=== PATIENT | female | born 1950 | race Caucasian/White ===

== ENCOUNTER → 2019-03-02 | Outpatient (CLI) | payer OTHER, SELFPAY ==
[2019-02-22 15:13] VITALS: BMI 25.4
--- NOTE | 2019-03-02 12:43 | BD_ITS ---
STUDY: DUAL ENERGY X-RAY ABSORPTIOMETRY / DXA REASON FOR EXAM: Female, 68 years old. The patient is postmenopausal. Loss of height. TECHNIQUE: Bone Mineral Density (BMD) measurements of lumbar spine and right hip were obtained. Prior left hip replacement. COMPARISON: None. FINDINGS: Lumbar Spine (L1-L4): g/cm2 (0.841) / T-score (-2.8) / Z-score (-1.2) Findings are suggestive of osteoporosis with a high fracture risk. Right Femur Total: g/cm2 (0.699) / T-score (-2.4) / Z-score (-1.0) Right Femoral Neck: g/cm2 (0.656) / T-score (-2.7) / Z-score (-1.1) BD/Dexa Bone Density Study IMPRESSION: The patient is considered osteoporotic as outlined below according to World Jay Organization (WHO) criteria with a high fracture risk. Reference Information: The T-score is the number of standard deviations above or below the standard which is normal for young adults at their peak bone mineral density. The World Health Organization (WHO) interprets the T-scores as follows: Above -1 Normal bone density Between -1 and -2.5 Osteopenia Equal to / or below -2.5 Osteoporosis As a practical clinical guideline, osteopenia may be graded as follows: Mild -1 through -1.5 Moderate -1.6 through -2.0 Severe -2.1 through -2.4 The Z-score is the number of standard deviations above or below age-matched controls. A Z-score of less than -1.5 would be considered abnormal. References: 1. NIH Osteoporosis and Related Bone Diseases http://www.osteo.org 2. International Society for Clinical Densitometry http://www.iscd.org 3. National Osteoporosis Foundation http://www.nof.org Electronically Signed: Casimiro Mazariegos, at 13:08 EDT , Service support ,
--- NOTE | 2019-03-02 13:30 | RAD_ITS ---
STUDY: X-RAY CHEST REASON FOR EXAM: Female, 68 years old. Shortness of breath TECHNIQUE: Frontal and lateral views of the chest COMPARISON: None. FINDINGS: The lungs are hyperinflated, but clear. There are no pleural effusions. There is no pneumothorax. The heart is normal in size. The visualized osseous structures are within normal limits. RAD/Chest PA and Lateral IMPRESSION: No acute thoracic pathology. Electronically Signed: Alex Lockhart, at 19:15 EDT Tel , Service support ,
[2019-03-02 13:42] LABS: Cholesterol 265 mg/dL (200); High Density Lipoprotein 79 mg/dL; Triglycerides 122 mg/dL; Very Low Density Lipoprotein 24 mg/dL (5-40)
[2019-03-02 14:19] LABS: Vitamin D,25 Hydroxy 24.6 ng/mL (29.95-100.01)
== END | disposition home or self-care (01) ==
LOC: OPBD 12:36 → PAVLAB 13:07
PROVIDERS: Family Provider Family Medicine; PCP Family Medicine; Referring Provider Family Medicine; Visit Provider Family Medicine
DX: J44.9 Chronic obstructive pulmonary disease, unspecified (principal); M81.0 Age-related osteoporosis without current pathological fracture; E78.5 Hyperlipidemia, unspecified
CPT/HCPCS: 36415; 71046; 77080; 80061; 82306

== ENCOUNTER → 2019-09-13 16:24 | Outpatient (CLI) | payer OTHER, SELFPAY ==
[2019-04-05 16:04] VITALS: BMI 25.4
[2019-09-13 17:16] LABS: Vitamin D,25 Hydroxy 61.7 ng/mL (29.95-100.01)
[2019-09-13 17:22] LABS: ALB/GLOB Ratio 1.1 RATIO (0.9-2.4); AST(SGOT) 26 U/L (15-37); Alanine Aminotransfer ALT/SGPT 30 U/L (13-56); Albumin, Serum 3.9 g/dL (3.2-5.0); Alkaline Phosphatase 63 U/L (45-117); Anion Gap 9 (5-15); BUN 8 mg/dL (7-18); BUN/Creat Ratio 12.7 RATIO (10-20); Calcium,Total 9.4 mg/dL (8.5-10.1); Chloride 99 mmol/L (98-107); Cholesterol 205 mg/dL (200); Creatinine, Serum 0.63 mg/dL (0.55-1.02); EST Glomerular Filtration Rate 100 mL/min (>60); Est Glom Filt Rate - Afr Amer 121 mL/min (>60); Globulin 3.7 g/dL (2.2-4.2); Glucose 102 mg/dL (74-106); High Density Lipoprotein 103 mg/dL; Potassium 4.1 mmol/L (3.5-5.1); Protein, Total 7.6 g/dL (6.4-8.2); Sodium Level 135 mmol/L (136-145); Triglycerides 128 mg/dL; Very Low Density Lipoprotein 26 mg/dL (5-40)
== END ==
PROVIDERS: Family Provider Family Medicine; PCP Family Medicine; Referring Provider Family Medicine; Visit Provider Family Medicine
DX: E78.5 Hyperlipidemia, unspecified (principal); M81.0 Age-related osteoporosis without current pathological fracture
CPT/HCPCS: 36415; 80053; 80061; 82306

== ENCOUNTER → 2020-03-19 | Outpatient (CLI) | payer OTHER, SELFPAY ==
[2019-10-10 13:38] VITALS: BMI 25.4
[2020-03-19 18:17] LABS: Calcium,Total 9.6 mg/dL (8.5-10.1); Creatinine, Serum 0.78 mg/dL (0.55-1.02); EST Glomerular Filtration Rate 78 mL/min (>60); Est Glom Filt Rate - Afr Amer 94 mL/min (>60)
== END | disposition home or self-care (01) ==
LOC: LABSPEC 17:03
PROVIDERS: PCP Family Medicine; Referring Provider Family Medicine; Visit Provider Family Medicine
DX: M81.0 Age-related osteoporosis without current pathological fracture (principal)
CPT/HCPCS: 82310; 82565

== ENCOUNTER → 2020-10-23 14:34 | Outpatient (CLI) | payer OTHER, SELFPAY ==
[2020-04-19 13:16] VITALS: BMI 25.4
[2020-10-23 16:51] LABS: Absolute Lymphocyte Count 1.21 X10^3/uL (0.83-4.51); Absolute Neutrophil Count 4.8 X10^3/uL (2.0-7.7); Basophil# 0.07 X10^3/uL; Basophil% 1.1 % (0-1); Eosinophil# 0.07 X10^3/uL; Eosinophils% 1.1 % (0-5); Hematocrit 51.3 % (37-47); Hemoglobin 16.7 g/dL (12.0-15.0); Lymphocyte # 1.21 X10^3/ul (4.0); Lymphocyte % 18.2 % (19-41); Mean Corp Hgb Conc 32.6 g/dL (32-36); Mean Corpuscular Hgb 30.6 pg (27.0-32.0); Mean Corpuscular Volume 94.1 fL (81-99); Mean Platelet Vol. 9.6 fl (6.2-12.0); Monocyte# 0.46 X10^3/uL; Monocyte% 6.9 % (0-10); NRBC Flagged by Analyzer 0 % (0-5); Neutrophil # 4.81 X10^3/uL (2.7-7.7); Neutrophil % 72.2 % (47-70); Platelet Count 260 K/mm3 (150-450); RBC Distribution Width CV 13.6 % (11.6-14.6); RBC Distribution Width SD 47.7 fl (35.1-43.9); Red Blood Count 5.45 M/mm3 (4.2-5.4); White Blood Count 6.7 K/mm3 (4.4-11.0)
[2020-10-23 17:02] LABS: ALB/GLOB Ratio 1.2 RATIO (0.9-2.4); AST(SGOT) 26 U/L (15-37); Alanine Aminotransfer ALT/SGPT 31 U/L (13-56); Albumin, Serum 3.9 g/dL (3.2-5.0); Alkaline Phosphatase 56 U/L (45-117); Anion Gap 5 (5-15); BUN 12 mg/dL (7-18); BUN/Creat Ratio 20.9 RATIO (10-20); Calcium,Total 9.4 mg/dL (8.5-10.1); Chloride 99 mmol/L (98-107); Cholesterol 188 mg/dL (200); Creatinine, Serum 0.57 mg/dL (0.55-1.02); EST Glomerular Filtration Rate 110 mL/min (>60); Est Glom Filt Rate - Afr Amer 134 mL/min (>60); Globulin 3.3 g/dL (2.2-4.2); Glucose 88 mg/dL (74-106); High Density Lipoprotein 97 mg/dL; Protein, Total 7.2 g/dL (6.4-8.2); Sodium Level 132 mmol/L (136-145); Triglycerides 69 mg/dL; Very Low Density Lipoprotein 14 mg/dL (5-40)
== END ==
PROVIDERS: PCP Family Medicine; Visit Provider Family Medicine
DX: M81.0 Age-related osteoporosis without current pathological fracture (principal); R53.83 Other fatigue
CPT/HCPCS: 36415; 80053; 80061; 85025

== ENCOUNTER → 2020-11-28 14:38 | Outpatient (CLI) | payer OTHER, SELFPAY ==
[2020-10-30 14:29] VITALS: BMI 21.2
--- NOTE | 2020-11-28 14:39 | CT_ITS ---
STUDY: LOW DOSE CT LUNG CANCER SCREENING REASON FOR EXAM: Female, 70 years old. TOBACCO USE. 1-1.5PPD X 50 YR. COPD RADIATION DOSAGE (If Supplied By Facility): CTDIvol = ( 1.70 ) mGy, DLP = ( 63.80 ) mGycm TECHNIQUE: No contrast was administered. Low dose technique was utilized (average mAS-38 and kVp 120). 1.25 mm axial source images with a slice interval of 1.25-mm were reconstructed in lung windows. 2.5 mm axial source images with a slice interval of 2.5-mm were reconstructed in lung windows. 5.0 mm axial source images with a slice interval of 5.0-mm were reconstructed in soft tissue windows. Nodule measured using lung windows on PACS and/or independent workstation with automated measurement of minimum and maximum diameter. Nodule measurement reported as average diameter rounded to the nearest whole number. Growth is defined as an increase ins size of greater than 1.5 mm. COMPARISON: None. NODULES: No suspicious nodules are seen. Emphysema: Hyperinflation. Mild degree of emphysematous changes more prominent in the upper lobes with centrilobular emphysematous changes. Calcified granuloma in the posterior lateral aspect of the left lower lobe. Increased markings in the peripheral aspect of the left lower lobe suggestive of scarring. Aorta: Atherosclerotic calcification. Coronary arteries: Coronary artery calcification. Heart: Unremarkable. Pulmonary artery: Unremarkable. Mediastinal nodes: Small mediastinal lymph nodes. Other chest and abdominal findings: Degenerative changes of the dorsal spine. CT/Low Dose CT Lung Screening IMPRESSION: Lung-RADS category 2 - Continue annual screening with LDCT in 12 months. IMPORTANT NOTES FOR USE: ACR Lung-RADS Version 1.0 Assessment Categories Release Date: February 19, 2014 Category: Coded 0-4 bases on nodule(s) with highest degree of suspicion. Negative screen is defined as categories 1 and 2; a positive screen is defined as categories 3 and 4. Category 3 and 4A nodules that are unchanged on interval CT should be coded as category 2, and individuals returned to screening in 12 months. Category 4X: Category 3 or 4 nodules with additional imaging findings that increase the suspicion of lung cancer, such as spiculation, GGN that doubles in size in 1 year, enlarged lymph notes, etc. Category Modifiers: S (significant finding unrelated to lung cancer) and C (prior history of treated lung cancer) may be added to the 0-4 Lung-RADS Electronically Signed: Casimiro Mazariegos MD at 15:25 EST , Service support ,
== END ==
PROVIDERS: PCP Family Medicine; Referring Provider Family Medicine; Visit Provider Family Medicine
DX: J44.9 Chronic obstructive pulmonary disease, unspecified (principal); Z87.891 Personal history of nicotine dependence
CPT/HCPCS: 71271

== ENCOUNTER 2021-05-05 06:57 | Inpatient (IN) | payer MEDICARE, SELFPAY ==
[2020-10-30 14:29] VITALS: BMI 21.2
[2021-05-05] VITALS (7 sets, daily range): BP systolic 108–126; BP diastolic 40–58; PULSE 87–108; RESP 15–18; TEMP 36.9–37.3; O2SAT 93–99; BMI 21.4
--- NOTE | 2021-05-05 09:19 | HP.PCM.HOS_ITS ---
HPI - General General Date of Admission: 05/05/21 Date of Service: 05/05/21 Chief Complaint: R hip pain s/p fall HPI Narrative The patient is a 71 y/o F w/ PMHx: EtOH abuse (3-4 beers daily and occasional 1- 2 high balls if with friends in addition), HLD, Allergic Rhinitis, COPD (not on any oxygen), Tobacco use (1 ppd) who presents to the [facility] as direct admission from OSH ED on 05/05/21 with history of fall while outside on her back deck at ~ 11 pm the evening prior, noting that her had been in her house and not heard her fall. She noted laying out on the deck until she was eventually able to crawl to the door. She had upon her fall immediate severe 10/10 R hip pain, debility and obvious deformity. OSH ED evaluation included: Labs: CBC w/ WBC 13.1, Hgb 13.3, Plts 252 with mild L shift CMP w/ Na 133, K 3.8, BUN/Cr 11/0.57, glucose 123, AST/ALT 35/46 Coags w/ INR 0.9, PT 10.9 Imaging: Plain film w/ proximal R femur fracture CXR with chronic changes with COPD type changes without acute evidence of ischemia EKG: SR without acute evidence of ischemia VS: T 97.3, HR 102, BP 130/83, RR 16, 91% on RA, weight 122 lbs Of note prior to patient's transition to [facility] she was having mild tremors and there was some concern for alcohol withdrawal therefore she was administered 0.5 mg Ativan IV x1. Patient upon transition from the EMS bed to her medical surgical bed reports ongoing right hip discomfort and pain, currently given jostled 10 out of 10 in severity, sharp, worse with any attempted movement. [facility] Medical History Alcohol abuse Arthritis Bone fracture COPD (chronic obstructive pulmonary disease) Frequent headaches Glaucoma History of pneumonia Osteoporosis Post-menopausal Seasonal allergies Smoker Home Medications calcium carbonate 200 mg calcium (500 mg) chewable tablet 200 mg PO BID PRN tab 02/17/19 [History Last Taken Unknown] loratadine 10 mg tablet 5 mg PO PRN PRN 02/17/19 [History Last Taken Unknown] multivitamin 1 cap PO DAILY 02/17/19 [History Last Taken 05/04/21] albuterol sulfate 90 mcg/actuation aerosol inhaler 1 puff INHALATION Q6H PRN #18 g 10/30/20 [Rx Last Taken Unknown] cranberry 400 mg capsule 400 mg PO DAILY 10/30/20 [History Last Taken 05/04/21] Bifidobacterium infantis [Align] 4 mg PO DAILY 05/05/21 [History Last Taken 05/04/21] aspirin [Aspirin Low Dose] 81 mg PO DAILY 05/05/21 [History Last Taken 05/04/21] atorvastatin 20 mg PO DAILY 05/05/21 [History Last Taken 05/04/21 11:30] budesonide-formoterol [Symbicort] 2 inh INHALATION Q12H 05/05/21 [History Last Taken 05/04/21 22:00] cholecalciferol (vitamin D3) 5,000 unit PO DAILY 05/05/21 [History Last Taken 05/04/21] denosumab [Prolia] 60 mg SC Q4COHDLN 05/05/21 [History Last Taken Unknown] mirabegron [Myrbetriq] 50 mg PO DAILY 05/05/21 [History Last Taken 05/04/21] tiotropium bromide [Spiriva Respimat] 2 puff INHALATION DAILY 05/05/21 [History Last Taken 05/04/21 07:30] Allergy/AdvReac Type Severity Reaction Status Date / Time clindamycin Allergy Severe c diff Verified 05/05/21 09:51 acrylic Allergy Intermediate rash Uncoded 05/05/21 09:51 Family History (Updated 05/05/21 @ 12:[address] Eula Marsh MD) Mother Myocardial infarction Hyperlipemia Father Myocardial infarction Hyperlipemia Other Arthritis Breast cancer CVA (cerebral vascular accident) Osteoporosis Thyroid disorder Surgical History (Updated 05/05/21 @ 12:[address] Eula Marsh MD) History of hip replacement History of tonsillectomy Normal colonoscopy Social History (Updated 05/05/21 @ 12:[address] Eula Marsh MD) household members: spouse Smoking Status: Current every day smoker tobacco type: cigarettes Smoking packs per day: 1 Smoking cigarettes per day: 20.0 Years smoked: 53 Smoking pack-years: 53.00 alcohol intake: current alcohol intake frequency: 3 or more drinks per day details: Patient reports currently 3-4 beers daily and if with friends 1-2 high ball substance use type: does not use what type of physical activity do you participate in: none ROS ROS Narrative Admission Review of Systems: CONSTITUTIONAL: No weight loss, fever, chills, + weakness or fatigue. HEENT: Eyes: No visual loss, blurred vision, double vision or yellow sclerae. Ears, Nose, Throat: No hearing loss, sneezing, congestion, runny nose or sore throat. SKIN: No rash or itching, lesions, wounds. CARDIOVASCULAR: No chest pain, chest pressure or chest discomfort, palpitations, edema, orthopnea, syncopal events. RESPIRATORY: + Chronic cough, occasional wheezing, no marked shortness of breath, sputum, hemoptysis. GASTROINTESTINAL: No anorexia, nausea, vomiting or diarrhea, abdominal pain, melena, BRBPR. GENITOURINARY: No dysuria, frequency, urgency or retention. NEUROLOGICAL: No headache, dizziness, syncope, paralysis, ataxia, numbness or tingling in the extremities, focal weakness, change in bowel or bladder control, seizure. MUSCULOSKELETAL:+ muscle, back pain, joint pain or stiffness. HEMATOLOGIC: No anemia, bleeding or bruising. LYMPHATICS: No enlarged nodes. No history of splenectomy. PSYCHIATRIC: No history of depression or anxiety. ENDOCRINOLOGIC: No reports of sweating, cold or heat intolerance. No polyuria or polydipsia. ALLERGIES: + history of asthma, hives, eczema or rhinitis. Vital Signs Vital Signs Vital Signs: Weight Body Mass Index (BMI) 21.2 Physical Exam Narrative Physical Examination: General: Awake, alert, oriented x 3 and cooperative, laying in the medical surgical bed, uncomfortable especially with recent transition off of the EMS cot, fatigued. Skin: Normal color, normal turgor, no icterus, no cyanosis except occasional staged ecchymoses. HEENT: AT/NC, EOMI, PERRLA, moderately dry MM, no carotid bruits or JVD noted. Lungs: Diminished, greater bases, occasional expiratory wheeze but mild, no e vidence of any distress, no rales or rhonchi. Heart: Regular rate and rhythm; no gallop, rub audible. Abdomen: Soft, thin habitus, NTTP, ND, distant normal BS, no HSM. Extremities: No cyanosis, no clubbing, evident externally rotated right lower extremity, peripheral pulses intact, extremities warm, some mild edema to the right ankle. Neurological: Patient awake, alert, oriented as noted, cognitive function intact although is currently fatigued; pupils equally reactive to light and accommodation, cranial nerves II-XII grossly normal, moving all extremities except limited right lower extremity movement secondary to mechanical fall with right hip fracture, strength accordingly severely global decrease. Psychiatric: Affect appears fatigued, uncomfortable, no acute evidence of depressive or anxiety feelings. Assessment & Plan Assessment/Plan (1) Closed right hip fracture: QUALIFIERS: Encounter type: initial encounter Qualified Code(s): S72.001A - Fracture of unspecified part of neck of right femur, initial encounter for closed fracture PLAN: The patient is a 71 y/o F w/ PMHx: EtOH abuse, HLD, Allergic Rhinitis, COPD, Tobacco use who presents to the [facility] as direct admission from OSH ED on 05/05/21 with history of fall while outside on her back deck at ~ 11 pm the evening prior with intractable right hip pain. debility and deformity. 1. General debility, R hip pain s/p mechanical fall w/ proximal R femur fracture: Orthopedic surgery consulted from ED at OSH, discussed case with them prior to her transition and upon her arrival. Will admit to MS, maintain NPO after midnight given planned 05/06/21 surgical intervention per discussion with Dr. Morgan, continue gentle IVFs, obtain TSH, Mag level, bowser placement, monitor I/Os, frequent positioning, fall precautions, type and screen, pain, anti-emetic regimen. PT/OT following operative intervention. CM consulted for discharge planning. NSQIP with acceptable risk for operative intervention. EKG without acute findings. Continue EtOH withdrawal care and treatment as noted. Denies any routine dyspnea, chest discomfort. Discussed with Dr. Morgan and agree with OR progression. 2. EtOH abuse with impending concern EtOH Withdrawal: Given OSH ED elevated CIWA scores and need for ativan, to be cautious given likely SNF needs with acute presentation, will initiate and continue on protocol with taper course of Phenobarbital with hold for sedation, as well as gabapentin for seizure prophylaxis, as needed Catapres, Bentyl, Vistaril, IV fluids, IV antiemetics, Tylenol. Will consult Case management for her acute presentation as well as substance abuse. Maintain on MVI, thiamine and folic acid. Mag, phos pending. CIWA protocol concurrently. 3. Chronic COPD with allergic rhinitis: We will hold any home inhalers and in the interim continue ATC duonebs, PRN albuterol, HOB, IS parameters, continue as needed loratadine. 4. Tobacco Abuse: Encouraged cessation, inpatient consultation per RT, NR if desired. 5. Hyperlipidemia: Continue home statin regimen. 6. DVT prophylaxis: SCDs, defer chemoprophylaxis given planned operative intervention. 7. CODE status: Patient LUAN is her and living will is currently in place. Discussed CODE status at length including difference between FULL code, DNR-CCA and DNR-CC status. Following discussions about the differences in these status, requested Full Code status. Patient does specifically report that she did not want any prolonged measures if her quality of life would be low and discussed that alterations to her current full CODE STATUS would then taken to affect this especially given her living will. Advanced Care Planning Face to Face Time: 16 minutes. Charges/Coding Visit Charges Inpatient E&M: 40824 Init Hosp L3 Procedures Hospitalists Procedures: 71788 Advncd Care Plan 30 Min
[2021-05-05 09:55] LABS: Prothrombin Time (Protime)PT. 12.2 SECONDS (11.7-14.9)
[2021-05-05 09:56] LABS: Partial Thromboplast Time 32.2 Seconds (24.1-36.2)
[2021-05-05 10:14] LABS: Phosphorus 3.4 mg/dL (2.5-4.9)
[2021-05-05] MEDS: oxyCODONE 5 MG Tablet PO ×2 (10:23→16:47)
[2021-05-05] MEDS: Ipratropium/Albuterol Sulfate 3 ML AMPUL.NEB INHALATION ×2 (10:45→19:45)
[2021-05-05 10:52] LABS: Magnesium 1.8 mg/dL (1.6-2.6); Thyroid Stim Hormone (TSH) 2.65 uIU/mL (0.358-3.74)
[2021-05-05] MEDS: Phenobarbital 32.4 MG Tablet 97.2 MG PO ×3 (13:37→21:01)
[2021-05-05] MEDS: Famotidine 20 MG Tablet PO ×2 (13:37→21:01)
[2021-05-05] MEDS: HYDROmorphone 0.5 MG/0.5 ML SYRINGE IV ×2 (13:50→20:27)
[2021-05-05] MEDS: 0.9% Saline Lock 10 ML Syringe IV (13:50)
--- NOTE | 2021-05-05 14:49 | CASEMGMT ---
Social Work Note SW received referral for Substance Abuse/Use (pt drinks 3-4 drinks daily). Pt new admit today. SW attempted to meet with pt, pt currently sleepy, unable to participate, asked for SW to follow up with pt tomorrow. SW to meet with pt tomorrow. Shanita Abrams WARD NURSE, AIRPLANE PILOT SUPERVISOR
[2021-05-05] MEDS: Thiamine Hydrochloride 100 MG Tablet PO (18:14)
[2021-05-05] MEDS: 0.9% Normal Saline 1,000 ML 100 ML IV (18:14)
[2021-05-05] MEDS: Gabapentin 300 MG Capsule PO (21:01)
[2021-05-05] MEDS: traZODone 50 MG Tablet PO (21:01)
[2021-05-05] MEDS: Atorvastatin Calcium 20 MG Tablet PO (21:01)
[2021-05-06] VITALS (19 sets, daily range): BP systolic 105–152; BP diastolic 42–77; PULSE 85–108; RESP 14–24; TEMP 36.6–37.7; O2SAT 85–99; BMI 21.4
[2021-05-06] MEDS: Phenobarbital 32.4 MG Tablet 97.2 MG PO ×2 (01:54→05:53)
[2021-05-06] MEDS: 0.9% Normal Saline 1,000 ML 100 ML IV (03:59)
[2021-05-06] MEDS: HYDROmorphone 0.5 MG/0.5 ML SYRINGE IV (04:04)
--- NOTE | 2021-05-06 06:00 | EKG12_ITS ---
Test Reason : PRE-OP Blood Pressure : / mmHG Vent. Rate : 103 BPM Atrial Rate : 103 BPM P-R Int : 118 ms QRS Dur : 100 ms QT Int : 354 ms P-R-T Axes : 086 082 075 degrees QTc Int : 463 ms Sinus tachycardia Right atrial enlargement Borderline ECG Confirmed by DARNELL HARO, SONNY ([id number]), development editor RAJ SHANNON ([id number]) on 05/07/2021 11:54:51 AM Referred By: JODIE QUIROZ Confirmed By:SONNY PATRICK MD
--- NOTE | 2021-05-06 06:14 | PCM.PN.HOSP ---
Subjective Subjective Patient overnight with mild tachycardia, oxygenation increased requirements and low-grade temperature. Patient noted to be significantly sedate therefore as discussed with staff phenobarbital protocol was discontinued for sedation with continued as needed Ativan for any withdrawal concerns. Patient still complaining of some hip discomfort and did have overnight 2 doses of pain medication. Given these findings chest x-ray was obtained and did have patchy bibasilar infiltrates worse on the left lung base with chronic COPD changes and urinalysis was obtained and concerning for UTI. Urine culture is pending. Patient was initiated on IV Rocephin with requested urine antigens, respiratory viral panel, sputum culture and Covid testing given planned operative intervention and worsened status. Patient does state that she has some difficulties coughing secondary to her severe fatigue and weakness. Patient denies chills, nausea, emesis, abdominal pain, chest pain or marked dyspnea despite current presentation. Objective Data Objective Data Vital Signs: Vital Signs Temp Pulse Resp BP Pulse Ox 99.4 F H 102 H 18 121/46 H 93 05/06/21 05:58 05/06/21 05:58 05/06/21 05:58 05/06/21 05:58 05/06/21 05:58 Oxygen Flow Rate (L/min) 2 Oxygen Delivery Method Nasal Cannula Weight: 125 lb 3.561 oz Body Mass Index (BMI) 21.4 Intake & Output: Intake and Output for Last 24 Hours 05/04/21 05/05/21 05/06/21 23:59 23:59 23:59 Intake Total 1000 / 2700 2705 / 2705 Output Total 475 / 2025 3050 / 3050 Balance 525 / 675 -345 / -345 Lab / Micro Data Result Diagrams: 05/06/21 05:47 05/06/21 05:47 Labs: Laboratory Results - last 24 hr 05/05/21 09:32: PT 12.2, INR 1.0, APTT 32.2 05/05/21 09:32: Magnesium 1.8, TSH 2.65 05/05/21 09:32: Blood Type A NEGATIVE, Antibody Screen NEGATIVE 05/05/21 09:32: Phosphorus 3.4 Physical Exam Narrative Physical Examination: General: Patient is very fatigued but does awaken to questioning, intermittently alert, able to answer orientation questions appropriately including self, place, recent events, president and month, laying the medical surgical bed, reports that she does have some difficulty successfully coughing because of her position and that it is easier for when she is seated upright but her current positioning remains laying down secondary to the hip fracture, awaiting OR. Skin: Normal color, normal turgor, no icterus, no cyanosis except occasional staged ecchymoses. HEENT: AT/NC, EOMI, PERRLA, moderately dry MM. Lungs: Diminished, greater bases, no wheezing currently, mildly rhonchorous, left greater than right base, no obvious rales and no significant wheezing, no marked respiratory rate increased. Heart: Mildly tachycardic with regular rhythm; no gallop, rub audible. Abdomen: Soft, thin habitus, NTTP, ND, distant normal BS, no HSM. Extremities: No cyanosis, no clubbing, evident externally rotated right lower extremity, peripheral pulses intact, extremities warm, some mild edema to the right ankle. Neurological: Patient is very fatigued but does awaken to questioning, intermittently alert, able to answer orientation questions appropriately including self, place, recent events, president and month, cognitive function decreased from day prior, fatigued; pupils equally reactive to light and accommodation, cranial nerves II-XII grossly normal, moving all extremities except limited right lower extremity movement secondary to mechanical fall with right hip fracture, strength accordingly severely global decrease. Psychiatric: Affect appears fatigued, no acute evidence of depressive or anxiety feelings. Assessment & Plan Assessment/Plan (1) Closed right hip fracture: QUALIFIERS: Encounter type: initial encounter Qualified Code(s): S72.001A - Fracture of unspecified part of neck of right femur, initial encounter for closed fracture PLAN: The patient is a 71 y/o F w/ PMHx: EtOH abuse, HLD, Allergic Rhinitis, COPD, Tobacco use who presents to the [facility] as direct admission from OSH ED on 05/05/21 with history of fall while outside on her back deck at ~ 11 pm the evening prior with intractable right hip pain. debility and deformity. 1. General debility, R hip pain s/p mechanical fall w/ proximal R femur fracture: Orthopedic surgery consulted from ED at OSH, discussed case with them prior to her transition and upon her arrival. Will admit to MS, maintain NPO after midnight given planned 05/06/21 surgical intervention per discussion with Dr. Morgan, continue gentle IVFs, obtain TSH, Mag level, bowser placement, monitor I/Os, frequent positioning, fall precautions, type and screen, pain, anti-emetic regimen. PT/OT following operative intervention. CM consulted for discharge planning. 2. Pneumonia, BL, L>R, Possible Aspiration component with Hypoxia: Chest x-ray with patchy bibasilar infiltrates worse on the left lung base, low-grade temperature, no marked CBC elevation or left shift, to be cautious given remarkable urine as started on IV zosyn given possible aspiration given lethargy pending ST evaluation, request sputum culture, urine antigens, respiratory viral panel and given planned OR Covid status, continue aerosols, as needed albuterol, head of bed once allowed and encourage I-S. Encourage frequent coughing. 3. Acute Urinary Tract Infection: UA upon remarkable, pending UCx, continue IVFs, monitor I/Os, continue IV zosyn given concern for aspiration component with #[address] evaluation as noted w/ transition as able pending sensitivities and speciation and ST evaluation performed. 4. EtOH abuse w/ concern for EtOH Withdrawal: Given OSH ED elevated CIWA scores and need for ativan, to be cautious given likely SNF needs with acute presentation, had initiated on protocol of Phenobarbital; however, given lethargy and possible aspiration will d/c and have only PRN CIWA protocol. Case management consulted for substance abuse. Maintained on MVI, thiamine and folic acid. Mag, phos normal. CIWA protocol concurrently. 5. Chronic COPD with allergic rhinitis: We will hold any home inhalers and in the interim continue ATC duonebs, PRN albuterol, HOB, IS parameters, continue as needed loratadine. #2 complicated by underlying lung disease. 6. Chronic anemia, normocytic: Unclear exact timeline, OSH ED CBC w/ Hgb 13.3, decreased 05/06/21 10.7, MCV normal range, possibly dilution given hydration over the last 24 hours and acute fracture as noted, continue to trend. 7. Tobacco Abuse: Encouraged cessation, inpatient consultation per RT, NR if desired. 8. Hyperlipidemia: Continue home statin regimen. 9. DVT prophylaxis: SCDs, defer chemoprophylaxis given planned operative intervention. 10. CODE status: Full Code. Charges/Coding Visit Charges Inpatient E&M: 93566 Subs Hosp L3
--- NOTE | 2021-05-06 06:30 | RAD_ITS ---
STUDY: X-RAY CHEST REASON FOR EXAM: Female, 71 years old. Dyspnea, fever TECHNIQUE: Single AP portable view of the chest. COMPARISON: Comparison is made with prior study dated 05/05/2021. FINDINGS: There is hyperinflation of the lungs consistent with chronic obstructive lung disease (COPD). Patchy bibasilar infiltrates worse on the left side. Follow-up is recommended. There is no demonstrated pleural abnormality. Normal size heart. Normal mediastinum and kirsten. Normal visualized pulmonary arteries. There is atherosclerotic calcification of the aortic arch with tortuosity. There are diffuse degenerative changes of the visualized thoracic spine. Normal visualized ribs, clavicles, and shoulders. There is no demonstrated abnormality of the visualized soft tissue structures of the upper abdomen. RAD/Chest 1 View (Portable) IMPRESSION: Patchy bibasilar infiltrates worse on the left lung base. Follow-up is recommended. Electronically Signed: Casimiro Mazariegos MD at 8:13 EDT , Service support ,
[2021-05-06 06:34] LABS: Absolute Lymphocyte Count 0.87 X10^3/uL (0.83-4.51); Absolute Neutrophil Count 4.6 X10^3/uL (2.0-7.7); Basophil# 0.03 X10^3/uL; Basophil% 0.5 % (0-1); Eosinophil# 0.06 X10^3/uL; Hematocrit 32.5 % (37-47); Hemoglobin 10.7 g/dL (12.0-15.0); Lymphocyte # 0.87 X10^3/ul (0.83-4.51); Lymphocyte % 14.5 % (19-41); Mean Corp Hgb Conc 32.9 g/dL (32-36); Mean Corpuscular Volume 97.3 fL (81-99); Mean Platelet Vol. 9.3 fl (6.2-12.0); Monocyte# 0.45 X10^3/uL; Monocyte% 7.5 % (0-10); NRBC Flagged by Analyzer 0 % (0-5); Neutrophil # 4.55 X10^3/uL (2.7-7.7); Neutrophil % 76.2 % (47-70); Platelet Count 191 K/mm3 (150-450); RBC Distribution Width CV 13.3 % (11.6-14.6); RBC Distribution Width SD 47.8 fl (35.1-43.9); Red Blood Count 3.34 M/mm3 (4.2-5.4)
[2021-05-06 06:52] LABS: Mucous, Urine 0 SEEN /hpf (<or=2+); Red Blood Cells-Urine 0 SEEN /hpf (0-5)
[2021-05-06 06:53] LABS: Color, Urine Yellow (Yellow); Glucose, Dipstick Normal (Normal); Ketone-Dipstick Negative (Negative); Leukocyte Esterase-Dipstick 500 /ul (Negative); Nitrite-Dipstick Positive (Negative); Occult Blood-Urine 10 /ul (Negative); Protein-Dipstick Negative (Negative); Specific Gravity, Urine 1.015 (1.002-1.030); Urine Bilirubin Dipstick Negative (Negative); Urine Clarity Clear (Clear); Urine Urobilinogen Normal (Normal)
[2021-05-06 06:59] LABS: White Blood Cells 10-25 SEEN /hpf (0-5)
[2021-05-06 07:00] LABS: Amorphous Sediment 2+; Bacteria 2+ /hpf (None Seen); Squamous Epithelial Cells - UA 0-5 SEEN /hpf (5-10)
[2021-05-06 07:11] LABS: ALB/GLOB Ratio 1.1 RATIO (0.9-2.4); AST(SGOT) 24 U/L (15-37); Alanine Aminotransfer ALT/SGPT 31 U/L (13-56); Albumin, Serum 2.7 g/dL (3.2-5.0); Alkaline Phosphatase 44 U/L (45-117); Anion Gap 5 (5-15); BUN 6 mg/dL (7-18); BUN/Creat Ratio 14.9 RATIO (10-20); Calcium,Total 7.4 mg/dL (8.5-10.1); Chloride 104 mmol/L (98-107); EST Glomerular Filtration Rate 166 mL/min (>60); Est Glom Filt Rate - Afr Amer 201 mL/min (>60); Estimated Creatinine Clearance 44.56 ml/min; Globulin 2.5 g/dL (2.2-4.2); Glucose 113 mg/dL (74-106); Potassium 4.3 mmol/L (3.5-5.1); Protein, Total 5.2 g/dL (6.4-8.2); Sodium Level 135 mmol/L (136-145)
[2021-05-06] MEDS: Ipratropium/Albuterol Sulfate 3 ML AMPUL.NEB INHALATION ×3 (07:35→19:30)
[2021-05-06] MEDS: Thiamine Hydrochloride 100 MG Tablet PO ×2 (08:04→20:41)
[2021-05-06] MEDS: Multivitamins,Ther W-Minerals Tablet 1 TABLET PO (08:04)
[2021-05-06] MEDS: Famotidine 20 MG Tablet PO ×2 (08:04→20:42)
[2021-05-06] MEDS: Folic Acid 1 MG Tablet PO (08:04)
[2021-05-06 09:31] LABS: Procalcitonin 0.04 ng/mL (0.00-0.09)
--- NOTE | 2021-05-06 09:35 | CPS ---
PCR and Panel collected by [facility]
[2021-05-06] MEDS: Ceftriaxone 1 GM/50 ML BAG IV (09:41)
--- NOTE | 2021-05-06 10:50 | CASEMGMT ---
RN CM Face to Face with patient for initial transition planning/care coordination assessment. RN CM introduced self and role at [facility]. Patient lying in bed, alert and slightly confused, at bedside. Patient and willing to participate in assessment and is able to answer all questions appropriately. Care providers, pharmacy, and demographics verified. Patient and unsure of plans at discharge, open to the possiblity of SNF vs HHC at discharge pending course of treatment and progress with therapy. SW updated regarding possible placement at discharge. Patient and state they have no further needs or concerns at this time. CM to follow for discharge planning needs that may arise. PCP: Clifford Banuelos Specialists: Vin official court reporter [facility]erred Pharmacy: [facility] Insurance: The Health plan Prescription Benefit: yes Living Will/HPOA: yes, Fred De La O LNOK: Living Arrangements: Patient lives with in a single story home with no steps to enter. Mattn was independent at home prior to fall. Transportation: self/ DME/HHC: Patient has shower chair, raised toilet, cane, grab bars, hand held shower. Will monitor for need for walker at discharge. Patient smokes 1 PPD of cigarettes. Disposition Plan: SNF vs HHC pending course of treatment and progress with therapy. Shanita GUAMAN, RN, CM
[2021-05-06] MEDS: Morphine 2 MG/ML Syringe IV ×2 (11:32→20:40)
--- NOTE | 2021-05-06 11:51 | CASEMGMT ---
SOCIAL WORK Reason for Consult: History of alcohol use, possible need for SNF Met with patient and patient's in room. Introduced role and reason for referral. reports patient not lucid at this time. states home set up is one story and handicap accessible. Patient uses cane for assistance with ambulation. Discussed possible need for SNF and provided list of SNF in network with patient's insurance. reports patient does drink 3-4 beers a day and has never been a problem. states will discuss any need for resources with . does report history of anxiety and depression from son being in [employer] and deployed throughout his life. Emotional support provided. Informed CM/SW will be following up for needs upon discharge. Plan: DANILO Souza, LVN LPN, DIE CLEANER
[2021-05-06] MEDS: 0.9% Saline Lock 10 ML Syringe IV ×2 (13:21→21:06)
--- NOTE | 2021-05-06 16:10 | RAD_ITS ---
STUDY: X-RAY - PELVIS AND RIGHT HIP REASON FOR EXAM: Female, 71 years old. FX TECHNIQUE: 3 C-arm views of the pelvis and hip. 146 seconds fluoroscopy time. COMPARISON: None. FINDINGS: The limited [id number] images show placement of intramedullary dannielle along the length of the femur with intercalated nail through the neck of the femur fixating fracture into anatomic alignment and position. Correlate with procedure note. Electronically Signed: Mateusz Douglass MD at 23:58 EDT , Service support , RAD/HIP, UNI W/ Pelvis 2-3 Views
[2021-05-06] MEDS: Cefazolin 2 GM in 0.9% Normal Saline 100 ML IV (16:20)
[2021-05-06 18:27] LABS: Hematocrit 33.9 % (37-47); Hemoglobin 10.8 g/dL (12.0-15.0); Mean Corp Hgb Conc 31.9 g/dL (32-36); Mean Corpuscular Hgb 31.4 pg (27.0-32.0); Mean Corpuscular Volume 98.5 fL (81-99); Mean Platelet Vol. 9.6 fl (6.2-12.0); POSITIVE DIFFERENTIAL YES; Platelet Count 189 K/mm3 (150-450); RBC Distribution Width CV 13.2 % (11.6-14.6); RBC Distribution Width SD 48.4 fl (35.1-43.9); Red Blood Count 3.44 M/mm3 (4.2-5.4); White Blood Count 8.5 K/mm3 (4.4-11.0)
[2021-05-06] MEDS: Lactated Ringers 1,000 ML 100 ML IV ×2 (18:27→20:40)
[2021-05-06 18:34] LABS: Anion Gap 2 (5-15); BUN 3 mg/dL (7-18); BUN/Creat Ratio 6.9 RATIO (10-20); Calcium,Total 7.5 mg/dL (8.5-10.1); Chloride 104 mmol/L (98-107); Creatinine, Serum 0.44 mg/dL (0.55-1.02); EST Glomerular Filtration Rate 152 mL/min (>60); Est Glom Filt Rate - Afr Amer 184 mL/min (>60); Estimated Creatinine Clearance 44.56 ml/min; Glucose 114 mg/dL (74-106); Potassium 4.2 mmol/L (3.5-5.1); Sodium Level 133 mmol/L (136-145)
[2021-05-06 18:39] LABS: Scan Indicated on CBC? Y/N YES- FLAGS NOTED
[2021-05-06] MEDS: Atorvastatin Calcium 20 MG Tablet PO (20:41)
[2021-05-06] MEDS: Cefazolin 1 GM/50 ML BAG IV (21:10)
[2021-05-06] MEDS: MELATONIN 3 MG TABLET PO (22:14)
[2021-05-06] MEDS: oxyCODONE 5 MG Tablet PO (22:14)
[2021-05-06] MEDS: HYDROcodone Bitartrate/Apap 5/325 Tablet PO (23:39)
[2021-05-07] VITALS (9 sets, daily range): BP systolic 94–113; BP diastolic 46–57; PULSE 80–115; RESP 18–20; TEMP 36.8–37.2; O2SAT 84–100
[2021-05-07] MEDS: oxyCODONE 5 MG Tablet PO ×2 (03:41→16:09)
[2021-05-07] MEDS: Cefazolin 1 GM/50 ML BAG IV (05:56)
[2021-05-07] MEDS: Rivaroxaban 10 MG Tablet PO (05:58)
[2021-05-07] MEDS: HYDROcodone Bitartrate/Apap 5/325 Tablet PO ×2 (06:01→20:11)
[2021-05-07 06:07] LABS: Absolute Lymphocyte Count 0.27 X10^3/uL (0.83-4.51); Absolute Neutrophil Count 5.5 X10^3/uL (2.0-7.7); Basophil# 0.01 X10^3/uL; Basophil% 0.2 % (0-1); Hematocrit 28.5 % (37-47); Hemoglobin 9.2 g/dL (12.0-15.0); Lymphocyte # 0.27 X10^3/ul (0.83-4.51); Lymphocyte % 4.4 % (19-41); Mean Corp Hgb Conc 32.3 g/dL (32-36); Mean Corpuscular Hgb 31.3 pg (27.0-32.0); Mean Corpuscular Volume 96.9 fL (81-99); Mean Platelet Vol. 9.5 fl (6.2-12.0); Monocyte# 0.39 X10^3/uL; Monocyte% 6.3 % (0-10); NRBC Flagged by Analyzer 0 % (0-5); Neutrophil # 5.49 X10^3/uL (2.7-7.7); Neutrophil % 88.8 % (47-70); POSITIVE DIFFERENTIAL YES; Platelet Count 184 K/mm3 (150-450); RBC Distribution Width SD 46.2 fl (35.1-43.9); Red Blood Count 2.94 M/mm3 (4.2-5.4); White Blood Count 6.2 K/mm3 (4.4-11.0)
[2021-05-07 06:09] LABS: Differential Indicated SCAN CRITERIA MET
--- NOTE | 2021-05-07 06:20 | PN.HOSP_ITS ---
Subjective Subjective Patient overnight with notable improvement with more alert status, eagerness for intake with ST evaluation with now clearance as had been very sedated with unsafe oral intake the day prior. Patient more readily able to cough. Respiratory status has notably improved. Patient does note that her right hip is uncomfortable with certain movements and she is working with therapies. Discussed at length possibility for skilled facility versus acute rehab and patient is still not sure which she prefers to do but it was strongly recommended. Patient denies fevers, chills, nausea, emesis, abdominal pain, chest pain or dyspnea. Objective Data Objective Data Vital Signs: Vital Signs Temp Pulse Resp BP Pulse Ox 98.3 F 84 18 113/57 L 96 05/07/21 03:37 05/07/21 03:37 05/07/21 03:37 05/07/21 03:37 05/07/21 03:37 Oxygen Flow Rate (L/min) 2 Oxygen Delivery Method Nasal Cannula Weight: 125 lb 3.561 oz Body Mass Index (BMI) 21.4 Intake & Output: Intake and Output for Last 24 Hours 05/05/21 05/06/21 05/07/21 23:59 23:59 23:59 Intake Total 1000 / 2700 5256.67 / 5256.67 250 / 250 Output Total 475 / 2025 5225 / 5225 650 / 650 Balance 525 / 675 31.67 / 31.67 -400 / -400 Lab / Micro Data Result Diagrams: 05/07/21 05:26 05/07/21 05:26 Labs: Laboratory Results - last 24 hr 05/05/21 09:32: Procalcitonin 0.04 05/06/21 05:47: WBC 6.0, RBC 3.34 L, Hgb 10.7 L, Hct 32.5 L, MCV 97.3, MCH 32.0, MCHC 32.9, RDW Std Deviation 47.8 H, RDW Coeff of Slime 13.3, Plt Count 191, MPV 9.3, Immature Gran % (Auto) 0.300, Neut % (Auto) 76.2 H, Lymph % (Auto) 14.5 L, [place] % (Auto) 7.5, Eos % (Auto) 1.0, Baso % (Auto) 0.5, Absolute Neuts (auto) 4.6, Absolute Lymphs (auto) 0.87, Nucleated RBC % 0 05/06/21 05:47: Sodium 135 L, Potassium 4.3, Chloride 104, Carbon Dioxide 26.0, Anion Gap 5, BUN 6 L, Creatinine 0.40 L, Estim Creat Clear Calc 44.56, Est GFR (MDRD) Af Amer 201, Est GFR (MDRD) Non-Af 166, BUN/Creatinine Ratio 14.9, Glucose 113 H, Calcium 7.4 L, Total Bilirubin 0.70, AST 24, ALT 31, Alkaline Sergey sphatase 44 L, Total Protein 5.2 L, Albumin 2.7 L, Globulin 2.5, Albumin/Globulin Ratio 1.1 05/06/21 06:45: Urine Color Yellow, Urine Clarity Clear, Urine pH 5.0, Ur Specific [place] 1.015, Urine Protein Negative, Urine Glucose (UA) Normal, Urine Ketones Negative, Urine Occult Blood 10 H, Urine Nitrite Positive H, Urine Bilirubin Negative, Urine Urobilinogen Normal, Ur Leukocyte Esterase 500 H, Urine RBC 0 SEEN, Urine WBC 10-25 SEEN, Ur Squamous Epith Cells 0-5 SEEN, Amorphous Sediment 2+, Urine Bacteria 2+, Urine Mucus 0 SEEN 05/06/21 10:17: COVID-19 (MARIBELL) Not Detected 05/06/21 18:05: WBC 8.5, RBC 3.44 L, Hgb 10.8 L, Hct 33.9 L, MCV 98.5, MCH 31.4, MCHC 31.9 L, RDW Std Deviation 48.4 H, RDW Coeff of Slime 13.2, Plt Count 189, MPV 9.6, Differential Comment LYMPHOPENIA NOTED 05/06/21 18:05: Sodium 133 L, Potassium 4.2, Chloride 104, Carbon Dioxide 27.0, Anion Gap 2 L, BUN 3 L, Creatinine 0.44 L, Estim Creat Clear Calc 44.56, Est GFR (MDRD) Af Amer 184, Est GFR (MDRD) Non-Af 152, BUN/Creatinine Ratio 6.9 L, Glucose 114 H, Calcium 7.5 L 05/07/21 05:26: WBC 6.2, RBC 2.94 L, Hgb 9.2 L, Hct 28.5 L, MCV 96.9, MCH 31.3, MCHC 32.3, RDW Std Deviation 46.2 H, RDW Coeff of Slime 13.0, Plt Count 184, MPV 9.5, Immature Gran % (Auto) 0.300, Neut % (Auto) 88.8 H, Lymph % (Auto) 4.4 L, [place] % (Auto) 6.3, Eos % (Auto) 0.0, Baso % (Auto) 0.2, Absolute Neuts (auto) 5.5, Absolute Lymphs (auto) 0.27 L, Nucleated RBC % 0 Micro: Microbiology 05/06/21 10:42 Sputum, Expectorated/Coughed Gram Stain - Final 05/06/21 10:17 Mucosa - Nasopharyngeal Respiratory Panel (PCR) - Final 05/06/21 08:40 Urine Catheter - Locke Legionella Antigen - Final 05/06/21 08:40 Urine Catheter - [place] Streptococcus pneumoniae Antigen (M - Final Radiography Diagnostic Testing: Radiology Impression Chest X-Ray 05/06/21 06:30 IMPRESSION: Patchy bibasilar infiltrates worse on the left lung base. Follow-up is recommended. Electronically Signed: Casimiro Mazariegos MD at 8:13 EDT , Service support , Hip/Pelvis X-Ray 05/06/21 16:10 Physical Exam Narrative Physical Examination: General: Awake, alert, oriented x 3 and cooperative, seated upright in the [facility] surgical bed in no apparent distress, does report some right hip pain with certain movements. Skin: Normal color, normal turgor, no icterus, no cyanosis except recent right hip fracture status post OR with incision/dressing in place without drainage. HEENT: AT/NC, EOMI, PERRLA, moderately dry MM, currently n.p.o. status awaiting ST evaluation. Lungs: Significantly improved, diminished bases, occasional end expiratory wheeze, improved effort, no rales or rhonchi, actually witness patient perfo rming incentive spirometry upon entrance into the room initially. Heart: Regular rate and rhythm; no gallop, rub audible. Abdomen: Soft, NTTP, ND, normal BS. Extremities: No cyanosis, clubbing, or edema, see skin with recent right hip fracture, status post OR with right hip incision/dressing without drainage. Neurological: Patient awake, alert, oriented as noted, cognitive function improved, baseline intact; pupils equally reactive to light and accommodation, cranial nerves II-XII grossly normal, moving all 4 extremities except limitations given recent right hip fracture status post or, no focal deficits, strength improving, moderately to severely global decrease. Psychiatric: Affect appears improved, more alert, mildly fatigued otherwise nearing normal, no acute evidence of depressive or anxiety feelings. Assessment & Plan Assessment/Plan (1) Closed right hip fracture: QUALIFIERS: Encounter type: initial encounter Qualified Code(s): S72.001A - Fracture of unspecified part of neck of right femur, initial encounter for closed fracture PLAN: The patient is a 71 y/o F w/ PMHx: EtOH abuse, HLD, Allergic Rhinitis, COPD, Tobacco use who presents to the [facility] as direct admission from OSH ED on 05/05/21 with history of fall while outside on her back deck at ~ 11 pm the evening prior with intractable right hip pain. debility and deformity. 1. General debility, R hip pain s/p mechanical fall w/ proximal R femur fracture: Orthopedic surgery consulted from ED at OSH, discussed case with them prior to her transition and upon her arrival. Admitted to medical surgical floor, OR 05/06/2021 with right hip fracture repair per Dr. Morgan, d/c niels with increased ambulation, monitor I/Os, frequent positioning, fall precautions, PT/OT following operative intervention. CM consulted for discharge planning. 2. ? Pneumonia versus Atelectasis, BL, L>R, Possible Aspiration component with Hypoxia: Given lethargy, hypoxia, obtained Chest x-ray with patchy bibasilar infiltrates worse on the left lung base, noted also low-grade temperature but no marked CBC elevation or left shift. Therefore to be cautious started on IV zosyn initially pending ST with evaluation 05/07/21 cleared for oral intake. Will await UCx prior to abx transition. Pending sputum Cx, negative urine antigens, negative respiratory viral panel, negative Covid status. Will continue aerosols, as needed albuterol, head of bed once allowed and encourage I-S. 3. Acute Urinary Tract Infection: UA upon remarkable, pending UCx, continue IVF s, monitor I/Os, continued currently on IV zosyn given concern for aspiration component with #2 w/ transition as able pending sensitivities and speciation. 4. EtOH abuse w/ concern for EtOH Withdrawal: Given OSH ED elevated CIWA scores and need for ativan, to be cautious given likely SNF needs with acute presentation, had initiated on protocol of Phenobarbital; however, given lethargy and possible aspiration 05/06/21 d/c w/ PRN CIWA protocol. Case management consulted for substance abuse. Maintained on MVI, thiamine and folic acid. Mag, phos normal. CIWA protocol concurrently. 5. Chronic COPD with allergic rhinitis: We will hold any home inhalers and in the interim continue ATC duonebs, PRN albuterol, HOB, IS parameters, continue as needed loratadine. #2 complicated by underlying lung disease. 6. Chronic anemia, normocytic: Unclear exact timeline, OSH ED CBC w/ Hgb 13.3, decreased 05/06/21 10.7, MCV normal range, possibly dilution given hydration over the last 24 hours and acute fracture as noted, 05/07/21 Hgb 9.2. 7. Tobacco Abuse: Encouraged cessation, inpatient consultation per RT, NR if desired. 8. Hyperlipidemia: Continue home statin regimen. 9. DVT prophylaxis: SCDs, xarelto 10 mg daily per Orthopedic surgery discretion. 10. CODE status: Full Code. Charges/Coding Visit Charges Inpatient E&M: 13122 Subs Hosp L2
[2021-05-07] MEDS: 0.9% Saline Lock 10 ML Syringe IV ×2 (06:35→17:48)
[2021-05-07 06:36] LABS: Differential Comment SCANNED
[2021-05-07 06:48] LABS: ALB/GLOB Ratio 0.9 RATIO (0.9-2.4); AST(SGOT) 24 U/L (15-37); Alanine Aminotransfer ALT/SGPT 26 U/L (13-56); Albumin, Serum 2.4 g/dL (3.2-5.0); Alkaline Phosphatase 37 U/L (45-117); Anion Gap 0 (5-15); BUN 4 mg/dL (7-18); BUN/Creat Ratio 11.2 RATIO (10-20); Calcium,Total 7.3 mg/dL (8.5-10.1); Chloride 103 mmol/L (98-107); Creatinine, Serum 0.36 mg/dL (0.55-1.02); EST Glomerular Filtration Rate 191 mL/min (>60); Est Glom Filt Rate - Afr Amer 231 mL/min (>60); Estimated Creatinine Clearance 44.56 ml/min; Globulin 2.6 g/dL (2.2-4.2); Glucose 126 mg/dL (74-106); Potassium 4.1 mmol/L (3.5-5.1); Sodium Level 133 mmol/L (136-145)
[2021-05-07] MEDS: Ipratropium/Albuterol Sulfate 3 ML AMPUL.NEB INHALATION ×3 (07:02→19:27)
[2021-05-07] MEDS: Lactated Ringers 1,000 ML 100 ML IV (07:39)
[2021-05-07] MEDS: Thiamine Hydrochloride 100 MG Tablet PO ×2 (08:36→18:40)
[2021-05-07] MEDS: Folic Acid 1 MG Tablet PO (08:36)
[2021-05-07] MEDS: Multivitamins,Ther W-Minerals Tablet 1 TABLET PO (08:36)
[2021-05-07] MEDS: Famotidine 20 MG Tablet PO ×2 (10:59→20:57)
[2021-05-07] MEDS: Mirabegron 50 MG TAB.ER.24H PO (10:59)
--- NOTE | 2021-05-07 11:32 | CASEMGMT ---
Social Work Therapy is recommending Inpatient Rehab for patient at time of discharge. SW met with pt, and son and introduced self and role of SW. SW discussed discharge options including SNF, Inpatient Rehab and out pt therapy and discussed insurance coverage. Pt was provided a list of IRF providers including quality and resource use data and consistent with the patient's preferred geographic region ,medical needs and insurance network. After family discussion, pt preferred provider is [facility] Inpatient Rehab. Referral made to Sharon in Inpatient rehab. They are able to accept pt, insurance preauthorization will be started. Pt aware that SW will notify her when insurance issues a decision. Plan: Inpatient Rehab, pending insurance authorization. WAN Fleming
--- NOTE | 2021-05-07 14:55 | PCM.PN.ORT ---
Objective Data Objective Data with her at her side.Patient sitting up in bed Patient denies chest pain, shortness of breath, calf pain, nausea vomiting. Denies any numbness or tingling of the lower extremities. Patient has no other complaints at this time. Vital Signs: Vital Signs Temp Pulse Resp BP Pulse Ox 98.4 F 94 18 105/46 L 97 05/07/21 14:25 05/07/21 14:25 05/07/21 14:25 05/07/21 14:25 05/07/21 14:25 Oxygen Flow Rate (L/min) 2 Oxygen Delivery Method Nasal Cannula Weight: 62.6 kg Body Mass Index (BMI) 21.4 Intake & Output: Intake and Output for Last 24 Hours 05/05/21 05/06/21 05/07/21 23:59 23:59 23:59 Intake Total 1000 / 2700 5256.67 / 5256.67 1776.67 / 1776.67 Output Total 475 / 2025 5225 / 5225 1525 / 1525 Balance 525 / 675 31.67 / 31.67 251.67 / 251.67 Lab / Micro Data Result Diagrams: 05/07/21 05:26 05/07/21 05:26 Labs: Laboratory Results - last 24 hr 05/06/21 18:05: WBC 8.5, RBC 3.44 L, Hgb 10.8 L, Hct 33.9 L, MCV 98.5, MCH 31.4, MCHC 31.9 L, RDW Std Deviation 48.4 H, RDW Coeff of Slime 13.2, Plt Count 189, MPV 9.6, Differential Comment LYMPHOPENIA NOTED 05/06/21 18:05: Sodium 133 L, Potassium 4.2, Chloride 104, Carbon Dioxide 27.0, Anion Gap 2 L, BUN 3 L, Creatinine 0.44 L, Estim Creat Clear Calc 44.56, Est GFR (MDRD) Af Amer 184, Est GFR (MDRD) Non-Af 152, BUN/Creatinine Ratio 6.9 L, Glucose 114 H, Calcium 7.5 L 05/07/21 05:26: WBC 6.2, RBC 2.94 L, Hgb 9.2 L, Hct 28.5 L, MCV 96.9, MCH 31.3, MCHC 32.3, RDW Std Deviation 46.2 H, RDW Coeff of Slime 13.0, Plt Count 184, MPV 9.5, Immature Gran % (Auto) 0.300, Neut % (Auto) 88.8 H, Lymph % (Auto) 4.4 L, [place] % (Auto) 6.3, Eos % (Auto) 0.0, Baso % (Auto) 0.2, Absolute Neuts (auto) 5.5, Absolute Lymphs (auto) 0.27 L, Nucleated RBC % 0, Differential Comment SCANNED 05/07/21 05:26: Sodium 133 L, Potassium 4.1, Chloride 103, Carbon Dioxide 30.0, Anion Gap 0 L, BUN 4 L, Creatinine 0.36 L, Estim Creat Clear Calc 44.56, Est GFR (MDRD) Af Amer 231, Est GFR (MDRD) Non-Af 191, BUN/Creatinine Ratio 11.2, Glucose 126 H, Calcium 7.3 L, Total Bilirubin 0.50, AST 24, ALT 26, Alkaline Phosphatase 37 L, Total Protein 5.0 L, Albumin 2.4 L, Globulin 2.6, Albumin/Globulin Ratio 0.9 Micro: Microbiology 05/06/21 10:42 Sputum, Expectorated/Coughed Gram Stain - Final 05/06/21 10:42 Sputum, Expectorated/Coughed Respiratory Culture - Preliminary Appears to be normal respiratory sarah. Further studies to follow. 05/06/21 10:17 Mucosa - Nasopharyngeal Respiratory Panel (PCR) - Final 05/06/21 08:40 Urine Catheter - Locke Legionella Antigen - Final 05/06/21 08:40 Urine Catheter - Locke Streptococcus pneumoniae Antigen (M - Final Radiography Diagnostic Testing: Radiology Impression Hip/Pelvis X-Ray 05/06/21 16:10 Physical Exam Narrative Patient sitting up in bed talking with her . She is in no respiratory distress. Patient speaking in full sentences. Patient is alert to person place and time. I reviewed and noted the vitals and labs in the medical record. Patient has good motion of the upper extremities. Patient's dressings are clean dry intact on the right lateral aspect of the thigh. The thigh is soft mildly tender to palpation. Patient has good flexion-extension of the knee. No calf tenderness. Patient has strong posterior tibial and dorsalis pedis pulses. Const oriented x3 Eyes PERRL Neuro CN's II-XII intact bilaterally Assessment & Plan Assessment/Plan (1) Closed right hip fracture: QUALIFIERS: Encounter type: initial encounter Qualified Code(s): S72.001A - Fracture of unspecified part of neck of right femur, initial encounter for closed fracture PLAN: 1. Continue all pain medications as prescribed 2. 50% weightbearing with walker for 4 weeks and then weight-bear as tolerated with walker 3. Continue postoperative anticoagulation as directed by medicine 4. Encourage incentive spirometry 5. Shower 05/10/2021 6. [place] out 05/19/2021 7. Follow-up with Dr. Morgan in 4 weeks call office for appointment,
[2021-05-07] MEDS: Atorvastatin Calcium 20 MG Tablet PO (20:57)
[2021-05-08] VITALS (10 sets, daily range): BP systolic 93–122; BP diastolic 51–65; PULSE 88–112; RESP 16–19; TEMP 36.8–37.6; O2SAT 93–97
[2021-05-08 05:56] LABS: Absolute Neutrophil Count 3.7 X10^3/uL (2.0-7.7); Basophil# 0.03 X10^3/uL; Basophil% 0.6 % (0-1); Eosinophil# 0.07 X10^3/uL; Eosinophils% 1.3 % (0-5); Hemoglobin 8.1 g/dL (12.0-15.0); Lymphocyte % 15.4 % (19-41); Mean Corp Hgb Conc 32.4 g/dL (32-36); Mean Corpuscular Hgb 31.6 pg (27.0-32.0); Mean Corpuscular Volume 97.7 fL (81-99); Mean Platelet Vol. 8.7 fl (6.2-12.0); Monocyte# 0.59 X10^3/uL; Monocyte% 11.3 % (0-10); NRBC Flagged by Analyzer 0 % (0-5); Neutrophil # 3.69 X10^3/uL (2.7-7.7); Platelet Count 178 K/mm3 (150-450); RBC Distribution Width SD 47.1 fl (35.1-43.9); Red Blood Count 2.56 M/mm3 (4.2-5.4); White Blood Count 5.2 K/mm3 (4.4-11.0)
--- NOTE | 2021-05-08 06:18 | PN.HOSP_ITS ---
Subjective Subjective Patient with no acute events overnight per self and per nursing report. Patient's oxygenation is improving and she denies any respiratory complaints aside from chronic coughing which is unchanged. She does note some pain to the right side and some swelling but is significantly improved since her initial presentation prior to her surgical intervention. She has been up with therapies and is considering rehab. Discussed plan of care which includes awaiting urine culture with plan transition to IV Rocephin given clearance per ST and suspect likely more atelectasis associated with respiratory status. Patient denies fevers, chills, nausea, emesis, abdominal pain, chest pain or worsened or recurrent dyspnea. Objective Data Objective Data Vital Signs: Vital Signs Temp Pulse Resp BP Pulse Ox 98.2 F 88 18 93/51 L 94 05/08/21 02:20 05/08/21 02:20 05/08/21 02:20 05/08/21 02:05/08/21 02:20 Oxygen Flow Rate (L/min) 2 Oxygen Delivery Method Nasal Cannula Weight: 138 lb 0.15 oz Body Mass Index (BMI) 21.4 Intake & Output: Intake and Output for Last 24 Hours 05/06/21 05/07/21 05/08/21 23:59 23:59 23:59 Intake Total 5256.67 / 5256.67 3346.67 / 3646.67 350 / 350 Output Total 5225 / 5225 1875 / 2275 400 / 400 Balance 31.67 / 31.67 1471.67 / 1371.67 -50 / -50 Lab / Micro Data Result Diagrams: 05/08/21 05:47 05/08/21 05:47 Labs: Laboratory Results - last 24 hr 05/07/21 05:26: Differential Comment SCANNED 05/07/21 05:26: Sodium 133 L, Potassium 4.1, Chloride 103, Carbon Dioxide 30.0, Anion Gap 0 L, BUN 4 L, Creatinine 0.36 L, Estim Creat Clear Calc 44.56, Est GFR (MDRD) Af Amer 231, Est GFR (MDRD) Non-Af 191, BUN/Creatinine Ratio 11.2, Glucose 126 H, Calcium 7.3 L, Total Bilirubin 0.50, AST 24, ALT 26, Alkaline Phosphatase 37 L, Total Protein 5.0 L, Albumin 2.4 L, Globulin 2.6, Albumin/Globulin Ratio 0.9 05/08/21 05:47: WBC 5.2, RBC 2.56 L, Hgb 8.1 L, Hct 25.0 L, MCV 97.7, MCH 31.6, MCHC 32.4, RDW Std Deviation 47.1 H, RDW Coeff of Slime 13.0, Plt Count 178, MPV 8.7, Immature Gran % (Auto) 0.400, Neut % (Auto) 71.0 H, Lymph % (Auto) 15.4 L, [place] % (Auto) 11.3 H, Eos % (Auto) 1.3, Baso % (Auto) 0.6, Absolute Neuts (auto) 3.7, Absolute Lymphs (auto) 0.80 L, Nucleated RBC % 0 Micro: Microbiology 05/06/21 10:42 Sputum, Expectorated/Coughed Gram Stain - Final 05/06/21 10:42 Sputum, Expectorated/Coughed Respiratory Culture - Preliminary Appears to be normal respiratory sarah. Further studies to follow. 05/06/21 10:17 Mucosa - Nasopharyngeal Respiratory Panel (PCR) - Final 05/06/21 08:40 Urine Catheter - Bowser Legionella Antigen - Final 05/06/21 08:40 Urine Catheter - Bowser Streptococcus pneumoniae Antigen (M - Final Physical Exam Narrative Physical Examination: General: Awake, alert, oriented x 3 and cooperative, seated upright in the medical surgical bed in no apparent distress, hip pain notably improving. Skin: Normal color, normal turgor, no icterus, no cyanosis except recent right hip fracture status post OR with incision/dressing in place without drainage. HEENT: AT/NC, EOMI, PERRLA, improved MMM. Lungs: Improved, mildly diminished at bases, no current wheezing, rales or rhonchi, improved effort. Heart: Regular rate and rhythm; no gallop, rub audible. Abdomen: Soft, NTTP, ND, normal BS. Extremities: No cyanosis, clubbing, or edema, see skin with recent right hip fracture, status post OR with right hip incision/dressing without drainage. Neurological: Patient awake, alert, oriented as noted, cognitive function improved, baseline intact; pupils equally reactive to light and accommodation, cranial nerves II-XII grossly normal, moving all 4 extremities except limitations given recent right hip fracture status post or, no focal deficits, strength improving, moderately to severely global decrease. Psychiatric: Affect appears improved, normal, no acute evidence of depressive or anxiety feelings. Assessment & Plan Assessment/Plan (1) Closed right hip fracture: QUALIFIERS: Encounter type: initial encounter Qualified Code(s): S72.001A - Fracture of unspecified part of neck of right femur, initial encounter for closed fracture PLAN: The patient is a 71 y/o F w/ PMHx: EtOH abuse, HLD, Allergic Rhinitis, COPD, Tobacco use who presents to the [facility] as direct admission from OSH ED on 05/05/21 with history of fall while outside on her back deck at ~ 11 pm the evening prior with intractable right hip pain. debility and deformity. 1. General debility, R hip pain s/p mechanical fall w/ proximal R femur fracture: Orthopedic surgery consulted from ED at OSH, discussed case with them prior to her transition and upon her arrival. Admitted to medical surgical floor, OR 05/06/2021 with right hip fracture repair per Dr. Morgan, d/c bowser with increased ambulation, monitor I/Os, frequent positioning, fall precautions, PT/OT following operative intervention. CM consulted for discharge planning. Currently attempting acute rehab placement with per orthopedic surgery recommendation continue 50% weightbearing with a walker for 4 weeks and then following this weightbearing as tolerated with a walker, allowed to shower on 05/10/2021, renae out 05/19/2021, plan follow-up with Dr. Bruno in the office in 4 weeks from surgical date. 2. Acute Respiratory Insufficiency, Suspected secondary to Atelectasis, BL, L>R, Possible Aspiration component with Hypoxia: Given lethargy, hypoxia, obtained Chest x-ray with patchy bibasilar infiltrates worse on the left lung base, noted also low-grade temperature but no marked CBC elevation or left shift. Therefore to be cautious started on IV zosyn initially pending ST with evaluation 05/07/21 cleared for oral intake. Noted negative urine antigens, negative respiratory viral panel, negative Covid status. Patient now transitioned to RA, awaiting UCx. 05/08/21 planned transition to IV rocephin pending UCx with futher de-escalation as able. Continue PRN albuterol, duoneb th erapies, head of bed once allowed and encourage I-S. 3. Acute Urinary Tract Infection, unclear organisms: UA upon remarkable, pending UCx although unfortunately sample taken after abx initiated and not from initial UA sent, continue IVFs, monitor I/Os, transitioned as noted to IV rocephin w/ transition as able pending sensitivities and speciation. 4. EtOH abuse w/ concern for EtOH Withdrawal: Given OSH ED elevated CIWA scores and need for ativan, to be cautious given likely SNF needs with acute presentation, had initiated on protocol of Phenobarbital; however, given lethargy and possible aspiration 05/06/21 d/c w/ PRN CIWA protocol. Case management consulted for substance abuse. Maintained on MVI, thiamine and folic acid. Mag, phos normal. CIWA protocol concurrently. 5. Chronic COPD with allergic rhinitis: We will hold any home inhalers and in the interim continue ATC duonebs, PRN albuterol, HOB, IS parameters, continue as needed loratadine. #2 complicated by underlying lung disease. 6. Chronic anemia, normocytic: Unclear exact timeline, OSH ED CBC w/ Hgb 13.3, decreased 05/06/21 10.7, MCV normal range, possibly dilution given hydration over the last 24 hours and acute fracture as noted, 05/08/21 Hgb 8.1. Given significant decline, age, hypoxia initially, low threshold for administration PRBC, will obtain Fe panel, ferritin, guiac, B12 and folic acid levels with ongoing supplementation as noted #4. 7. Tobacco Abuse: Encouraged cessation, inpatient consultation per RT, NR if desired. 8. Hyperlipidemia: Continue home statin regimen. 9. DVT prophylaxis: SCDs, xarelto 10 mg daily per Orthopedic surgery discretion. 10. CODE status: Full Code. Charges/Coding Visit Charges Inpatient E&M: 76704 Subs Hosp L2
[2021-05-08] MEDS: Rivaroxaban 10 MG Tablet PO (06:33)
[2021-05-08 06:49] LABS: ALB/GLOB Ratio 0.9 RATIO (0.9-2.4); AST(SGOT) 26 U/L (15-37); Alanine Aminotransfer ALT/SGPT 28 U/L (13-56); Albumin, Serum 2.3 g/dL (3.2-5.0); Alkaline Phosphatase 35 U/L (45-117); Anion Gap 3 (5-15); BUN 6 mg/dL (7-18); BUN/Creat Ratio 16.2 RATIO (10-20); Calcium,Total 7.7 mg/dL (8.5-10.1); Chloride 104 mmol/L (98-107); Creatinine, Serum 0.37 mg/dL (0.55-1.02); EST Glomerular Filtration Rate 183 mL/min (>60); Est Glom Filt Rate - Afr Amer 221 mL/min (>60); Estimated Creatinine Clearance 44.56 ml/min; Globulin 2.6 g/dL (2.2-4.2); Glucose 99 mg/dL (74-106); Potassium 3.9 mmol/L (3.5-5.1); Protein, Total 4.9 g/dL (6.4-8.2); Sodium Level 137 mmol/L (136-145)
[2021-05-08] MEDS: Ipratropium/Albuterol Sulfate 3 ML AMPUL.NEB INHALATION ×2 (07:20→19:11)
[2021-05-08] MEDS: Thiamine Hydrochloride 100 MG Tablet PO (08:46)
[2021-05-08] MEDS: Multivitamins,Ther W-Minerals Tablet 1 TABLET PO (08:46)
[2021-05-08] MEDS: Folic Acid 1 MG Tablet PO (08:46)
[2021-05-08] MEDS: HYDROcodone Bitartrate/Apap 5/325 Tablet PO ×2 (08:48→21:49)
[2021-05-08] MEDS: Famotidine 20 MG Tablet PO ×2 (10:47→21:37)
[2021-05-08] MEDS: Mirabegron 50 MG TAB.ER.24H PO (10:47)
[2021-05-08] MEDS: Ceftriaxone 1 GM/50 ML BAG IV (10:47)
[2021-05-08] MEDS: 0.9% Saline Lock 10 ML Syringe IV (11:19)
--- NOTE | 2021-05-08 13:54 | CASEMGMT ---
Social Work Note SW placed a call to Sharon with [facility], pre-cert is still pending. Plan: [facility] pending pre-cert Shanita Abrams CLOTH TESTER, SCHEDULE PLANNING MANAGER
--- NOTE | 2021-05-08 14:56 | RAD_ITS ---
STUDY: X-RAY CHEST REASON FOR EXAM: Female, 71 years old. Dyspnea TECHNIQUE: Single AP portable view of the chest. COMPARISON: Comparison is made with prior study dated 05/06/2021. FINDINGS: Hyperinflation. Increased linear markings at the lung bases suggestive of linear atelectasis. Normal size heart. Normal mediastinum and kirsten. Normal visualized pulmonary arteries. There is atherosclerotic calcification of the aortic arch with tortuosity. Normal visualized thoracic spine. Normal visualized ribs, clavicles, and shoulders. There is no demonstrated abnormality of the visualized soft tissue structures of the upper abdomen. RAD/Chest 1 View (Portable) IMPRESSION: Hyperinflation. Increased linear markings at the lung bases suggestive of bilateral linear atelectasis. Electronically Signed: Casimiro Mazariegos MD at 15:22 EDT , Service support ,
[2021-05-08 16:43] LABS: Ferritin 174 ng/mL (8-252); Iron 21 ug/dL (50-170); Iron Binding Capacity,Total 177 ug/dL (250-450); PERCENT IRON SATURATION 11.9 % (15.0-55.0)
[2021-05-08 21:26] LABS: Vitamin B12 289 pg/mL (211-911)
[2021-05-08] MEDS: Atorvastatin Calcium 20 MG Tablet PO (21:37)
[2021-05-09] VITALS (8 sets, daily range): BP systolic 103–123; BP diastolic 51–71; PULSE 60–104; RESP 15–18; TEMP 36.6–36.9; O2SAT 94–99
[2021-05-09] MEDS: oxyCODONE 5 MG Tablet PO ×2 (04:08→09:38)
--- NOTE | 2021-05-09 06:21 | PCM.PN.HOSP ---
Subjective Subjective Patient overnight with no acute events per self and per nursing report. Patient significantly improved, transition to room air and notes some congestion just because the dryness in the hospital but otherwise significantly improved. She notes she does cough but this is similar to her baseline and denies any wheezing or any dyspnea. Patient when attempting to get up this morning to the side of the bed did feel a pop and some sharp discomfort which was very transient to the right hip with follow-up plain film obtained with no demonstrated acute injury and orthopedic surgery aware with resolution of pain following. Patient denies fevers, chills, nausea, emesis, abdominal pain, chest pain. Objective Data Objective Data Vital Signs: Vital Signs Temp Pulse Resp BP Pulse Ox 98.2 F 96 16 121/51 H 95 05/09/21 04:02 05/09/21 04:02 05/09/21 04:02 05/09/21 04:02 05/09/21 04:02 Oxygen Flow Rate (L/min) 97 Oxygen Delivery Method Room Air Weight: 133 lb 2.547 oz Body Mass Index (BMI) 21.4 Intake & Output: Intake and Output for Last 24 Hours 05/07/21 05/08/21 05/09/21 23:59 23:59 23:59 Intake Total 3346.67 / 3646.67 1970 / 2220 250 / 250 Output Total 1875 / 2275 3675 / 4325 650 / 650 Balance 1471.67 / 1371.67 -1705 / -2105 -400 / -400 Lab / Micro Data Result Diagrams: 05/09/21 05:42 05/09/21 05:42 Labs: Laboratory Results - last 24 hr 05/08/21 05:47: Sodium 137, Potassium 3.9, Chloride 104, Carbon Dioxide 30.0, Anion Gap 3 L, BUN 6 L, Creatinine 0.37 L, Estim Creat Clear Calc 44.56, Est GFR (MDRD) Af Amer 221, Est GFR (MDRD) Non-Af 183, BUN/Creatinine Ratio 16.2, Glucose 99, Calcium 7.7 L, Total Bilirubin 0.40, AST 26, ALT 28, Alkaline Phosphatase 35 L, Total Protein 4.9 L, Albumin 2.3 L, Globulin 2.6, Albumin/Globulin Ratio 0.9 05/08/21 05:47: Iron 21 L, TIBC 177 L, Iron Saturation 11.9 L, Ferritin 174, Folate 24.00 05/08/21 16:36: Vitamin B12 289 Micro: Microbiology 05/06/21 10:42 Sputum, Expectorated/Coughed Gram Stain - Final 05/06/21 10:42 Sputum, Expectorated/Coughed Respiratory Culture - Final Presumptive C albicans 05/06/21 10:17 Mucosa - Nasopharyngeal Respiratory Panel (PCR) - Final 05/06/21 08:40 Urine Catheter - Bowser Legionella Antigen - Final 05/06/21 08:40 Urine Catheter - Bowser Streptococcus pneumoniae Antigen (M - Final Radiography Diagnostic Testing: Radiology Impression Chest X-Ray 05/08/21 14:56 IMPRESSION: Hyperinflation. Increased linear markings at the lung bases suggestive of bilateral linear atelectasis. Electronically Signed: Casimiro Mazariegos MD at 15:22 EDT , Service support , Physical Exam Narrative Physical Examination: General: Awake, alert, oriented x 3 and cooperative, seated upright in the medical surgical bed in no apparent distress, notes hip pain from earlier in the morning has resolved. Skin: Normal color, normal turgor, no icterus, no cyanosis except recent right hip fracture status post OR with incision/dressing in place without drainage. HEENT: AT/NC, EOMI, PERRLA, MMM. Lungs: Improved, mildly diminished at bases, improved air movement, transition to room air, no current wheezing, rales or rhonchi. Heart: Regular rate and rhythm; no gallop, rub audible. Abdomen: Soft, NTTP, ND, normal BS. Extremities: No cyanosis, clubbing, or edema, see skin with recent right hip fracture, status post OR with right hip incision/dressing without drainage. Neurological: Patient awake, alert, oriented as noted, cognitive function improved, baseline intact; pupils equally reactive to light and accommodation, cranial nerves II-XII grossly normal, moving all 4 extremities except limitations given recent right hip fracture status post or, no focal deficits, strength improving, moderate global decrease. Psychiatric: Affect appears normal, no acute evidence of depressive or anxiety feelings. Assessment & Plan Assessment/Plan (1) Closed right hip fracture: QUALIFIERS: Encounter type: initial encounter Qualified Code(s): S72.001A - Fracture of unspecified part of neck of right femur, initial encounter for closed fracture PLAN: The patient is a 71 y/o F w/ PMHx: EtOH abuse, HLD, Allergic Rhinitis, COPD, Tobacco use who presents to the [facility] as direct admission from [facility] ED on 05/05/21 with history of fall while outside on her back deck at ~ 11 pm the evening prior with intractable right hip pain. debility and deformity. 1. General debility, R hip pain s/p mechanical fall w/ proximal R femur fracture: Orthopedic surgery consulted from ED at OSH, discussed case with them prior to her transition and upon her arrival. Admitted to medical surgical floor, OR 05/06/2021 with right hip fracture repair per Dr. Morgan, d/nathaniel bowser with increased ambulation, monitor I/Os, frequent positioning. Currently attempting acute rehab placement with per orthopedic surgery recommendation continue 50% weightbearing with a walker for 4 weeks and then following this weightbearing as tolerated with a walker, allowed to shower on 05/10/2021, renae out 05/19/2021, plan follow-up with Dr. Bruno in the office in 4 weeks from surgical date. 05/09/21 R hip plain film without acute findings. Patient appropriate for Acute Rehab, notes willingness to perform 3 hours of rehabilitation, eager for clinical improvement. 2. Acute Respiratory Insufficiency, Suspected secondary to Atelectasis RULED OUT Pneumonia, Possible Aspiration component with Hypoxia while lethargic, treated for #3 as noted: Given lethargy, hypoxia, obtained Chest x-ray with patchy bibasilar infiltrates worse on the left lung base, noted also low-grade temperature but no marked CBC elevation or left shift. Therefore to be cautious started on IV zosyn initially pending ST with evaluation 05/07/21 cleared for oral intake. Noted negative urine antigens, negative respiratory viral panel, negative Covid status, sputum culture with only presumptive C albicans. Repeat CXR 05/08/21 with hyperinflation increased linear markings at the bases suggestive of bilateral lateral atelectasis only. Patient transitioned to RA, awaiting UCx. 05/08/21 transitioned to IV rocephin. 3. Acute E. Coli Urinary Tract Infection: UA upon remarkable, UCx w/ E. Coli > 100,000 with pending finalization, monitor I/Os, transitioned as noted to IV rocephin w/ transition as able pending sensitivities and speciation. 4. EtOH abuse w/ concern for EtOH Withdrawal: Given OSH ED elevated CIWA scores and need for ativan, to be cautious given likely SNF needs with acute presentation, had initiated on protocol of Phenobarbital; however, given lethargy and possible aspiration 05/06/21 d/c w/ PRN CIWA protocol. Case management consulted for substance abuse. Maintained on MVI, thiamine and folic acid. Mag, phos normal. 5. Chronic COPD with allergic rhinitis: We will hold any home inhalers and in the interim continue ATC duonebs, PRN albuterol, HOB, IS parameters, continue as needed loratadine. #2 complicated by underlying lung disease. 6. Chronic anemia, normocytic: Unclear exact timeline, OSH ED CBC w/ Hgb 13.3, decreased 05/06/21 10.7, MCV normal range, possibly dilution given hydration over the last 24 hours and acute fracture as noted, 05/09/21 Hgb 8.5. Iron 21, TIBC 177, iron saturation 11.9, ferritin 174, vitamin B12 29, folic acid 24. Guaiac requested. Fe supplementation started. 7. Tobacco Abuse: Encouraged cessation, inpatient consultation per RT, NR if desired. 8. Hyperlipidemia: Continue home statin regimen. 9. DVT prophylaxis: SCDs, xarelto 10 mg daily per Orthopedic surgery discretion. 10. CODE status: Full Code. Charges/Coding Visit Charges Inpatient E&M: 65627 Subs Hosp L2
--- NOTE | 2021-05-09 06:26 | RAD_ITS ---
STUDY: X-RAY - PELVIS AND RIGHT HIP REASON FOR EXAM: Postoperative evaluation of right intertrochanteric fracture. TECHNIQUE: 2 views of the pelvis and hip. COMPARISON: Radiographs 05/05/2021. FINDINGS: There is osteopenia. There is postoperative gas in the soft tissues and overlying skin reane. There is vascular calcification. Normal bilateral iliac wings, sacroiliac joints and visualized sacrum. Normal bilateral superior and inferior pubic rami. Normal pubic symphysis. Normal bilateral ischial tuberosities. There is a long intramedullary femoral dannielle with hip nail transfixing a right intertrochanteric fracture in near anatomic alignment and position. There is avulsion fracture of the lesser trochanter. There is a left hip arthroplasty. RAD/HIP, UNI W/ Pelvis 2-3 Views IMPRESSION: Uncomplicated ORIF of right intertrochanteric fracture. Electronically Signed: Mino Caputo MD at 7:40 EDT Tel , Service support ,
[2021-05-09] MEDS: HYDROcodone Bitartrate/Apap 5/325 Tablet PO ×2 (06:52→18:22)
[2021-05-09] MEDS: Rivaroxaban 10 MG Tablet PO (06:52)
[2021-05-09] MEDS: Ipratropium/Albuterol Sulfate 3 ML AMPUL.NEB INHALATION ×3 (07:04→19:38)
[2021-05-09 07:13] LABS: Absolute Lymphocyte Count 0.92 X10^3/uL (0.83-4.51); Absolute Neutrophil Count 3.5 X10^3/uL (2.0-7.7); Basophil# 0.05 X10^3/uL; Basophil% 0.9 % (0-1); Eosinophil# 0.11 X10^3/uL; Eosinophils% 2.1 % (0-5); Hematocrit 26.9 % (37-47); Hemoglobin 8.5 g/dL (12.0-15.0); Lymphocyte # 0.92 X10^3/ul (0.83-4.51); Lymphocyte % 17.4 % (19-41); Mean Corp Hgb Conc 31.6 g/dL (32-36); Mean Corpuscular Hgb 30.8 pg (27.0-32.0); Mean Corpuscular Volume 97.5 fL (81-99); Mean Platelet Vol. 9.5 fl (6.2-12.0); Monocyte% 13.2 % (0-10); NRBC Flagged by Analyzer 0 % (0-5); Neutrophil # 3.49 X10^3/uL (2.7-7.7); Neutrophil % 65.8 % (47-70); Platelet Count 252 K/mm3 (150-450); RBC Distribution Width SD 46.5 fl (35.1-43.9); Red Blood Count 2.76 M/mm3 (4.2-5.4); White Blood Count 5.3 K/mm3 (4.4-11.0)
[2021-05-09 07:45] LABS: ALB/GLOB Ratio 0.9 RATIO (0.9-2.4); AST(SGOT) 42 U/L (15-37); Alanine Aminotransfer ALT/SGPT 40 U/L (13-56); Albumin, Serum 2.6 g/dL (3.2-5.0); Alkaline Phosphatase 42 U/L (45-117); Anion Gap 3 (5-15); BUN 7 mg/dL (7-18); BUN/Creat Ratio 16.1 RATIO (10-20); Calcium,Total 8.2 mg/dL (8.5-10.1); Chloride 104 mmol/L (98-107); Creatinine, Serum 0.43 mg/dL (0.55-1.02); EST Glomerular Filtration Rate 152 mL/min (>60); Est Glom Filt Rate - Afr Amer 184 mL/min (>60); Estimated Creatinine Clearance 44.56 ml/min; Globulin 2.9 g/dL (2.2-4.2); Glucose 95 mg/dL (74-106); Protein, Total 5.5 g/dL (6.4-8.2); Sodium Level 137 mmol/L (136-145)
[2021-05-09] MEDS: Multivitamins,Ther W-Minerals Tablet 1 TABLET PO (07:53)
[2021-05-09] MEDS: Ceftriaxone 1 GM/50 ML BAG IV (09:37)
[2021-05-09] MEDS: Famotidine 20 MG Tablet PO ×2 (09:37→20:23)
[2021-05-09] MEDS: Mirabegron 50 MG TAB.ER.24H PO (09:37)
[2021-05-09] MEDS: 0.9% Saline Lock 10 ML Syringe IV (09:40)
--- NOTE | 2021-05-09 11:51 | DCINST_ITS ---
Discharge Instructions Diet Discharge Diet: No restrictions Activity Discharge Activity: Use Walker and - (continue 50% weightbearing with a walker for 4 weeks and then following this weightbearing as tolerated with a walker, allowed to shower on 05/10/2021, renae out 05/19/2021, plan follow-up with Dr. Bruno in the office in 4 weeks.) Weight Bearing Status: Partial weight bearing (50% weight bearing RLE with walker x 4 weeks, WBAT following this with walker.) Keep extremity elevated above heart level: Operative Extremity Dressing / Incision Call your doctor if your incision/area has: Continuous Slow Oozing, Sudden Increased Bleeding, Increased Pain/ Swelling, Increased Redness, Foul Smelling Discharge and Swelling at the incision site Call your doctor if you observe: Fever of 101 or Higher, Numbness or Tingling, Inability to urinate, Shortness of breath, Dizziness, Fainting spells, Swelling in the ankles, Chest pain, Increased palpitations (irregular heartbeat) and Uncontrolled pain Additional Dressing/Incision Instructions:: Daily dressing changes, dry dressing. Follow Up Care Test Results: Test results from this visit will be discussed in further detail at your follow-up appointment, if applicable. Discharge Plan Admission Admit Date/Time: 05/05/21 06:57 Primary Reason for Your Visit: R proximal femur fracture, Acute UTI, Transient Hypoxia w/ Atelectasis Attending Provider: Eula Marsh Primary Care Provider: Clifford Banuelos Consulting Providers: Donell Morgan Instructions Patient Instructions: Alcohol Addiction, Addiction: Your Treatment Options, Fx Hip Common Questions, Fx Hip Surg Dc, ED CYSTITIS Female Adult Additional Instructions / Restrictions: CONCERNING RIGHT HIP FRACTURE: Per orthopedic surgery recommendation continue 50% weightbearing with a walker for 4 weeks and then following this weightbearing as tolerated with a walker, allowed to shower on 05/10/2021, renae out 05/19/2021, plan follow-up with Dr. Bruno in the office in 4 weeks from surgical date. RESPIRATORY INSUFFICIENCY, ATELECTASIS: RULED OUT Pneumonia, Possible Aspiration component with Hypoxia while lethargic. Initial Chest x-ray with patchy bibasilar infiltrates worse on the left lung base; however, noted negative urine antigens, negative respiratory viral panel, negative Covid status, sputum culture with only presumptive C albicans. Repeat CXR 05/08/21 with hyperinflation increased linear markings at the bases suggestive of bilateral lateral atelectasis only. STRONGLY encourage incentive spirometer continued usage 10x/hr 7a-7p. ACUTE E. COLI URINARY TRACT INFECTION: Urine culture w/ E. Coli > 100,000 with pending finalization, complete antibiotic therapy. ALCOHOL ABUSE: We strongly encouraged continued sobriety. Discharge Orders/Prescriptions Prescriptions: New famotidine 20 mg Tablet 20 mg PO BID Qty: 0 RF: 0 ferrous gluconate 324 mg (37.5 mg iron) Tablet 324 mg PO BIDCM Qty: 0 RF: 0 hydrocodone-acetaminophen 5-325 mg Tablet 1 - 2 tab PO Q6H PRN PRN (Reason: Pain Score 1-5) Qty: 0 RF: 0 nicotine 21 mg/24 hr Patch 24 Hour 21 mg transdermal DAILY Qty: 0 RF: 0 Xarelto 10 mg Tablet 10 mg PO DAILY@0600 Qty: 0 RF: 0 Multivitamins,Ther W-Minerals [Multivitamin With Minerals (Bkc)] 1 tab PO DAILYCM Qty: 0 RF: 0 cephalexin 500 mg capsule 500 mg PO Q8H 2 Days Qty: 6 RF: 0 Continued multivitamin capsule capsule 1 cap PO DAILY RF: 0 calcium carbonate [Antacid (calcium carbonate)] 200 mg calcium (500 mg) tablet,chewable 200 mg PO BID PRN (Reason: Indigestion) RF: 0 loratadine [Claritin] 10 mg tablet 5 mg PO PRN PRN (Reason: allergies) RF: 0 cranberry 400 mg capsule 400 mg PO DAILY RF: 0 albuterol sulfate [ProAir HFA] 90 mcg/actuation HFA aerosol inhaler 1 puff INHALATION Q6H PRN (Reason: shortness of breath) Qty: 18 RF: 2 Align 4 mg Capsule 4 mg PO DAILY RF: 0 atorvastatin 20 mg tablet 20 mg PO DAILY RF: 0 cholecalciferol (vitamin D3) 125 mcg (5,000 unit) capsule 5,000 unit PO DAILY RF: 0 budesonide-formoterol [Symbicort] 160-4.5 mcg/actuation HFA aerosol inhaler 2 inh inhalation Q12H RF: 0 Prolia 60 mg/mL syringe 60 mg SC [id number] RF: 0 Myrbetriq 50 mg tablet extended release 24 hr 50 mg PO DAILY RF: 0 Spiriva Respimat 2.5 mcg/actuation mist 2 puff INHALATION DAILY RF: 0 aspirin [Aspirin Low Dose] 81 mg Tablet,Delayed Release (Dr/Ec) 81 mg PO DAILY Qty: 0 RF: 0 Referrals / Follow Up: Clifford Banuelos DO [Primary Care Provider] - (Follow-up with PCP within 1-2 d ays of SNF discharge.) Donell Morgan DO [STAFF PHYSICIAN] - (Follow-up in 4 weeks.) Disposition Disposition (needs filled in before D/C Order can be placed): Inpatient Rehab Unit/Facility
--- NOTE | 2021-05-09 12:07 | PCM.DC.SUM ---
Providers Date of Admission: 05/05/21 Primary Care Physician: Dr. Clifford Banuelos, DO Consultations 05/05/21 09:16 Consult: Orthopedics Routine Consulting Provider: Donell Morgan Reason for Consult: R hip fracture EMERGENT Consult: No MD Notified: Yes Date Notified: 05/05/21 Time Notified: 09:16 Method of Notification: discussed phone Reason For Visit: FRACTURED RIGHT HIP Diagnosis Discharge Diagnosis (1) Closed right hip fracture: Status: Acute Code(s): S72.001A - Fracture of unspecified part of neck of right femur, initial encounter for closed fracture Qualifiers: Encounter type: initial encounter Qualified Code(s): S72.001A - Fracture of unspecified part of neck of right femur, initial encounter for closed fracture Medications at Discharge Home Medications calcium carbonate 200 mg calcium (500 mg) chewable tablet 200 mg PO BID PRN tab 02/17/19 loratadine 10 mg tablet 5 mg PO PRN PRN 02/17/19 multivitamin 1 cap PO DAILY 02/17/19 albuterol sulfate 90 mcg/actuation aerosol inhaler 1 puff INHALATION Q6H PRN #18 g 10/30/20 cranberry 400 mg capsule 400 mg PO DAILY 10/30/20 Align 4 mg PO DAILY 05/05/21 Myrbetriq 50 mg PO DAILY 05/05/21 Prolia 60 mg SC [id number] 05/05/21 Spiriva Respimat 2 puff INHALATION DAILY 05/05/21 atorvastatin 20 mg PO DAILY 05/05/21 budesonide-formoterol [Symbicort] 2 inh INHALATION Q12H 05/05/21 cholecalciferol (vitamin D3) 5,000 unit PO DAILY 05/05/21 Multivitamins,Ther W-Minerals [Multivitamin With Minerals (BKC)] 1 tab PO DAILYCM #0 05/09/21 aspirin [Aspirin Low Dose] 81 mg PO DAILY #0 tab 05/09/21 cephalexin 500 mg PO Q8H 2 Days #6 cap 05/09/21 famotidine 20 mg PO BID #0 tab 05/09/21 ferrous gluconate 324 mg PO BIDCM #0 tab 05/09/21 hydrocodone-acetaminophen 1 - 2 tab PO Q6H PRN PRN #0 tab 05/09/21 nicotine 21 mg TRANSDERMAL DAILY #0 ea 05/09/21 rivaroxaban [Xarelto] 10 mg PO DAILY@0600 #0 tab 05/09/21 Weight / BMI Weight Weight: 133 lb 2.547 oz Body Mass Index (BMI) 21.4 ABG / Lab / Microbiology Data Result Diagrams: 05/09/21 05:42 05/09/21 05:42 Laboratory: Laboratory Results - last 24 hr 05/08/21 05:47: Iron 21 L, TIBC 177 L, Iron Saturation 11.9 L, Ferritin 174, Folate 24.00 05/08/21 16:36: Vitamin B12 289 05/09/21 05:42: WBC 5.3, RBC 2.76 L, Hgb 8.5 L, Hct 26.9 L, MCV 97.5, MCH 30.8, MCHC 31.6 L, RDW Std Deviation 46.5 H, RDW Coeff of Slime 13.0, Plt Count 252, MPV 9.5, Immature Gran % (Auto) 0.600, Neut % (Auto) 65.8, Lymph % (Auto) 17.4 L, Josephine % (Auto) 13.2 H, Eos % (Auto) 2.1, Baso % (Auto) 0.9, Absolute Neuts (auto) 3.5, Absolute Lymphs (auto) 0.92, Nucleated RBC % 0 05/09/21 05:42: Sodium 137, Potassium 4.0, Chloride 104, Carbon Dioxide 30.0, Anion Gap 3 L, BUN 7, Creatinine 0.43 L, Estim Creat Clear Calc 44.56, Est GFR (MDRD) Af Amer 184, Est GFR (MDRD) Non-Af 152, BUN/Creatinine Ratio 16.1, Glucose 95, Calcium 8.2 L, Total Bilirubin 0.50, AST 42 H, ALT 40, Alkaline Phosphatase 42 L, Total Protein 5.5 L, Albumin 2.6 L, Globulin 2.9, Albumin/Globulin Ratio 0.9 Microbiology: Microbiology 05/06/21 08:40 Urine, Catheterized Urine Culture - Preliminary Presumptive E. coli 05/06/21 10:42 Sputum, Expectorated/Coughed Gram Stain - Final 05/06/21 10:42 Sputum, Expectorated/Coughed Respiratory Culture - Final Presumptive C albicans 05/06/21 10:17 Mucosa - Nasopharyngeal Respiratory Panel (PCR) - Final 05/06/21 08:40 Urine Catheter - Locke Legionella Antigen - Final 05/06/21 08:40 Urine Catheter - Locke Streptococcus pneumoniae Antigen (M - Final Radiography Diagnostic Testing: Radiology Impression Chest X-Ray 05/08/21 14:56 IMPRESSION: Hyperinflation. Increased linear markings at the lung bases suggestive of bilateral linear atelectasis. Electronically Signed: Casimiro Mazariegos MD at 15:22 EDT , Service support , Hip/Pelvis X-Ray 05/09/21 06:26 IMPRESSION: Uncomplicated ORIF of right intertrochanteric fracture. Electronically Signed: Mino Caputo MD at 7:40 EDT Tel , Service support , D/C Instructions Discharge Diet: No restrictions Weight Bearing Status: Partial weight bearing (50% weight bearing RLE with walker x 4 weeks, WBAT following this with walker.) Keep extremity elevated above heart level: Operative Extremity Call your doctor if your incision/area has: Continuous Slow Oozing, Sudden Increased Bleeding, Increased Pain/ Swelling, Increased Redness, Foul Smelling Discharge and Swelling at the incision site Call your doctor if you observe: Fever of 101 or Higher, Numbness or Tingling, Inability to urinate, Shortness of breath, Dizziness, Fainting spells, Swelling in the ankles, Chest pain, Increased palpitations (irregular heartbeat) and Uncontrolled pain Additional Dressing/Incision Instructions: Daily dressing changes, dry dressing. Discharge Plan Admission Admit Date/Time: 05/05/21 06:57 Primary Reason for Your Visit: R proximal femur fracture, Acute UTI, Transient Hypoxia w/ Atelectasis Attending Provider: Eula Marsh Primary Care Provider: Clifford Banuelos Consulting Providers: Donell Morgan Instructions Patient Instructions: Alcohol Addiction, Addiction: Your Treatment Options, Fx Hip Common Questions, Fx Hip Surg Dc, ED CYSTITIS Female Adult Additional Instructions / Restrictions: CONCERNING RIGHT HIP FRACTURE: Per orthopedic surgery recommendation continue 50% weightbearing with a walker for 4 weeks and then following this weightbearing as tolerated with a walker, allowed to shower on 05/10/2021, renae out 05/19/2021, plan follow-up with Dr. Bruno in the office in 4 weeks from surgical date. RESPIRATORY INSUFFICIENCY, ATELECTASIS: RULED OUT Pneumonia, Possible Aspiration component with Hypoxia while lethargic. Initial Chest x-ray with patchy bibasilar infiltrates worse on the left lung base; however, noted negative urine antigens, negative respiratory viral panel, negative Covid status, sputum culture with only presumptive C albicans. Repeat CXR 05/08/21 with hyperinflation increased linear markings at the bases suggestive of bilateral lateral atelectasis only. STRONGLY encourage incentive spirometer continued usage 10x/hr 7a-7p. ACUTE E. COLI URINARY TRACT INFECTION: Urine culture w/ E. Coli > 100,000 with pending finalization, complete antibiotic therapy. ALCOHOL ABUSE: We strongly encouraged continued sobriety. Discharge Orders/Prescriptions Prescriptions: New famotidine 20 mg Tablet 20 mg PO BID Qty: 0 RF: 0 ferrous gluconate 324 mg (37.5 mg iron) Tablet 324 mg PO BIDCM Qty: 0 RF: 0 hydrocodone-acetaminophen 5-325 mg Tablet 1 - 2 tab PO Q6H PRN PRN (Reason: Pain Score 1-5) Qty: 0 RF: 0 nicotine 21 mg/24 hr Patch 24 Hour 21 mg transdermal DAILY Qty: 0 RF: 0 Xarelto 10 mg Tablet 10 mg PO DAILY@0600 Qty: 0 RF: 0 Multivitamins,Ther W-Minerals [Multivitamin With Minerals (Bkc)] 1 tab PO DAILYCM Qty: 0 RF: 0 cephalexin 500 mg capsule 500 mg PO Q8H 2 Days Qty: 6 RF: 0 Continued multivitamin capsule capsule 1 cap PO DAILY RF: 0 calcium carbonate [Antacid (calcium carbonate)] 200 mg calcium (500 mg) tablet,chewable 200 mg PO BID PRN (Reason: Indigestion) RF: 0 loratadine [Claritin] 10 mg tablet 5 mg PO PRN PRN (Reason: allergies) RF: 0 cranberry 400 mg capsule 400 mg PO DAILY RF: 0 albuterol sulfate [ProAir HFA] 90 mcg/actuation HFA aerosol inhaler 1 puff INHALATION Q6H PRN (Reason: shortness of breath) Qty: 18 RF: 2 Align 4 mg Capsule 4 mg PO DAILY RF: 0 atorvastatin 20 mg tablet 20 mg PO DAILY RF: 0 cholecalciferol (vitamin D3) 125 mcg (5,000 unit) capsule 5,000 unit PO DAILY RF: 0 budesonide-formoterol [Symbicort] 160-4.5 mcg/actuation HFA aerosol inhaler 2 inh inhalation Q12H RF: 0 Prolia 60 mg/mL syringe 60 mg SC [id number] RF: 0 Myrbetriq 50 mg tablet extended release 24 hr 50 mg PO DAILY RF: 0 Spiriva Respimat 2.5 mcg/actuation mist 2 puff INHALATION DAILY RF: 0 aspirin [Aspirin Low Dose] 81 mg Tablet,Delayed Release (Dr/Ec) 81 mg PO DAILY Qty: 0 RF: 0 Referrals / Follow Up: Clifford Banuelos DO [Primary Care Provider] - (Follow-up with PCP within 1-2 days of SNF discharge.) Donell Morgan DO [STAFF PHYSICIAN] - (Follow-up in 4 weeks.) Disposition Disposition (needs filled in before D/C Order can be placed): Inpatient Rehab Unit/Facility
--- NOTE | 2021-05-09 12:48 | CASEMGMT ---
Addendum entered by Shanita Abrams 05/09/21 15:28: SW updated pt, pt's and pt's son that pre-cert is still pending for [facility]. Green sheet on chart in the event pre-cert is obtained. Original Note: Social Work Note SW spoke with Sharon with [facility], updated notes were sent in to insurance. Pre-cert for [facility] is still pending. Plan: [facility] pending pre-cert Shanita Abrams SAP INTEGRATION ARCHITECT, ACID CONDITIONING WORKER
[2021-05-09] MEDS: Ferrous Gluconate 324 MG Tablet PO (18:24)
[2021-05-09] MEDS: Atorvastatin Calcium 20 MG Tablet PO (20:23)
[2021-05-10 02:15] VITALS: BP 133/75; PULSE 109; RESP 16; TEMP 36.9; O2SAT 95
[2021-05-10] MEDS: Rivaroxaban 10 MG Tablet PO (05:36)
[2021-05-10 06:42] LABS: Absolute Lymphocyte Count 1.03 X10^3/uL (0.83-4.51); Absolute Neutrophil Count 3.8 X10^3/uL (2.0-7.7); Basophil# 0.05 X10^3/uL; Basophil% 0.9 % (0-1); Eosinophil# 0.13 X10^3/uL; Eosinophils% 2.3 % (0-5); Hematocrit 27.7 % (37-47); Lymphocyte # 1.03 X10^3/ul (0.83-4.51); Lymphocyte % 17.9 % (19-41); Mean Corp Hgb Conc 32.5 g/dL (32-36); Mean Corpuscular Hgb 31.1 pg (27.0-32.0); Mean Corpuscular Volume 95.8 fL (81-99); Mean Platelet Vol. 9.2 fl (6.2-12.0); Monocyte% 12.1 % (0-10); NRBC Flagged by Analyzer 0 % (0-5); Neutrophil # 3.83 X10^3/uL (2.7-7.7); Neutrophil % 66.3 % (47-70); Platelet Count 286 K/mm3 (150-450); RBC Distribution Width SD 45.4 fl (35.1-43.9); Red Blood Count 2.89 M/mm3 (4.2-5.4); White Blood Count 5.8 K/mm3 (4.4-11.0)
[2021-05-10 07:15] LABS: ALB/GLOB Ratio 0.9 RATIO (0.9-2.4); AST(SGOT) 44 U/L (15-37); Alanine Aminotransfer ALT/SGPT 49 U/L (13-56); Albumin, Serum 2.6 g/dL (3.2-5.0); Alkaline Phosphatase 47 U/L (45-117); Anion Gap 5 (5-15); BUN 6 mg/dL (7-18); BUN/Creat Ratio 15.5 RATIO (10-20); Calcium,Total 8.6 mg/dL (8.5-10.1); Chloride 102 mmol/L (98-107); Creatinine, Serum 0.39 mg/dL (0.55-1.02); EST Glomerular Filtration Rate 174 mL/min (>60); Est Glom Filt Rate - Afr Amer 211 mL/min (>60); Estimated Creatinine Clearance 44.56 ml/min; Glucose 103 mg/dL (74-106); Protein, Total 5.6 g/dL (6.4-8.2); Sodium Level 136 mmol/L (136-145)
[2021-05-10 07:22] VITALS: PULSE 101; RESP 16; O2SAT 91
[2021-05-10] MEDS: Ipratropium/Albuterol Sulfate 3 ML AMPUL.NEB INHALATION ×2 (07:22→19:25)
[2021-05-10 09:09] VITALS: BP 147/68; PULSE 104; RESP 16; TEMP 37; O2SAT 95
[2021-05-10] MEDS: Famotidine 20 MG Tablet PO ×2 (09:30→21:32)
[2021-05-10] MEDS: Multivitamins,Ther W-Minerals Tablet 1 TABLET PO (09:30)
[2021-05-10] MEDS: Ferrous Gluconate 324 MG Tablet PO ×2 (09:30→16:22)
--- NOTE | 2021-05-10 09:38 | PN.HOSP_ITS ---
Subjective Subjective Patient with no acute events overnight per self and per nursing report. She notes the right hip pain that she had transiently with movement the day prior with unremarkable film has resolved. She notes feeling improved and currently states she has to get up and use the restroom. She is more cheerful and has a better outlook. She understands we are still awaiting precertification for acute rehab and remains amenable and willing to perform 3 hours of therapy daily. She denies any dyspnea and has remained on room air. Discussed current urine culture, E. coli with linder sensitivity with planned oral transition. Patient denies fevers, chills, nausea, emesis, abdominal pain, chest pain. Objective Data Objective Data Vital Signs: Vital Signs Temp Pulse Resp BP Pulse Ox 98.6 F 104 H 16 147/68 H 95 05/10/21 09:09 05/10/21 09:09 05/10/21 09:09 05/10/21 09:09 05/10/21 09:09 Oxygen Flow Rate (L/min) 97 Oxygen Delivery Method Room Air Weight: 132 lb 15.02 oz Body Mass Index (BMI) 21.4 Intake & Output: Intake and Output for Last 24 Hours 05/08/21 05/09/21 05/10/21 23:59 23:59 23:59 Intake Total 1970 / 2220 950 / 1350 1100 / 1100 Output Total 3675 / 4325 2700 / 3200 1500 / 1500 Balance -1705 / -2105 -1750 / -1850 -400 / -400 Lab / Micro Data Result Diagrams: 05/10/21 06:22 05/10/21 06:22 Labs: Laboratory Results - last 24 hr 05/10/21 06:22: WBC 5.8, RBC 2.89 L, Hgb 9.0 L, Hct 27.7 L, MCV 95.8, MCH 31.1, MCHC 32.5, RDW Std Deviation 45.4 H, RDW Coeff of Slime 13.0, Plt Count 286, MPV 9.2, Immature Gran % (Auto) 0.500, Neut % (Auto) 66.3, Lymph % (Auto) 17.9 L, Jennings % (Auto) 12.1 H, Eos % (Auto) 2.3, Baso % (Auto) 0.9, Absolute Neuts (auto) 3.8, Absolute Lymphs (auto) 1.03, Nucleated RBC % 0 05/10/21 06:22: Sodium 136, Potassium 4.0, Chloride 102, Carbon Dioxide 29.0, Anion Gap 5, BUN 6 L, Creatinine 0.39 L, Estim Creat Clear Calc 44.56, Est GFR (MDRD) Af Amer 211, Est GFR (MDRD) Non-Af 174, BUN/Creatinine Ratio 15.5, Glucose 103, Calcium 8.6, Total Bilirubin 0.60, AST 44 H, ALT 49, Alkaline Phosphatase 47, Total Protein 5.6 L, Albumin 2.6 L, Globulin 3.0, Albumin/Globulin Ratio 0.9 Micro: Microbiology 05/06/21 08:40 Urine, Catheterized Urine Culture - Final Presumptive E. coli 05/06/21 10:42 Sputum, Expectorated/Coughed Gram Stain - Final 05/06/21 10:42 Sputum, Expectorated/Coughed Respiratory Culture - Final Presumptive C albicans 05/06/21 10:17 Mucosa - Nasopharyngeal Respiratory Panel (PCR) - Final 05/06/21 08:40 Urine Catheter - Locke Legionella Antigen - Final 05/06/21 08:40 Urine Catheter - [facility] Streptococcus pneumoniae Antigen (M - Final Physical Exam Narrative Physical Examination: General: Awake, alert, oriented x 3 and cooperative, seated upright in the medical surgical bed in no apparent distress, NAD, notes pain R hip controlled, eager to get up with staff to use restroom. Skin: Normal color, normal turgor, no icterus, no cyanosis except recent right hip fracture status post OR with incision/dressing in place without drainage. HEENT: AT/NC, EOMI, PERRLA, MMM. Lungs: Improved, minimally decreased at bases, appropriate effort, no current wheezing, rales or rhonchi. Heart: Regular rate and rhythm; no gallop, rub audible. Abdomen: Soft, NTTP, ND, normal BS. Extremities: No cyanosis, clubbing, or edema, see skin with recent right hip fracture, status post OR with right hip incision/dressing without drainage. Neurological: Patient awake, alert, oriented as noted, cognitive function improved, baseline intact; pupils equally reactive to light and accommodation, cranial nerves II-XII grossly normal, moving all 4 extremities except limitations given recent right hip fracture status post or, no focal deficits, strength improving, moderate global decrease. Psychiatric: Affect appears normal, no acute evidence of depressive or anxiety feelings. Assessment & Plan Assessment/Plan (1) Closed right hip fracture: QUALIFIERS: Encounter type: initial encounter Qualified Code(s): S72.001A - Fracture of unspecified part of neck of right femur, initial encounter for closed fracture PLAN: The patient is a 71 y/o F w/ PMHx: EtOH abuse, HLD, Allergic Rhinitis, COPD, Tobacco use who presents to the [facility] as direct admission from OSH ED on 05/05/21 with history of fall while outside on her back deck at ~ 11 pm the evening prior with intractable right hip pain. debility and deformity. 1. General debility, R hip pain s/p mechanical fall w/ proximal R femur fracture: Orthopedic surgery consulted from ED at OSH, discussed case with them prior to her transition and upon her arrival. Admitted to medical surgical floor, OR 05/06/2021 with right hip fracture repair per Dr. Morgan, per orthopedic surgery recommendation continue 50% weightbearing with a walker for 4 weeks and then following this weightbearing as tolerated with a walker, allowed to shower on 05/10/2021, renae out 05/19/2021, plan follow-up with Dr. Bruno in the office in 4 weeks from surgical date. 05/09/21 R hip plain film without acute findings. Patient appropriate for Acute Rehab, pending pre-certification. 2. Acute Respiratory Insufficiency, Suspected secondary to Atelectasis RULED OUT Pneumonia, Possible Aspiration component with Hypoxia while lethargic, treated for #3 as noted: Given lethargy, hypoxia, obtained Chest x-ray with patchy bibasilar infiltrates worse on the left lung base, noted also low-grade temperature but no marked CBC elevation or left shift. Therefore to be cautious started on IV zosyn initially pending ST with evaluation 05/07/21 cleared for oral intake. Noted negative urine antigens, negative respiratory viral panel, negative Covid status, sputum culture with only presumptive C albicans. Repeat CXR 05/08/21 with hyperinflation increased linear markings at the bases suggestive of bilateral lateral atelectasis only. Patient transitioned to RA and 05/08/21 transitioned to IV rocephin secondary to UTI as noted #3 with 05/10/21 transition to keflex to complete regimen. 3. Acute E. Coli Urinary Tract Infection: UA upon remarkable, UCx w/ E. Coli > 100,000 w/ linder-sensitivity, 05/10/21 will transition to oral keflex to complete her regimen. 4. EtOH abuse w/ concern for EtOH Withdrawal: Given OSH ED elevated CIWA scores and need for ativan, to be cautious given likely SNF needs with acute presentation, had initiated on protocol of Phenobarbital; however, given lethargy and possible aspiration 05/06/21 d/c w/ PRN CIWA protocol with no withdrawal symptoms since. Case management consulted for substance abuse. MVI, thiamine and folic acid. Mag, phos normal. 5. Chronic COPD with allergic rhinitis: We will hold any home inhalers and in the interim continue ATC duonebs, PRN albuterol, HOB, IS parameters, continue as needed loratadine. #2 complicated by underlying lung disease. 6. Chronic anemia, normocytic: Likely some association with EtOH abuse chronically. OSH ED CBC w/ Hgb 13.3, decreased 05/06/21 10.7, MCV normal range, possibly dilution given hydration over the last 24 hours and acute fracture as noted, 05/09/21 Hgb 8.5-->05/10/21 Hgb 9.0. Iron 21, TIBC 177, iron saturation 11.9, ferritin 174, vitamin B12 29, folic acid 24. Fe supplementation started. Guiac requested but denies any stool marked findings. 7. Tobacco Abuse: Encouraged cessation, inpatient consultation per RT, NR if desired. 8. Hyperlipidemia: Continue home statin regimen. 9. DVT prophylaxis: SCDs, xarelto 10 mg daily per Orthopedic surgery discretion. 10. CODE status: Full Code. Charges/Coding Visit Charges Inpatient E&M: 82456 Subs Hosp L2
[2021-05-10] MEDS: HYDROcodone Bitartrate/Apap 5/325 Tablet PO (11:57)
[2021-05-10] MEDS: Mirabegron 50 MG TAB.ER.24H PO (12:38)
--- NOTE | 2021-05-10 14:31 | CASEMGMT ---
JADIEL Note Referral Source: [employer] Management Technician Referral Reason: Status of Patient RN inquired about patient's precertification status for placement. SW contacted Janice Sim, inpatient rehab/TCU admission coverage for this weekend. Patient's insurance remains pending approval. Plan: Pending Insurance Approval for placement in Rehab. Pricila PATEL
[2021-05-10] MEDS: Cephalexin 500 MG Capsule PO ×2 (14:41→21:31)
[2021-05-10 19:25] VITALS: PULSE 94; RESP 16
[2021-05-10 20:10] VITALS: BP 106/74; PULSE 94; RESP 16; TEMP 36.9; O2SAT 94
[2021-05-10] MEDS: Atorvastatin Calcium 20 MG Tablet PO (21:32)
[2021-05-10] MEDS: oxyCODONE 5 MG Tablet PO (21:32)
[2021-05-10] MEDS: 0.9% Saline Lock 10 ML Syringe IV (21:33)
[2021-05-11] VITALS (8 sets, daily range): BP systolic 105–133; BP diastolic 61–74; PULSE 78–109; RESP 16–21; TEMP 36.9–37.1; O2SAT 93–97
[2021-05-11] MEDS: HYDROcodone Bitartrate/Apap 5/325 Tablet PO ×2 (02:11→17:37)
--- NOTE | 2021-05-11 06:13 | PN.HOSP_ITS ---
Subjective Subjective Patient with no acute events overnight per self and per nursing report. She is been moving with greater ease and notes the pain to the right hip has lessened. She does report still significant swelling to the right hip and has had drainage on her dressings overnight. She denies any specific bleeding but more serous drainage. Patient per discussion with therapy was in the room and also evaluating patient this morning notes that she is markedly improving, continues to remain eager and amenable to performing 3 hours of therapy daily with pending precertification for acute rehab. Patient denies fevers, chills, nausea, emesis, abdominal pain, chest pain or dyspnea. Objective Data Objective Data Vital Signs: Vital Signs Temp Pulse Resp BP Pulse Ox 98.4 F 93 18 118/61 93 05/11/21 02:12 05/11/21 02:12 05/11/21 02:12 05/11/21 02:12 05/11/21 02:12 Oxygen Flow Rate (L/min) 97 Oxygen Delivery Method Room Air Weight: 132 lb 15.02 oz Body Mass Index (BMI) 21.4 Intake & Output: Intake and Output for Last 24 Hours 05/09/21 05/10/21 05/11/21 23:59 23:59 23:59 Intake Total 950 / 1350 1100 / 1700 600 / 600 Output Total 2700 / 3200 1500 / 1500 Balance -1750 / -1850 -400 / 200 600 / 600 Lab / Micro Data Result Diagrams: 05/10/21 06:22 05/10/21 06:22 Labs: Laboratory Results - last 24 hr 05/10/21 06:22: WBC 5.8, RBC 2.89 L, Hgb 9.0 L, Hct 27.7 L, MCV 95.8, MCH 31.1, MCHC 32.5, RDW Std Deviation 45.4 H, RDW Coeff of Slime 13.0, Plt Count 286, MPV 9.2, Immature Gran % (Auto) 0.500, Neut % (Auto) 66.3, Lymph % (Auto) 17.9 L, Dodge % (Auto) 12.1 H, Eos % (Auto) 2.3, Baso % (Auto) 0.9, Absolute Neuts (auto) 3.8, Absolute Lymphs (auto) 1.03, Nucleated RBC % 0 05/10/21 06:22: Sodium 136, Potassium 4.0, Chloride 102, Carbon Dioxide 29.0, Anion Gap 5, BUN 6 L, Creatinine 0.39 L, Estim Creat Clear Calc 44.56, Est GFR (MDRD) Af Amer 211, Est GFR (MDRD) Non-Af 174, BUN/Creatinine Ratio 15.5, Glucose 103, Calcium 8.6, Total Bilirubin 0.60, AST 44 H, ALT 49, Alkaline Phosphatase 47, Total Protein 5.6 L, Albumin 2.6 L, Globulin 3.0, Albumin/Globulin Ratio 0.9 Micro: Microbiology 05/06/21 08:40 Urine, Catheterized Urine Culture - Final Presumptive E. coli 05/06/21 10:42 Sputum, Expectorated/Coughed Gram Stain - Final 05/06/21 10:42 Sputum, Expectorated/Coughed Respiratory Culture - Final Presumptive C albicans 05/06/21 10:17 Mucosa - Nasopharyngeal Respiratory Panel (PCR) - Final 05/06/21 08:40 Urine Catheter - [facility] Legionella Antigen - Final 05/06/21 08:40 Urine Catheter - [facility] Streptococcus pneumoniae Antigen (M - Final Physical Exam Narrative Physical Examination: General: Awake, alert, oriented x 3 and cooperative, seated upright in the medical surgical bed in no apparent distress, NAD, notes pain R hip controlled. Skin: Normal color, normal turgor, no icterus, no cyanosis except recent right hip fracture status post OR with incision/dressing in place with drainage from the distal incision, dressing removed and no marked bleeding, but noted notable serous drainage, no firmness around any incisions or any otilia-incisional erythema. HEENT: AT/NC, EOMI, PERRLA, MMM. Lungs: Improved, CTA BL, improved at bases, appropriate effort, no current wheezing, rales or rhonchi. Heart: Regular rate and rhythm; no gallop, rub audible. Abdomen: Soft, NTTP, ND, normal BS. Extremities: No cyanosis, clubbing, or edema, see skin with recent right hip fracture, status post OR with right. Neurological: Patient awake, alert, oriented as noted, cognitive function improved, baseline intact; pupils equally reactive to light and accommodation, cranial nerves II-XII grossly normal, moving all 4 extremities except limitations given recent right hip fracture status post or, no focal deficits, strength improving, moderate global decrease, improving daily. Psychiatric: Affect appears normal, no acute evidence of depressive or anxiety feelings. Assessment & Plan Assessment/Plan (1) Closed right hip fracture: QUALIFIERS: Encounter type: initial encounter Qualified Code(s): S72.001A - Fracture of unspecified part of neck of right femur, initial encounter for closed fracture PLAN: The patient is a 71 y/o F w/ PMHx: EtOH abuse, HLD, Allergic Rhinitis, COPD, Tobacco use who presents to the [facility] as direct admission from OSH ED on 05/05/21 with history of fall while outside on her back deck at ~ 11 pm the evening prior with intractable right hip pain. debility and deformity. 1. General debility, R hip pain s/p mechanical fall w/ proximal R femur fracture: Orthopedic surgery consulted from ED at OSH, discussed case with them prior to her transition and upon her arrival. Admitted to medical surgical floor, OR 05/06/2021 with right hip fracture repair per Dr. Morgan, per orthopedic surgery recommendation continue 50% weightbearing with a walker for 4 weeks and then following this weightbearing as tolerated with a walker, allowed to shower starting 05/10/2021, renae out 05/19/2021, plan follow-up with Dr. Bruno in the office in 4 weeks from surgical date. 05/09/21 R hip plain film without acute findings. 05/11/21 will obtain DVT US to be cautious, still notable edema. Only noted serous drainage from distal incision, no bleeding. Patient appropriate for Acute Rehab, pending pre-certification. 2. Acute Respiratory Insufficiency, Suspected secondary to Atelectasis RULED OUT Pneumonia, Possible Aspiration component with Hypoxia while lethargic, treated for #3 as noted: Given lethargy, hypoxia, obtained Chest x-ray with patchy bibasilar infiltrates worse on the left lung base, noted also low-grade temperature but no marked CBC elevation or left shift. Therefore to be cautious started on IV zosyn initially pending ST with evaluation 05/07/21 cleared for oral intake. Noted negative urine antigens, negative respiratory viral panel, negative Covid status, sputum culture with only presumptive C albicans. Repeat CXR 05/08/21 with hyperinflation increased linear markings at the bases sug gestive of bilateral lateral atelectasis only. Patient transitioned to RA and 05/08/21 transitioned to IV rocephin secondary to UTI as noted #3 with 05/10/21 transition to keflex to complete regimen. 3. Acute E. Coli Urinary Tract Infection: UA upon remarkable, UCx w/ E. Coli > 100,000 w/ linder-sensitivity, 05/10/21 transitioned to oral keflex complete her regimen. 4. EtOH abuse w/ concern for EtOH Withdrawal: Given OSH ED elevated CIWA scores and need for ativan, to be cautious given likely SNF needs with acute presentation, had initiated on protocol of Phenobarbital; however, given lethargy and possible aspiration 05/06/21 d/c w/ PRN CIWA protocol with no withdrawal symptoms since. Case management consulted for substance abuse. MVI, thiamine and folic acid. Mag, phos normal. 5. Chronic COPD with allergic rhinitis: We will hold any home inhalers and in the interim continue ATC duonebs, PRN albuterol, HOB, IS parameters, continue as needed loratadine. #2 complicated by underlying lung disease. 6. Chronic anemia, normocytic: Likely some association with EtOH abuse chronically. OSH ED CBC w/ Hgb 13.3, decreased 05/06/21 10.7, MCV normal range, possibly dilution given hydration over the last 24 hours and acute fracture as noted, 05/09/21 Hgb 8.5-->05/10/21 Hgb 9.0. Iron 21, TIBC 177, iron saturation 11.9, ferritin 174, vitamin B12 29, folic acid 24. Fe supplementation started. Guiac requested but denies any stool marked findings. Pending 05/11/21 CBC. 7. Tobacco Abuse: Encouraged cessation, inpatient consultation per RT, NR if desired. 8. Hyperlipidemia: Continue home statin regimen. 9. DVT prophylaxis: SCDs, xarelto 10 mg daily per Orthopedic surgery discretion. 10. CODE status: Full Code. Charges/Coding Visit Charges Inpatient E&M: 63258 Subs Hosp L2
[2021-05-11] MEDS: Rivaroxaban 10 MG Tablet PO (06:34)
[2021-05-11] MEDS: Cephalexin 500 MG Capsule PO ×3 (06:34→21:10)
[2021-05-11] MEDS: Ipratropium/Albuterol Sulfate 3 ML AMPUL.NEB INHALATION ×3 (06:59→18:57)
[2021-05-11] MEDS: Multivitamins,Ther W-Minerals Tablet 1 TABLET PO (07:27)
[2021-05-11] MEDS: Ferrous Gluconate 324 MG Tablet PO ×2 (07:27→17:37)
--- NOTE | 2021-05-11 08:33 | VDLE_ITS ---
Reason For Study: Pain RIGHT GSV is normal. CFV is compressible, spontaneous, phasic, competent and demonstrates normal augmentation. FV is compressible, spontaneous, phasic, competent and demonstrates normal augmentation. POP V is compressible, spontaneous, phasic, competent and demonstrates normal augmentation. T/P Trunk is compressible. PTV is compressible. RT PerV is compressible. Procedure This is a venous duplex using B-mode, color flow and spectral Doppler. Exam performed portable in patient room. A preliminary report was called and/or faxed to Shayne MONTE. VL/Venous Duplex US, Unilateral Interpretation Summary There is no evidence of right lower extremity deep vein thrombosis. Right great saphenous vein appears patent and compressible segmentally. Ordering Physician: Eula Marsh Referring Physician: Clifford Banuelos Performed By: Jovanna Herndon, RAMSEY, RVT
[2021-05-11] MEDS: Famotidine 20 MG Tablet PO ×2 (09:52→21:10)
[2021-05-11] MEDS: Mirabegron 50 MG TAB.ER.24H PO (09:52)
[2021-05-11 10:49] LABS: Absolute Lymphocyte Count 0.58 X10^3/uL (0.83-4.51); Absolute Neutrophil Count 6.4 X10^3/uL (2.0-7.7); Basophil# 0.06 X10^3/uL; Basophil% 0.8 % (0-1); Eosinophils% 1.3 % (0-5); Hematocrit 30.3 % (37-47); Hemoglobin 9.8 g/dL (12.0-15.0); Lymphocyte # 0.58 X10^3/ul (0.83-4.51); Lymphocyte % 7.4 % (19-41); Mean Corp Hgb Conc 32.3 g/dL (32-36); Mean Corpuscular Hgb 31.4 pg (27.0-32.0); Mean Corpuscular Volume 97.1 fL (81-99); Mean Platelet Vol. 8.9 fl (6.2-12.0); Monocyte# 0.65 X10^3/uL; Monocyte% 8.3 % (0-10); NRBC Flagged by Analyzer 0 % (0-5); Neutrophil # 6.39 X10^3/uL (2.7-7.7); Neutrophil % 81.6 % (47-70); POSITIVE DIFFERENTIAL YES; Platelet Count 348 K/mm3 (150-450); RBC Distribution Width CV 13.3 % (11.6-14.6); RBC Distribution Width SD 47.3 fl (35.1-43.9); Red Blood Count 3.12 M/mm3 (4.2-5.4); White Blood Count 7.8 K/mm3 (4.4-11.0)
[2021-05-11 10:50] LABS: Differential Indicated SCAN CRITERIA MET
[2021-05-11 11:06] LABS: ALB/GLOB Ratio 0.8 RATIO (0.9-2.4); AST(SGOT) 72 U/L (15-37); Alanine Aminotransfer ALT/SGPT 79 U/L (13-56); Albumin, Serum 2.8 g/dL (3.2-5.0); Alkaline Phosphatase 54 U/L (45-117); Anion Gap 5 (5-15); BUN 8 mg/dL (7-18); BUN/Creat Ratio 13.6 RATIO (10-20); Calcium,Total 8.8 mg/dL (8.5-10.1); Chloride 99 mmol/L (98-107); Creatinine, Serum 0.59 mg/dL (0.55-1.02); EST Glomerular Filtration Rate 107 mL/min (>60); Est Glom Filt Rate - Afr Amer 129 mL/min (>60); Estimated Creatinine Clearance 44.56 ml/min; Globulin 3.3 g/dL (2.2-4.2); Glucose 156 mg/dL (74-106); Potassium 3.3 mmol/L (3.5-5.1); Protein, Total 6.1 g/dL (6.4-8.2); Sodium Level 133 mmol/L (136-145)
[2021-05-11 11:21] LABS: Hypochromasia 1+; Platelet Estimate ADEQUATE (ADEQ)
[2021-05-11] MEDS: Atorvastatin Calcium 20 MG Tablet PO (21:11)
[2021-05-12] VITALS (9 sets, daily range): BP systolic 111–130; BP diastolic 70–77; PULSE 80–100; RESP 16–20; TEMP 36.6–37.1; O2SAT 90–96
[2021-05-12] MEDS: HYDROcodone Bitartrate/Apap 5/325 Tablet PO ×4 (02:11→21:52)
[2021-05-12 05:36] LABS: Absolute Lymphocyte Count 0.97 X10^3/uL (0.83-4.51); Absolute Neutrophil Count 3.8 X10^3/uL (2.0-7.7); Basophil# 0.05 X10^3/uL; Basophil% 0.9 % (0-1); Eosinophil# 0.14 X10^3/uL; Eosinophils% 2.4 % (0-5); Hematocrit 28.1 % (37-47); Lymphocyte # 0.97 X10^3/ul (0.83-4.51); Lymphocyte % 16.8 % (19-41); Mean Corpuscular Hgb 30.7 pg (27.0-32.0); Mean Corpuscular Volume 95.9 fL (81-99); Mean Platelet Vol. 9.2 fl (6.2-12.0); Monocyte# 0.76 X10^3/uL; Monocyte% 13.2 % (0-10); NRBC Flagged by Analyzer 0 % (0-5); Neutrophil # 3.83 X10^3/uL (2.7-7.7); Neutrophil % 66.4 % (47-70); Platelet Count 388 K/mm3 (150-450); RBC Distribution Width CV 13.4 % (11.6-14.6); RBC Distribution Width SD 47.3 fl (35.1-43.9); Red Blood Count 2.93 M/mm3 (4.2-5.4); White Blood Count 5.8 K/mm3 (4.4-11.0)
[2021-05-12 05:59] LABS: ALB/GLOB Ratio 0.9 RATIO (0.9-2.4); AST(SGOT) 79 U/L (15-37); Alanine Aminotransfer ALT/SGPT 90 U/L (13-56); Albumin, Serum 2.6 g/dL (3.2-5.0); Alkaline Phosphatase 51 U/L (45-117); Anion Gap 6 (5-15); BUN 8 mg/dL (7-18); BUN/Creat Ratio 20.1 RATIO (10-20); Calcium,Total 8.6 mg/dL (8.5-10.1); Chloride 104 mmol/L (98-107); EST Glomerular Filtration Rate 168 mL/min (>60); Est Glom Filt Rate - Afr Amer 203 mL/min (>60); Estimated Creatinine Clearance 44.56 ml/min; Glucose 119 mg/dL (74-106); Potassium 3.7 mmol/L (3.5-5.1); Protein, Total 5.6 g/dL (6.4-8.2); Sodium Level 138 mmol/L (136-145)
[2021-05-12] MEDS: Cephalexin 500 MG Capsule PO ×2 (06:13→14:04)
[2021-05-12] MEDS: Rivaroxaban 10 MG Tablet PO (06:13)
[2021-05-12] MEDS: Ipratropium/Albuterol Sulfate 3 ML AMPUL.NEB INHALATION ×3 (06:58→19:44)
[2021-05-12] MEDS: Famotidine 20 MG Tablet PO ×2 (08:39→20:42)
[2021-05-12] MEDS: Mirabegron 50 MG TAB.ER.24H PO (08:39)
[2021-05-12] MEDS: Ferrous Gluconate 324 MG Tablet PO ×2 (08:40→16:50)
[2021-05-12] MEDS: Multivitamins,Ther W-Minerals Tablet 1 TABLET PO (08:42)
--- NOTE | 2021-05-12 09:27 | CASEMGMT ---
Addendum entered by Shanita Abrams 05/12/21 11:14: SW placed a call to Marisa with RU asking about appealing denial. [facility] states the denial was faxed to RU Wednesday at 5:30pm and there was a time frame to respond to denial within 24 hours. [facility] RU staff never called her regarding fax. Pt's Fred present at [facility]. SW in to speak with pt and Fred. SW updated pt and Fred that pt was denied RU, spoke with pt and Fred about SNF. Pt and Fred states they will need time to discuss SNF options. SW informed pt and Fred that this worker will stop back later today, after lunch, to get SNF options, encouraged pt and Fred to have a few different choices for SNF. SW to check back in with pt and Fred to get choices for SNF. Addendum entered by Shanita Abrams 05/12/21 11:13: SW in to speak with pt. SW updated pt that insurance has denied RU. Pt asked about appealing denial, SW informed pt that this worker will check but not usually can be appealed. Patient was provided a list of SNF providers including quality and resource use data and consistent with the patient?s preferred geographic region, medical needs, and insurance network. Pt states she will need to talk to her about SNF options and get back to this worker. SW offered to call pt's for pt, pt denied, stating she will call her . Original Note: Social Work Note SW received message from Marisa with stating pt was denied. SW to meet with pt and pt's for continuation of discussion of discharge plans. Per PT yesterday, pt did walk 85 ft contact guard. SW to follow up with pt and pt's . Plan: TBD Shanita Abrams CATALOGUE COMPILER, SPRINKLER HELPER
--- NOTE | 2021-05-12 10:05 | PCM.PN.HOSP ---
Subjective Subjective Patient was seen and examined. No acute overnight. Patient complains of increased discharge from her right hip. Denies any fever or chills. She has been able to move well. Patient was denied precertification for discharge to acute rehab. Objective Data Objective Data Vital Signs: Vital Signs Temp Pulse Resp BP Pulse Ox 97.9 F 100 18 114/70 94 05/12/21 08:27 05/12/21 08:30 05/12/21 08:27 05/12/21 08:27 05/12/21 08:27 Oxygen Flow Rate (L/min) 97 Oxygen Delivery Method Room Air Weight: 58.831 kg Body Mass Index (BMI) 21.4 Intake & Output: Intake and Output for Last 24 Hours 05/10/21 05/11/21 05/12/21 23:59 23:59 23:59 Intake Total 1100 / 1700 1000 / 1675 1175 / 1175 Output Total 1500 / 1500 800 / 1650 1750 / 1750 Balance -400 / 200 200 / 25 -575 / -575 Lab / Micro Data Result Diagrams: 05/12/21 05:00 05/12/21 05:00 Labs: Laboratory Results - last 24 hr 05/11/21 10:36: WBC 7.8, RBC 3.12 L, Hgb 9.8 L, Hct 30.3 L, MCV 97.1, MCH 31.4, MCHC 32.3, RDW Std Deviation 47.3 H, RDW Coeff of Slime 13.3, Plt Count 348, MPV 8.9, Immature Gran % (Auto) 0.600, Neut % (Auto) 81.6 H, Lymph % (Auto) 7.4 L, [place]t % (Auto) 8.3, Eos % (Auto) 1.3, Baso % (Auto) 0.8, Absolute Neuts (auto) 6.4, Absolute Lymphs (auto) 0.58 L, Nucleated RBC % 0, Platelet Estimate ADEQUATE, Hypochromasia 1+ 05/11/21 10:36: Sodium 133 L, Potassium 3.3 L, Chloride 99, Carbon Dioxide 29.0, Anion Gap 5, BUN 8, Creatinine 0.59, Estim Creat Clear Calc 44.56, Est GFR (MDRD) Af Amer 129, Est GFR (MDRD) Non-Af 107, BUN/Creatinine Ratio 13.6, Glucose 156 H, Calcium 8.8, Total Bilirubin 0.60, AST 72 H, ALT 79 H, Alkaline Phosphatase 54, Total Protein 6.1 L, Albumin 2.8 L, Globulin 3.3, Albumin/Globulin Ratio 0.8 L 05/12/21 05:00: WBC 5.8, RBC 2.93 L, Hgb 9.0 L, Hct 28.1 L, MCV 95.9, MCH 30.7, MCHC 32.0, RDW Std Deviation 47.3 H, RDW Coeff of Slime 13.4, Plt Count 388, MPV 9.2, Immature Gran % (Auto) 0.300, Neut % (Auto) 66.4, Lymph % (Auto) 16.8 L, [place]t % (Auto) 13.2 H, Eos % (Auto) 2.4, Baso % (Auto) 0.9, Absolute Neuts (auto) 3.8, Absolute Lymphs (auto) 0.97, Nucleated RBC % 0 05/12/21 05:00: Sodium 138, Potassium 3.7, Chloride 104, Carbon Dioxide 28.0, Anion Gap 6, BUN 8, Creatinine 0.40 L, Estim Creat Clear Calc 44.56, Est GFR (MDRD) Af Amer 203, Est GFR (MDRD) Non-Af 168, BUN/Creatinine Ratio 20.1 H, Glucose 119 H, Calcium 8.6, Total Bilirubin 0.60, AST 79 H, ALT 90 H, Alkaline Phosphatase 51, Total Protein 5.6 L, Albumin 2.6 L, Globulin 3.0, Albumin/Globulin Ratio 0.9 Micro: Microbiology 05/11/21 09:40 Stool Stool Occult Blood (BREONNA) - Final Occult Blood Positive 05/06/21 08:40 Urine, Catheterized Urine Culture - Final Presumptive E. coli 05/06/21 10:42 Sputum, Expectorated/Coughed Gram Stain - Final 05/06/21 10:42 Sputum, Expectorated/Coughed Respiratory Culture - Final Presumptive C albicans 05/06/21 10:17 Mucosa - Nasopharyngeal Respiratory Panel (PCR) - Final 05/06/21 08:40 Urine Catheter - [facility] Legionella Antigen - Final 05/06/21 08:40 Urine Catheter - [facility] Streptococcus pneumoniae Antigen (M - Final Radiography Diagnostic Testing: Radiology Impression Venous Doppler Study 05/11/21 08:33 Interpretation Summary There is no evidence of right lower extremity deep vein thrombosis. Right great saphenous vein appears patent and compressible segmentally. Ordering Physician: Eula Marsh Referring Physician: Clifford Banuelos Performed By: Jovanna Herndon, RAMSEY, RVT Physical Exam Narrative Physical exam: General: Alert, Oriented x3, Cooperative, No apparent distress, Well developed HEENT: Atraumatic Oral: Moist Mucosa Neck: Supple Lungs: Clear to auscultation Cardiovascular: HS I+II, regular, no murmurs Abdomen: Bowel Sounds Present, Soft, Non Tender Extremities: Right lower extremity is slightly bigger than the left. Dressing reinforced over the right hip Assessment & Plan Assessment/Plan (1) Closed right hip fracture: QUALIFIERS: Encounter type: initial encounter Qualified Code(s): S72.001A - Fracture of unspecified part of neck of right femur, initial encounter for closed fracture (2) Debility: (3) Acute UTI: (4) Alcohol abuse: (5) Hypoxia: (6) Osteoporosis: QUALIFIERS: Osteoporosis type: unspecified Presence of current pathological fracture: unspecified Qualified Code(s): M81.0 - Age-related osteoporosis without current pathological fracture (7) COPD (chronic obstructive pulmonary disease): QUALIFIERS: COPD type: unspecified COPD Qualified Code(s): J44.9 - Chronic obstructive pulmonary disease, unspecified PLAN: 1. POD#6, status post ORIF of the right hip; pain is fairly controlled Wound dressing has some increased drainage Right lower extremity is swollen, Doppler ultrasound is negative for acute DVT Follow-up according to orthopedic recommendations Patient will need follow-up with the osteoporosis clinic 2. Acute E. coli UTI, completed antibiotics 3. Debility secondary to #6, discharged planning for retirement facility ongoing 4. Alcohol abuse, will continue to monitor on the withdrawal protocol 5. Rest of medications - COPD, chronic anemia, nicotine dependence 6. Disposition: DC to SNF when bed is available Charges/Coding Visit Charges Inpatient E&M: 70868 Subs Hosp L2
--- NOTE | 2021-05-12 13:41 | PN.ORTHO_ITS ---
Subjective Subjective Patient doing well today. Up at bedside. had increased swelling in her right leg over the weekend. Today she states that it has improved. Objective Data Objective Data Vital Signs: Vital Signs Temp Pulse Resp BP Pulse Ox 97.9 F 100 18 114/70 94 05/12/21 08:27 05/12/21 08:30 05/12/21 08:27 05/12/21 08:27 05/12/21 08:27 Oxygen Flow Rate (L/min) 97 Oxygen Delivery Method Room Air Weight: 129 lb 11.2 oz Body Mass Index (BMI) 21.4 Intake & Output: Intake and Output for Last 24 Hours 05/10/21 05/11/21 05/12/21 23:59 23:59 23:59 Intake Total 1100 / 1700 1000 / 1675 1175 / 1175 Output Total 1500 / 1500 800 / 1650 1750 / 1750 Balance -400 / 200 200 / 25 -575 / -575 Lab / Micro Data Result Diagrams: 05/12/21 05:00 05/12/21 05:00 Labs: Laboratory Results - last 24 hr 05/12/21 05:00: WBC 5.8, RBC 2.93 L, Hgb 9.0 L, Hct 28.1 L, MCV 95.9, MCH 30.7, MCHC 32.0, RDW Std Deviation 47.3 H, RDW Coeff of Slime 13.4, Plt Count 388, MPV 9.2, Immature Gran % (Auto) 0.300, Neut % (Auto) 66.4, Lymph % (Auto) 16.8 L, [place] % (Auto) 13.2 H, Eos % (Auto) 2.4, Baso % (Auto) 0.9, Absolute Neuts (auto) 3.8, Absolute Lymphs (auto) 0.97, Nucleated RBC % 0 05/12/21 05:00: Sodium 138, Potassium 3.7, Chloride 104, Carbon Dioxide 28.0, Anion Gap 6, BUN 8, Creatinine 0.40 L, Estim Creat Clear Calc 44.56, Est GFR (MDRD) Af Amer 203, Est GFR (MDRD) Non-Af 168, BUN/Creatinine Ratio 20.1 H, Glu cose 119 H, Calcium 8.6, Total Bilirubin 0.60, AST 79 H, ALT 90 H, Alkaline Phosphatase 51, Total Protein 5.6 L, Albumin 2.6 L, Globulin 3.0, Albumin/Globulin Ratio 0.9 Micro: Microbiology 05/11/21 09:40 Stool Stool Occult Blood (BREONNA) - Final Occult Blood Positive 05/06/21 08:40 Urine, Catheterized Urine Culture - Final Presumptive E. coli 05/06/21 10:42 Sputum, Expectorated/Coughed Gram Stain - Final 05/06/21 10:42 Sputum, Expectorated/Coughed Respiratory Culture - Final Presumptive C albicans 05/06/21 10:17 Mucosa - Nasopharyngeal Respiratory Panel (PCR) - Final 05/06/21 08:40 Urine Catheter - [facility] Legionella Antigen - Final 05/06/21 08:40 Urine Catheter - [facility] Streptococcus pneumoniae Antigen (M - Final Radiography Diagnostic Testing: Radiology Impression Venous Doppler Study 05/11/21 08:33 Interpretation Summary There is no evidence of right lower extremity deep vein thrombosis. Right great saphenous vein appears patent and compressible segmentally. Ordering Physician: Eula Marsh Referring Physician: Clifford Banuelos Performed By: Jovanna Herndon, RAMSEY, RVT Physical Exam Const alert, oriented x3 and no apparent distress General Appearance: cooperative Extremity normal capillary refill, no clubbing, cyanosis or edema and no calf tenderness Extremity Narrative: Right thigh is soft and compressible. Slightly swollen compared to the LLE Right Lower Extremity: hip joint inspection (Incision are intact with slight serosanguinous drainage. No fould odor or purulent drainage.) Neuro moves all extremities and no sensory deficits noted Assessment & Plan Assessment/Plan (1) Bone fracture: PLAN: s/p ORIF RLE X-rays from weekend reviewed and satisfactory Will follow in office as scheduled OK to transfer to [facility] when bed available and when stable per IM
--- NOTE | 2021-05-12 14:08 | CASEMGMT ---
Addendum entered by Shanita Abrams 05/12/21 14:52: Fred updated this worker that if [facility] is not able to accept pt, second choice for SNF is [facility]. SW informed Fred that a referral was sent to [facility], this SW is waiting for decision from [facility]. Fred states understanding. Original Note: Social Work Note SW back in to speak with pt and Fred. Both pt and Fred are agreeable to [facility]. Pt and Fred state they have no second choice at this time. SW informed pt and Fred that this worker will send referral to [facility]. SW placed a call to Shi at [facility] and left message regarding referral. SW faxed referral. Plan: [facility] pending acceptance and pre-cert Shanita Abrams DATA OFFICER, PARIMUTUEL TICKET SELLER
[2021-05-12] MEDS: 0.9% Saline Lock 10 ML Syringe IV (16:52)
--- NOTE | 2021-05-12 17:01 | CASEMGMT ---
Social Work Note JADIEL received call from Shi at [facility] stating she is able to accept pt. Shi states [facility] will need to submit for authorization to [facility]. JADIEL completed PAC Initial Prior Approval document and faxed document with clinicals to [facility]. JADIEL placed a call [facility] and spoke with Cindy. JADIEL updated Cindy on request for SNF level of care and requested request be expedited/urgent as medically pt is ready for discharge. Cindy states she will get process started for SNF level of care. JADIEL updated pt and Fred on acceptance to [facility] pending pre-cert. Fred asked about transportation to SNF. JADIEL informed Fred and pt that transportation can be arranged but pt will get a bill for wheelchair van transport and this worker is not sure if pt will qualify for cot transport but will speak with RN about transportation once pt is discharged. Pt and Fred state understanding. Plan: [facility] pending pre-cert Shanita Abrams DIE ASSEMBLER, HIDE AND SKIN PROCESSING WORKER
[2021-05-12] MEDS: Atorvastatin Calcium 20 MG Tablet PO (20:42)
[2021-05-13 02:15] VITALS: BP 98/60; PULSE 89; RESP 18; TEMP 37; O2SAT 93
[2021-05-13] MEDS: HYDROcodone Bitartrate/Apap 5/325 Tablet PO ×3 (02:16→12:51)
[2021-05-13] MEDS: Rivaroxaban 10 MG Tablet PO (05:12)
[2021-05-13 05:30] LABS: Absolute Lymphocyte Count 1.17 X10^3/uL (0.83-4.51); Absolute Neutrophil Count 3.1 X10^3/uL (2.0-7.7); Basophil# 0.04 X10^3/uL; Basophil% 0.8 % (0-1); Eosinophil# 0.18 X10^3/uL; Eosinophils% 3.4 % (0-5); Hematocrit 28.1 % (37-47); Hemoglobin 9.2 g/dL (12.0-15.0); Lymphocyte # 1.17 X10^3/ul (0.83-4.51); Lymphocyte % 22.3 % (19-41); Mean Corp Hgb Conc 32.7 g/dL (32-36); Mean Corpuscular Hgb 31.6 pg (27.0-32.0); Mean Corpuscular Volume 96.6 fL (81-99); Mean Platelet Vol. 8.9 fl (6.2-12.0); Monocyte# 0.68 X10^3/uL; NRBC Flagged by Analyzer 0 % (0-5); Neutrophil # 3.14 X10^3/uL (2.7-7.7); Neutrophil % 59.9 % (47-70); Platelet Count 406 K/mm3 (150-450); RBC Distribution Width CV 13.6 % (11.6-14.6); RBC Distribution Width SD 47.8 fl (35.1-43.9); Red Blood Count 2.91 M/mm3 (4.2-5.4); White Blood Count 5.2 K/mm3 (4.4-11.0)
[2021-05-13 06:15] LABS: ALB/GLOB Ratio 0.9 RATIO (0.9-2.4); AST(SGOT) 65 U/L (15-37); Alanine Aminotransfer ALT/SGPT 92 U/L (13-56); Albumin, Serum 2.7 g/dL (3.2-5.0); Alkaline Phosphatase 50 U/L (45-117); Anion Gap 5 (5-15); BUN 7 mg/dL (7-18); BUN/Creat Ratio 17.3 RATIO (10-20); Calcium,Total 8.8 mg/dL (8.5-10.1); Chloride 104 mmol/L (98-107); EST Glomerular Filtration Rate 165 mL/min (>60); Est Glom Filt Rate - Afr Amer 200 mL/min (>60); Estimated Creatinine Clearance 44.56 ml/min; Globulin 2.9 g/dL (2.2-4.2); Glucose 91 mg/dL (74-106); Potassium 3.7 mmol/L (3.5-5.1); Protein, Total 5.6 g/dL (6.4-8.2); Sodium Level 137 mmol/L (136-145)
[2021-05-13 07:15] VITALS: PULSE 90; RESP 17
[2021-05-13] MEDS: Ipratropium/Albuterol Sulfate 3 ML AMPUL.NEB INHALATION (07:16)
[2021-05-13 07:42] VITALS: O2SAT 93
[2021-05-13 07:45] VITALS: BP 124/65; PULSE 100; PULSE 96; RESP 18; TEMP 36.9; O2SAT 93
[2021-05-13] MEDS: Multivitamins,Ther W-Minerals Tablet 1 TABLET PO (08:02)
[2021-05-13] MEDS: Famotidine 20 MG Tablet PO (08:02)
[2021-05-13] MEDS: Mirabegron 50 MG TAB.ER.24H PO (08:02)
[2021-05-13] MEDS: Ferrous Gluconate 324 MG Tablet PO (08:04)
--- NOTE | 2021-05-13 09:59 | CASEMGMT ---
Social Work Note SW received fax from [facility] approving SNF for pt. JADIEL placed a call to Shi at [facility] and updated her. Shi states pt is able to admit to [facility] today, will not need a new COVID test. JADIEL completed [facility]escent [facility] in [facility]. SW to fax discharge paperwork once completed. Plan: [facility] skilled today Shanita Abrams DIGITAL CAMPAIGN SPECIALIST, PACKAGING LINE ATTENDANT
--- NOTE | 2021-05-13 10:13 | PCM.TXEXTCAR ---
Diet 05/07/21 11:26 Diet: Regular - General Food consistency:: Regular Liquid Consistency:: Regular/Thin Is pt able to select menu?: Yes Diet Comments: Distant sup; Discont. if concerns for aspiration/change in pulmonary status Routine Orders/Code Status Keep PO Greater than or Equal to (%): 94 Routine Lab Work: CBC (within 3 days) and BMP (within 3 days) Code Status: Full Code Wound(s) Rt espinoza: Wound Type: Surgical Incision RT HIP: Wound Type: Surgical Incision Therapies Weight Bearing: Partial weight bearing (50% weightbearing with walker for 4 weeks and then weight-bear as tolerated with walker) Extremity Affected:: Right Lower Physical Therapy: Eval and Treat Occupational Therapy: Eval and Treat Problem/Diagnosis (1) Closed right hip fracture: Status: Acute (2) Debility: Status: Acute (3) Acute UTI: Status: Acute (4) Alcohol abuse: Status: Acute Comment: 4 beers daily (5) Hypoxia: Status: Resolved (6) Osteoporosis: Status: Chronic (7) COPD (chronic obstructive pulmonary disease): Status: Chronic Allergies/Procedures Done in Hospital Allergies clindamycin Allergy (Severe, Verified 05/05/21 09:51) c diff acrylic Allergy (Intermediate, Uncoded 05/05/21 09:51) rash acrylic fabrics Procedures: - (s/p ORIF right intertrochanteric fracture on 05/06/21) Type of Care/Length of Stay Estimated LOS: Convalescent Care Less Than 30 days Type of Care Needed: Skilled Rehab Potential: Good Prognosis: Good Additional Orders/Day of Discharge Additional Orders: [facility] out 05/19/21. Follow-up with Dr. Morgan in 4 weeks call office for appointment, Day of Discharge: 05/13/21 Dietary and Speech Recommendations Dietitian Recommendations/Changes: Continue regular - general diet. Add ONS if intake fails at meals--will continue to monitor need depending on wt stability and intake adequacy at meals. Discharge Plan Admission Admit Date/Time: 05/05/21 06:57 Primary Reason for Your Visit: R proximal femur fracture, Acute UTI, Transient Hypoxia w/ Atelectasis Attending Provider: Faby Suazo Primary Care Provider: Clifford Banuelos Consulting Providers: Donell Morgan Instructions Patient Instructions: Alcohol Addiction, Addiction: Your Treatment Options, Fx Hip Common Questions, Fx Hip Surg Dc, ED CYSTITIS Female Adult Additional Instructions / Restrictions: CONCERNING RIGHT HIP FRACTURE: Per orthopedic surgery recommendation continue 50% weightbearing with a walker for 4 weeks and then following this weightbearing as tolerated with a walker, allowed to shower on 05/10/2021, renae out 05/19/2021, plan follow-up with Dr. Bruno in the office in 4 weeks from surgical date. RESPIRATORY INSUFFICIENCY, ATELECTASIS: RULED OUT Pneumonia, Possible Aspiration component with Hypoxia while lethargic. Initial Chest x-ray with patchy bibasilar infiltrates worse on the left lung base; however, noted negative urine antigens, negative respiratory viral panel, negative Covid status, sputum culture with only presumptive C albicans. Repeat CXR 05/08/21 with hyperinflation increased linear markings at the bases suggestive of bilateral lateral atelectasis only. STRONGLY encourage incentive spirometer continued usage 10x/hr 7a-7p. ACUTE E. COLI URINARY TRACT INFECTION: Urine culture w/ E. Coli, completed antibiotic therapy. ALCOHOL ABUSE: We strongly encouraged continued sobriety. Discharge Orders/Prescriptions Prescriptions: New famotidine 20 mg Tablet 20 mg PO BID Qty: 0 RF: 0 ferrous gluconate 324 mg (37.5 mg iron) Tablet 324 mg PO BIDCM Qty: 0 RF: 0 hydrocodone-acetaminophen 5-325 mg Tablet 1 - 2 tab PO Q6H PRN PRN (Reason: Pain Score 1-5) Qty: 0 RF: 0 nicotine 21 mg/24 hr Patch 24 Hour 21 mg transdermal DAILY Qty: 0 RF: 0 Xarelto 10 mg Tablet 10 mg PO DAILY@0600 Qty: 0 RF: 0 Multivitamins,Ther W-Minerals [Multivitamin With Minerals (Bkc)] 1 tab PO DAILYCM Qty: 0 RF: 0 Continued multivitamin capsule capsule 1 cap PO DAILY RF: 0 calcium carbonate [Antacid (calcium carbonate)] 200 mg calcium (500 mg) tablet,chewable 200 mg PO BID PRN (Reason: Indigestion) RF: 0 loratadine [Claritin] 10 mg tablet 5 mg PO PRN PRN (Reason: allergies) RF: 0 cranberry 400 mg capsule 400 mg PO DAILY RF: 0 albuterol sulfate [ProAir HFA] 90 mcg/actuation HFA aerosol inhaler 1 puff INHALATION Q6H PRN (Reason: shortness of breath) Qty: 18 RF: 2 Align 4 mg Capsule 4 mg PO DAILY RF: 0 atorvastatin 20 mg tablet 20 mg PO DAILY RF: 0 cholecalciferol (vitamin D3) 125 mcg (5,000 unit) capsule 5,000 unit PO DAILY RF: 0 budesonide-formoterol [Symbicort] 160-4.5 mcg/actuation HFA aerosol inhaler 2 inh inhalation Q12H RF: 0 Prolia 60 mg/mL syringe 60 mg SC [id number] RF: 0 Myrbetriq 50 mg tablet extended release 24 hr 50 mg PO DAILY RF: 0 Spiriva Respimat 2.5 mcg/actuation mist 2 puff INHALATION DAILY RF: 0 aspirin [Aspirin Low Dose] 81 mg Tablet,Delayed Release (Dr/Ec) 81 mg PO DAILY Qty: 0 RF: 0 Referrals / Follow Up: Clifford Banuelos DO [Primary Care Provider] - (Follow-up with PCP within 1-2 days of SNF discharge.) Donell Morgan DO [STAFF PHYSICIAN] - (Follow-up in 4 weeks.) Disposition Disposition (needs filled in before D/C Order can be placed): Senior Living Facility
--- NOTE | 2021-05-13 10:21 | DS.PCM_ITS ---
Providers Date of Admission: 05/05/21 Date of Discharge: 05/13/21 Primary Care Physician: Dr. Clifford Banuelos, DO Consultations 05/05/21 09:16 Consult: Orthopedics Routine Consulting Provider: Donell Morgan Reason for Consult: R hip fracture EMERGENT Consult: No MD Notified: Yes Date Notified: 05/05/21 Time Notified: 09:16 Method of Notification: discussed phone Reason For Visit: FRACTURED RIGHT HIP Diagnosis Discharge Diagnosis (1) Closed right hip fracture: Status: Resolved Code(s): S72.001A - Fracture of unspecified part of neck of right femur, initial encounter for closed fracture Qualifiers: Encounter type: initial encounter Qualified Code(s): S72.001A - Fracture of unspecified part of neck of right femur, initial encounter for closed fracture (2) Debility: Status: Acute Code(s): R53.81 - Other malaise (3) Acute UTI: Status: Resolved Code(s): N39.0 - Urinary tract infection, site not specified (4) Alcohol abuse: Status: Chronic Code(s): F10.10 - Alcohol abuse, uncomplicated (5) Hypoxia: Status: Resolved Code(s): R09.02 - Hypoxemia (6) Osteoporosis: Status: Chronic Code(s): M81.0 - Age-related osteoporosis without current pathological fracture Qualifiers: Osteoporosis type: unspecified Presence of current pathological fracture: unspecified Qualified Code(s): M81.0 - Age-related osteoporosis without current pathological fracture (7) COPD (chronic obstructive pulmonary disease): Status: Chronic Code(s): J44.9 - Chronic obstructive pulmonary disease, unspecified Qualifiers: COPD type: unspecified COPD Qualified Code(s): J44.9 - Chronic obstructive pulmonary disease, unspecified Medications at Discharge Home Medications calcium carbonate 200 mg calcium (500 mg) chewable tablet 200 mg PO BID PRN tab 02/17/19 loratadine 10 mg tablet 5 mg PO PRN PRN 02/17/19 multivitamin 1 cap PO DAILY 02/17/19 albuterol sulfate 90 mcg/actuation aerosol inhaler 1 puff INHALATION Q6H PRN #18 g 10/30/20 cranberry 400 mg capsule 400 mg PO DAILY 10/30/20 Align 4 mg PO DAILY 05/05/21 Myrbetriq 50 mg PO DAILY 05/05/21 Prolia 60 mg SC [id number] 05/05/21 Spiriva Respimat 2 puff INHALATION DAILY 05/05/21 atorvastatin 20 mg PO DAILY 05/05/21 budesonide-formoterol [Symbicort] 2 inh INHALATION Q12H 05/05/21 cholecalciferol (vitamin D3) 5,000 unit PO DAILY 05/05/21 Multivitamins,Ther W-Minerals [Multivitamin With Minerals (BKC)] 1 tab PO DAILYC M #0 05/09/21 aspirin [Aspirin Low Dose] 81 mg PO DAILY #0 tab 05/09/21 famotidine 20 mg PO BID #0 tab 05/09/21 ferrous gluconate 324 mg PO BIDCM #0 tab 05/09/21 nicotine 21 mg TRANSDERMAL DAILY #0 ea 05/09/21 rivaroxaban [Xarelto] 10 mg PO DAILY@0600 #0 tab 05/09/21 hydrocodone-acetaminophen 1 tab PO Q6H PRN PRN 3 Days #12 tab 05/13/21 Hospital Course Operations None Procedures - (s/p right hip ORIF on 05/06/21) Summary of Care Provided Minutes Spent on Discharge: 45 Hospital Course: 71-year-old female with past medical history of alcohol use disorder, nicotine dependence who presented after a fall on 05/05/21 whilst outside on her back deck. Patient's did not hear her fall. She had to crawl back into the door. She presented from an outside hospital. Plain x-ray showed proximal right femoral fracture. Patient was admitted to the [facility] and managed on the [facility] floor. Orthopedics was consulted and patient underwent ORIF on 05/06/21. During this hospital stay, patient was managed as acute UTI. She completed antibiotics. She was also monitored for alcohol withdrawal. She had hypoxia and chest x-ray showed pneumonia versus atelectasis. Patient improved with initial empiric antibiotics which were discontinued. Sputum cultures showed Nano. Urine streptococcal and Legionella antigen as well as respiratory panel was negative. Orthopedic to follow-up in the outpatient. [place] to be taken out on 04/25/21. Patient was supposed to be 50% weightbearing and walker for 4 weeks and then weight-bear as tolerated. Changes some treatment for osteoporosis with your primary care doctor. It was recommended for patient to consider follow-up also with endocrinology bone health program with [facility]. Physical Exam Narrative Physical exam: General: Alert, Oriented x3, Cooperative, No apparent distress, Well developed HEENT: Atraumatic Oral: Moist Mucosa Neck: Supple Lungs: Clear to auscultation Cardiovascular: HS I+II, regular, no murmurs Abdomen: Bowel Sounds Present, Soft, Non Tender Extremities: Right lower extremity is slightly bigger than the left. Dressing reinforced over the right hip Weight / BMI Weight Weight: 58.2 kg Body Mass Index (BMI) 21.4 ABG / Lab / Microbiology Data Result Diagrams: 05/13/21 05:10 05/13/21 05:10 Laboratory: Laboratory Results - last 24 hr 05/13/21 05:10: WBC 5.2, RBC 2.91 L, Hgb 9.2 L, Hct 28.1 L, MCV 96.6, MCH 31.6, MCHC 32.7, RDW Std Deviation 47.8 H, RDW Coeff of Slime 13.6, Plt Count 406, MPV 8.9, Immature Gran % (Auto) 0.600, Neut % (Auto) 59.9, Lymph % (Auto) 22.3, [place] % (Auto) 13.0 H, Eos % (Auto) 3.4, Baso % (Auto) 0.8, Absolute Neuts (auto) 3.1, Absolute Lymphs (auto) 1.17, Nucleated RBC % 0 05/13/21 05:10: Sodium 137, Potassium 3.7, Chloride 104, Carbon Dioxide 28.0, Anion Gap 5, BUN 7, Creatinine 0.40 L, Estim Creat Clear Calc 44.56, Est GFR (MDRD) Af Amer 200, Est GFR (MDRD) Non-Af 165, BUN/Creatinine Ratio 17.3, Glucose 91, Calcium 8.8, Total Bilirubin 0.70, AST 65 H, ALT 92 H, Alkaline Phosphatase 50, Total Protein 5.6 L, Albumin 2.7 L, Globulin 2.9, Albumin/Globulin Ratio 0.9 Microbiology: Microbiology 05/11/21 09:40 Stool Stool Occult Blood (BREONNA) - Final Occult Blood Positive 05/06/21 08:40 Urine, Catheterized Urine Culture - Final Presumptive E. coli 05/06/21 10:42 Sputum, Expectorated/Coughed Gram Stain - Final 05/06/21 10:42 Sputum, Expectorated/Coughed Respiratory Culture - Final Presumptive C albicans 05/06/21 10:17 Mucosa - Nasopharyngeal Respiratory Panel (PCR) - Final 05/06/21 08:40 Urine Catheter - [facility] Legionella Antigen - Final 05/06/21 08:40 Urine Catheter - [place] Streptococcus pneumoniae Antigen (M - Final D/C Instructions Discharge Diet: No restrictions Weight Bearing Status: Partial weight bearing (50% weight bearing RLE with walker x 4 weeks, WBAT following this with walker.) Keep extremity elevated above heart level: Operative Extremity Call your doctor if your incision/area has: Continuous Slow Oozing, Sudden Increased Bleeding, Increased Pain/ Swelling, Increased Redness, Foul Smelling Discharge and Swelling at the incision site Call your doctor if you observe: Fever of 101 or Higher, Numbness or Tingling, Inability to urinate, Shortness of breath, Dizziness, Fainting spells, Swelling in the ankles, Chest pain, Increased palpitations (irregular heartbeat) and Uncontrolled pain Additional Dressing/Incision Instructions: Daily dressing changes, dry dressing. Meaningful Use Info Meaningful Use Diagnoses (Choose all that apply): None applicable Discharge Plan Admission Admit Date/Time: 05/05/21 06:57 Primary Reason for Your Visit: R proximal femur fracture, Acute UTI, Transient Hypoxia w/ Atelectasis Attending Provider: Faby Suazo Primary Care Provider: Clifford Banuelos Consulting Providers: Donell Morgan Instructions Patient Instructions: Alcohol Addiction, Addiction: Your Treatment Options, Fx Hip Common Questions, Fx Hip Surg Dc, ED CYSTITIS Female Adult Additional Instructions / Restrictions: CONCERNING RIGHT HIP FRACTURE: Per orthopedic surgery recommendation continue 50% weightbearing with a walker for 4 weeks and then following this weightbearing as tolerated with a walker, allowed to shower on 05/10/2021, renae out 05/19/2021, plan follow-up with Dr. Bruno in the office in 4 weeks from surgical date. RESPIRATORY INSUFFICIENCY, ATELECTASIS: RULED OUT Pneumonia, Possible Aspiration component with Hypoxia while lethargic. Initial Chest x-ray with patchy bibasilar infiltrates worse on the left lung base; however, noted negative urine antigens, negative respiratory viral panel, negative Covid status, sputum culture with only presumptive C albicans. Repeat CXR 05/08/21 with hyperinflation increased linear markings at the bases suggestive of bilateral lateral atelectasis only. STRONGLY encourage incentive spirometer continued usage 10x/hr 7a-7p. ACUTE E. COLI URINARY TRACT INFECTION: Urine culture w/ E. Coli, completed antibiotic therapy. ALCOHOL ABUSE: We strongly encouraged continued sobriety. Discharge Orders/Prescriptions Prescriptions: New famotidine 20 mg Tablet 20 mg PO BID Qty: 0 RF: 0 ferrous gluconate 324 mg (37.5 mg iron) Tablet 324 mg PO BIDCM Qty: 0 RF: 0 nicotine 21 mg/24 hr Patch 24 Hour 21 mg transdermal DAILY Qty: 0 RF: 0 Xarelto 10 mg Tablet 10 mg PO DAILY@0600 Qty: 0 RF: 0 Multivitamins,Ther W-Minerals [Multivitamin With Minerals (Bkc)] 1 tab PO DAILYCM Qty: 0 RF: 0 hydrocodone-acetaminophen 5-325 mg Tablet 1 tab PO Q6H PRN PRN (Reason: Pain Score 1-5) 3 Days Qty: 12 RF: 0 Continued multivitamin capsule capsule 1 cap PO DAILY RF: 0 calcium carbonate [Antacid (calcium carbonate)] 200 mg calcium (500 mg) tablet,chewable 200 mg PO BID PRN (Reason: Indigestion) RF: 0 loratadine [Claritin] 10 mg tablet 5 mg PO PRN PRN (Reason: allergies) RF: 0 cranberry 400 mg capsule 400 mg PO DAILY RF: 0 albuterol sulfate [ProAir HFA] 90 mcg/actuation HFA aerosol inhaler 1 puff INHALATION Q6H PRN (Reason: shortness of breath) Qty: 18 RF: 2 Align 4 mg Capsule 4 mg PO DAILY RF: 0 atorvastatin 20 mg tablet 20 mg PO DAILY RF: 0 cholecalciferol (vitamin D3) 125 mcg (5,000 unit) capsule 5,000 unit PO DAILY RF: 0 budesonide-formoterol [Symbicort] 160-4.5 mcg/actuation HFA aerosol inhaler 2 inh inhalation Q12H RF: 0 Prolia 60 mg/mL syringe 60 mg SC [id number] RF: 0 Myrbetriq 50 mg tablet extended release 24 hr 50 mg PO DAILY RF: 0 Spiriva Respimat 2.5 mcg/actuation mist 2 puff INHALATION DAILY RF: 0 aspirin [Aspirin Low Dose] 81 mg Tablet,Delayed Release (/Ec) 81 mg PO DAILY Qty: 0 RF: 0 Referrals / Follow Up: Clifford Banuelos DO [Primary Care Provider] - (Follow-up with PCP within 1-2 days of SNF discharge.) Donell Morgan DO [STAFF PHYSICIAN] - (Follow-up in 4 weeks.) Law Nava MD [STAFF PHYSICIAN] - 09/04/21 9:15 am Disposition Disposition (needs filled in before D/C Order can be placed): Alf Facility Charges/Coding Visit Charges Inpatient E&M: 56297 Disch Hosp
--- NOTE | 2021-05-13 12:10 | CASEMGMT ---
Social Work Note SW faxed completed discharge paperwork to [facility] including transfer to extended care facility, signed medication list, any scripts, COVID test/tool and HENS. Original in SNF Folder and copy on pt's chart. SW spoke with RN, pt can transport via cot. SW accessed trip assist and arranged transportation via cot for 1:30pm. SW completed transportation form and placed on SNF folder and copy on pt's chart. SW in to speak with pt and pt's Fred. SW updated pt and Fred on approval for [facility], discharge today, and transportation time. Pt and Fred state understanding. SW placed a call to Shi at [facility] and updated her on transportation time. Plan: [facility] skilled with Physician's transporting pt via cot at 1:30pm Shanita VAZQUEZ, PLACEMENT SECRETARY
[2021-05-13 13:11] VITALS: BP 112/69; PULSE 107; RESP 18; TEMP 37.1; O2SAT 94
--- NOTE | 2021-05-13 13:24 | NURSING ---
Report left as a message of Florinda Urbano RN voice mail.
== END 2021-05-13 13:48 | disposition skilled nursing facility (03) | DRG 481 ==
PROVIDERS: Orthopaedic Surgery; Admitting Provider Family Medicine; PCP Family Medicine; Visit Provider Internal Medicine
PROC: 0QS604Z Reposition Right Upper Femur with Internal Fixation Device, Open Approach (ICD-10-PCS; CPT 27245; principal; 2021-05-06 14:30)
DX: S72.001A Fracture of unspecified part of neck of right femur, initial encounter for closed fracture (principal); N39.0 Urinary tract infection, site not specified; J98.11 Atelectasis; F10.139 Alcohol abuse with withdrawal, unspecified; B96.20 Unspecified Escherichia coli [E. coli] as the cause of diseases classified elsewhere; E78.5 Hyperlipidemia, unspecified; M81.0 Age-related osteoporosis without current pathological fracture; R53.81 Other malaise; J44.9 Chronic obstructive pulmonary disease, unspecified; D64.9 Anemia, unspecified; W19.XXXA Unspecified fall, initial encounter; M19.90 Unspecified osteoarthritis, unspecified site; H40.9 Unspecified glaucoma; Z87.01 Personal history of pneumonia (recurrent); Z79.82 Long term (current) use of aspirin; Z79.899 Other long term (current) drug therapy; F17.210 Nicotine dependence, cigarettes, uncomplicated
CPT/HCPCS: 36415; 71045; 73502; 76000; 80048; 80053; 81001; 82274; 82607; 82728; 82746; 83540; 83550; 83735; 84100; 84145; 84443; 85025; 85027; 85610; 85730; 86850; 86900; 86901; 87070; 87086; 87088; 87186; 87205; 87449; 87633; 87635; 92526; 92610; 93005; 93971; 94640; 94762; 97110; 97116; 97162; 97166; 97530; 97535; 99251; 99406; C1713; C1776; J7030; J7040; J7120; U0005; A4216; G0463; J2405; U0003

== ENCOUNTER → 2021-10-01 | Outpatient (CLI) | payer MEDICARE, SELFPAY | END | disposition home or self-care (01) | LOC: LABSPEC 14:03 | PROVIDERS: PCP Family Medicine; Visit Provider Family Medicine | DX: Z20.822 Contact with and (suspected) exposure to COVID-19 (principal) | CPT/HCPCS: 87635; U0005; U0003 ==

== ENCOUNTER → 2021-10-15 11:47 | Outpatient (CLI) | payer MEDICARE, SELFPAY ==
[2021-10-15 12:19] LABS: Absolute Lymphocyte Count 1.29 X10^3/uL (0.83-4.51); Absolute Neutrophil Count 4.9 X10^3/uL (2.0-7.7); Basophil# 0.08 X10^3/uL; Basophil% 1.2 % (0-1); Eosinophil# 0.07 X10^3/uL; Hematocrit 47.4 % (37-47); Hemoglobin 15.6 g/dL (12.0-15.0); Lymphocyte # 1.29 X10^3/ul (0.83-4.51); Lymphocyte % 18.9 % (19-41); Mean Corp Hgb Conc 32.9 g/dL (32-36); Mean Corpuscular Hgb 28.8 pg (27.0-32.0); Mean Corpuscular Volume 87.6 fL (81-99); Monocyte# 0.49 X10^3/uL; Monocyte% 7.2 % (0-10); NRBC Flagged by Analyzer 0 % (0-5); Neutrophil # 4.87 X10^3/uL (2.7-7.7); Neutrophil % 71.4 % (47-70); Platelet Count 344 K/mm3 (150-450); RBC Distribution Width CV 14.8 % (11.6-14.6); RBC Distribution Width SD 47.6 fl (35.1-43.9); Red Blood Count 5.41 M/mm3 (4.2-5.4); White Blood Count 6.8 K/mm3 (4.4-11.0)
[2021-10-15 12:38] LABS: Albumin, Serum 3.7 g/dL (3.2-5.0); Globulin 3.6 g/dL (2.2-4.2); Protein, Total 7.3 g/dL (6.4-8.2)
== END ==
PROVIDERS: PCP Family Medicine; Referring Provider Family Medicine; Visit Provider Family Medicine
DX: R53.81 Other malaise (principal); J30.2 Other seasonal allergic rhinitis
CPT/HCPCS: 36415; 82040; 84156; 85025

== ENCOUNTER 2021-11-11 12:29 | Outpatient (CLI) | payer MEDICARE, SELFPAY ==
--- NOTE | 2021-11-11 12:35 | BI_ITS ---
MAMMOGRAPHY - BILATERAL SCREENING REASON FOR EXAM: Female, 71 years old. Routine annual screening examination. PERTINENT HISTORY: Grandmother with breast cancer. TECHNIQUE: Digital bilateral breast sukhjinder (3D mammographic acquisition) in the CC and MLO projections. 2-D mediolateral oblique (MLO) and craniocaudad (CC) views of both breasts were obtained. CAD: Full Field Digital Mammography with Computer Added Detection was performed. COMPARISON: Comparison is made with prior abdomen examination dated 04/20/2017. FINDINGS: Breast Composition: There are scattered areas of fibroglandular density. There are no dominant masses or suspicious calcifications. Stable benign-appearing bilateral calcifications. No focal cluster is seen. No other significant abnormalities are identified. There has been no significant change since the prior study. BI/SCRN MAMM (CAD)W/SUKHJINDER BILAT IMPRESSION: Stable bilateral screening mammogram. Yearly follow-up mammogram recommended. (A) ASSESSMENT CATEGORY: BIRADS Category 2: Benign. A letter regarding these results will be sent to the patient by the facility within 30 days. Approximately 10% of breast cancers are not detected by mammography. A normal mammogram should not delay biopsy of a clinically suspicious abnormality. [id number] Electronically Signed: Casimiro Mazariegos MD at 13:40 EST , Service support ,
--- NOTE | 2021-11-11 12:38 | BD_ITS ---
STUDY: DUAL ENERGY X-RAY ABSORPTIOMETRY / DXA REASON FOR EXAM: Female, 71 years old. Screening TECHNIQUE: Bone Mineral Density (BMD) measurements of both forearms were obtained. COMPARISON: Comparison is made with prior examination dated 03/02/2019. FINDINGS: Right Forearm: g/cm2 (0.507) / T-score (-3.1) / Z-score (-0.9) Left Forearm: g/cm2 (0.505) / T-score (-3.1) / Z-score (-0.9) BD/Dexa Bone Density/Append Skel IMPRESSION: The patient is considered osteoporotic as outlined below according to World Jay Organization (WHO) criteria with a high fracture risk. Reference Information: The T-score is the number of standard deviations above or below the standard which is normal for young adults at their peak bone mineral density. The World Health Organization (WHO) interprets the T-scores as follows: Above -1 Normal bone density Between -1 and -2.5 Osteopenia Equal to / or below -2.5 Osteoporosis As a practical clinical guideline, osteopenia may be graded as follows: Mild -1 through -1.5 Moderate -1.6 through -2.0 Severe -2.1 through -2.4 The Z-score is the number of standard deviations above or below age-matched controls. A Z-score of less than -1.5 would be considered abnormal. References: 1. NIH Osteoporosis and Related Bone Diseases www osteo.org 2. International Society for Clinical Densitometry www iscd.org 3. National Osteoporosis Foundation www nof.org Electronically Signed: Casimiro Mazariegos MD at 13:11 EST , Service support ,
== END 2021-11-11 23:59 | disposition short-term general hospital (02) ==
LOC: OPBI 12:30
PROVIDERS: PCP Family Medicine; Referring Provider Family Medicine; Visit Provider Family Medicine
DX: Z12.31 Encounter for screening mammogram for malignant neoplasm of breast (principal); M81.0 Age-related osteoporosis without current pathological fracture
CPT/HCPCS: 77063; 77067; 77081

== ENCOUNTER → 2022-10-29 | Outpatient (CLI) | payer MEDICARE, SELFPAY ==
[2022-10-29 16:58] LABS: Absolute Lymphocyte Count 1.05 X10^3/uL (0.83-4.51); Absolute Neutrophil Count 6.6 X10^3/uL (2.0-7.7); Basophil# 0.05 X10^3/uL; Basophil% 0.6 % (0-1); Eosinophil# 0.04 X10^3/uL; Eosinophils% 0.5 % (0-5); Hematocrit 45.6 % (37-47); Hemoglobin 15.5 g/dL (12.0-15.0); Lymphocyte # 1.05 X10^3/ul (0.83-4.51); Lymphocyte % 12.7 % (19-41); Mean Corpuscular Hgb 32.6 pg (27.0-32.0); Mean Corpuscular Volume 95.8 fL (81-99); Mean Platelet Vol. 9.2 fl (6.2-12.0); Monocyte# 0.53 X10^3/uL; Monocyte% 6.4 % (0-10); NRBC Flagged by Analyzer 0 % (0-5); Neutrophil # 6.56 X10^3/uL (2.7-7.7); Neutrophil % 79.4 % (47-70); Platelet Count 276 K/mm3 (150-450); RBC Distribution Width CV 13.3 % (11.6-14.6); RBC Distribution Width SD 47.1 fl (35.1-43.9); Red Blood Count 4.76 M/mm3 (4.2-5.4); White Blood Count 8.3 K/mm3 (4.4-11.0)
[2022-10-29 17:20] LABS: ALB/GLOB Ratio 1.2 RATIO (0.9-2.4); AST(SGOT) 28 U/L (15-37); Alanine Aminotransfer ALT/SGPT 33 U/L (13-56); Alkaline Phosphatase 45 U/L (45-117); Anion Gap 8 (5-15); BUN 11 mg/dL (7-18); BUN/Creat Ratio 18.4 RATIO (10-20); Calcium,Total 9.6 mg/dL (8.5-10.1); Chloride 94 mmol/L (98-107); Cholesterol 206 mg/dL (200); EST Glomerular Filtration Rate 105 mL/min (>60); Est Glom Filt Rate - Afr Amer 126 mL/min (>60); Globulin 3.3 g/dL (2.2-4.2); Glucose 117 mg/dL (74-106); High Density Lipoprotein 105 mg/dL; Potassium 4.3 mmol/L (3.5-5.1); Protein, Total 7.3 g/dL (6.4-8.2); Sodium Level 130 mmol/L (136-145); Thyroid Stim Hormone (TSH) 0.83 uIU/mL (0.358-3.74); Triglycerides 122 mg/dL; Very Low Density Lipoprotein 24 mg/dL (5-40)
== END | disposition home or self-care (01) ==
LOC: BIMLAB 15:15
PROVIDERS: PCP Family Medicine; Referring Provider Family Medicine; Visit Provider Family Medicine
DX: T14.8XXA Other injury of unspecified body region, initial encounter (principal); N39.0 Urinary tract infection, site not specified; E78.5 Hyperlipidemia, unspecified
CPT/HCPCS: 36415; 80053; 80061; 84443; 85025

== ENCOUNTER → 2022-12-31 | Outpatient (CLI) | payer MEDICARE, SELFPAY ==
--- NOTE | 2022-12-31 12:33 | BI_ITS ---
MAMMOGRAPHY - BILATERAL SCREENING REASON FOR EXAM: Female, 72 years old. Routine annual screening examination. PERTINENT HISTORY: Non-contributory. TECHNIQUE: Digital bilateral breast sukhjinder (3D mammographic acquisition) in the CC and MLO projections. 2-D mediolateral oblique (MLO) and craniocaudad (CC) views of both breasts were obtained. CAD: Full Field Digital Mammography with Computer Added Detection was performed. COMPARISON: Comparison is made with prior study dated November 11, 2021. FINDINGS: Breast Composition: There are scattered areas of fibroglandular density. There are no dominant masses or suspicious calcifications. Stable scattered bilateral calcifications. No focal cluster is seen. No other significant abnormalities are identified. There has been no significant change since the prior study. BI/SCRN MAMM (CAD)W/SUKHJINDER BILAT IMPRESSION: Stable bilateral screening mammogram. Yearly follow-up mammogram recommended. (A) ASSESSMENT CATEGORY: BIRADS Category 2: Benign. A letter regarding these results will be sent to the patient by the facility within 30 days. Approximately 10% of breast cancers are not detected by mammography. A normal mammogram should not delay biopsy of a clinically suspicious abnormality. [id number] Electronically Signed: Casimiro Mazariegos MD at 13:44 EST ,
--- NOTE | 2022-12-31 13:00 | CDU_ITS ---
Reason For Study: carotid bruit Rt. Velocities/BP Lt. Velocities/BP Prox CCA 58.9/7.8 cm/sec. Prox CCA 64.2/13.9 cm/sec. Mid CCA 57.9/12.6 cm/sec. Mid CCA 85.1/13.9 cm/sec. Dist CCA 60.7/13.5 cm/sec. Dist CCA 80.2/13.9 cm/sec. Prox ICA 165.3/29.2 cm/sec. Prox ICA 139.4/27.9 cm/sec. Mid ICA 93.7/16.3 cm/sec. Mid ICA 88.2/15.2 cm/sec. Dist ICA 92.5/20.0 cm/sec. Dist ICA 77.3/18.8 cm/sec. Rt. ICA/CCA = 2.9. Lt. ICA/CCA = 1.6. Prox ECA 252.2/26.7 cm/sec. Prox ECA 106.5/11.5 cm/sec. Rt. Vert. 69.1/17.6 cm/sec. Right Extracranial There is heterogeneous, irregular atherosclerotic plaque noted in the right common carotid artery. There is heterogeneous, irregular atherosclerotic plaque noted in the right internal carotid artery. There is heterogeneous, irregular atherosclerotic plaque noted in the right external carotid artery. Antegrade flow is noted in the right vertebral artery. Left Extracranial There is heterogeneous, irregular atherosclerotic plaque noted in the left common carotid artery. There is heterogeneous, irregular atherosclerotic plaque noted in the left internal carotid artery. There is heterogeneous, irregular atherosclerotic plaque noted in the left external carotid artery. Retrograde flow is noted in the left vertebral artery. Procedure Carotid Duplex [id number]. This is a Carotid Duplex examination using B-mode, color flow and specral Doppler. The exam was diagnostic. Exam performed in department. VL/Carotid Duplex Ultrasound Interpretation Summary Moderate (50-69%) stenosis right extracranial internal carotid. Moderate (50-69%) stenosis left extracranial internal carotid. The Right vertebral is patent and antegrade. The Left vertebral flow is retrograde. Ordering Physician: Clifford Banuelos Performed By: Monroe Alvarez RVT
== END | disposition home or self-care (01) ==
PROVIDERS: PCP Family Medicine; Referring Provider Family Medicine; Visit Provider Family Medicine
DX: R09.89 Other specified symptoms and signs involving the circulatory and respiratory systems (principal); Z12.31 Encounter for screening mammogram for malignant neoplasm of breast
CPT/HCPCS: 77063; 77067; 93880

== ENCOUNTER → 2023-05-27 | Outpatient (CLI) | payer OTHER, SELFPAY ==
--- NOTE | 2023-05-27 13:56 | RAD_ITS ---
STUDY: X-RAY - LEFT FOOT CLINICAL: Female, 73 years old. Foot pain. TECHNIQUE: 3 view(s) of the foot. COMPARISON: None. FINDINGS: Osteopenia. Mild arthrosis of the tibiotalar and subtalar joints. Mild arthrosis of the midfoot. Mild arthrosis of the TMT joints. Mild arthrosis at the MTP and IP joints with minimal hammertoe deformities. Normal soft tissues. RAD/Foot min 3 Views IMPRESSION: Osteopenia with mild diffuse osteoarthrosis. No acute abnormality or erosive changes. Electronically Signed: Julius Foster MD at 15:51 EDT ,
== END | disposition home or self-care (01) ==
LOC: MTRAD 13:55
PROVIDERS: PCP Family Medicine; Visit Provider Family Medicine
DX: M79.672 Pain in left foot (principal)
CPT/HCPCS: 73630

== ENCOUNTER → 2023-06-01 | Outpatient (CLI) | payer OTHER, SELFPAY ==
[2023-06-01 13:39] LABS: Mucous, Urine 0 SEEN /hpf (<or=2+); Red Blood Cells-Urine 0 SEEN /hpf (0-5)
[2023-06-01 15:22] LABS: Color, Urine Yellow (Yellow); Glucose, Dipstick Normal (Normal); Ketone-Dipstick Negative (Negative); Leukocyte Esterase-Dipstick 500 /ul (Negative); Nitrite-Dipstick Negative (Negative); Occult Blood-Urine Negative /ul (Negative); Protein-Dipstick Negative (Negative); Urine Bilirubin Dipstick Negative (Negative); Urine Clarity Clear (Clear); Urine Urobilinogen Normal (Normal)
[2023-06-01 16:02] LABS: Bacteria RARE /hpf (None Seen); Squamous Epithelial Cells - UA 0-5 SEEN /hpf (5-10); White Blood Cells 5-10 SEEN /hpf (0-5)
[2023-06-01 16:20] LABS: AST(SGOT) 25 U/L (15-37); Alanine Aminotransfer ALT/SGPT 46 U/L (13-56); Albumin, Serum 2.9 g/dL (3.2-5.0); Alkaline Phosphatase 109 U/L (45-117); Anion Gap 7 (5-15); BUN 8 mg/dL (7-18); BUN/Creat Ratio 13.9 RATIO (10-20); Chloride 85 mmol/L (98-107); Creatinine, Serum 0.58 mg/dL (0.55-1.02); EST Glomerular Filtration Rate 109 mL/min (>60); Est Glom Filt Rate - Afr Amer 132 mL/min (>60); Glucose 155 mg/dL (74-106); Potassium 3.9 mmol/L (3.5-5.1); Protein, Total 5.9 g/dL (6.4-8.2); Sodium Level 126 mmol/L (136-145)
== END | disposition home or self-care (01) ==
LOC: BIMLAB 13:37
PROVIDERS: Visit Provider Family Medicine
DX: R60.0 Localized edema (principal)
CPT/HCPCS: 36415; 80053; 81001; 83880

== ENCOUNTER 2023-06-02 14:17 | Inpatient (IN) | payer MEDICARE, SELFPAY ==
[2023-06-02] VITALS (47 sets, daily range): BP systolic 75–134; BP diastolic 49–84; PULSE 61–151; RESP 12–40; TEMP 36.6–36.8; O2SAT 88–98; BMI 24.0; BMI 23.2
--- NOTE | 2023-06-02 14:50 | RAD_ITS ---
STUDY: X-RAY CHEST REASON FOR EXAM: Female, 73 years old. Chest pain TECHNIQUE: Single AP portable view of the chest. COMPARISON: Comparison is made with prior study dated May 08, 2021. FINDINGS: EKG electrodes are seen. Mild degree of vascular congestion. Small left pleural effusion with bibasilar atelectasis and/or infiltrate worse at the left lung base. Cardiomegaly. Normal mediastinum and kirsten. Normal visualized pulmonary arteries. There is atherosclerotic calcification of the aortic arch with tortuosity. Normal visualized thoracic spine. Calcific tendinitis of the left shoulder. There is no demonstrated abnormality of the visualized soft tissue structures of the upper abdomen. RAD/Chest 1 View (Portable) IMPRESSION: Cardiomegaly. Mild vascular congestion. Pleural parenchymal changes at the left lung base with bibasilar atelectasis and small left pleural effusion. Electronically Signed: Casimiro Mazariegos MD at 15:17 EDT ,
--- NOTE | 2023-06-02 14:51 | ED.VIS.CHEST ---
HPI History of Present Illness Chief Complaint: Edema Detail of Chief Complaint: Sent A-fib RVR. Informant: patient and spouse/S.O. Onset/Context/Timing Onset: Weeks Activity at onset: gradual Timing: Continuous Narrative Narrative: 73-year-old female history of COPD. Over the last several weeks to months has had intermittent shortness of breath and intermittent leg swelling bilaterally. Today was seen in physicians office covering for her primary care physician they noted she had new onset A-fib and sent her to the emergency department. She was started on Lasix 6 days ago for lower extremity swelling. No history of DVT or PE. No cardiac history. Prior Similar Symptoms: Yes Recent Illness/Hospitalization: No CVD Risk Factors: Positive for Smoking; Negative for Hypertension, Diabetes or Family History 1' </=55 PE Risk Factors: Positive for Recent Travel/Surgery; Negative for Recent Immobilization, Prior DVT or PE, Cancer or OCP + Smoking + >/=35 TAD Risk Factors: Negative for Marfan's Syndrome PFSH PFSH Medical History Alcohol abuse Anxiety Arrhythmia Arthritis Atrial fibrillation Bilateral lower extremity edema Bone fracture Closed right hip fracture COPD (chronic obstructive pulmonary disease) Dyspnea Frequent headaches Glaucoma High cholesterol History of pneumonia History of stress test Osteoporosis Post-menopausal Seasonal allergies Shortness of breath Smoker Home Medications loratadine 10 mg tablet (Claritin) 5 mg PO PRN PRN allergies 02/17/19 [History Last Taken Unknown] multivitamin 1 cap PO DAILY supplement 02/17/19 [History Last Taken 05/04/21] Bifidobacterium infantis 4 mg capsule (Align) 4 mg PO DAILY probiotic 05/05/21 [History Last Taken 05/04/21] cholecalciferol (vitamin D3) 125 mcg (5,000 unit) capsule 5,000 unit PO DAILY vitamin #90 caps 09/11/22 [Rx Last Taken Unknown] albuterol sulfate 90 mcg/actuation aerosol inhaler (ProAir HFA) 1 puff inhalation Q6H PRN shortness of breath #18 grams 10/29/22 [Rx Last Taken Unknown] atorvastatin 20 mg tablet 20 mg PO DAILY cholesterol #90 tabs 10/29/22 [Rx Last Taken Unknown] biotin 2,500 mcg capsule 2,500 mcg PO DAILY 10/29/22 [History Last Taken Unknown] budesonide-formoterol HFA 160 mcg-4.5 mcg/actuation aerosol inhaler (Symbicort) 2 inh inhalation Q12H COPD #30.6 grams 10/29/22 [Rx Last Taken Unknown] calcium carbonate 600 mg calcium (1,500 mg) tablet (Calcium) 600 mg PO DAILY 10/29/22 [History Last Taken Unknown] mirabegron 50 mg tablet,extended release 24 hr (Myrbetriq) 50 mg PO DAILY bladder #90 tabs 10/29/22 [Rx Last Taken Unknown] tiotropium bromide 2.5 mcg/actuation mist for inhalation (Spiriva Respimat) 2 puff inhalation DAILY COPD #12 grams 10/29/22 [Rx Last Taken Unknown] denosumab 60 mg/mL subcutaneous syringe (Prolia) 60 mg subcut [id number] bone health #1 mL 04/15/23 [Rx Last Taken Unknown] apixaban 5 mg tablet (Eliquis) 5 mg PO BID #60 tabs 06/02/23 [Rx Last Taken Unknown] calcium carbonate 200 mg calcium (500 mg) chewable tablet (Antacid (calcium carbonate)) 200 mg PO DAILY Indigestion 06/02/23 [History Last Taken Unknown] Allergy/AdvReac Type Severity Reaction Status Date / Time clindamycin Allergy Severe c diff Verified 06/02/23 14:30 Environmental Allergies: Allergy Rash Verified 06/02/23 14:30 Uncoded Family History Mother Myocardial infarction Hyperlipemia Father Myocardial infarction Hyperlipemia Other Arthritis Breast cancer CVA (cerebral vascular accident) Osteoporosis Thyroid disorder Surgical History History of hip replacement History of tonsillectomy Normal colonoscopy Social History household members: spouse housing: house current occupational status: retired pets and animals: No Smoking Status: Current every day smoker tobacco type: cigarettes alcohol intake: current alcohol intake frequency: 3 or more drinks per day details: Patient reports currently 3-4 beers daily and if with friends 1-2 high ball substance use type: does not use what type of physical activity do you participate in: none ROS ROS ED ROS Narrative Leg swelling. Shortness of breath. Review of Systems ROS Unobtainable: Denies due to encephalopathy Constitutional Constitutional ED: Denies chills or fever(s) Eyes Eyes: Reports none ENT ENT ED: Denies ear pain Cardiovascular Cardiovascular: Reports as per HPI, palpitations and racing heartbeat Respiratory/Chest Respiratory/Chest: Reports dyspnea; Denies cough Gastrointestinal Gastrointestinal: Denies abdominal pain Genitourinary Genitourinary ED: Denies dysuria Musculoskeletal Musculoskeletal: Denies arthralgias Integumentary Denies abscess Neurologic Neurologic: Denies headache(s) Psychiatric Psychiatric: Denies anxiety Endocrine Endocrinology: Denies cold intolerance Hematologic/Lymphatic Hematologic/Lymphatic: Denies easy bleeding Allergic/Immunologic Allergic/Immunologic ED: Denies mouth swelling EXAM Physical Exam Narrative Exam Narrative: 73-year-old female currently in A-fib RVR heart rate in the 150 range. No distress. H EENT exam unremarkable. Neck nontender. Lungs clear to auscultation bilaterally. Heart rate about 150 consistent with A-fib on the monitor. Abdomen soft nontender normal bowel sounds no peritoneal signs. Moving all 4 extremities. 1+ pitting edema both lower extremities. Calves are nontender without cords. Neurologically patient awake alert no focal motor deficits. Const Vital Signs: 06/02/23 14:18 06/02/23 14:30 06/02/23 14:32 Temperature 97.8 F Temperature Source Temporal Pulse Rate 151 H 150 H Respiratory Rate 18 22 H Respiratory Effort Normal Non-Labored Respiratory Pattern Normal Blood Pressure 134/78 H Blood Pressure Mean 96 Pulse Ox 95 96 Oxygen Delivery Method Room Air Room Air Oxygen Flow Rate (L/min) 06/02/23 14:54 06/02/23 15:15 06/02/23 15:15 Temperature Temperature Source Pulse Rate 126 H Respiratory Rate 12 Respiratory Effort Respiratory Pattern Blood Pressure 109/74 Blood Pressure Mean 85 Pulse Ox 89 94 Oxygen Delivery Method Room Air Room Air Nasal Cannula Oxygen Flow Rate (L/min) 2 06/02/23 15:06 06/02/23 15:08 06/02/23 15:10 Temperature Temperature Source Pulse Rate 107 H 95 114 H Respiratory Rate 22 H 22 H 21 H Respiratory Effort Respiratory Pattern Blood Pressure 108/84 H Blood Pressure Mean 93 Pulse Ox 90 89 88 Oxygen Delivery Method Oxygen Flow Rate (L/min) 06/02/23 15:15 06/02/23 15:20 06/02/23 15:30 Temperature Temperature Source Pulse Rate 90 132 H 132 H Respiratory Rate 16 19 H 18 Respiratory Effort Respiratory Pattern Blood Pressure 109/74 109/74 102/69 Blood Pressure Mean 86 85 81 Pulse Ox 89 94 94 Oxygen Delivery Method Nasal Cannula Oxygen Flow Rate (L/min) 2 06/02/23 15:40 Temperature Temperature Source Pulse Rate 133 H Respiratory Rate 22 H Respiratory Effort Respiratory Pattern Blood Pressure 102/69 Blood Pressure Mean 80 Pulse Ox 93 Oxygen Delivery Method Nasal Cannula Oxygen Flow Rate (L/min) 2 Positive well nourished and well developed; Negative for obese, cachectic or contractures General Appearance ED: well developed; Negative for cachectic, contractures, NAD or pallor Nutritional Appearance: Negative for cachectic or obese HEENT Reports moist mucous membranes normocephalic and atraumatic; Negative for trauma or tenderness Eyes PERRL and EOMs intact bilaterally General Eye ED: Negative for pale conjunctiva or scleral icterus Neck no lymphadenopathy, supple and no JVD General: Negative for tenderness Chest Wall inspection of chest normal and palpation of chest normal Chest: Negative for tenderness Resp normal respiratory effort and clear to auscultation bilaterally Effort and Inspection: Negative for respiratory distress Auscultation: Negative for rales, rhonchi or wheezes Cardio no murmurs; Negative for regular rate or regular rhythm Rhythm: abnormal rhythm irregularly irregular GI normal to inspection, nondistended, normoactive bowel sounds, soft to palpation, non-tender, non-distended and no masses Auscultation: Negative for hyperactive bowel sounds Palpation: Negative for splenomegaly, mass or other Back/Spine no CVA tenderness and no thoracic nor lumbar tenderness General Back: Negative for CVA tenderness Cervical Spine: Negative for cervical spine tenderness Extremity Negative for normal to inspection General Extremety ED: Yes edema General Extremity: edema Neuro oriented x3 and CN's II-XII intact bilaterally Sensorium / Orientation: awake, alert, oriented to person, oriented to place and oriented to time; Negative for confused, lethargic or stuporous Motor Exam: strength 5/5 throughout Psych mental status grossly normal Attitude: No agitated Mood & Affect: Negative for depressed, anxious or tearful Skin no rashes or lesions noted and no wounds General Skin Exam: Negative for jaundice, pallor or other Rashes: No rashes noted Trauma: Negative for abrasion or laceration MDM MDM MDM Narrative Medical decision making narrative: 73-year-old female new onset A-fib RVR which is probably been in 4 weeks even months. With peripheral edema. Undergoing cardiac workup. Started on IV Cardizem and reassessed. Patient initially responded to the Cardizem but then went right back up to a rate in the 130s. Remains in A-fib. She was started on Cardizem drip. Her labs showed hyponatremia with a sodium 123. EKG shows A-fib RVR. Chest x-ray shows cardiomegaly and pulmonary edema consistent with congestive heart failure. I have discussed all this with the patient and her . She is comfortable with the admission. Have already spoken to the hospitalist. She was started on a Cardizem drip. Be given 40 mg IV of Lasix. History & Record Review Discussion w/independent historian: Patient Lab Data Attestation: I reviewed the patient's lab results. Lab results narrative: CBC shows white count 1.6. H&H 14 and 41. Platelets 352. Chest x-ray shows chronic changes consistent with COPD. Left lower effusion. Cardiomegaly. PT and INR and PTT are unremarkable at 14 with, 1 and 40. Electrolytes show sodium 123. Gap 11. Normal BUN and creatinine 8 and 0.6. Glucose 130. TSH normal 1.6. Troponin normal at 23. Labs: Laboratory Results - last 24 hr 06/02/23 15:00 WBC 11.6 H RBC 4.67 Hgb 14.2 Hct 41.4 MCV 88.7 MCH 30.4 MCHC 34.3 RDW Std Deviation 43.9 RDW Coeff of Slime 13.5 Plt Count 352 MPV 8.7 Immature Gran % (Auto) 0.400 Neut % (Auto) 81.2 H Lymph % (Auto) 7.7 L [place] % (Auto) 9.9 Eos % (Auto) 0.3 Baso % (Auto) 0.5 Absolute Neuts (auto) 9.4 H Absolute Lymphs (auto) 0.89 Nucleated RBC % 0 PT 14.1 INR 1.1 APTT 40.1 H Sodium 123 L Potassium 3.8 Chloride 84 L Carbon Dioxide 28.0 Anion Gap 11 BUN 8 Creatinine 0.61 Estim Creat Clear Calc 43.27 Est GFR (MDRD) Af Amer 123 Est GFR (MDRD) Non-Af 102 BUN/Creatinine Ratio 13.1 Glucose 130 H Calcium 9.2 Troponin I High Sens 23 TSH 1.61 Radiography Chest X-Ray - ED: 1 View, Read by ED Physician, Mediastinum, Bony Structures, Chronic Changes, Cardiomegaly and Left Effusion Diagnostic Testing: Clinical Impression(s) from Imaging Studies Chest X-Ray 06/02/23 14:50 IMPRESSION: Cardiomegaly. Mild vascular congestion. Pleural parenchymal changes at the left lung base with bibasilar atelectasis and small left pleural effusion. Electronically Signed: Casimiro Mazariegos MD at 15:17 EDT , Chest x-ray, portable, single view is consistent with chronic changes consistent with COPD. Left lower effusion. Cardiomegaly. Interpreted by myself. Rhythm Strip Rhythm Strip: A-fib Rate: 137 Ectopy: None EKG Initial EKG: Attestation: I personally reviewed and interpreted this EKG as follows: Interpretation: Atrial Fibrillation Comments: A-fib RVR rate 137. No acute signs of NH. Nonspecific T wave abnormalities. Critical Care Time Critical Care Time: Yes Critical care time (excluding procedures): 30-74 minutes, Including time spent:, Discussing w/Patient &/or Family/Fuel Retrofitting Technician, Discussing w/Consultants, Arranging Admission or Transfer, Performing Direct Patient Care at Bedside and - (34 min) Discharge Plan Triage Chief Complaint: Edema ED Provider: Jordin Sanford Dx/Rx/DC Orders Clinical Impression: CHF (congestive heart failure), Acute hyponatremia, Atrial fibrillation with rapid ventricular response Prescriptions: No Action multivitamin capsule capsule 1 cap PO DAILY loratadine [Claritin] 10 mg tablet 5 mg PO PRN PRN (Reason: allergies) calcium carbonate [Antacid (calcium carbonate)] 200 mg calcium (500 mg) tablet,chewable 200 mg PO DAILY calcium carbonate [Calcium 600] 600 mg calcium (1,500 mg) tablet 600 mg PO DAILY biotin 2,500 mcg capsule 2,500 mcg PO DAILY albuterol sulfate [ProAir HFA] 90 mcg/actuation HFA aerosol inhaler 1 puff INHALATION Q6H PRN (Reason: shortness of breath) Qty: 18 6RF atorvastatin 20 mg tablet 20 mg PO DAILY Qty: 90 3RF budesonide-formoterol [Symbicort] 160-4.5 mcg/actuation HFA aerosol inhaler 2 inh inhalation Q12H Qty: 30.6 6RF Myrbetriq 50 mg tablet extended release 24 hr 50 mg PO DAILY Qty: 90 3RF Spiriva Respimat 2.5 mcg/actuation mist 2 puff INHALATION DAILY Qty: 12 3RF Eliquis 5 mg tablet 5 mg PO BID Qty: 60 3RF Align 4 mg Capsule 4 mg PO DAILY cholecalciferol (vitamin D3) 125 mcg (5,000 unit) capsule 5,000 unit PO DAILY Qty: 90 3RF Prolia 60 mg/mL syringe 60 mg SC [id number] Qty: 1 0RF Rx Instructions: Pt due for injection-Per PCP, dose is in their office Primary Care Provider: Clifford Banuelos Referrals: Clifford Banuelos, [Primary Care Provider] - Disposition Disposition: Acute Care Hospital [facility]
[2023-06-02] MEDS: dilTIAZem 25 MG/5 ML Vial IV BOLUS (14:53)
--- NOTE | 2023-06-02 15:00 | EKG12_ITS ---
Test Reason : AFIB Blood Pressure : / mmHG Vent. Rate : 137 BPM Atrial Rate : 000 BPM P-R Int : 000 ms QRS Dur : 104 ms QT Int : 214 ms P-R-T Axes : 000 029 226 degrees QTc Int : 323 ms Atrial fibrillation with rapid ventricular response Minimal voltage criteria for LVH, may be normal variant ( Sokolow-Carmona ) Nonspecific T wave abnormality Abnormal ECG Confirmed by LEWIS HARO, JIGNESH ([id number]), editor managing director ERLIN MOYA ([id number]) on 06/07/2023 8:12:16 AM Referred By: Confirmed By:KAY SAUCEDO MD
[2023-06-02 15:03] LABS: Absolute Lymphocyte Count 0.89 X10^3/uL (0.83-4.51); Absolute Neutrophil Count 9.4 X10^3/uL (2.0-7.7); Basophil# 0.06 X10^3/uL; Basophil% 0.5 % (0-1); Eosinophil# 0.03 X10^3/uL; Eosinophils% 0.3 % (0-5); Hematocrit 41.4 % (37-47); Hemoglobin 14.2 g/dL (12.0-15.0); Lymphocyte # 0.89 X10^3/ul (0.83-4.51); Lymphocyte % 7.7 % (19-41); Mean Corp Hgb Conc 34.3 g/dL (32-36); Mean Corpuscular Hgb 30.4 pg (27.0-32.0); Mean Corpuscular Volume 88.7 fL (81-99); Mean Platelet Vol. 8.7 fl (6.2-12.0); Monocyte# 1.15 X10^3/uL; Monocyte% 9.9 % (0-10); NRBC Flagged by Analyzer 0 % (0-5); Neutrophil % 81.2 % (47-70); Platelet Count 352 K/mm3 (150-450); RBC Distribution Width CV 13.5 % (11.6-14.6); RBC Distribution Width SD 43.9 fl (35.1-43.9); Red Blood Count 4.67 M/mm3 (4.2-5.4); White Blood Count 11.6 K/mm3 (4.4-11.0)
[2023-06-02 15:37] LABS: Anion Gap 11 (5-15); BUN 8 mg/dL (7-18); BUN/Creat Ratio 13.1 RATIO (10-20); Calcium,Total 9.2 mg/dL (8.5-10.1); Chloride 84 mmol/L (98-107); Creatinine, Serum 0.61 mg/dL (0.55-1.02); EST Glomerular Filtration Rate 102 mL/min (>60); Est Glom Filt Rate - Afr Amer 123 mL/min (>60); Estimated Creatinine Clearance 43.27 ml/min; Glucose 130 mg/dL (74-106); Potassium 3.8 mmol/L (3.5-5.1); Sodium Level 123 mmol/L (136-145); Thyroid Stim Hormone (TSH) 1.61 uIU/mL (0.358-3.74); Troponin-I HS 23 pg/mL (3.0-54.0)
[2023-06-02 15:44] LABS: International Normalized Ratio 1.1; Prothrombin Time (Protime)PT. 14.1 SECONDS (11.7-14.9)
[2023-06-02 15:45] LABS: Partial Thromboplast Time 40.1 Seconds (24.1-36.2)
--- NOTE | 2023-06-02 16:04 | NURSING ---
PCU DONNA AFIB, CHF, HYPONATREMIA
[2023-06-02] MEDS: Furosemide 40 MG/4 ML Vial IV (16:26)
--- NOTE | 2023-06-02 16:47 | HP.PCM.HOS_ITS ---
HPI - General General Date of Admission: 06/02/23 Date of Service: 06/02/23 Chief Complaint: New onset A-fib HPI Narrative PREET DERAS, is a 73 F who presents to the emergency room at [facility] after being sent for evaluation from her physician's office due to newly diagnosed A-fib. Patient was seen at her PCPs office today and in doing an EKG revealed A-fib which was new for the patient, the heart rate was in the 160s. Patient's medical problems include chronic obstructive pulmonary disease and chronic lower extremity edema. Workup in the emergency room included an EKG which showed atrial fibrillation with a rapid ventricular response at about 150, lab was obtained including a CBC which was remarkable for a white blood cell count of 11.6, patient's chemistry profile revealed a sodium of 123, patient's TSH was 1.61 and glucose was 130. Patient had a chest x-ray performed which showed cardiomegaly, mild vascular congestion, and pleural-parenchymal changes at the left lung base with bibasilar atelectasis and small left pleural effusion. Patient was given IV Cardizem in the emergency room with some slowing of the heart rate but her heart rate then increased again and she was placed on a Cardizem drip. Patient will be admitted to PCU stepdown status, echocardiogram will be for performed, patient will be placed on IV Lasix and I will continue her Cardizem drip and place her on oral beta-blockers. PFSH Medical History Alcohol abuse Anxiety Arrhythmia Arthritis Atrial fibrillation Bilateral lower extremity edema Bone fracture Closed right hip fracture COPD (chronic obstructive pulmonary disease) Dyspnea Frequent headaches Glaucoma High cholesterol History of pneumonia History of stress test Osteoporosis Post-menopausal Seasonal allergies Shortness of breath Smoker Home Medications loratadine 10 mg tablet (Claritin) 5 mg PO PRN PRN allergies 02/17/19 [History Last Taken Unknown] multivitamin 1 cap PO DAILY supplement 02/17/19 [History Last Taken 05/04/21] Bifidobacterium infantis 4 mg capsule (Align) 4 mg PO DAILY probiotic 05/05/21 [History Last Taken 05/04/21] cholecalciferol (vitamin D3) 125 mcg (5,000 unit) capsule 5,000 unit PO DAILY vitamin #90 caps 09/11/22 [Rx Last Taken Unknown] albuterol sulfate 90 mcg/actuation aerosol inhaler (ProAir HFA) 1 puff inhalation Q6H PRN shortness of breath #18 grams 10/29/22 [Rx Last Taken Unknown] atorvastatin 20 mg tablet 20 mg PO DAILY cholesterol #90 tabs 10/29/22 [Rx Last Taken Unknown] biotin 2,500 mcg capsule 2,500 mcg PO DAILY 10/29/22 [History Last Taken Unknown] budesonide-formoterol HFA 160 mcg-4.5 mcg/actuation aerosol inhaler (Symbicort) 2 inh inhalation Q12H COPD #30.6 grams 10/29/22 [Rx Last Taken Unknown] calcium carbonate 600 mg calcium (1,500 mg) tablet (Calcium) 600 mg PO DAILY 10/29/22 [History Last Taken Unknown] mirabegron 50 mg tablet,extended release 24 hr (Myrbetriq) 50 mg PO DAILY bladder #90 tabs 10/29/22 [Rx Last Taken Unknown] tiotropium bromide 2.5 mcg/actuation mist for inhalation (Spiriva Respimat) 2 pu ff inhalation DAILY COPD #12 grams 10/29/22 [Rx Last Taken Unknown] denosumab 60 mg/mL subcutaneous syringe (Prolia) 60 mg subcut [id number] bone health #1 mL 04/15/23 [Rx Last Taken Unknown] apixaban 5 mg tablet (Eliquis) 5 mg PO BID #60 tabs 06/02/23 [Rx Last Taken Unknown] calcium carbonate 200 mg calcium (500 mg) chewable tablet (Antacid (calcium carbonate)) 200 mg PO DAILY Indigestion 06/02/23 [History Last Taken Unknown] Allergy/AdvReac Type Severity Reaction Status Date / Time clindamycin Allergy Severe c diff Verified 06/02/23 14:30 Environmental Allergies: Allergy Rash Verified 06/02/23 14:30 Uncoded Family History Mother Myocardial infarction Hyperlipemia Father Myocardial infarction Hyperlipemia Other Arthritis Breast cancer CVA (cerebral vascular accident) Osteoporosis Thyroid disorder Surgical History History of hip replacement History of tonsillectomy Normal colonoscopy Social History household members: spouse housing: house current occupational status: retired pets and animals: No Smoking Status: Current every day smoker tobacco type: cigarettes alcohol intake: current alcohol intake frequency: 3 or more drinks per day details: Patient reports currently 3-4 beers daily and if with friends 1-2 high ball substance use type: does not use what type of physical activity do you participate in: none ROS Constitutional Constitutional: Denies anorexia, change in weight, chills, fatigue, fever(s), night sweats or weakness Eyes Eyes: Denies blurry vision, change in vision, discharge from eye(s) or eye pain Cardiovascular Cardiovascular: Reports edema; Denies chest pain, claudication, dyspnea on exertion, lightheadedness or palpitations Respiratory/Chest Respiratory/Chest: Denies cough, dyspnea, excessive phlegm production, hemoptysis, productive cough, shortness of breath at rest or shortness of breath with exertion Gastrointestinal Gastrointestinal: Denies abdominal pain, constipation, diarrhea, hematemesis, hematochezia, melena, nausea or vomiting Genitourinary Genitourinary: Denies dysuria, hematuria, urinary frequency, urinary hesitancy, urinary incontinence or urinary urgency Musculoskeletal Musculoskeletal: Denies back pain, joint pain, joint stiffness, joint swelling, myalgias or neck pain Neurologic Neurologic: Denies abnormal gait, abnormal speech, dizziness, focal weakness, headache(s), loss of vision, numbness, other visual disturbances, paresthesias, syncope or tingling Psychiatric Psychiatric: Denies anxiety, cognitive impairment, depression, irritability, mood swings or suicidal ideation Endocrine Endocrinology: Denies change in body appearance, cold intolerance, excessive sweating, heat intolerance, polydipsia or polyuria Hematologic/Lymphatic Hematologic/Lymphatic: Denies none, anemia, easy bleeding, easy bruising or lymphadenopathy Allergic/Immunologic Allergic/Immunologic: Denies rhinitis, urticaria, eczemia or asthma Vital Signs Vital Signs Vital Signs: 06/02/23 14:18 06/02/23 14:30 06/02/23 14:32 Temperature 97.8 F Temperature Source Temporal Pulse Rate 151 H 150 H Respiratory Rate 18 22 H Respiratory Effort Normal Non-Labored Respiratory Pattern Normal Blood Pressure 134/78 H Blood Pressure Mean 96 Pulse Ox 95 96 Oxygen Delivery Method Room Air Room Air Oxygen Flow Rate (L/min) 06/02/23 14:54 06/02/23 15:15 06/02/23 15:15 Temperature Temperature Source Pulse Rate 126 H Respiratory Rate 12 Respiratory Effort Respiratory Pattern Blood Pressure 109/74 Blood Pressure Mean 85 Pulse Ox 89 94 Oxygen Delivery Method Room Air Room Air Nasal Cannula Oxygen Flow Rate (L/min) 2 06/02/23 15:06 06/02/23 15:08 06/02/23 15:10 Temperature Temperature Source Pulse Rate 107 H 95 114 H Respiratory Rate 22 H 22 H 21 H Respiratory Effort Respiratory Pattern Blood Pressure 108/84 H Blood Pressure Mean 93 Pulse Ox 90 89 88 Oxygen Delivery Method Oxygen Flow Rate (L/min) 06/02/23 15:15 06/02/23 15:20 06/02/23 15:30 Temperature Temperature Source Pulse Rate 90 132 H 132 H Respiratory Rate 16 19 H 18 Respiratory Effort Respiratory Pattern Blood Pressure 109/74 109/74 102/69 Blood Pressure Mean 86 85 81 Pulse Ox 89 94 94 Oxygen Delivery Method Nasal Cannula Oxygen Flow Rate (L/min) 2 06/02/23 15:40 06/02/23 15:59 06/02/23 15:45 Temperature 97.8 F Temperature Source Temporal Pulse Rate 133 H 122 H Respiratory Rate 22 H 16 Respiratory Effort Respiratory Pattern Blood Pressure 102/69 113/79 104/71 Blood Pressure Mean 80 90 82 Pulse Ox 93 98 Oxygen Delivery Method Nasal Cannula Nasal Cannula Oxygen Flow Rate (L/min) 2 2 06/02/23 15:50 06/02/23 16:00 06/02/23 16:10 Temperature Temperature Source Pulse Rate 133 H 118 H 127 H Respiratory Rate 21 H 22 H 24 H Respiratory Effort Respiratory Pattern Blood Pressure 113/75 Blood Pressure Mean 87 Pulse Ox 93 93 93 Oxygen Delivery Method Oxygen Flow Rate (L/min) 06/02/23 16:15 06/02/23 16:20 06/02/23 16:24 Temperature Temperature Source Pulse Rate 121 H 132 H 132 H Respiratory Rate 17 21 H 23 H Respiratory Effort Respiratory Pattern Blood Pressure 125/67 H 121/76 H 121/76 H Blood Pressure Mean 85 91 90 Pulse Ox 94 94 94 Oxygen Delivery Method Nasal Cannula Oxygen Flow Rate (L/min) 2 06/02/23 16:30 Temperature Temperature Source Pulse Rate 135 H Respiratory Rate 24 H Respiratory Effort Respiratory Pattern Blood Pressure 120/74 Blood Pressure Mean 89 Pulse Ox 94 Oxygen Delivery Method Nasal Cannula Oxygen Flow Rate (L/min) 2 Weight Weight: 63.7 kg Body Mass Index (BMI) 24.0 Physical Exam Const alert, oriented x3, no apparent distress and average body habitus General Appearance: cooperative, well kempt and well developed Orientation / Consciousness: awake, oriented to person, oriented to place and oriented to time HEENT normocephalic, head/scalp atraumatic, hearing grossly normal bilaterally and moist oral mucous membranes Eyes PERRL, EOMs intact bilaterally and conjunctivae normal Neck supple, no JVD, thyroid normal and no carotid bruits General: trachea midline Resp normal respiratory effort, no retractions and no use of accessory muscles Auscultation: rales bilateral base; Negative for rhonchi or wheezes Cardio S1 normal heart sound, S2 normal heart sound, no murmurs, no rub and no gallops Cardio Narrative: Heart rate and rhythm is irregular and tachycardic GI normal to inspection, nondistended, normoactive bowel sounds, soft to palpation, non-tender and non-distended Extremity Extremity Narrative: There is +2 mm to +3 mm pitting edema in the lower legs bilaterally Skin no rashes or lesions noted General Skin Exam: no breakdown Neuro oriented x3, CN's II-XII intact bilaterally, moves all extremities, no focal motor deficits and no sensory deficits noted Sensorium / Orientation: awake, alert, oriented to person, oriented to place and oriented to time Speech: speech normal Psych affect normal Results Lab / Micro Data 06/02/23 15:00 06/02/23 15:00 Labs: Laboratory Results - last 24 hr 06/02/23 15:00: WBC 11.6 H, RBC 4.67, Hgb 14.2, Hct 41.4, MCV 88.7, MCH 30.4, MCHC 34.3, RDW Std Deviation 43.9, RDW Coeff of Slime 13.5, Plt Count 352, MPV 8.7, Immature Gran % (Auto) 0.400, Neut % (Auto) 81.2 H, Lymph % (Auto) 7.7 L, [place] % (Auto) 9.9, Eos % (Auto) 0.3, Baso % (Auto) 0.5, Absolute Neuts (auto) 9.4 H, Absolute Lymphs (auto) 0.89, Nucleated RBC % 0, PT 14.1, INR 1.1, APTT 40.1 H, Sodium 123 L, Potassium 3.8, Chloride 84 L, Carbon Dioxide 28.0, Anion Gap 11, BUN 8, Creatinine 0.61, Estim Creat Clear Calc 43.27, Est GFR (MDRD) Af Amer 123, Est GFR (MDRD) Non-Af 102, BUN/Creatinine Ratio 13.1, Glucose 130 H, Calcium 9.2, Troponin I High Sens 23, TSH 1.61 Rhythm Strip Rhythm Strip: A-fib Rate: 137 Ectopy: None Radiology Impression Chest X-Ray 06/02/23 14:50 IMPRESSION: Cardiomegaly. Mild vascular congestion. Pleural parenchymal changes at the left lung base with bibasilar atelectasis and small left pleural effusion. Electronically Signed: Casimiro Mazariegos MD at 15:17 EDT , Assessment & Plan Assessment/Plan (1) Atrial fibrillation with rapid ventricular response: PLAN: Plan 1. Atrial fibrillation with rapid ventricular response-new onset, patient will be admitted to PCU as stepdown status, she will be maintained on a Cardizem drip, I will place her on a beta-maria esther, she will need echocardiogram performed. #2 acute congestive heart failure-type unknown at this point-patient will be given IV Lasix and undergo diuresis, she will have an echocardiogram performed #3 chronic obstructive pulmonary disease-patient is on inhalers as an outpatient, these will be continued, she will be given a nicotine patch while she is hospitalized she smokes approximately a pack of cigarettes a day #4 hyponatremia-exact etiology unclear at this point, BMP will be rechecked tomorrow #5 hyperlipidemia-patient is on Lipitor Total clinical time spent by myself addressing the patient's medical issues, reviewing all of her data, and collaborating with patient's care team: 75 minutes Charges/Coding Visit Charges Inpatient E&M: 00387 Init Hosp L3
--- NOTE | 2023-06-02 17:40 | ECHOD_ITS ---
Reason For Study: Afib/Flutter Procedure This was a 2D Doppler, Color Flow transthoracic echocardiogram. Myocardial strain analysis was performed in this exam to aid in the assessment of cardiac function. Exam performed portable in patient room. Left Ventricle Normal LV size. The estimated ejection fraction is 30 %. Stage 3 diastolic dysfunction. There is severe global hypokinesis of the left ventricle. Right Ventricle Normal RV size. Normal systolic function. Atria The left atrium is mildly enlarged. The right atrium is mildly enlarged. No doppler evidence for ASD. Bubble contrast study negative for right to left interatrial shunt. Mitral Valve There is no mitral valve stenosis. Moderate (2+) mitral valve insufficiency. Tricuspid Valve There is no tricuspid stenosis. Mild tricuspid valve insufficiency. Pulmonary artery systolic pressure is 35 mmHg. Aortic Valve Trisinus/trileaflet aortic valve. There is no aortic stenosis. No aortic valve insufficiency. Pulmonic Valve There is no pulmonic valvular stenosis. No pulmonic valve insufficiency. Great Vessels Normal aortic root. Pericardium/Pleural No pericardial effusion. Medication Performed a rapid injection of agitated mix of 9 cc saline and 1cc air to assess for atrial septal defect. MMode/2D Measurements & Calculations LVIDd: 5.2 cm IVSd: 1.0 cm Ao root diam: 3.1 cm LVIDs: 4.5 cm LVPWd: 1.1 cm LA dimension: 3.9 cm RVDd: 4.2 cm FS: 13.6 % LAV(MOD-bp): 82.1 ml LVAd ap4: 33.5 cm2 LVAd ap2: 37.7 cm2 LAV(MOD-bp) Indexed: 49.6 ml/m2 LVLd ap4: 8.1 cm LVLd ap2: 8.1 cm LAV(MOD-sp2): 89.5 ml EDV(MOD-sp4): 113.6 ml EDV(MOD-sp2): 147.8 ml LAV(MOD-sp4): 69.1 ml EDV(sp4-el): 117.1 ml EDV(sp2-el): 149.1 ml LVAs ap4: 27.8 cm2 LVAs ap2: 31.3 cm2 LVLs ap4: 7.5 cm LVLs ap2: 7.9 cm ESV(MOD-sp4): 85.4 ml ESV(MOD-sp2): 105.2 ml ESV(sp4-el): 87.3 ml ESV(sp2-el): 106.2 ml EF(MOD-sp4): 24.8 % EF(MOD-sp2): 28.8 % EF(sp4-el): 25.5 % SV(MOD-sp4): 28.2 ml SV(MOD-sp2): 42.5 ml SV(sp4-el): 29.9 ml LA A4 area: 22.2 cm2 RA A4 area: 18.5 cm2 Time Measurements MV dec time: 0.11 sec Doppler Measurements & Calculations MV E max cedric: 92.7 cm/sec Lat Peak E' Cedric: 4.3 cm/sec Med Peak E' Cedric: 4.0 cm/sec MV A max cedric: 44.6 cm/sec E/E' lat: 21.7 E/E' med: 22.9 MV E/A: 2.1 MV V2 max: 106.5 cm/sec MV P1/2t max cedric: 107.1 cm/sec Ao V2 max: 113.9 cm/sec MV max P.5 mmHg MV P1/2t: 36.8 msec Ao max P.2 mmHg MV V2 mean: 50.8 cm/sec Ao V2 mean: 77.5 cm/sec MV mean P.3 mmHg MV dec slope: 853.5 cm/sec2 Ao mean P.8 mmHg MV V2 VTI: 20.5 cm MVA(P1/2t): 6.0 cm2 Ao V2 VTI: 20.6 cm AV (velocity ratio): 0.72 LV V1 max: 81.3 cm/sec MR max cedric: 426.7 cm/sec PA V2 max: 51.6 cm/sec LV V1 max P.6 mmHg MR max P.8 mmHg LV V1 mean P.4 mmHg MR mean cedric: 322.0 cm/sec LV V1 mean: 54.3 cm/sec MR mean P.0 mmHg LV V1 VTI: 14.7 cm MR VTI: 147.6 cm PI dec slope: 123.8 cm/sec2 TR max cedric: 275.8 cm/sec TR max P.4 mmHg ECHO/Echo Complete Interpretation Summary The estimated ejection fraction is 30 %. Stage 3 diastolic dysfunction. There is severe global hypokinesis of the left ventricle. The left atrium is mildly enlarged. The right atrium is mildly enlarged. Moderate (2+) mitral valve insufficiency. Ordering Physician: Ray Guzman Performed By: Jong Bedoya RCS
[2023-06-02] MEDS: Metoprolol Tartrate 50 MG Tablet PO (19:03)
[2023-06-02] MEDS: dilTIAZem 25 MG/5 ML Vial 15 MG IV BOLUS (19:04)
[2023-06-02] MEDS: Potassium Chloride Oral Tablet 20 MEQ PO (19:08)
[2023-06-02] MEDS: Budesonide Respules 0.5 MG/2 ML AMPUL.NEB. INHALATION (20:20)
[2023-06-02] MEDS: Ipratropium/Albuterol Sulfate 3 ML AMPUL.NEB INHALATION (20:20)
[2023-06-02] MEDS: Enoxaparin 60 MG/0.6 ML Syringe SC (23:03)
[2023-06-02] MEDS: Atorvastatin Calcium 20 MG Tablet PO (23:03)
[2023-06-03] VITALS (15 sets, daily range): BP systolic 78–129; BP diastolic 52–86; PULSE 70–102; RESP 12–20; TEMP 36.5–37.4; O2SAT 92–98
[2023-06-03] MEDS: Acetaminophen 325 MG Tablet 650 MG PO ×2 (00:12→23:10)
--- NOTE | 2023-06-03 00:51 | PCM.HOSP.N ---
Hospitalist Note Patient with Cardizem drip maxed and initiated on metoprolol therapy with a 50 mg x 1 earlier in the evening with onset of hypotension following therefore Cardizem drip held and low volume IV fluid boluses administered given history of CHF, continue to closely monitor. Patient did have reported loose stools by staff and do suspect this is likely secondary to recent medications but be cautious we will send sample and have loperamide as needed.
[2023-06-03] MEDS: Furosemide 20 MG/2 ML VIAL IV (05:00)
[2023-06-03] MEDS: Ipratropium/Albuterol Sulfate 3 ML AMPUL.NEB INHALATION ×3 (06:57→19:23)
[2023-06-03] MEDS: Budesonide Respules 0.5 MG/2 ML AMPUL.NEB. INHALATION ×2 (06:57→19:23)
[2023-06-03 06:58] LABS: Anion Gap 7 (5-15); BUN 15 mg/dL (7-18); BUN/Creat Ratio 20.1 RATIO (10-20); Calcium,Total 8.5 mg/dL (8.5-10.1); Chloride 87 mmol/L (98-107); Creatinine, Serum 0.75 mg/dL (0.55-1.02); EST Glomerular Filtration Rate 81 mL/min (>60); Est Glom Filt Rate - Afr Amer 98 mL/min (>60); Estimated Creatinine Clearance 43.27 ml/min; Glucose 133 mg/dL (74-106); Sodium Level 124 mmol/L (136-145)
--- NOTE | 2023-06-03 08:08 | PN.HOSP_ITS ---
Reason for Visit Reason for Visit: Edema/Shortness of breath Subjective Subjective Mrs. De La O is a 73-year-old white female who presented to the emergency depar tment at [facility] on 06/02/2023 with lower extremity edema and shortness of breath. She was seen by her primary care physician and found to be in new A-fib with RVR. Heart rate was found to be in the 160s. On presentation she reported that over the last several weeks to months she has had intermittent shortness of breath and worsening lower extremity edema. She had been started on Lasix about 6 days prior to presentation for lower extremity swelling. On presentation to the emergency department her temperature was 97.8, heart rate 151, blood pressure 134/78, respiratory rate was 18 and oxygen saturations were 95% on room air. It appears that she did have some desaturations yesterday afternoon with sats in the upper 80 range with the lowest being 88% and she was placed on 2 L nasal cannula. Her CBC showed a mild leukocytosis with a white count of 11.6 but was otherwise unremarkable. Coag were normal. Chemistry panel showed hyponatremia with a sodium of 123, chloride of 84, renal function was within normal limits, and her serum glucose was elevated 130. She does not have documented history of diabetes. Her initial BNP was 2080.8 and her troponin was 23. Obtain a TSH and was found to be 1.61. EKG showed A-fib with RVR and no ST-T wave changes concerning for acute ischemia. Chest x-ray showed cardiomegaly with mild vascular congestion and pleural-parenchymal changes in the left base consistent with atelectasis versus a small left pleural effusion. She was given IV Cardizem bolus in the emergency department with some improvement in her heart rate but it increased again and she was placed on a Cardizem drip. She was admitted to the PCU and placed on IV Lasix and Cardizem drip was continued she was started on beta-maria esther to 25 mg p.o. twice daily. Early this morning she became hypotensive on the Cardizem drip and this was held. Small fluid bolus was given for hypotension. She also had some loose stools which was suspected to be related to recent medications a C. difficile was ordered however not been collected as of yet due to no more stools. Loose stool started at the time of admission she was not having this prior however she does have a history of C. difficile. She states overall she is feeling better today with regards to her shortness of breath and her legs are less swollen. Objective Data Objective Data Vital Signs: Vital Signs Temp Pulse Resp BP Pulse Ox O2 Del Method O2 Flow Rate 98.3 F 71 18 114/74 96 Nasal Cannula 2 06/03/23 06:00 06/03/23 06:00 06/03/23 06:00 06/03/23 06:00 06/03/23 06:00 06/03/23 06:00 06/03/23 06:00 Oxygen Flow Rate (L/min) 2 Oxygen Delivery Method Nasal Cannula Weight: 61.371 kg Body Mass Index (BMI) 23.2 Intake & Output: Intake and Output for Last 24 Hours 06/01/23 06/02/23 06/03/23 23:59 23:59 23:59 Intake Total 556.33 / 556.33 250 / 250 Output Total 800 / 800 250 / 250 Balance -243.67 / -243.67 0 / 0 Lab / Micro Data 06/02/23 15:00 06/03/23 05:41 Labs: Laboratory Results - last 24 hr 06/02/23 15:00: WBC 11.6 H, RBC 4.67, Hgb 14.2, Hct 41.4, MCV 88.7, MCH 30.4, MCHC 34.3, RDW Std Deviation 43.9, RDW Coeff of Slime 13.5, Plt Count 352, MPV 8.7, Immature Gran % (Auto) 0.400, Neut % (Auto) 81.2 H, Lymph % (Auto) 7.7 L, [place] % (Auto) 9.9, Eos % (Auto) 0.3, Baso % (Auto) 0.5, Absolute Neuts (auto) 9.4 H, Absolute Lymphs (auto) 0.89, Nucleated RBC % 0, PT 14.1, INR 1.1, APTT 40.1 H, Sodium 123 L, Potassium 3.8, Chloride 84 L, Carbon Dioxide 28.0, Anion Gap 11, BUN 8, Creatinine 0.61, Estim Creat Clear Calc 43.27, Est GFR (MDRD) Af Amer 123, Est GFR (MDRD) Non-Af 102, BUN/Creatinine Ratio 13.1, Glucose 130 H, Calcium 9.2, Troponin I High Sens 23, TSH 1.61 06/03/23 05:41: Sodium 124 L, Potassium 4.0, Chloride 87 L, Carbon Dioxide 30.0, Anion Gap 7, BUN 15, Creatinine 0.75, Estim Creat Clear Calc 43.27, Est GFR ( RD) Af Amer 98, Est GFR (MDRD) Non-Af 81, BUN/Creatinine Ratio 20.1 H, Glucose 133 H, Calcium 8.5 Radiography Diagnostic Testing: Radiology Impression Chest X-Ray 06/02/23 14:50 IMPRESSION: Cardiomegaly. Mild vascular congestion. Pleural parenchymal changes at the left lung base with bibasilar atelectasis and small left pleural effusion. Electronically Signed: Casimiro Mazariegos MD at 15:17 EDT , Rhythm Strip Rhythm Strip: A-fib Rate: 137 Ectopy: None Physical Exam Const alert, oriented x3, no apparent distress, average body habitus and well nourished Constitutional Narrative: Elderly white female, sitting up in bed watching television, appears comfortable and nontoxic, currently on room air HEENT head/scalp atraumatic and moist oral mucous membranes HEENT Narrative: Mallampati 2, no thrush Head and Scalp: normocephalic Eyes PERRL, EOMs intact bilaterally and conjunctivae normal Eyes Narrative: No scleral icterus Neck no lymphadenopathy and supple Neck Narrative: Trachea midline, no thyroid enlargement Resp normal respiratory effort, no retractions and no use of accessory muscles Resp Narrative: Scattered end expiratory wheezes but no adventitious sounds otherwise Auscultation: wheezes Cardio regular rate, regular rhythm, S1 normal heart sound, S2 normal heart sound, no murmurs, no rub, no gallops and no clicks Cardio Narrative: Currently in normal sinus rhythm GI normal to inspection, nondistended, normoactive bowel sounds and soft to palpation Extremity Extremity Narrative: Lower extremity swelling from distal bilateral lower extremities to feet 2+ pitting with wrinkling starting to be noting in the feet distally close to the toes, no cyanosis Skin no rashes or lesions noted, no wounds, skin turgor normal, no jaundice, no petechiae and no mottling Neuro oriented x3, moves all extremities and no focal motor deficits Speech: speech normal Psych affect normal Psych Narrative: Very pleasant, eye contact is good, patient interacts normally Assessment & Plan Assessment/Plan (1) Atrial fibrillation with rapid ventricular response: (2) CHF (congestive heart failure): (3) Acute hyponatremia: (4) Hyperglycemia: PLAN: Plan New onset A-fib with RVR -Heart rates in presentation were in the 150s -Currently heart rates are well-controlled and she has converted to normal sinus rhythm -Continue metoprolol 25 mg p.o. twice daily -Start apixaban 5 mg p.o. twice daily this evening if echocardiogram does not show any need for cardiac catheterization -Discontinue enoxaparin -Echocardiogram pending -TSH is within normal limits Acute decompensated CHF -Type is unknown -Patient without previous echocardiogram -Await echo to clarify -If EF is significantly depressed we will consult cardiology to consider for cardiac catheterization -Strict I's and O's -Daily weights -Fluid restriction -No salt added diet -Transition to cardiac diet -Increase Lasix from 20 3 times daily to 40 3 times daily for more aggressive volume removal -If EF is depressed we will likely transition to Coreg Hyperglycemia -No documented history of diabetes -Will check hemoglobin A1c Hyponatremia-acute -Suspect related to volume overload -Slightly better today with diuresis -Continue diuresis and repeat BMP in a.m. -If it does not improve with volume removal will need to pursue further workup -Patient does not appear to be on any medications that would cause this Alcohol abuse -Currently drinks 3-4 beers a day and if with friends 1-2 highballs -Will discuss with patient about cessation as this could contribute to her atrial fibrillation COPD -Continue home inhalers And recommend smoking cessation as she currently smokes about a half a pack of cigarettes daily Hyperlipidemia -Continue home atorvastatin Osteoporosis -Continue outpatient Prolia injection every 6 months Overactive bladder -Continue mirabegron Seasonal allergies -Continue as needed loratadine Tobacco abuse -Currently smoking about half pack of cigarettes daily -Continue nicotine patch DVT prophylaxis -Currently on full dose Lovenox but will transition to Eliquis this evening as long as echocardiogram shows no need for cardiac catheterization CODE STATUS -Full code Charges/Coding Visit Charges Inpatient E&M: 39181 Subs Hosp L2
[2023-06-03 09:12] LABS: Hemoglobin A1c 5.8 % (3.8-5.6)
[2023-06-03] MEDS: Potassium Chloride Oral Tablet 20 MEQ PO ×2 (09:56→15:19)
[2023-06-03] MEDS: Metoprolol Tartrate 25 MG Tablet PO ×2 (09:56→20:57)
[2023-06-03] MEDS: Mirabegron 50 MG TAB.ER.24H PO (09:56)
--- NOTE | 2023-06-03 13:30 | CASEMGMT ---
RN CM Face to Face with patient for initial transition planning/care coordination assessment. RN CM introduced self and role at [facility]. Patient lying in bed, alert and oriented, at bedside. Patient willing to participate in assessment and is able to answer all questions appropriately. Care providers, pharmacy, and demographics verified. Patient wishes to discharge home, denies need for home health at this time, will monitor progress with therapy. Patient states he has no further needs or concerns at this time. CM to follow for discharge planning needs that may arise. PCP: Eunice Banuelos Specialists: none [facility]acy[facility] Insurance: [place] M[employer] Prescription Benefit: yes Living Will/HPOA: yes, Fred De La O LNOK: Living Arrangements: Patient lives with in a single story home with no steps to enter. Patient states she is independent at home. Transportation: DME/HHC: Patient has shower chair, raised toilet, cane, rollator, grab bars, hip kit at home. No previous HHC. [facility]. Disposition Plan: Patient to discharge home with family support and follow-up plans in place. Shanita GUAMAN, RN, CM
--- NOTE | 2023-06-03 15:08 | CHAPLAIN ---
Type of Pastoral Visit _x__ Initial Visit ___ Follow-up Visit ___ On-call Visit ___ General Patient Visit ___ Spiritual Assessment ___ Family Conference ___ Bereavement ___ Rapid Response ___ Code Blue ___ Other (describe below) Pastoral Care Referral From _x__ Patient ___ Family ___ Nurse ___ Physician ___ Sheet Metal Engineer ___ Lead Former ___ Other (describe below) Sacrament/Intervention _x__ Active listening ___ Anointing ___ Adventist ___ Bereavement ___ Communion _x__ Maria E exploration ___ _x__ Life review _x__ Prayer ___ Reconciliation ___ Sacrament of Sick ___ Supportive presence ___ Wedding ___ Other (describe below) Pastoral Comments on third attempt this narcotics and/or vice detective was able to visit; patient has had many people in and out of room for procedures and care; spouse is with patient and is also welcoming; pt is talkative and explains his admission so far; pt reports that she is feeling some better today due to hearing better results so far; pt has not had an opportunity to sleep and mentions this as a big need; pt and spouse talk about their history and family; made attempts to keep this visit brief due to mention of not sleeping and of mild cough of patient; pt welcomes prayer and any future visits
[2023-06-03] MEDS: Furosemide 20 MG/2 ML VIAL 40 MG IV ×2 (15:19→20:52)
[2023-06-03] MEDS: APIXABAN 5 MG TABLET PO (20:54)
[2023-06-03] MEDS: Atorvastatin Calcium 20 MG Tablet PO (20:54)
[2023-06-03] MEDS: Albuterol 2.5 MG/3 ML VIAL.NEB. INHALATION (23:32)
[2023-06-04] VITALS (24 sets, daily range): BP systolic 87–135; BP diastolic 65–109; PULSE 66–143; RESP 16–28; TEMP 36.6–37.3; O2SAT 87–99
[2023-06-04] MEDS: Furosemide 20 MG/2 ML VIAL 40 MG IV ×3 (05:03→22:01)
[2023-06-04 05:21] LABS: Absolute Lymphocyte Count 1.27 X10^3/uL (0.83-4.51); Absolute Neutrophil Count 8.2 X10^3/uL (2.0-7.7); Basophil# 0.06 X10^3/uL; Basophil% 0.6 % (0-1); Eosinophil# 0.08 X10^3/uL; Eosinophils% 0.8 % (0-5); Hemoglobin 13.8 g/dL (12.0-15.0); Lymphocyte # 1.27 X10^3/ul (0.83-4.51); Lymphocyte % 12.1 % (19-41); Mean Corp Hgb Conc 33.7 g/dL (32-36); Mean Corpuscular Hgb 30.1 pg (27.0-32.0); Mean Corpuscular Volume 89.3 fL (81-99); Mean Platelet Vol. 8.9 fl (6.2-12.0); Monocyte# 0.82 X10^3/uL; Monocyte% 7.8 % (0-10); NRBC Flagged by Analyzer 0 % (0-5); Neutrophil # 8.18 X10^3/uL (2.7-7.7); Neutrophil % 78.2 % (47-70); Platelet Count 354 K/mm3 (150-450); RBC Distribution Width CV 13.2 % (11.6-14.6); RBC Distribution Width SD 43.4 fl (35.1-43.9); Red Blood Count 4.59 M/mm3 (4.2-5.4); White Blood Count 10.5 K/mm3 (4.4-11.0)
[2023-06-04 06:01] LABS: Anion Gap 4 (5-15); BUN 12 mg/dL (7-18); BUN/Creat Ratio 21.1 RATIO (10-20); Calcium,Total 8.9 mg/dL (8.5-10.1); Chloride 88 mmol/L (98-107); Creatinine, Serum 0.57 mg/dL (0.55-1.02); EST Glomerular Filtration Rate 111 mL/min (>60); Est Glom Filt Rate - Afr Amer 134 mL/min (>60); Estimated Creatinine Clearance 43.27 ml/min; Glucose 154 mg/dL (74-106); Magnesium 1.5 mg/dL (1.6-2.6); Phosphorus 3.2 mg/dL (2.5-4.9); Potassium 3.9 mmol/L (3.5-5.1); Sodium Level 125 mmol/L (136-145)
[2023-06-04] MEDS: Budesonide Respules 0.5 MG/2 ML AMPUL.NEB. INHALATION ×2 (07:05→20:04)
[2023-06-04] MEDS: Ipratropium/Albuterol Sulfate 3 ML AMPUL.NEB INHALATION ×3 (07:05→20:04)
[2023-06-04] MEDS: Metoprolol(XL)Succ 50 MG Tablet PO (08:35)
[2023-06-04] MEDS: APIXABAN 5 MG TABLET PO ×2 (08:47→22:02)
[2023-06-04] MEDS: Lisinopril 2.5 MG Tablet PO (08:47)
[2023-06-04] MEDS: Potassium Chloride Oral Tablet 20 MEQ PO ×2 (08:47→16:14)
[2023-06-04] MEDS: Mirabegron 50 MG TAB.ER.24H PO (08:47)
[2023-06-04] MEDS: Empagliflozin 10 MG Tablet PO (08:48)
[2023-06-04] MEDS: 0.9% Saline Lock 10 ML Syringe IV ×2 (09:08→22:05)
--- NOTE | 2023-06-04 09:59 | PCM.PN.HOSP ---
Reason for Visit Reason for Visit: Edema/Shortness of breath Subjective Subjective No issues overnight. Oxygen sats dropped to about 88% in the evening and she was placed on 2 L nasal cannula. Remains on 2 L this morning but denies any respiratory issues. Lung exam is actually more benign today than yesterday with no signs of wheezing. Unfortunately, she fell back into atrial fibrillation with RVR. Swelling is overall much better and she is down about 3-1/2 L for hospitalization. Objective Data Objective Data Vital Signs: Vital Signs Temp Pulse Resp BP Pulse Ox O2 Del Method O2 Flow Rate 97.9 F 138 H 20 H 135/69 H 87 Room Air 2 06/04/23 03:00 06/04/23 08:35 06/04/23 07:05 06/04/23 08:35 06/04/23 07:05 06/04/23 07:05 06/03/23 08:28 Oxygen Flow Rate (L/min) 2 Oxygen Delivery Method Room Air Weight: 61.371 kg Body Mass Index (BMI) 23.2 Intake & Output: Intake and Output for Last 24 Hours 06/02/23 06/03/23 06/04/23 23:59 23:59 23:59 Intake Total 556.33 / 556.33 350 / 350 Output Total 800 / 800 2350 / 2350 1300 / 1300 Balance -243.67 / -243.67 -1999 / -1999 -1300 / -1300 Lab / Micro Data 06/04/23 05:11 06/04/23 05:11 Labs: Laboratory Results - last 24 hr 06/04/23 05:11: WBC 10.5, RBC 4.59, Hgb 13.8, Hct 41.0, MCV 89.3, MCH 30.1, MCHC 33.7, RDW Std Deviation 43.4, RDW Coeff of Slime 13.2, Plt Count 354, MPV 8.9, Immature Gran % (Auto) 0.500, Neut % (Auto) 78.2 H, Lymph % (Auto) 12.1 L, [place] % (Auto) 7.8, Eos % (Auto) 0.8, Baso % (Auto) 0.6, Absolute Neuts (auto) 8.2 H, Absolute Lymphs (auto) 1.27, Nucleated RBC % 0, Sodium 125 L, Potassium 3.9, Chloride 88 L, Carbon Dioxide 33.0 H, Anion Gap 4 L, BUN 12, Creatinine 0.57, Estim Creat Clear Calc 43.27, Est GFR (MDRD) Af Amer 134, Est GFR (MDRD) Non-Af 111, BUN/Creatinine Ratio 21.1 H, Glucose 154 H, Calcium 8.9, Phosphorus 3.2, Magnesium 1.5 L Micro: Microbiology 06/03/23 08:50 Stool C. difficile DNA Amplification - Final Radiography Diagnostic Testing: Radiology Impression Echocardiogram 06/02/23 17:40 Interpretation Summary The estimated ejection fraction is 30 %. Stage 3 diastolic dysfunction. There is severe global hypokinesis of the left ventricle. The left atrium is mildly enlarged. The right atrium is mildly enlarged. Moderate (2+) mitral valve insufficiency. Ordering Physician: Ray Guzman Performed By: Jong Bedoya RCS Rhythm Strip Rhythm Strip: A-fib Rate: 137 Ectopy: None Physical Exam Const alert, oriented x3, no apparent distress, average body habitus and well nourished Constitutional Narrative: Elderly white female, sitting up in bed watching television, appears comfortable and nontoxic, currently on 2 L nasal cannula HEENT normocephalic, head/scalp atraumatic, hearing grossly normal bilaterally and moist oral mucous membranes HEENT Narrative: Mallampati 2, no thrush Eyes PERRL, EOMs intact bilaterally and conjunctivae normal Eyes Narrative: No scleral icterus Neck no lymphadenopathy, supple, no JVD, thyroid normal and no carotid bruits Neck Narrative: Trachea midline, no thyroid enlargement General: trachea midline Resp normal respiratory effort, no retractions, no use of accessory muscles and clear to auscultation bilaterally Resp Narrative: Extremely diminished but clear Auscultation: Negative for rales, rhonchi or wheezes Cardio S1 normal heart sound, S2 normal heart sound, no murmurs, no rub, no gallops and no clicks Cardio Narrative: Tachycardia with irregularly irregular rhythm GI normal to inspection, nondistended, normoactive bowel sounds, soft to palpation, non-tender and non-distended Extremity Extremity Narrative: Lower extremity swelling at ankles and very distal bilateral lower extremities that is 1+, feet look much improved and now I can see her extensor tendons on bilateral lower extremities, no cyanosis or clubbing Skin no rashes or lesions noted, no wounds, skin turgor normal, no jaundice, no petechiae and no mottling General Skin Exam: no breakdown Neuro oriented x3, moves all extremities and no focal motor deficits Sensorium / Orientation: awake, alert, oriented to person, oriented to place and oriented to time Speech: speech normal Psych affect normal Psych Narrative: Very pleasant, eye contact is good, patient interacts normally Assessment & Plan Assessment/Plan (1) Atrial fibrillation with rapid ventricular response: (2) CHF (congestive heart failure): (3) Acute hyponatremia: (4) Hyperglycemia: (5) Systolic dysfunction with heart failure: (6) Hypoxia: (7) Hypomagnesemia: PLAN: Plan New onset A-fib with RVR -Heart rates in presentation were in the 150s -Had converted to normal sinus rhythm yesterday however back into A-fib overnight -Increase metoprolol 50 mg XR daily -If this does not control her heart rate to 100 or less we will either need to uptitrate with additional dosing if BP allows or add amiodarone -Continue apixaban -TSH within normal limits -Echocardiogram performed and shows ejection fraction of 30% with global dysfunction, severe stage III diastolic dysfunction, mild biatrial enlargement, 2+ mitral valve insufficiency Acute decompensated systolic CHF -Echo as above with EF of 30% -Currently suspect tachycardia mediated with global dysfunction--> will work on getting heart rate under control and have outpatient cardiology follow-up for reassessment with echo likely in 6 to 8 weeks--> discussed case with Dr. Bañuelos and he agrees -Strict I's and O's -Daily weights -Fluid restriction -No salt added diet -Continue cardiac diet -Continue Lasix 40 mg IV push 3 times daily -Transition to metoprolol XL -Lisinopril 2.5 mg daily added -Added Jardiance 10 mg daily -Will continue to monitor blood pressures and consider addition of Aldactone Hypoxia -Wheezing yesterday but this has resolved -Continue as needed nebulizers -Continue home inhalers -Continue diuresis -Strongly encouraged ongoing use of incentive spirometry and [place] -Patient has COPD at baseline but no current need for steroids based on exam Hyperglycemia with insulin resistance -Hemoglobin A1c was elevated at 5.8 which does not qualify her for diagnosis of diabetes however it does show insulin resistance -Jardiance added for heart failure and this should help with her blood sugars as well -Continue to monitor Hypomagnesemia -2 g magnesium bolus -Repeat mag in a.m. Hyponatremia-acute -Suspect related to volume overload -Continues to slowly trend up -Continue diuresis and repeat BMP in a.m. -TSH is within normal limits -Patient does not appear to be on any medications that would cause this Alcohol abuse -Currently drinks 3-4 beers a day and if with friends 1-2 highballs -Will discuss with patient about cessation as this could contribute to her atrial fibrillation COPD -Continue home inhalers -recommend smoking cessation as she currently smokes about a half a pack of cigarettes daily Hyperlipidemia -Continue home atorvastatin Osteoporosis -Continue outpatient Prolia injection every 6 months Overactive bladder -Continue mirabegron Seasonal allergies -Continue as needed loratadine Tobacco abuse -Currently smoking about half pack of cigarettes daily -Continue nicotine patch DVT prophylaxis -Currently on full dose Lovenox but will transition to Eliquis this evening as long as echocardiogram shows no need for cardiac catheterization CODE STATUS -Full code Charges/Coding Visit Charges Inpatient E&M: 82726 [facility] Hosp L3
[2023-06-04] MEDS: Amiodarone 360 MG in Dextrose 5% Viaflo Bag 192.8 ML 33.3 MG CONT INF (12:30)
[2023-06-04] MEDS: Amiodarone 360 MG in Dextrose 5% Viaflo Bag 192.8 ML 16.7 MG CONT INF (19:02)
[2023-06-04] MEDS: Atorvastatin Calcium 20 MG Tablet PO (22:04)
[2023-06-04] MEDS: Albuterol 2.5 MG/3 ML VIAL.NEB. INHALATION (23:50)
[2023-06-05] VITALS (20 sets, daily range): BP systolic 82–146; BP diastolic 64–86; PULSE 63–89; RESP 16–26; TEMP 36.6–37.2; O2SAT 84–97
[2023-06-05] MEDS: 0.9% Saline Lock 10 ML Syringe IV ×3 (05:11→21:07)
[2023-06-05] MEDS: Furosemide 20 MG/2 ML VIAL 40 MG IV ×3 (05:16→21:07)
[2023-06-05] MEDS: Ipratropium/Albuterol Sulfate 3 ML AMPUL.NEB INHALATION ×3 (07:01→18:51)
[2023-06-05] MEDS: Budesonide Respules 0.5 MG/2 ML AMPUL.NEB. INHALATION ×2 (07:01→18:51)
[2023-06-05 07:22] LABS: Anion Gap 9 (5-15); BUN 11 mg/dL (7-18); BUN/Creat Ratio 20.7 RATIO (10-20); Calcium,Total 9.2 mg/dL (8.5-10.1); Chloride 85 mmol/L (98-107); Creatinine, Serum 0.53 mg/dL (0.55-1.02); EST Glomerular Filtration Rate 120 mL/min (>60); Est Glom Filt Rate - Afr Amer 145 mL/min (>60); Estimated Creatinine Clearance 43.27 ml/min; Glucose 121 mg/dL (74-106); Magnesium 1.9 mg/dL (1.6-2.6); Potassium 3.5 mmol/L (3.5-5.1); Sodium Level 124 mmol/L (136-145)
[2023-06-05] MEDS: Amiodarone 360 MG in Dextrose 5% Viaflo Bag 192.8 ML 16.7 MG CONT INF (07:58)
--- NOTE | 2023-06-05 08:24 | CT_ITS ---
STUDY: CTA CHEST REASON FOR EXAM: Female, 73 years old. Hypoxia RADIATION DOSAGE (If Supplied By Facility): CTDIvol = ( 7.35 ) mGy, DLP = ( 141.91 ) mGycm TECHNIQUE: The examination was performed with the intravenous administration of IV 100mL Isovue-370. Post-processing of the angiographic images was performed, with multiplanar reformation and 3D reconstruction. Individualized dose optimization techniques were used for this CT. COMPARISON: No prior examinations are available for comparison. FINDINGS: Artifacts in the main pulmonary artery from contrast in the IVC. No evidence of pulmonary embolism. Normal enhancement of the bilateral peripheral pulmonary arteries. There is no demonstrated pulmonary embolism. There is atherosclerotic calcification of the aortic arch without evidence of aneurysm. Dissection cannot be evaluated on this exam. The aorta is not well enhanced. Normal heart and pericardium. There are calcifications of the coronary arteries. No evidence of mediastinal adenopathy. Right hilar density could represent adenopathy or perihilar mass. Normal visualized trachea and bronchi. Atelectatic changes in both lower lobes. Patchy opacities/infiltrates in the right lower lobe. Moderate bilateral pleural effusions. Normal chest wall structures. No demonstrated acute osseous changes. Visualized upper abdomen demonstrate no acute process. CT/CTA Chest W/WO Contrast IMPRESSION: No evidence of pulmonary embolism. Atelectatic changes both lower lungs. Moderate bilateral pleural effusions. Right perihilar density could reflect unusual atelectasis, adenopathy or perihilar mass. Follow-up exams is recommended Electronically Signed: Alexis Hill MD at 10:38 EDT ,
[2023-06-05 08:59] LABS: AST(SGOT) 65 U/L (15-37); Alanine Aminotransfer ALT/SGPT 87 U/L (13-56); Albumin, Serum 2.6 g/dL (3.2-5.0); Alkaline Phosphatase 148 U/L (45-117); Bilirubin, Direct 0.28 mg/dL (0.00-0.30); Globulin 3.6 g/dL (2.2-4.2); Protein, Total 6.2 g/dL (6.4-8.2)
[2023-06-05] MEDS: Potassium Chloride Oral Tablet 20 MEQ PO ×3 (09:17→17:04)
[2023-06-05] MEDS: Mirabegron 50 MG TAB.ER.24H PO (09:19)
[2023-06-05] MEDS: APIXABAN 5 MG TABLET PO ×2 (09:19→21:07)
[2023-06-05] MEDS: Empagliflozin 10 MG Tablet PO (09:19)
[2023-06-05] MEDS: Metoprolol(XL)Succ 50 MG Tablet PO (09:26)
[2023-06-05] MEDS: Lisinopril 2.5 MG Tablet PO (09:26)
[2023-06-05] MEDS: Amiodarone 200 MG Tablet PO ×2 (09:31→17:03)
--- NOTE | 2023-06-05 12:42 | PCM.PN.HOSP ---
Reason for Visit Reason for Visit: Lower extremity edema/shortness of breath Subjective Subjective Patient had a good night. Is so far -4.9 L for her hospitalization. Does appear to require oxygen at night. Swelling continues to improve but not yet at baseline. Objective Data Objective Data Vital Signs: Vital Signs Temp Pulse Resp BP Pulse Ox O2 Del Method O2 Flow Rate 98.0 F 80 18 146/76 H 93 Room Air 1 06/05/23 04:00 06/05/23 09:26 06/05/23 09:22 06/05/23 09:26 06/05/23 09:22 06/05/23 09:22 06/05/23 08:16 Oxygen Flow Rate (L/min) 1 Oxygen Delivery Method Room Air Weight: 61.371 kg Body Mass Index (BMI) 23.2 Intake & Output: Intake and Output for Last 24 Hours 06/03/23 06/04/23 06/05/23 23:59 23:59 23:59 Intake Total 350 / 350 573.10 / 589.80 148.79 / 148.79 Output Total 2350 / 2350 2650 / 2650 1450 / 1450 Balance -1999 / -1999 -2076.90 / -2060.20 -1301.21 / -1301.21 Lab / Micro Data 06/04/23 05:11 06/05/23 06:17 Labs: Laboratory Results - last 24 hr 06/05/23 06:17: Sodium 124 L, Potassium 3.5, Chloride 85 L, Carbon Dioxide 30.0, Anion Gap 9, BUN 11, Creatinine 0.53 L, Estim Creat Clear Calc 43.27, Est GFR (MDRD) Af Amer 145, Est GFR (MDRD) Non-Af 120, BUN/Creatinine Ratio 20.7 H, Glucose 121 H, Calcium 9.2, Magnesium 1.9, Total Bilirubin 0.60, Direct Bilirubin 0.28, AST 65 H, ALT 87 H, Alkaline Phosphatase 148 H, Total Protein 6.2 L, Albumin 2.6 L, Globulin 3.6 Micro: Microbiology 06/03/23 08:50 Stool C. difficile DNA Amplification - Final Radiography Diagnostic Testing: Radiology Impression Chest CTA 06/05/23 08:24 IMPRESSION: No evidence of pulmonary embolism. Atelectatic changes both lower lungs. Moderate bilateral pleural effusions. Right perihilar density could reflect unusual atelectasis, adenopathy or perihilar mass. Follow-up exams is recommended Electronically Signed: Alexis Hill MD at 10:38 EDT , Rhythm Strip Rhythm Strip: A-fib Rate: 137 Ectopy: None Physical Exam Const alert, oriented x3, no apparent distress, average body habitus and well nourished Constitutional Narrative: Elderly white female, walking down the hallway with therapy services utilizing a walker, appears comfortable and nontoxic, on room air HEENT head/scalp atraumatic, hearing grossly normal bilaterally and moist oral mucous membranes HEENT Narrative: Mallampati 2, thrush Resp normal respiratory effort, no retractions, no use of accessory muscles and clear to auscultation bilaterally Resp Narrative: Extremely diminished but clear, few scattered end expiratory wheezes that clear with cough Auscultation: wheezes; Negative for rales or rhonchi Cardio regular rate, regular rhythm, S1 normal heart sound, S2 normal heart sound, no murmurs, no rub, no gallops and no clicks GI normal to inspection, nondistended, normoactive bowel sounds, soft to palpation and non-tender Extremity Extremity Narrative: 2-3+ bilateral lower extremity pitting edema but legs have been dangling today as compared to yesterday when they were elevated, no cyanosis or clubbing Neuro oriented x3, moves all extremities and no focal motor deficits Speech: speech normal Psych affect normal Psych Narrative: Very pleasant, eye contact is good, patient interacts normally Assessment & Plan Assessment/Plan (1) Atrial fibrillation with rapid ventricular response: (2) CHF (congestive heart failure): (3) Acute hyponatremia: (4) Hyperglycemia: (5) Systolic dysfunction with heart failure: (6) Hypoxia: (7) Hypomagnesemia: PLAN: Plan New onset A-fib with RVR -Heart rates in presentation were in the 150s -Has been in normal sinus rhythm since late afternoon yesterday -Continue metoprolol 50 mg XR daily -Discontinue amiodarone drip and transition to oral amiodarone 200 mg p.o. twice daily x7 days then transition to 200 mg daily -Continue apixaban -TSH within normal limits -Echocardiogram performed and shows ejection fraction of 30% with global dysfunction, severe stage III diastolic dysfunction, mild biatrial enlargement, 2+ mitral valve insufficiency Acute decompensated systolic CHF -Echo as above with EF of 30% -Currently suspect tachycardia mediated with global dysfunction--> will work on getting heart rate under control and have outpatient cardiology follow-up for reassessment with echo likely in 6 to 8 weeks--> discussed case with Dr. Bañuelos and he agrees -Strict I's and O's -Daily weights -Fluid restriction -No salt added diet -Continue cardiac diet -Continue Lasix 40 mg IV push 3 times daily -Patient is negative almost 5 L for hospitalization (4.9) -Daily potassium supplement added to counteract effect of diuretic -Transition to metoprolol XL -Lisinopril 2.5 mg daily added -Added Jardiance 10 mg daily -Will continue to monitor blood pressures and consider addition of Aldactone Hypoxia -Appears to be nocturnal -CT of the chest performed and shows no PE but does shows bilateral pleural effusions and cyst considerable emphysematous changes -Continue as needed nebulizers -Continue home inhalers -Continue diuresis -Strongly encouraged ongoing use of incentive spirometry and [place] -Patient has COPD at baseline but no current need for steroids based on exam Possible perihilar mass -We will continue diuresis and have patient follow-up with pulmonary medicine to reevaluate with CAT scan once medically stabilized from a respiratory standpoint -We will review with pulmonary medicine Hyperglycemia with insulin resistance -Hemoglobin A1c was elevated at 5.8 which does not qualify her for diagnosis of diabetes however it does show insulin resistance -Jardiance added for heart failure and this should help with her blood sugars as well -Continue to monitor Hypomagnesemia - resolved Hyponatremia-acute -Still suspect that this is related to volume overload as it is stabilized but not improving -Patient still appears to be considerably volume overloaded -Continue diuresis and repeat BMP in a.m. -TSH is within normal limits -Patient does not appear to be on any medications that would cause this Alcohol abuse -Currently drinks 3-4 beers a day and if with friends 1-2 highballs -Will discuss with patient about cessation as this could contribute to her atrial fibrillation COPD -Continue home inhalers -recommend smoking cessation as she currently smokes about a half a pack of cigarettes daily Hyperlipidemia -Continue home atorvastatin Osteoporosis -Continue outpatient Prolia injection every 6 months Overactive bladder -Continue mirabegron Seasonal allergies -Continue as needed loratadine Tobacco abuse -Currently smoking about half pack of cigarettes daily -Continue nicotine patch DVT prophylaxis -Continue Eliquis CODE STATUS -Full code Charges/Coding Visit Charges Inpatient E&M: 09808 Subs Hosp L2
--- NOTE | 2023-06-05 14:00 | CASEMGMT ---
LAVELL MARX Follow-up: This RN CM met with pt face to face at bedside with spouse present. Discussed discharge needs with pt and pt declined needing home healthcare. Discussed possible need for home O2 at per Dr. Cooley. Explained home O2 process and equipment. Answered pt's questions and provided a list of DME providers consistent with pt's insurance network as listed on the [facility] website. Pt states they have two sons that live out of state and she would prefer a provider and equipment that would be conducive to travel. Explained that [employer] is the most national company for traveling rather than being a local or [place] only provider but [employer] does not deliver O2 on the weekends if she were to be discharged this weekend. Encouraged pt and/or spouse to review companies on-line for equipment options for portability as weekend access to providers in the offices is limited and this RN CM not familiar with airplane adaptable equipment. Pt's spouse agreeable to conducting research. Green sheet placed on pt's chart for home O2 set-up if pt qualifies and based on their preferred provider once chosen. Plan: Home with support of spouse and possible home O2 at . Clara Lee RN CM
[2023-06-05] MEDS: Potassium Chloride Oral Tablet 20 MEQ 60 MEQ PO (14:07)
[2023-06-05] MEDS: guaiFENesin 600 MG Tablet PO (21:07)
[2023-06-05] MEDS: Ibuprofen 400 MG Tablet PO (21:07)
[2023-06-05] MEDS: Atorvastatin Calcium 20 MG Tablet PO (21:07)
[2023-06-05] MEDS: Albuterol 2.5 MG/3 ML VIAL.NEB. INHALATION (22:07)
[2023-06-05] MEDS: Simethicone 40MG/0.6ML Bottle 80 MG PO (23:51)
[2023-06-06] VITALS (10 sets, daily range): BP systolic 101–126; BP diastolic 64–79; PULSE 70–88; RESP 18–20; TEMP 36.4–37.3; O2SAT 92–96
[2023-06-06 05:26] LABS: Absolute Lymphocyte Count 1.28 X10^3/uL (0.83-4.51); Absolute Neutrophil Count 7.2 X10^3/uL (2.0-7.7); Basophil# 0.08 X10^3/uL; Basophil% 0.8 % (0-1); Eosinophil# 0.06 X10^3/uL; Eosinophils% 0.6 % (0-5); Hematocrit 41.9 % (37-47); Hemoglobin 14.1 g/dL (12.0-15.0); Lymphocyte # 1.28 X10^3/ul (0.83-4.51); Lymphocyte % 13.5 % (19-41); Mean Corp Hgb Conc 33.7 g/dL (32-36); Mean Corpuscular Hgb 30.8 pg (27.0-32.0); Mean Corpuscular Volume 91.5 fL (81-99); Monocyte# 0.89 X10^3/uL; Monocyte% 9.4 % (0-10); NRBC Flagged by Analyzer 0 % (0-5); Neutrophil # 7.17 X10^3/uL (2.7-7.7); Neutrophil % 75.4 % (47-70); Platelet Count 350 K/mm3 (150-450); RBC Distribution Width CV 13.5 % (11.6-14.6); RBC Distribution Width SD 45.4 fl (35.1-43.9); Red Blood Count 4.58 M/mm3 (4.2-5.4); White Blood Count 9.5 K/mm3 (4.4-11.0)
[2023-06-06] MEDS: Furosemide 20 MG/2 ML VIAL 40 MG IV ×3 (05:48→21:26)
[2023-06-06 05:58] LABS: ALB/GLOB Ratio 0.7 RATIO (0.9-2.4); AST(SGOT) 52 U/L (15-37); Alanine Aminotransfer ALT/SGPT 81 U/L (13-56); Albumin, Serum 2.5 g/dL (3.2-5.0); Alkaline Phosphatase 123 U/L (45-117); Anion Gap 7 (5-15); BUN 13 mg/dL (7-18); BUN/Creat Ratio 17.2 RATIO (10-20); Calcium,Total 9.3 mg/dL (8.5-10.1); Chloride 89 mmol/L (98-107); Creatinine, Serum 0.76 mg/dL (0.55-1.02); EST Glomerular Filtration Rate 80 mL/min (>60); Est Glom Filt Rate - Afr Amer 97 mL/min (>60); Estimated Creatinine Clearance 43.27 ml/min; Globulin 3.4 g/dL (2.2-4.2); Glucose 121 mg/dL (74-106); Potassium 4.5 mmol/L (3.5-5.1); Protein, Total 5.9 g/dL (6.4-8.2); Sodium Level 126 mmol/L (136-145)
[2023-06-06] MEDS: Ipratropium/Albuterol Sulfate 3 ML AMPUL.NEB INHALATION ×3 (06:53→20:08)
[2023-06-06] MEDS: Budesonide Respules 0.5 MG/2 ML AMPUL.NEB. INHALATION ×2 (06:53→20:08)
[2023-06-06] MEDS: Amiodarone 200 MG Tablet PO ×2 (09:22→16:37)
[2023-06-06] MEDS: Potassium Chloride Oral Tablet 20 MEQ PO ×3 (09:22→16:37)
[2023-06-06] MEDS: Empagliflozin 10 MG Tablet PO (09:23)
[2023-06-06] MEDS: APIXABAN 5 MG TABLET PO ×2 (09:23→21:25)
[2023-06-06] MEDS: Mirabegron 50 MG TAB.ER.24H PO (09:24)
[2023-06-06] MEDS: guaiFENesin 600 MG Tablet PO ×2 (09:24→21:25)
[2023-06-06] MEDS: Metoprolol(XL)Succ 50 MG Tablet PO (09:25)
--- NOTE | 2023-06-06 11:38 | PCM.PN.HOSP ---
Reason for Visit Reason for Visit: Lower extremity swelling/shortness of breath Subjective Subjective Overnight pulse oximetry testing was performed and revealed that the patient will need 2 L while sleeping. We will arrange for this at discharge. Overall patient states she is feeling much better and swelling has significantly improved however still has some present. Sinus rhythm since she converted after amiodarone was initiated. No complaints and no overnight issues. Objective Data Objective Data Vital Signs: Vital Signs Temp Pulse Resp BP Pulse Ox O2 Del Method O2 Flow Rate 98.4 F 73 18 123/64 H 92 Room Air 1 06/06/23 09:10 06/06/23 09:25 06/06/23 09:10 06/06/23 09:25 06/06/23 09:10 06/06/23 09:10 06/05/23 08:16 FiO2 21 06/05/23 22:09 Oxygen Flow Rate (L/min) 1 Oxygen Delivery Method Room Air Weight: 61.371 kg Body Mass Index (BMI) 23.2 Intake & Output: Intake and Output for Last 24 Hours 06/04/23 06/05/23 06/06/23 23:59 23:59 23:59 Intake Total 573.10 / 589.80 598.79 / 838.79 840 / 840 Output Total 2650 / 2650 3350 / 4500 2150 / 2150 Balance -2076.90 / -2060.20 -2751.21 / -3661.21 -1310 / -1310 Lab / Micro Data 06/06/23 04:50 06/06/23 04:50 Labs: Laboratory Results - last 24 hr 06/06/23 04:50: WBC 9.5, RBC 4.58, Hgb 14.1, Hct 41.9, MCV 91.5, MCH 30.8, MCHC 33.7, RDW Std Deviation 45.4 H, RDW Coeff of Slime 13.5, Plt Count 350, MPV 9.0, Immature Gran % (Auto) 0.300, Neut % (Auto) 75.4 H, Lymph % (Auto) 13.5 L, Douglas % (Auto) 9.4, Eos % (Auto) 0.6, Baso % (Auto) 0.8, Absolute Neuts (auto) 7.2, Absolute Lymphs (auto) 1.28, Nucleated RBC % 0, Sodium 126 L, Potassium 4.5, Chloride 89 L, Carbon Dioxide 30.0, Anion Gap 7, BUN 13, Creatinine 0.76, Estim Creat Clear Calc 43.27, Est GFR (MDRD) Af Amer 97, Est GFR (MDRD) Non-Af 80, BUN/Creatinine Ratio 17.2, Glucose 121 H, Calcium 9.3, Total Bilirubin 0.50, AST 52 H, ALT 81 H, Alkaline Phosphatase 123 H, Total Protein 5.9 L, Albumin 2.5 L, Globulin 3.4, Albumin/Globulin Ratio 0.7 L Micro: Microbiology 06/03/23 08:50 Stool C. difficile DNA Amplification - Final Rhythm Strip Rhythm Strip: A-fib Rate: 137 Ectopy: None Physical Exam Const alert, oriented x3, no apparent distress, average body habitus and well nourished Constitutional Narrative: Elderly white female, sitting up in bed, nursing at bedside, appears comfortable and nontoxic, on room air HEENT normocephalic, head/scalp atraumatic, hearing grossly normal bilaterally and moist oral mucous membranes HEENT Narrative: Mallampati 2 no thrush Resp normal respiratory effort, no retractions, no use of accessory muscles and clear to auscultation bilaterally Resp Narrative: Extremely diminished but clear, few scattered end expiratory wheezes Auscultation: wheezes; Negative for rales or rhonchi Cardio regular rate, regular rhythm, S1 normal heart sound, S2 normal heart sound, no murmurs, no rub, no gallops and no clicks GI normal to inspection, nondistended, normoactive bowel sounds, soft to palpation and non-tender Extremity Extremity Narrative: 1+ bilateral lower extremity pitting edema distally, feet are improving and swelling is overall significantly better, no clubbing or cyanosis Neuro oriented x3, moves all extremities and no focal motor deficits Speech: speech normal Psych affect normal Psych Narrative: Very pleasant, eye contact is good, patient interacts normally Assessment & Plan Assessment/Plan (1) Atrial fibrillation with rapid ventricular response: (2) CHF (congestive heart failure): (3) Acute hyponatremia: (4) Hyperglycemia: (5) Systolic dysfunction with heart failure: (6) Hypoxia: (7) Hypomagnesemia: PLAN: Plan New onset A-fib with RVR -Heart rates in presentation were in the 150s -Has remained in normal sinus rhythm since late afternoon 06/04/2023 -Continue metoprolol 50 mg XR daily -Continue amiodarone 200 mg p.o. twice daily x7 days (day 2 of 7) and then will transition to 200 daily -Continue apixaban -TSH within normal limits -Echocardiogram performed and shows ejection fraction of 30% with global dysfunction, severe stage III diastolic dysfunction, mild biatrial enlargement, 2+ mitral valve insufficiency -Suspect this is tachycardia mediated and will need outpatient follow-up with repeat echocardiogram in 6 to 8 weeks Acute decompensated systolic CHF -Echo as above with EF of 30% -Currently suspect tachycardia mediated with global dysfunction--> will work on getting heart rate under control and have outpatient cardiology follow-up for reassessment with echo likely in 6 to 8 weeks--> discussed case with Dr. Bañuelos and he agrees -Strict I's and O's -Daily weights -Fluid restriction -No salt added diet -Continue cardiac diet -Continue Lasix 40 mg IV push 3 times daily -Patient is now negative almost 9 L for her hospitalization -Daily potassium supplement added to counteract effect of diuretic -Continue metoprolol XL 50 mg daily -Continue continue Jardiance 10 mg daily -We will allow for the addition of Aldactone as an outpatient if her blood pressures are stable after discharge Hypokalemia -60 mEq p.o. potassium and continue daily potassium with ongoing diuresis -repeat in am Nocturnal hypoxia -Nocturnal pulse oximetry was performed and patient had significant desaturations while sleeping and does fine during the day -CT of the chest performed and shows no PE but does shows bilateral pleural effusions and cyst considerable emphysematous changes -Will need be discharged home with 2 L nasal cannula while sleeping order was placed here to reflect this Possible perihilar mass -We will continue diuresis and have patient follow-up with pulmonary medicine to reevaluate with CAT scan once medically stabilized from a respiratory standpoint -Pulmonary medicine reviewed this and recommended outpatient repeat CAT scan in the next 4 to 6 weeks -We will set up pulmonary follow-up at discharge Hyperglycemia with insulin resistance -Hemoglobin A1c was elevated at 5.8 which does not qualify her for diagnosis of diabetes however it does show insulin resistance -Jardiance added for heart failure and this should help with her blood sugars as well -Continue to monitor Hyponatremia-acute -Still suspect that this is related to volume overload -Is slowly now trending up -Continue diuresis and repeat BMP in a.m. -TSH is within normal limits -Patient does not appear to be on any medications that would cause this Alcohol abuse -Currently drinks 3-4 beers a day and if with friends 1-2 highballs -Will discuss with patient about cessation as this could contribute to her atrial fibrillation COPD -Continue home inhalers -recommend smoking cessation as she currently smokes about a half a pack of cigarettes daily Hyperlipidemia -Continue home atorvastatin Osteoporosis -Continue outpatient Prolia injection every 6 months Overactive bladder -Continue mirabegron Seasonal allergies -Continue as needed loratadine Tobacco abuse -Currently smoking about half pack of cigarettes daily -Continue nicotine patch DVT prophylaxis -Continue Eliquis CODE STATUS -Full code Charges/Coding Visit Charges Inpatient E&M: 91898 Subs Hosp L2
[2023-06-06] MEDS: 0.9% Saline Lock 10 ML Syringe IV ×2 (14:26→21:25)
[2023-06-06] MEDS: Simethicone 40MG/0.6ML Bottle 80 MG PO (20:06)
[2023-06-06] MEDS: Atorvastatin Calcium 20 MG Tablet PO (21:25)
[2023-06-06] MEDS: Ibuprofen 400 MG Tablet PO (21:25)
[2023-06-06] MEDS: Albuterol 2.5 MG/3 ML VIAL.NEB. INHALATION (23:18)
[2023-06-07] VITALS (12 sets, daily range): BP systolic 100–121; BP diastolic 60–75; PULSE 68–84; RESP 16–18; TEMP 36.4–36.9; O2SAT 92–98; BMI 23.4; BMI 20.9
[2023-06-07] MEDS: 0.9% Saline Lock 10 ML Syringe IV ×2 (05:19→22:09)
[2023-06-07] MEDS: Furosemide 20 MG/2 ML VIAL 40 MG IV (05:22)
[2023-06-07 06:31] LABS: Anion Gap 6 (5-15); BUN 17 mg/dL (7-18); BUN/Creat Ratio 25.2 RATIO (10-20); Calcium,Total 8.9 mg/dL (8.5-10.1); Chloride 93 mmol/L (98-107); Creatinine, Serum 0.67 mg/dL (0.55-1.02); EST Glomerular Filtration Rate 91 mL/min (>60); Est Glom Filt Rate - Afr Amer 110 mL/min (>60); Estimated Creatinine Clearance 43.27 ml/min; Glucose 108 mg/dL (74-106); Magnesium 1.9 mg/dL (1.6-2.6); Phosphorus 4.4 mg/dL (2.5-4.9); Potassium 4.2 mmol/L (3.5-5.1); Sodium Level 131 mmol/L (136-145)
[2023-06-07] MEDS: Budesonide Respules 0.5 MG/2 ML AMPUL.NEB. INHALATION ×2 (08:03→19:48)
[2023-06-07] MEDS: Ipratropium/Albuterol Sulfate 3 ML AMPUL.NEB INHALATION ×2 (08:03→19:48)
--- NOTE | 2023-06-07 10:26 | PCM.PN.HOSP ---
Reason for Visit Reason for Visit: Lower extremity edema/shortness of breath Subjective Subjective Leg swelling is almost resolved. Patient did say that when she gets up and is having her legs dangle or walking around her swelling does seem to reaccumulate. I did discuss with her the possibility of buying some compression hose with 25 to 30 mmHg to help with this and adjusting her diet with regards to fluid and sodium will be helpful as well. The dietitian will meet with her today to discuss heart failure diet and what she needs to do. I do believe she will likely be ready for discharge tomorrow. I would like to keep her on IV diuretics for another 24 hours to maximize fluid removal. She is so far -9.4 L for her hospitalization. Heart remains in normal sinus rhythm on amiodarone orally. Objective Data Objective Data Vital Signs: Vital Signs Temp Pulse Resp BP Pulse Ox O2 Del Method O2 Flow Rate 98.2 F 75 16 114/75 92 Room Air 1 06/07/23 10:21 06/07/23 10:21 06/07/23 10:21 06/07/23 10:21 06/07/23 10:21 06/07/23 10:21 06/07/23 08:04 FiO2 21 06/05/23 22:09 Oxygen Flow Rate (L/min) 1 Oxygen Delivery Method Room Air Weight: 62 kg Body Mass Index (BMI) 23.4 Intake & Output: Intake and Output for Last 24 Hours 06/05/23 06/06/23 06/07/23 23:59 23:59 23:59 Intake Total 598.79 / 838.79 1455 / 1815 600 / 600 Output Total 3350 / 4500 3450 / 4100 950 / 950 Balance -2751.21 / -3661.21 -1994 / 2285 -350 / -350 Lab / Micro Data 06/06/23 04:50 06/07/23 05:30 Labs: Laboratory Results - last 24 hr 06/07/23 05:30: Sodium 131 L, Potassium 4.2, Chloride 93 L, Carbon Dioxide 32.0, Anion Gap 6, BUN 17, Creatinine 0.67, Estim Creat Clear Calc 43.27, Est GFR (MDRD) Af Amer 110, Est GFR (MDRD) Non-Af 91, BUN/Creatinine Ratio 25.2 H, Glucose 108 H, Calcium 8.9, Phosphorus 4.4, Magnesium 1.9 Micro: Microbiology 06/03/23 08:50 Stool C. difficile DNA Amplification - Final Rhythm Strip Rhythm Strip: A-fib Rate: 137 Ectopy: None Physical Exam Const alert, oriented x3, no apparent distress, average body habitus and well nourished Constitutional Narrative: Elderly white female, lying in bed, appears comfortable, nontoxic HEENT normocephalic, head/scalp atraumatic, hearing grossly normal bilaterally and moist oral mucous membranes HEENT Narrative: Mallampati 2, no thrush Resp normal respiratory effort, no retractions, no use of accessory muscles and clear to auscultation bilaterally Resp Narrative: Diffusely diminished apices greater than bases, no adventitious sounds Auscultation: Negative for rales, rhonchi or wheezes Cardio regular rate, regular rhythm, S1 normal heart sound, S2 normal heart sound, no murmurs, no rub, no gallops and no clicks GI normal to inspection, nondistended, normoactive bowel sounds, soft to palpation, non-tender and non-distended Extremity Extremity Narrative: Trace bilateral lower extremity pitting edema distally mostly her ankles foot tendons are now clearly visible, no clubbing or cyanosis Neuro oriented x3, moves all extremities and no focal motor deficits Speech: speech normal Psych affect normal Psych Narrative: Very pleasant, eye contact is good, patient interacts normally Assessment & Plan Assessment/Plan (1) Atrial fibrillation with rapid ventricular response: (2) CHF (congestive heart failure): (3) Acute hyponatremia: (4) Hyperglycemia: (5) Systolic dysfunction with heart failure: (6) Hypoxia: (7) Hypomagnesemia: PLAN: Plan New onset A-fib with RVR -Heart rates in presentation were in the 150s -Has remained in normal sinus rhythm since late afternoon 06/04/2023 -Continue metoprolol 50 mg XR daily -Continue amiodarone 200 mg p.o. twice daily x7 days (day 3 of 7) and then will transition to 200 daily -Continue apixaban -TSH within normal limits -Echocardiogram performed and shows ejection fraction of 30% with global dysfunction, severe stage III diastolic dysfunction, mild biatrial enlargement, 2+ mitral valve insufficiency -Suspect this is tachycardia mediated and will need outpatient follow-up with repeat echocardiogram in 6 to 8 weeks Acute decompensated systolic CHF -Echo as above with EF of 30% -Currently suspect tachycardia mediated with global dysfunction--> will work on getting heart rate under control and have outpatient cardiology follow-up for reassessment with echo likely in 6 to 8 weeks--> discussed case with Dr. Bañuelos and he agrees -Strict I's and O's -Daily weights -Fluid restriction -No salt added diet -Continue cardiac diet -Continue Lasix 40 mg IV push 3 times daily -Patient is -9.4 L for hospitalization and objectively her swelling is much improved -Daily potassium supplement added to counteract effect of diuretic -Continue metoprolol XL 50 mg daily -Continue continue Jardiance 10 mg daily -We will allow for the addition of Aldactone as an outpatient if her blood pressures are stable after discharge Hypokalemia - resolved Nocturnal hypoxia -Nocturnal pulse oximetry was performed and patient had significant desaturations while sleeping and does fine during the day -CT of the chest performed and shows no PE but does shows bilateral pleural effusions and cyst considerable emphysematous changes -Will need be discharged home with 2 L nasal cannula while sleeping Possible perihilar mass -We will continue diuresis and have patient follow-up with pulmonary medicine to reevaluate with CAT scan once medically stabilized from a respiratory standpoint -Pulmonary medicine reviewed this and recommended outpatient repeat CAT scan in the next 4 to 6 weeks -Will set up appointment in preparation for discharge Hyperglycemia with insulin resistance -Hemoglobin A1c was elevated at 5.8 which does not qualify her for diagnosis of diabetes however it does show insulin resistance -Jardiance added for heart failure and this should help with her blood sugars as well -Continue to monitor Hypervolemic hyponatremia-acute -Today was up to 131 which is the highest its been through her hospital stay -126on presentation with a yuri of 123 during her hospitalization -Continue diuresis and repeat BMP in a.m. -TSH is within normal limits -Patient does not appear to be on any medications that would cause this Alcohol abuse -Currently drinks 3-4 beers a day and if with friends 1-2 highballs -Will discuss with patient about cessation as this could contribute to her atrial fibrillation COPD -Continue home inhalers -recommend smoking cessation as she currently smokes about a half a pack of cigarettes daily Hyperlipidemia -Continue home atorvastatin Osteoporosis -Continue outpatient Prolia injection every 6 months Overactive bladder -Continue mirabegron Seasonal allergies -Continue as needed loratadine Tobacco abuse -Currently smoking about half pack of cigarettes daily -Continue nicotine patch DVT prophylaxis -Continue Eliquis CODE STATUS -Full code Charges/Coding Visit Charges Inpatient E&M: 34308 Subs Hosp L2
[2023-06-07] MEDS: guaiFENesin 600 MG Tablet PO ×2 (10:28→22:09)
[2023-06-07] MEDS: Amiodarone 200 MG Tablet PO ×2 (10:28→16:30)
[2023-06-07] MEDS: APIXABAN 5 MG TABLET PO ×2 (10:28→22:09)
[2023-06-07] MEDS: Potassium Chloride Oral Tablet 20 MEQ PO ×3 (10:28→16:30)
[2023-06-07] MEDS: Lisinopril 2.5 MG Tablet PO (10:28)
[2023-06-07] MEDS: Mirabegron 50 MG TAB.ER.24H PO (10:28)
[2023-06-07] MEDS: Empagliflozin 10 MG Tablet PO (10:28)
[2023-06-07] MEDS: Metoprolol(XL)Succ 50 MG Tablet PO (10:28)
[2023-06-07] MEDS: Furosemide 40 MG/4 ML Vial IV ×2 (14:37→22:08)
[2023-06-07] MEDS: Albuterol 2.5 MG/3 ML VIAL.NEB. INHALATION ×2 (15:55→22:38)
[2023-06-07] MEDS: Simethicone 40MG/0.6ML Bottle 80 MG PO (18:27)
[2023-06-07] MEDS: Atorvastatin Calcium 20 MG Tablet PO (22:09)
[2023-06-08] VITALS (8 sets, daily range): BP systolic 109–125; BP diastolic 55–69; PULSE 69–73; RESP 16–18; TEMP 36.6–37.2; O2SAT 92–100; BMI 20.9
[2023-06-08 06:06] LABS: Anion Gap 5 (5-15); BUN 13 mg/dL (7-18); BUN/Creat Ratio 19.8 RATIO (10-20); Calcium,Total 9.1 mg/dL (8.5-10.1); Chloride 93 mmol/L (98-107); Creatinine, Serum 0.66 mg/dL (0.55-1.02); EST Glomerular Filtration Rate 94 mL/min (>60); Est Glom Filt Rate - Afr Amer 113 mL/min (>60); Estimated Creatinine Clearance 43.27 ml/min; Glucose 112 mg/dL (74-106); Potassium 4.2 mmol/L (3.5-5.1); Sodium Level 129 mmol/L (136-145)
[2023-06-08] MEDS: 0.9% Saline Lock 10 ML Syringe IV (06:17)
[2023-06-08] MEDS: Furosemide 40 MG/4 ML Vial IV (06:17)
[2023-06-08] MEDS: Budesonide Respules 0.5 MG/2 ML AMPUL.NEB. INHALATION (07:11)
[2023-06-08] MEDS: Ipratropium/Albuterol Sulfate 3 ML AMPUL.NEB INHALATION ×2 (07:11→13:25)
[2023-06-08] MEDS: Metoprolol(XL)Succ 50 MG Tablet PO (09:01)
[2023-06-08] MEDS: guaiFENesin 600 MG Tablet PO (09:02)
[2023-06-08] MEDS: Potassium Chloride Oral Tablet 20 MEQ PO ×2 (09:02)
[2023-06-08] MEDS: Mirabegron 50 MG TAB.ER.24H PO (09:02)
[2023-06-08] MEDS: Empagliflozin 10 MG Tablet PO (09:02)
[2023-06-08] MEDS: Lisinopril 2.5 MG Tablet PO (09:02)
[2023-06-08] MEDS: Amiodarone 200 MG Tablet PO (09:02)
[2023-06-08] MEDS: APIXABAN 5 MG TABLET PO (09:02)
[2023-06-08] MEDS: Acetaminophen 325 MG Tablet 650 MG PO (09:24)
--- NOTE | 2023-06-08 11:49 | PCM.DC.SUM ---
Providers Date of Admission: 06/02/23 Date of Discharge: 06/08/23 Primary Care Physician: Dr. Clifford Banuelos, DO Reason For Visit: A-FIB, RVR, CHF, HYPONATREMIA Diagnosis Discharge Diagnosis (1) Atrial fibrillation with rapid ventricular response: Status: Acute Code(s): I48.91 - Unspecified atrial fibrillation (2) CHF (congestive heart failure): Status: Acute Code(s): I50.9 - Heart failure, unspecified (3) Acute hyponatremia: Status: Acute Code(s): E87.1 - Hypo-osmolality and hyponatremia (4) Hyperglycemia: Status: Acute Code(s): R73.9 - Hyperglycemia, unspecified (5) Systolic dysfunction with heart failure: Status: Acute Code(s): I50.20 - Unspecified systolic (congestive) heart failure (6) Hypoxia: Status: Acute Code(s): R09.02 - Hypoxemia (7) Hypomagnesemia: Status: Acute Code(s): E83.42 - Hypomagnesemia Medications at Discharge Home Medications loratadine 10 mg tablet (Claritin) 5 mg PO PRN PRN allergies 02/17/19 multivitamin 1 cap PO DAILY supplement 02/17/19 Bifidobacterium infantis 4 mg capsule (Align) 4 mg PO DAILY probiotic 05/05/21 cholecalciferol (vitamin D3) 125 mcg (5,000 unit) capsule 5,000 unit PO DAILY vitamin #90 caps 09/11/22 albuterol sulfate 90 mcg/actuation aerosol inhaler (ProAir HFA) 1 puff inhalation Q6H PRN shortness of breath #18 grams 10/29/22 atorvastatin 20 mg tablet 20 mg PO DAILY cholesterol #90 tabs 10/29/22 biotin 2,500 mcg capsule 2,500 mcg PO DAILY supplement 10/29/22 budesonide-formoterol HFA 160 mcg-4.5 mcg/actuation aerosol inhaler (Symbicort) 2 inh inhalation Q12H COPD #30.6 grams 10/29/22 calcium carbonate 600 mg calcium (1,500 mg) tablet (Calcium) 600 mg PO DAILY supplement 10/29/22 mirabegron 50 mg tablet,extended release 24 hr (Myrbetriq) 50 mg PO DAILY bladder #90 tabs 10/29/22 tiotropium bromide 2.5 mcg/actuation mist for inhalation (Spiriva Respimat) 2 puff inhalation DAILY COPD #12 grams 10/29/22 denosumab 60 mg/mL subcutaneous syringe (Prolia) 60 mg subcut [id number] bone health #1 mL 04/15/23 apixaban 5 mg tablet (Eliquis) 5 mg PO BID blood thinner #60 tabs 06/02/23 calcium carbonate 200 mg calcium (500 mg) chewable tablet (Antacid (calcium carbonate)) 200 mg PO DAILY Indigestion 06/02/23 amiodarone 200 mg tablet 200 mg PO DAILY #36 tabs 06/08/23 empagliflozin 10 mg tablet (Jardiance) 10 mg PO DAILY #30 tabs 06/08/23 furosemide 40 mg tablet (Lasix) 40 mg PO BID #60 tabs 06/08/23 lisinopril 2.5 mg tablet 2.5 mg PO DAILY #30 tabs 06/08/23 metoprolol succinate 50 mg tablet,extended release 24 hr 50 mg PO DAILY #30 tabs 06/08/23 potassium chloride 20 mEq tablet,extended release(part/cryst) (Klor-Con M) 20 meq PO BIDCM #60 tabs 06/08/23 Hospital Course Operations None Procedures 2-D Echocardiogram, EKG and - (Chest x-ray/CTA of chest) Summary of Care Provided Minutes Spent on Discharge: 41 Hospital Course: Mrs. De La O is a 73-year-old white female who presented to the emergency department at [facility] on 06/02/2023 with lower extremity edema and shortness of breath. She was seen by her primary care physician and found to be in new A-fib with RVR. Heart rate was found to be in the 160s. On presentation she reported that over the last several weeks to months she has had intermittent shortness of breath and worsening lower extremity edema. She had been started on Lasix about 6 days prior to presentation for lower extremity swelling. On presentation to the emergency department her temperature was 97.8, heart rate 151, blood pressure 134/78, respiratory rate was 18 and oxygen saturations were 95% on room air. It appears that she did have some desaturations yesterday afternoon with sats in the upper 80 range with the lowest being 88% and she was placed on 2 L nasal cannula. Her CBC showed a mild leukocytosis with a white count of 11.6 but was otherwise unremarkable. Coag were normal. Chemistry panel showed hyponatremia with a sodium of 123, chloride of 84, renal function was within normal limits, and her serum glucose was elevated 130. She does not have documented history of diabetes. Her initial BNP was 2080.8 and her troponin was 23. Obtain a TSH and was found to be 1.61. EKG showed A-fib with RVR and no ST-T wave changes concerning for acute ischemia. Chest x-ray showed cardiomegaly with mild vascular congestion and pleural-parenchymal changes in the left base consistent with atelectasis versus a small left pleural effusion. She was given IV Cardizem bolus in the emergency department with some improvement in her heart rate but it increased again and she was placed on a Cardizem drip. She was admitted to the PCU and placed on IV Lasix and Cardizem drip was continued she was started on beta-maria esther to 25 mg p.o. twice daily. We were able to very quickly stop her Cardizem drip and leave her on beta-maria esther as she had converted to normal sinus rhythm by the morning after her admission. She initially was on therapeutic Lovenox but we quickly transitioned her to Eliquis at well. Echocardiogram was performed and showed an EF of 30% with stage III diastolic dysfunction and severe global hypokinesis with mild biatrial enlargement and moderate mitral valve insufficiency. I talked to cardiology, Dr. Bañuelos, and he recommended that we continue medical therapy and felt that this may be tachycardia mediated. I started her on metoprolol XL at 25 mg daily and this was titrated up to 50 mg by the day of discharge. She was also maintained on oral anticoagulation. We continued aggressive diuresis and throughout her hospital course she diuresed over 12 L of fluid. The swelling in her lower extremities had resolved by the time of discharge. Her sodium level was 123 at yuri and was 130 at the time of discharge. I suspect this is predominantly due to volume overload and she will be maintained on loop diuretics after discharge. With her new depressed EF we also started her on lisinopril low-dose at 2.5 mg daily, Jardiance 10 mg daily and she will need to be evaluated for the addition of Aldactone after discharge if her blood pressure will tolerate. Unfortunately, she had new episode of A-fib after she spontaneously converted and we increased her metoprolol with no avail so we did start amiodarone drip and she did convert back into normal sinus rhythm. We transitioned her to 200 mg of amiodarone twice daily which she will take for a total of 7 days and then transition to 200 mg daily. We did check her liver enzymes and her TSH both of which were unremarkable. She will need a follow-up TSH and liver enzymes in about 3 months. She was noted to be consistently hypoxic at night with normal saturations during the day. We did an overnight pulse ox on her at night and she desats quite frequently below 88%. We arranged for nocturnal oxygen at the time of discharge. A CTA of her chest was performed due to her intermittent hypoxia which showed no PE, atelectatic changes in both lungs, bilateral pleural effusions as well as a right perihilar density that was nonspecific and follow-up was recommended. She will need a follow-up CT scan in the next 4 to 6 weeks and a pulmonary follow-up was made for her at the time of discharge. She was seen by the dietitian during her hospital stay to the discussed appropriate diet given her fluid restriction needs and sodium restriction requirements with her new diagnosis of heart failure. She will see Dr. Banuelos from pulmonary medicine on 07/19/2023 at 11:15 AM. We have a cardiology follow-up for her with Dr. Wong on 06/30/2023 at 9:30 AM and have asked her to follow-up with her primary care physician to obtain a basic metabolic profile as well as for hospital follow-up within the next week. She was able to be discharged home in stable condition on 06/08/2023 her new prescriptions for lisinopril, metoprolol, Lasix, potassium, and Jardiance were faxed to her local pharmacy. Discharge diagnoses: New onset A-fib with RVR Acute decompensated systolic heart failure Hypokalemia-resolved Nocturnal hypoxia Perihilar mass Insulin resistance Hypervolemic hyponatremia Alcohol abuse COPD Hyperlipidemia Osteoporosis Overactive bladder Seasonal allergies Tobacco abuse Physical Exam Const alert, oriented x3, no apparent distress, average body habitus and well nourished Constitutional Narrative: Elderly white female, lying in bed, appears comfortable, nontoxic General Appearance: cooperative, comfortable, well kempt and well developed Orientation / Consciousness: awake, oriented to person, oriented to place and oriented to time Exam Limitations: no limitations Nutritional Appearance: thin HEENT normocephalic, head/scalp atraumatic, hearing grossly normal bilaterally and moist oral mucous membranes HEENT Narrative: Mallampati 2, no thrush Eyes PERRL, EOMs intact bilaterally and conjunctivae normal Eyes Narrative: No scleral icterus Neck no lymphadenopathy, supple, no JVD, thyroid normal and no carotid bruits Neck Narrative: Trachea midline, no thyroid enlargement General: trachea midline Resp normal respiratory effort, no retractions, no use of accessory muscles and clear to auscultation bilaterally Resp Narrative: Diffusely diminished apices greater than bases, no adventitious sounds Auscultation: Negative for rales, rhonchi or wheezes Cardio regular rate, regular rhythm, S1 normal heart sound, S2 normal heart sound, no murmurs, no rub, no gallops and no clicks GI normal to inspection, nondistended, normoactive bowel sounds, soft to palpation and non-tender Extremity no clubbing, cyanosis or edema Extremity Narrative: Pedal pulses are 2+ Skin no rashes or lesions noted, no wounds, skin turgor normal, no jaundice, no petechiae and no mottling General Skin Exam: no breakdown Neuro oriented x3, CN's II-XII intact bilaterally, moves all extremities, no focal motor deficits and no sensory deficits noted Sensorium / Orientation: awake, alert, oriented to person, oriented to place and oriented to time Speech: speech normal Psych affect normal Psych Narrative: Very pleasant, eye contact is good, patient interacts normally Weight / BMI Weight Weight: 55.6 kg Body Mass Index (BMI) 20.9 ABG / Lab / Microbiology Data 06/06/23 04:50 06/08/23 05:24 Laboratory: Laboratory Results - last 24 hr 06/08/23 05:24: Sodium 129 L, Potassium 4.2, Chloride 93 L, Carbon Dioxide 31.0, Anion Gap 5, BUN 13, Creatinine 0.66, Estim Creat Clear Calc 43.27, Est GFR (MDRD) Af Amer 113, Est GFR (MDRD) Non-Af 94, BUN/Creatinine Ratio 19.8, Glucose 112 H, Calcium 9.1 Microbiology: Microbiology 06/03/23 08:50 Stool C. difficile DNA Amplification - Final D/C Instructions Discharge Diet: Low fat / Low cholesterol (Fluid restriction to 1.5 to 2 L daily) and 2000 mg Sodium Diet Discharge Activity: Return to Normal Activity Meaningful Use Info Meaningful Use Diagnoses (Choose all that apply): CHF CHF TYREE/ARB ordered at discharge?: Yes Documented LVEF (%): 30 Discharge Plan Admission Admit Date/Time: 06/02/23 16:56 Primary Reason for Your Visit: Shortness of breath/lower extremity swelling Attending Provider: Yi Cooley Primary Care Provider: Clifford Banuelos Consulting Providers: Ray Guzman Instructions Additional Instructions / Restrictions: 1. Please call your primary care physician and get an order for a basic metabolic profile and magnesium level to be done within the next 5 to 7 days to follow-up on your kidney function, potassium level, and magnesium level with the addition of Lasix Discharge Orders/Prescriptions Prescriptions: New potassium chloride [Klor-Con M20] 20 mEq Tablet,Er Particles/Crystals 20 meq PO BIDCM Qty: 60 1RF metoprolol succinate 50 mg Tablet Extended Release 24 Hr 50 mg PO DAILY Qty: 30 1RF lisinopril 2.5 mg Tablet 2.5 mg PO DAILY Qty: 30 1RF Jardiance 10 mg Tablet 10 mg PO DAILY Qty: 30 1RF amiodarone 200 mg Tablet 200 mg PO DAILY Qty: 36 0RF Rx Instructions: Take medication every 12 hours x3 days then transition to taking it only daily furosemide [Lasix] 40 mg tablet 40 mg PO BID Qty: 60 1RF Continued multivitamin capsule capsule 1 cap PO DAILY loratadine [Claritin] 10 mg tablet 5 mg PO PRN PRN (Reason: allergies) calcium carbonate [Antacid (calcium carbonate)] 200 mg calcium (500 mg) tablet,chewable 200 mg PO DAILY calcium carbonate [Calcium 600] 600 mg calcium (1,500 mg) tablet 600 mg PO DAILY biotin 2,500 mcg capsule 2,500 mcg PO DAILY albuterol sulfate [ProAir HFA] 90 mcg/actuation HFA aerosol inhaler 1 puff INHALATION Q6H PRN (Reason: shortness of breath) Qty: 18 6RF atorvastatin 20 mg tablet 20 mg PO DAILY Qty: 90 3RF budesonide-formoterol [Symbicort] 160-4.5 mcg/actuation HFA aerosol inhaler 2 inh inhalation Q12H Qty: 30.6 6RF Myrbetriq 50 mg tablet extended release 24 hr 50 mg PO DAILY Qty: 90 3RF Spiriva Respimat 2.5 mcg/actuation mist 2 puff INHALATION DAILY Qty: 12 3RF Eliquis 5 mg tablet 5 mg PO BID Qty: 60 3RF Align 4 mg Capsule 4 mg PO DAILY cholecalciferol (vitamin D3) 125 mcg (5,000 unit) capsule 5,000 unit PO DAILY Qty: 90 3RF Prolia 60 mg/mL syringe 60 mg SC [id number] Qty: 1 0RF Rx Instructions: Pt due for injection-Per PCP, dose is in their office Referrals / Follow Up: Pablo Wong MD [Med Staff - Active Staff] - 06/30/23 9:30 am Clifford Banuelos DO [Primary Care Provider] - Within 1 Week Julián Banuelos DO [Med Staff - Active Staff] - 07/19/23 11:15 am Disposition Disposition (needs filled in before D/C Order can be placed): Home, Self Care Charges/Coding Visit Charges Inpatient E&M: 96396 Disch Hosp >30min
--- NOTE | 2023-06-08 12:30 | CASEMGMT ---
Addendum entered by Shanita Mendez 06/08/23 14:39: LAVELL MARX called [facility] to confirm setup for home oxygen. [facility] confirmed that concentrator was being delivered at 1430. LAVELL MARX in to updated patient and . Patient and decline further needs at discharge. Patient and had no further questions or concerns. Original Note: LAVELL MARX updated that patient will need home oxygen at HS. LAVELL MARX in to inquire about preference for DME. Patient states she prefers [facility]. Script received and referral sent to [facility]. Patient declines further needs at discharge. CM will continue to follow this patient and plan for a safe discharge.
--- NOTE | 2023-06-08 14:32 | PHA.DC.MC.R ---
Pharmacy [facility] has performed discharge medication reconciliation and counseling for this patient. 1. AMIODARONE 200MG PO Q12 X 3 DAYS, THEN DAILY THEREAFTER 2. EMPAGLIFLOZIN 10MG PO DAILY 3. LISINOPRIL 2.5MG PO DAILY 4. METOPROLOL SUCCINATE 50MG PO DAILY 5. POTASSIUM CHLORIDE 20MEQ PO BIDCM The patient's discharge medication list was reviewed for discrepancies and discrepancies were resolved. The patient was counseled on the following discharge medications and changes in medications for homegoing were reviewed. The Reason for Use, instructions for use, and potential side effects were reviewed for all new medications. The patient's questions regarding all of their medications were answered. The patient was able to verbally demonstrate an understanding of their discharge medications. Patient counseled by director state pharmacyCamila. Medications at Discharge Home Medications loratadine 10 mg tablet (Claritin) 5 mg PO PRN PRN allergies 02/17/19 multivitamin 1 cap PO DAILY supplement 02/17/19 Bifidobacterium infantis 4 mg capsule (Align) 4 mg PO DAILY probiotic 05/05/21 cholecalciferol (vitamin D3) 125 mcg (5,000 unit) capsule 5,000 unit PO DAILY vitamin #90 caps 09/11/22 albuterol sulfate 90 mcg/actuation aerosol inhaler (ProAir HFA) 1 puff inhalation Q6H PRN shortness of breath #18 grams 10/29/22 atorvastatin 20 mg tablet 20 mg PO DAILY cholesterol #90 tabs 10/29/22 biotin 2,500 mcg capsule 2,500 mcg PO DAILY supplement 10/29/22 budesonide-formoterol HFA 160 mcg-4.5 mcg/actuation aerosol inhaler (Symbicort) 2 inh inhalation Q12H COPD #30.6 grams 10/29/22 calcium carbonate 600 mg calcium (1,500 mg) tablet (Calcium) 600 mg PO DAILY supplement 10/29/22 mirabegron 50 mg tablet,extended release 24 hr (Myrbetriq) 50 mg PO DAILY bladder #90 tabs 10/29/22 tiotropium bromide 2.5 mcg/actuation mist for inhalation (Spiriva Respimat) 2 puff inhalation DAILY COPD #12 grams 10/29/22 denosumab 60 mg/mL subcutaneous syringe (Prolia) 60 mg subcut [id number] bone AirPlug #1 mL 04/15/23 apixaban 5 mg tablet (Eliquis) 5 mg PO BID blood thinner #60 tabs 06/02/23 calcium carbonate 200 mg calcium (500 mg) chewable tablet (Antacid (calcium carbonate)) 200 mg PO DAILY Indigestion 06/02/23 amiodarone 200 mg tablet 200 mg PO DAILY #36 tabs 06/08/23 empagliflozin 10 mg tablet (Jardiance) 10 mg PO DAILY #30 tabs 06/08/23 furosemide 40 mg tablet (Lasix) 40 mg PO BID #60 tabs 06/08/23 lisinopril 2.5 mg tablet 2.5 mg PO DAILY #30 tabs 06/08/23 metoprolol succinate 50 mg tablet,extended release 24 hr 50 mg PO DAILY #30 tabs 06/08/23 potassium chloride 20 mEq tablet,extended release(part/cryst) (Klor-Con M) 20 meq PO BIDCM #60 tabs 06/08/23
== END 2023-06-08 16:33 | disposition home or self-care (01) | DRG 308 ==
LOC: ED 16:03 → PCU 06-03 06:50
PROVIDERS: Admitting Provider Internal Medicine; Emergency Provider Emergency Medicine; PCP Family Medicine; Visit Provider Internal Medicine
DX: I48.91 Unspecified atrial fibrillation (principal); I50.23 Acute on chronic systolic (congestive) heart failure; E87.1 Hypo-osmolality and hyponatremia; J44.9 Chronic obstructive pulmonary disease, unspecified; F10.10 Alcohol abuse, uncomplicated; I34.0 Nonrheumatic mitral (valve) insufficiency; F17.210 Nicotine dependence, cigarettes, uncomplicated; J30.2 Other seasonal allergic rhinitis; E87.6 Hypokalemia; E83.42 Hypomagnesemia; E78.5 Hyperlipidemia, unspecified; E88.81 Metabolic syndrome and other insulin resistance; Z82.3 Family history of stroke; Z79.2 Long term (current) use of antibiotics; Z79.01 Long term (current) use of anticoagulants; R73.9 Hyperglycemia, unspecified; M81.0 Age-related osteoporosis without current pathological fracture; R09.02 Hypoxemia; Z79.84 Long term (current) use of oral hypoglycemic drugs
CPT/HCPCS: 36415; 71045; 71275; 80048; 80053; 80076; 83036; 83735; 84100; 84443; 84484; 85025; 85610; 85730; 87493; 93005; 93306; 94640; 94668; 94762; 97110; 97162; 97166; 97530; 99252; 99285; J7040; J7050; Q9967; A4216; G0463; J1940

== ENCOUNTER → 2023-06-02 | Outpatient (CLI) | payer OTHER, SELFPAY | END | disposition home or self-care (01) | LOC: BIMLAB 11:05 | PROVIDERS: PCP Family Medicine; Referring Provider Internal Medicine; Visit Provider Internal Medicine | DX: R60.0 Localized edema (principal); R06.02 Shortness of breath | CPT/HCPCS: 36415; 83880 ==

== ENCOUNTER → 2023-06-10 | Outpatient (CLI) | payer MEDICARE, SELFPAY ==
[2023-06-10 12:31] LABS: AST(SGOT) 30 U/L (15-37); Alanine Aminotransfer ALT/SGPT 79 U/L (13-56); Albumin, Serum 3.3 g/dL (3.2-5.0); Alkaline Phosphatase 118 U/L (45-117); Anion Gap 8 (5-15); BUN 16 mg/dL (7-18); BUN/Creat Ratio 21.9 RATIO (10-20); Calcium,Total 8.9 mg/dL (8.5-10.1); Chloride 84 mmol/L (98-107); Creatinine, Serum 0.73 mg/dL (0.55-1.02); EST Glomerular Filtration Rate 83 mL/min (>60); Est Glom Filt Rate - Afr Amer 101 mL/min (>60); Globulin 3.2 g/dL (2.2-4.2); Glucose 117 mg/dL (74-106); Magnesium 2.2 mg/dL (1.6-2.6); Potassium 5.2 mmol/L (3.5-5.1); Protein, Total 6.5 g/dL (6.4-8.2); Sodium Level 122 mmol/L (136-145)
== END | disposition home or self-care (01) ==
LOC: BIMLAB 10:28
PROVIDERS: PCP Family Medicine; Referring Provider Internal Medicine; Visit Provider Internal Medicine
DX: I48.91 Unspecified atrial fibrillation (principal); I50.21 Acute systolic (congestive) heart failure; E87.1 Hypo-osmolality and hyponatremia
CPT/HCPCS: 36415; 80053; 83735

== ENCOUNTER → 2023-06-16 | Outpatient (CLI) | payer MEDICARE, SELFPAY ==
--- NOTE | 2023-06-16 14:35 | RAD_ITS ---
STUDY: X-RAY CHEST REASON FOR EXAM: Female, 73 years old. Cough. TECHNIQUE: Frontal and lateral views of the chest. COMPARISON: June 02, 2023. FINDINGS: Cardiomegaly, aortic tortuosity with calcification, prominent central pulmonary arteries, hyperinflation and decreased opacities in both lower lobes compared to the prior study. Residual linear opacities representing scarring. No intra-abdominal abnormality. RAD/Chest PA and Lateral IMPRESSION: Cardiomegaly with hyperinflation and no acute or active cardiopulmonary disease. Electronically Signed: Julius Foster MD at 14:55 EDT ,
[2023-06-16 15:34] LABS: Anion Gap 9 (5-15); BUN 9 mg/dL (7-18); BUN/Creat Ratio 15.8 RATIO (10-20); Calcium,Total 9.6 mg/dL (8.5-10.1); Chloride 89 mmol/L (98-107); Creatinine, Serum 0.57 mg/dL (0.55-1.02); EST Glomerular Filtration Rate 111 mL/min (>60); Est Glom Filt Rate - Afr Amer 134 mL/min (>60); Glucose 98 mg/dL (74-106); Potassium 4.4 mmol/L (3.5-5.1); Sodium Level 127 mmol/L (136-145)
== END | disposition home or self-care (01) ==
LOC: BIMLAB 14:02 → MTRAD 14:33
PROVIDERS: Internal Medicine; PCP Family Medicine; Referring Provider Physician Assistant; Visit Provider Physician Assistant
DX: R05.9 Cough, unspecified (principal); E87.1 Hypo-osmolality and hyponatremia
CPT/HCPCS: 36415; 71046; 80048

== ENCOUNTER → 2023-07-09 | Outpatient (CLI) | payer MEDICARE, SELFPAY ==
[2023-07-09 18:37] LABS: Anion Gap 6 (5-15); BUN 6 mg/dL (7-18); BUN/Creat Ratio 10.6 RATIO (10-20); Calcium,Total 8.8 mg/dL (8.5-10.1); Chloride 95 mmol/L (98-107); Creatinine, Serum 0.57 mg/dL (0.55-1.02); EST Glomerular Filtration Rate 111 mL/min (>60); Est Glom Filt Rate - Afr Amer 134 mL/min (>60); Glucose 108 mg/dL (74-106); Potassium 3.8 mmol/L (3.5-5.1); Sodium Level 132 mmol/L (136-145)
== END | disposition home or self-care (01) ==
LOC: MTLAB 14:45
PROVIDERS: PCP Family Medicine; Referring Provider Internal Medicine Cardiovascular Disease; Visit Provider Internal Medicine Cardiovascular Disease
DX: I11.0 Hypertensive heart disease with heart failure (principal); I50.9 Heart failure, unspecified; I77.9 Disorder of arteries and arterioles, unspecified; I48.0 Paroxysmal atrial fibrillation; E78.5 Hyperlipidemia, unspecified
CPT/HCPCS: 36415; 80048

== ENCOUNTER → 2023-07-20 | Outpatient (CLI) | payer MEDICARE, SELFPAY ==
--- NOTE | 2023-07-20 06:15 | CDU_ITS ---
Reason For Study: right carotid bruit Rt. Velocities/BP Lt. Velocities/BP Prox CCA 59.8/6.9 cm/sec. Prox CCA 108.3/11.5 cm/sec. Mid CCA 70.2/9.7 cm/sec. Mid CCA 77.7/9.0 cm/sec. Dist CCA 57.0/9.7 cm/sec. Dist CCA 71.6/10.2 cm/sec. Prox ICA 167.5/16.0 cm/sec. Prox ICA 135.7/22.5 cm/sec. Mid ICA 122.9/13.3 cm/sec. Mid ICA 83.9/16.3 cm/sec. Dist ICA 85.1/18.8 cm/sec. Dist ICA 83.9/18.8 cm/sec. Rt. ICA/CCA = 2.4. Lt. ICA/CCA = 1.7. Prox ECA 405.3/16.9 cm/sec. Prox ECA 152.1/9.7 cm/sec. Rt. Vert. 65.4/13.9 cm/sec. Right Extracranial There is heterogeneous, irregular atherosclerotic plaque noted in the right common carotid artery. There is heterogeneous, irregular atherosclerotic plaque noted in the right internal carotid artery. There is heterogeneous, irregular atherosclerotic plaque noted in the right external carotid artery. Antegrade flow is noted in the right vertebral artery. Left Extracranial There is heterogeneous, irregular atherosclerotic plaque noted in the left common carotid artery. There is heterogeneous, irregular atherosclerotic plaque noted in the left internal carotid artery. There is heterogeneous, irregular atherosclerotic plaque noted in the left external carotid artery. Retrograde flow is noted in the left vertebral artery. Procedure Carotid Duplex 95200. This is a Carotid Duplex examination using B-mode, color flow and specral Doppler. The exam was diagnostic. Exam performed in department. VL/Carotid Duplex Ultrasound Interpretation Summary Moderate (50-69%) stenosis right extracranial internal carotid. Moderate (50-69%) stenosis left extracranial internal carotid. The Right vertebral is patent and antegrade. The Left vertebral flow is retrograde. Ordering Physician: Pablo Wong Performed By: Monroe Alvarez RVT
--- NOTE | 2023-07-20 16:59 | STRESSREP ---
Stress Test Report Date: 07/20/2023 Procedure: Pharmacologic stress nuclear imaging study Indications: Arrhythmia Consent: Per the patient Procedure: The patient underwent pharmacologic (Regadenoson 0.4mg ) evaluation with a peak heart rate of 78 beats per minute (53%predicted maximal heart rate) and a peak blood pressure of 142/62 mmHg. The baseline ECG demonstrated sinus rhythm with LVH with strain pattern. The peak pharmacologic ECG demonstrated no diagnostic changes secondary to baseline abnormalities. There were no cardiac dysrhythmias pretest, during pharmacologic infusion, or recovery. There was no complaint of chest discomfort during pharmacologic infusion or recovery. The patient was injected with 10.6 millicuries of technetium 99m Cardiolite and subsequently rest SPECT Cardiolite nuclear imaging was obtained in the horizontal long, vertical long, and short axis views. The patient underwent pharmacologic (Regadenoson) evaluation. The patient was injected with 33.1 millicuries of technetium 99m Cardiolite and subsequently stress SPECT Cardiolite nuclear imaging was obtained in the horizontal long, vertical long, and short axis views. A gated Cardiolite study at peak stress was obtained. The examination was stopped secondary to completion of protocol. Rest and stress SPECT Cardiolite nuclear imaging status post realignment, normalization, and attenuation correction demonstrate prominent GI uptake. There is relatively fixed mild perfusion defect of the apex and basal inferior wall. Mildly dilated left ventricle. Mild global hypokinesis of the left ventricle. The reported LVEF is 43%. Impression: 1. Pharmacologic (Regadenoson) evaluation 2. Peak pharmacologic ECG with no diagnostic changes. 3. There were no cardiac dysrhythmias pretest, during pharmacologic infusion, or recovery. 5. Fixed defect of the apex and inferior wall that may suggest prior nontransmural infarct versus attenuation artifact. No reversible ischemia. 6. The gated Cardiolite study reports an LVEF of 43%. This note was generated with [email or web address] software. It may contain incorrect words, spelling, and punctuation that were not noted in checking the note before signing.
== END | disposition home or self-care (01) ==
PROVIDERS: PCP Family Medicine; Referring Provider Internal Medicine Cardiovascular Disease; Visit Provider Internal Medicine Cardiovascular Disease
DX: R09.89 Other specified symptoms and signs involving the circulatory and respiratory systems (principal); I42.9 Cardiomyopathy, unspecified; I50.9 Heart failure, unspecified; I48.91 Unspecified atrial fibrillation; R94.31 Abnormal electrocardiogram [ECG] [EKG]
CPT/HCPCS: 78452; 93017; 93880; A9500; A4216; J2785

== ENCOUNTER → 2023-08-10 | Outpatient (CLI) | payer MEDICARE, SELFPAY ==
--- NOTE | 2023-08-11 08:00 | PFT ---
INTRODUCTION: The patient is a 73-year-old female who presents for pulmonary function studies secondary to a diagnosis of COPD. Respiratory therapy reported good patient effort. Bronchodilators were used during testing. INTERPRETATION: Forced expiration spirometry demonstrates the presence of a moderately severe large airways obstructive ventilatory defect. There was a significant response to aerosolized bronchodilators. Spirograms are of good quality but do not plateau indicating slow emptying of the lungs. Body plethysmography was performed and demonstrated evidence of hyperinflation and air trapping. Diffusing capacity by single breath CO is reduced at 46% of predicted. IMPRESSION: Partially reversible moderately severe large airways obstructive ventilatory defect with associated hyperinflation, air trapping and symmetric reduction in diffusion capacity.
== END | disposition home or self-care (01) ==
LOC: PSN 10:38
PROVIDERS: PCP Family Medicine; Referring Provider Internal Medicine Critical Care Medicine; Visit Provider Internal Medicine Critical Care Medicine
DX: J44.9 Chronic obstructive pulmonary disease, unspecified (principal)
CPT/HCPCS: 94060; 94726; 94729

== ENCOUNTER → 2023-08-12 | Outpatient (CLI) | payer MEDICARE, SELFPAY ==
[2023-08-12 13:26] VITALS: PULSE 70; PULSE 74; PULSE 77; PULSE 78; PULSE 81; PULSE 82; PULSE 93; O2SAT 91; O2SAT 92; O2SAT 94; O2SAT 95; O2SAT 96
--- NOTE | 2023-08-13 09:14 | WT_ITS ---
PSN 6 Minute Walk Test 6 Minute Walk Test 6 Minute Walk Test: 6 Minute Walk Test PSN:6-Minute Walk Test Start: 08/12/23 13:26 Freq: Status: Active Protocol: RESP.6MINW Document 08/12/23 13:26 [facility] (Rec: 08/12/23 13:30 [facility] Desktop) 6 Minute Walk Test Date Performed 08/12/23 Time Performed 13:00 Height 5 ft 4 in Weight: 120 lb Weight in Pounds 120.[address]: David Simon Assistive device used: Cane Pre-test Oxygen Delivery Method Room Air Pulse Ox 96 Pulse Rate (60-100) 70 Dyspnea Guera Scale (0-10) 0 Exertion Guera Scale (6-20) 6 1st minute Oxygen Delivery Method Room Air Pulse Ox 96 Pulse Rate (60-100) 93 2nd minute Oxygen Delivery Method Room Air Pulse Ox 94 Pulse Rate (60-100) 77 3rd minute Oxygen Delivery Method Room Air Pulse Ox 92 Pulse Rate (60-100) 78 4th minute Oxygen Delivery Method Room Air Pulse Ox 92 Pulse Rate (60-100) 81 5th minute Oxygen Delivery Method Room Air Pulse Ox 91 Pulse Rate (60-100) 82 6th minute Oxygen Delivery Method Room Air Pulse Ox 92 Pulse Rate (60-100) 82 Dyspnea Guera Scale (0-10) 1 Exertion Guera Scale (6-20) 13 Post-test Oxygen Delivery Method Room Air Pulse Ox 95 Pulse Rate (60-100) 74 Full Laps Walked 12 Partial Lap, Number of Tiles Walked 16 Total Distance Walked (ft) 724 Interpretation Interpretation: The patient ambulated 724 feet over the course of 6 minutes beginning on room air with use of a cane. Pretesting oxygen saturation was noted to be 96% on room air. With ambulation, the yuri oxygen saturation was 91%. This r epresents a significant exertional oxygen desaturation. Recommendations Recommendations: There is no indication for the use of supplemental oxygen at this time. However, close interval follow-up was recommended, given the degree of oxygen desaturation noted during this study.
== END | disposition home or self-care (01) ==
LOC: PSN 12:58
PROVIDERS: PCP Family Medicine; Referring Provider Internal Medicine Critical Care Medicine; Visit Provider Internal Medicine Critical Care Medicine
DX: J44.9 Chronic obstructive pulmonary disease, unspecified (principal)
CPT/HCPCS: 94618

== ENCOUNTER → 2023-09-08 | Outpatient (CLI) | payer MEDICARE, SELFPAY ==
[2023-09-08 16:49] LABS: Absolute Lymphocyte Count 1.06 X10^3/uL (0.83-4.51); Absolute Neutrophil Count 5.8 X10^3/uL (2.0-7.7); Basophil# 0.07 X10^3/uL; Basophil% 0.9 % (0-1); Eosinophil# 0.07 X10^3/uL; Eosinophils% 0.9 % (0-5); Hematocrit 49.7 % (37-47); Hemoglobin 16.2 g/dL (12.0-15.0); Lymphocyte # 1.06 X10^3/ul (0.83-4.51); Lymphocyte % 13.9 % (19-41); Mean Corp Hgb Conc 32.6 g/dL (32-36); Mean Corpuscular Hgb 30.5 pg (27.0-32.0); Mean Corpuscular Volume 93.4 fL (81-99); Mean Platelet Vol. 9.6 fl (6.2-12.0); Monocyte# 0.61 X10^3/uL; NRBC Flagged by Analyzer 0 % (0-5); Platelet Count 266 K/mm3 (150-450); RBC Distribution Width CV 16.7 % (11.6-14.6); RBC Distribution Width SD 57.8 fl (35.1-43.9); Red Blood Count 5.32 M/mm3 (4.2-5.4); White Blood Count 7.6 K/mm3 (4.4-11.0)
[2023-09-08 17:07] LABS: ALB/GLOB Ratio 1.2 RATIO (0.9-2.4); AST(SGOT) 22 U/L (15-37); Alanine Aminotransfer ALT/SGPT 29 U/L (13-56); Albumin, Serum 4.1 g/dL (3.2-5.0); Alkaline Phosphatase 64 U/L (45-117); Anion Gap 9 (5-15); BUN 12 mg/dL (7-18); BUN/Creat Ratio 17.6 RATIO (10-20); Calcium,Total 9.2 mg/dL (8.5-10.1); Chloride 89 mmol/L (98-107); Cholesterol 213 mg/dL (200); Creatinine, Serum 0.68 mg/dL (0.55-1.02); EST Glomerular Filtration Rate 90 mL/min (>60); Est Glom Filt Rate - Afr Amer 109 mL/min (>60); Globulin 3.4 g/dL (2.2-4.2); Glucose 113 mg/dL (74-106); High Density Lipoprotein 106 mg/dL; Potassium 4.1 mmol/L (3.5-5.1); Protein, Total 7.5 g/dL (6.4-8.2); Sodium Level 131 mmol/L (136-145); Triglycerides 94 mg/dL; Very Low Density Lipoprotein 19 mg/dL (5-40)
== END | disposition home or self-care (01) ==
LOC: BIMLAB 15:17
PROVIDERS: PCP Family Medicine; Referring Provider Family Medicine; Visit Provider Family Medicine
DX: I11.0 Hypertensive heart disease with heart failure (principal); I50.9 Heart failure, unspecified; H40.9 Unspecified glaucoma
CPT/HCPCS: 36415; 80053; 80061; 85025

== ENCOUNTER → 2023-09-27 | Outpatient (CLI) | payer MEDICARE, SELFPAY ==
--- NOTE | 2023-09-27 14:28 | CT_ITS ---
STUDY: CT CHEST WITH CONTRAST REASON FOR EXAM: Female, 73 years old. Follow up right hilar prominence. RADIATION DOSAGE (If Supplied By Facility): CTDIvol = ( 9.06 ) mGy, DLP = ( 191.07 ) mGycm TECHNIQUE: Transaxial imaging was performed following intravenous administration of IV 100mL Isovue-300. Multiplanar coronal and sagittal images were reformatted. Individualized dose optimization techniques were used for this CT. COMPARISON: Comparison is made with prior study dated November 28, 2020 and June 05, 2023. FINDINGS: CHEST Mild degree of emphysematous changes. There is prominence of the right infrahilar region suggestive of mild hilar adenopathy with volume loss in the right middle lobe and scarring. There is no demonstrated pleural abnormality. Normal heart and pericardium. Normal mediastinum. Normal unenhanced pulmonary arteries. There is atherosclerotic calcification of the aortic arch with tortuosity and elongation of the aortic arch and descending thoracic aorta. Normal osseous structures. There is no demonstrated abnormality of the visualized upper abdomen. CT/Chest WITH Contrast IMPRESSION: Findings suggest a mild right infrahilar enlargement most likely secondary to lymph nodes with the volume loss in the right middle lobe. Correlation with bronchoscopy is recommended. Electronically Signed: Casimiro Mazariegos MD at 15:29 EST ,
== END | disposition home or self-care (01) ==
LOC: CT 14:01
PROVIDERS: PCP Family Medicine; Referring Provider Internal Medicine Critical Care Medicine; Visit Provider Internal Medicine Critical Care Medicine
DX: R59.0 Localized enlarged lymph nodes (principal); J44.9 Chronic obstructive pulmonary disease, unspecified
CPT/HCPCS: 71260; Q9967

== ENCOUNTER → 2023-10-14 | Outpatient (CLI) | payer MEDICARE, SELFPAY ==
[2023-10-14 15:57] LABS: Anion Gap 6 (5-15); BUN 11 mg/dL (7-18); BUN/Creat Ratio 15.7 RATIO (10-20); Calcium,Total 9.1 mg/dL (8.5-10.1); Chloride 95 mmol/L (98-107); EST Glomerular Filtration Rate 87 mL/min (>60); Est Glom Filt Rate - Afr Amer 106 mL/min (>60); Glucose 115 mg/dL (74-106); Potassium 4.4 mmol/L (3.5-5.1); Sodium Level 134 mmol/L (136-145)
== END | disposition home or self-care (01) ==
LOC: BIMLAB 14:21
PROVIDERS: PCP Family Medicine; Visit Provider Internal Medicine Cardiovascular Disease
DX: I11.0 Hypertensive heart disease with heart failure (principal); I50.9 Heart failure, unspecified
CPT/HCPCS: 36415; 80048

== ENCOUNTER → 2023-10-19 | Outpatient (CLI) | payer MEDICARE, SELFPAY ==
--- NOTE | 2023-10-19 14:02 | ADUUE_ITS ---
Reason For Study: abnormal BP's LEFT Left Subclavian velocity = 28.2 cm/sec. Left Axillary velocity = 30.8 cm/sec. Left Brachial velocity = 68.2 cm/sec. Left Radial velocity = 29.0 cm/sec. Left Ulnar velocity = 21.1 cm/sec. VL/US Art Duplex Unilat UP Extrem Interpretation Summary Left upper extremity arteries with diminished velocities and monophasic wavefor ms throughout indicating more proximal stenosis/occlusion Ordering Physician: Pablo Wong Referring Physician: Pablo Wong Performed By: Monroe Alvarez RVT
== END | disposition home or self-care (01) ==
LOC: CVS 13:57
PROVIDERS: PCP Family Medicine; Referring Provider Internal Medicine Cardiovascular Disease; Visit Provider Internal Medicine Cardiovascular Disease
DX: Z01.31 Encounter for examination of blood pressure with abnormal findings (principal); R09.89 Other specified symptoms and signs involving the circulatory and respiratory systems
CPT/HCPCS: 93931

== ENCOUNTER → 2023-12-20 | Outpatient (CLI) | payer MEDICARE, SELFPAY ==
--- NOTE | 2023-12-20 13:42 | CT_ITS ---
ACR Level 3 findings have been noted. An addendum which confirms receipt of the report will follow. EXAM: CT CHEST WITH INTRAVENOUS CONTRAST CLINICAL INDICATION: Right mass TECHNIQUE: Helically acquired images were obtained of the chest with intravenous contrast. This CT exam was performed using one or more of the following dose reduction techniques: automated exposure control, adjustment of the mA and/or kV according to patient size, and/or use of iterative reconstruction technique. CONTRAST: IV 100mL Isovue-300 RADIATION DOSE: CTDIvol = 11.13 mGy, DLP = 222.44 mGy-cm. COMPARISON: September 27, 2023 unenhanced chest with contrast, mentioned right infrahilar enlargement most likely secondary to lymph nodes and volume loss in the right middle lobe, recommended correlation with bronchoscopy. Also compared to low-dose screening exam November 28, 2020 FINDINGS: LUNGS AND PLEURAL SPACES: Old granulomatous disease with a few calcified granulomas in the left lung. Persistent collapse of right middle lobe with consolidation, enhancing vessels, and only a small portion of aerated superior-lateral right middle lobe. There are patent medial and lateral proximal segmental right middle lobe airways but they are small. This does not appear to be due to typical postobstructive pneumonitis by mass.. There are 2 small zones of slight increased groundglass opacities and interstitial thickening or parenchymal distortion, 1 focus in each upper lobe, difficult to measure but there is an underlying solid focus of roughly 4 mm surrounded by slight groundglass opacity left upper lobe, similar to prior exam. Advanced COPD, moderate emphysematous changes predominantly in the mid-upper lung polk. The right pulmonary veins are patent. There is no visible pericardial invasion. No pleural effusion or thickening. HEART: Advanced coronary artery calcifications. Advanced coronary artery calcifications and/or stents. No intracardiac suspicious filling defects. Mildly prominent left heart chambers. MEDIASTINUM: Similar minimally prominent 9 mm x 1.1 cm precarinal lymph node, nonspecific. No bulky visible hilar adenopathy. Calcified small lymph nodes in the left infrahilar region typical of old granulomatous disease. Esophagus is unremarkable. No hiatal hernia. THYROID: Unremarkable. No thyroid lesions. BONES/JOINTS: Marked of a sclerotic lesion in the upper left body of L3 is again included, with appearance suggesting a 1 cm bone island. No destructive bone lesions are identified. 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 Moderate atherosclerotic calcification of aorta without aneurysm or dissection, and mild narrowing of the origins of the celiac axis and SMA and proximal renal artery branches. No evidence of PE. ADRENALS: There are bilateral adrenal nodules or hyperplasia but similar to prior exam. CT/Chest WITH Contrast IMPRESSION: 1. Similar collapse and consolidation of most of the right middle lobe with volume loss and small but patent proximal segmental right middle lobe airways, and mildly swirling appearance of vessels in the consolidated lung. Not convincing for postobstructive pneumonitis by underlying neoplasm. There is no bulky mass or complete proximal airway obstruction. Underlying infiltrating neoplasm cannot be completely excluded. Please correlate with follow-up bronchoscopy or recent prior bronchoscopy results. 2. Small solid 4 mm x 4 mm internal nodule component surrounded by some slight groundglass opacity of up to 1.2 cm x 1.3 cm x 1 cm overall outer diameter in the left upper lobe. New tiny solid component from screening exam in 2020 but stable from September 27, 2023: Cannot exclude early neoplasm. RECOMMENDATIONS: Concerning the partially solid lesion in the left upper lobe, solid component less than 9 mm in size: Fleischner Society Guidelines (MacMahon, et al. Radiology 2017; 284(1):228-43) recommend follow-up chest CT at 3-6 months to confirm persistence. If stable, chest CT every year until 5 years. 3. Fullness of the adrenals consistent with either multiple small nodules or adrenal hyperplasia, similar to September 27, 2023. The largest hypodense nodular component is 1.1 cm in the right adrenal, 1.1 cm in the left adrenal. There was suggestion of similar adrenal configuration on low-dose screening chest CT especially on the coronal images from November 28, 2020, but these are indeterminate. RECOMMENDATIONS:ACR White Paper guidelines (Bibi et al. JACR 2017; 14(8):8876-9854) suggest the following. If there is no history of malignancy consider a follow-up low dose, non-contrast adrenal CT or chemical-shift adrenal MRI in 12 months. If there is a history of malignancy recommend a low dose, non-emergent, non-contrast adrenal CT or chemical-shift adrenal MRI follow-up study. Electronically Signed: Hawa Lima MD at 0:06 EST ,
[2023-12-20 14:01] LABS: CREATININE FINGERSTICK < 1.0 mg/dL (0.55-1.02); EGFR FINGERSTICK > 60.0000 mL/min (>60)
== END | disposition home or self-care (01) ==
LOC: CT 13:34
PROVIDERS: PCP Family Medicine; Referring Provider Internal Medicine Critical Care Medicine; Visit Provider Internal Medicine Critical Care Medicine
DX: R91.8 Other nonspecific abnormal finding of lung field (principal)
CPT/HCPCS: 71260; Q9967

== ENCOUNTER → 2024-01-05 | Outpatient (CLI) | payer MEDICARE, SELFPAY ==
[2024-01-05 16:48] LABS: ALB/GLOB Ratio 1.1 RATIO (0.9-2.4); AST(SGOT) 25 U/L (15-37); Alanine Aminotransfer ALT/SGPT 33 U/L (13-56); Albumin, Serum 3.7 g/dL (3.2-5.0); Alkaline Phosphatase 74 U/L (45-117); Anion Gap 6 (5-15); BUN 9 mg/dL (7-18); BUN/Creat Ratio 13.2 RATIO (10-20); Calcium,Total 9.5 mg/dL (8.5-10.1); Chloride 94 mmol/L (98-107); Creatinine, Serum 0.68 mg/dL (0.55-1.02); EST Glomerular Filtration Rate 90 mL/min (>60); Est Glom Filt Rate - Afr Amer 109 mL/min (>60); Globulin 3.5 g/dL (2.2-4.2); Glucose 115 mg/dL (74-106); Potassium 3.9 mmol/L (3.5-5.1); Protein, Total 7.2 g/dL (6.4-8.2); Sodium Level 133 mmol/L (136-145); Thyroid Stim Hormone (TSH) 1.09 uIU/mL (0.358-3.74)
== END | disposition home or self-care (01) ==
LOC: LAB 15:18
PROVIDERS: PCP Family Medicine; Referring Provider Internal Medicine Cardiovascular Disease; Visit Provider Internal Medicine Cardiovascular Disease
DX: I11.0 Hypertensive heart disease with heart failure (principal); I50.20 Unspecified systolic (congestive) heart failure; I42.9 Cardiomyopathy, unspecified; I48.0 Paroxysmal atrial fibrillation; R94.31 Abnormal electrocardiogram [ECG] [EKG]
CPT/HCPCS: 36415; 80053; 84443

== ENCOUNTER → 2024-01-25 | Outpatient (CLI) | payer MEDICARE, SELFPAY | END | disposition home or self-care (01) | LOC: PSN 12:32 | PROVIDERS: PCP Family Medicine; Referring Provider Internal Medicine Cardiovascular Disease; Visit Provider Internal Medicine Cardiovascular Disease | DX: I48.0 Paroxysmal atrial fibrillation (principal); J44.9 Chronic obstructive pulmonary disease, unspecified; Z79.899 Other long term (current) drug therapy | CPT/HCPCS: 94060; 94726; 94729 ==

== ENCOUNTER → 2024-02-03 | Outpatient (CLI) | payer MEDICARE, SELFPAY ==
--- NOTE | 2024-02-03 14:05 | ECHOD_ITS ---
Reason For Study: HTN Procedure This was a 2D Doppler, Color Flow transthoracic echocardiogram. Exam performed in department. Left Ventricle Normal size and thickness. The left ventricular ejection fraction is 50 %. Unable to assess diastolic function based on available data. Right Ventricle Normal right ventricle. Atria The left atrium is mildly enlarged. Normal right atrium. Hypermobile atrial septum. Mitral Valve Trivial mitral valve insufficiency. Tricuspid Valve Trivial tricuspid valve insufficiency. Unable to estimate RV systolic pressure due to insufficient tricuspid regurgitant envelope. Aortic Valve Trisinus/trileaflet aortic valve. Pulmonic Valve The pulmonic valve is not well visualized. Great Vessels The aortic root is not well visualized. Pericardium/Pleural No pericardial effusion. MMode/2D Measurements & Calculations LVIDd: 4.6 cm IVSd: 0.99 cm LVAd ap4: 27.3 cm2 LVIDs: 3.9 cm LVPWd: 0.84 cm LVLd ap4: 7.6 cm RVDd: 2.8 cm FS: 15.9 % EDV(MOD-sp4): 78.9 ml EDV(sp4-el): 83.6 ml LVAs ap4: 18.9 cm2 LVLs ap4: 6.9 cm ESV(MOD-sp4): 46.0 ml ESV(sp4-el): 44.1 ml EF(MOD-sp4): 41.7 % EF(sp4-el): 47.2 % SV(MOD-sp4): 32.9 ml SV(sp4-el): 39.5 ml LA dimension(2D): 3.5 cm Time Measurements MV dec time: 0.19 sec Doppler Measurements & Calculations MV E max khoa: 81.2 cm/sec MV V2 max: 80.7 cm/sec MV dec slope: 423.4 cm/sec2 MV A max khoa: 90.3 cm/sec MV max P.6 mmHg MV E/A: 0.90 MV V2 mean: 55.0 cm/sec MV mean P.3 mmHg MV V2 VTI: 34.0 cm Ao V2 max: 133.0 cm/sec LV V1 max: 102.3 cm/sec PA V2 max: 77.7 cm/sec Ao max P.1 mmHg LV V1 max P.2 mmHg PA V2 mean: 52.6 cm/sec Ao V2 mean: 83.2 cm/sec LV V1 mean P.1 mmHg Ao mean P.3 mmHg LV V1 mean: 66.7 cm/sec Ao V2 VTI: 28.8 cm LV V1 VTI: 22.2 cm AV (velocity ratio): 0.77 ECHO/Echo Complete Interpretation Summary The left ventricular ejection fraction is 50 %. The left atrium is mildly enlarged. Hypermobile atrial septum. Ordering Physician: Pablo Wong Referring Physician: Pablo Wong Performed By: Vonda Castillo RCS
== END | disposition home or self-care (01) ==
LOC: CVS 14:04
PROVIDERS: PCP Family Medicine; Referring Provider Internal Medicine Cardiovascular Disease; Visit Provider Internal Medicine Cardiovascular Disease
DX: I11.0 Hypertensive heart disease with heart failure (principal); I50.42 Chronic combined systolic (congestive) and diastolic (congestive) heart failure; I48.0 Paroxysmal atrial fibrillation; I42.9 Cardiomyopathy, unspecified
CPT/HCPCS: 93306

== ENCOUNTER → 2024-02-08 | Outpatient (CLI) | payer MEDICARE, SELFPAY ==
--- NOTE | 2024-02-08 10:00 | PET_ITS ---
EXAMINATION: FDG PET/CT ? INDICATIONS: 73-year-old female with a history of pulmonary nodularity. ? COMPARISON EXAMINATION: CT of the chest report dated 12/20/2023. ? INDEX LESION SIZE SUV INTERPRETATION Right lower anterior lung field, right middle lobe ? 1.7 Quantitative criteria for viable neoplasm are not fulfilled ? Right hemithorax pleural interface ? 2.1 max Quantitative criteria for viable neoplasm are not fulfilled ? Right hemithorax pleural effusion ? 1.0 max Quantitative criteria for viable neoplasm are not fulfilled ? TECHNIQUE: Following the intravenous administration of 14 mCi of F-18 deoxyglucose via the left wrist, multiplanar image acquisitions of the head, neck, chest, abdomen and pelvis to the level of the midthigh, obtained at one-hour post radiopharmaceutical administration contemporaneously interpreted with the current CT of the chest, abdomen and pelvis dated 02/08/[address] of the chest report dated 12/20/2023 via coregistration reveal: ? SERUM GLUCOSE LEVEL:? 80 mg/dL? HEIGHT:?? 64 inches WEIGHT:?? 126 pounds ? FINDINGS: ? HEAD/NECK:? There is no evidence of abnormal increased glucose metabolism in the pharyngeal mucosal space, parapharyngeal space, oropharynx, bilateral-lateral and anterior neck, hypopharynx and distribution of the larynx. ? The visualized portion of the cerebral cortical-subcortical structures demonstrate symmetric and preserved glucose metabolism. ? CHEST:? Facilitated FDG concentration is manifest in the right hemithorax at the pleural interface. The calculated standard uptake value is 2.1. Quantitative criteria for viable neoplasm are not fulfilled. Facilitated uptake is noted throughout the right hemithorax posteriorly corresponding to pleural effusion. The calculated maximum standard uptake value is 1.0. A pleural-based density noted in the right lower anterior lung, right middle lobe demonstrates a calculated standard uptake value of 1.7. The left ventricular myocardium visualization is consistent with the [place]. ? CT of the chest demonstrates the following anatomic characteristics: Atherosclerotic calcification is defined in the thoracic aorta without evidence of dilatation, aneurysm formation. Coronary artery calcification is observed. Mediastinal and bilateral axillary soft tissue densities are nontracer avid. ? ABDOMEN/PELVIS:? Normal physiologic distribution of the radiopharmaceutical is identified in the hepatic (2.8) and splenic parenchyma, both renal units, urinary bladder, and visualized intestinal tract. ? CT of the abdomen and pelvis is remarkable for the following: Cholelithiasis is defined. There is calcification in the pancreatic body. Atherosclerotic calcification is defined in the abdominal aorta without evidence of dilatation, aneurysm formation.? Abdominal-pelvic arterial calcification is observed. Beam hardening artifact is demonstrated in the lower pelvic CT acquisitions secondary to a left hip arthroplasty and right orthopedic hardware in the proximal femur. Colonic diverticulosis is noted without evidence of diverticulitis. ? SKELETAL:? There is no evidence of quantitatively significant enhanced glucose metabolism on meticulous inspection of the appendicular and axial skeletal structures. A left hip prosthesis is demonstrated, as previously described. Orthopedic hardware placement is noted in the right proximal femur. ? Degenerative changes defined in the thoracic and lumbar spine demonstrate no evidence of increased glucose metabolism. There are no sclerotic, mixed sclerotic-lytic, or primarily lytic changes defined in the axial skeletal structures with evidence of increased FDG uptake. ? PET/PET/CT Tumor Base -Thigh Init IMPRESSION: 1. NEGATIVE EXAMINATION. There is no definitive quantitative scintigraphic evidence of viable neoplasm. 2. Enhanced tracer uptake noted in the right lower anterior lung field, right middle lobe does not fulfill quantitative criteria for malignant transformation. (Lr et al, Journal of Nuclear Medicine, 32:1, 1991). 3. Facilitated radiopharmaceutical defined in the right hemithorax at the pleural interface does not fulfill quantitative criteria for viable neoplasm. Uptake noted in the right hemithorax associated with pleural effusion does not fulfill quantitative criteria for malignant transformation. ([place], et al, Chest 122:1918, 2002). Electronic Signature Rodríguez Segovia D.O. Accurate Quantification of SUVs for this report are calculated using the exclusive [employer]. ([place]. Patent No. [phone] [phone] B2 [phone] [place] patent [phone]). Standardization and correction of the FDG SUV metric via [employer] technology allow for vendor non-specific objective quantitative examination comparison and optimization of the sensitivity and specificity of the FDG PET-CT examination. . [email or web address] Electronically Signed: Rodríguez Segovia DO at 8:34 EDT ,
== END | disposition home or self-care (01) ==
PROVIDERS: PCP Family Medicine; Referring Provider Nurse Practitioner Acute Care; Visit Provider Nurse Practitioner Acute Care
DX: R91.8 Other nonspecific abnormal finding of lung field (principal)
CPT/HCPCS: 78815; A9552

== ENCOUNTER → 2024-02-15 | Outpatient (CLI) | payer MEDICARE, SELFPAY ==
--- NOTE | 2024-02-15 13:42 | BI_ITS ---
MAMMOGRAPHY - BILATERAL SCREENING REASON FOR EXAM: Female, 73 years old. Routine annual screening examination. PERTINENT HISTORY: Non-contributory. TECHNIQUE: Digital bilateral breast sukhjinder (3D mammographic acquisition) in the CC and MLO projections. 2-D mediolateral oblique (MLO) and craniocaudad (CC) views of both breasts were obtained. CAD: Full Field Digital Mammography with Computer Added Detection was performed. COMPARISON: Comparison is made with prior study December 31, 2022 and November 11, 2021. FINDINGS: Breast Composition: There are scattered areas of fibroglandular density. There are no dominant masses or suspicious calcifications. Stable scattered bilateral microcalcifications. No other significant abnormalities are identified. There has been no significant change since the prior study. BI/SCRN MAMM (CAD)W/SUKHJINDER BILAT IMPRESSION: Stable bilateral screening mammogram. Yearly follow-up mammogram recommended. (A) ASSESSMENT CATEGORY: BIRADS Category 2: Benign. A letter regarding these results will be sent to the patient by the facility within 30 days. Approximately 10% of breast cancers are not detected by mammography. A normal mammogram should not delay biopsy of a clinically suspicious abnormality. [id number] Electronically Signed: Casimiro Mazariegos MD at 14:29 EDT ,
== END | disposition home or self-care (01) ==
LOC: OPBI 13:42
PROVIDERS: PCP Family Medicine; Referring Provider Family Medicine; Visit Provider Family Medicine
DX: Z12.31 Encounter for screening mammogram for malignant neoplasm of breast (principal)
CPT/HCPCS: 77063; 77067

== ENCOUNTER → 2024-05-15 | Outpatient (CLI) | payer MEDICARE, SELFPAY ==
--- NOTE | 2024-05-15 17:59 | CT_ITS ---
STUDY: CT CHEST WITH CONTRAST REASON FOR EXAM: Female, 74 years old. Follow-up for hilar mass. History of COPD. Patient smoked for 50 years. RADIATION DOSAGE (If Supplied By Facility): CTDIvol = ( 12.16 ) mGy, DLP = ( 165.63 ) mGycm TECHNIQUE: Transaxial imaging was performed following intravenous administration of IV 100mL Isovue-300. Multiplanar coronal and sagittal images were reformatted. Individualized dose optimization techniques were used for this CT. COMPARISON: Comparison is made with prior study of December 20, 2023. FINDINGS: CHEST There is persistent collapse of the right middle lobe with stable consolidation along its posterior medial aspect. New linear density in the lateral aspect of the right lower lobe suggestive of atelectasis. Small left pleural effusion. Emphysematous changes more pronounced in the upper lobes. Stable calcified granuloma in the left lower lobe. Stable mild groundglass appearance in the peripheral lateral aspect of the left upper lobe abutting the left major fissure. This may represent a focal area of scarring. No definite nodule is seen. There are calcifications of the coronary arteries. Normal mediastinum. Normal unenhanced pulmonary arteries. There is atherosclerotic calcification of the aortic arch with tortuosity and elongation of the aortic arch and descending thoracic aorta. There are multi-level degenerative changes of the thoracic spine. Stable bilateral adrenal hyperplasia. CT/Chest WITH Contrast IMPRESSION: Persistent collapse of the right middle lobe with findings suggestive of atelectasis in the left anterior lateral aspect of the right lower lobe with a new small right pleural effusion. Electronically Signed: Casimiro Mazariegos MD at 8:46 EDT ,
[2024-05-15 18:25] LABS: CREATININE FINGERSTICK < 1.0 mg/dL (0.55-1.02); EGFR FINGERSTICK > 60.0000 mL/min (>60)
== END | disposition home or self-care (01) ==
LOC: CT 17:57
PROVIDERS: PCP Family Medicine; Referring Provider Nurse Practitioner Acute Care; Visit Provider Nurse Practitioner Acute Care
DX: R91.8 Other nonspecific abnormal finding of lung field (principal)
CPT/HCPCS: 71260; Q9967

== ENCOUNTER → 2024-07-14 | Outpatient (CLI) | payer MEDICARE, SELFPAY ==
[2024-07-14 17:17] LABS: ALB/GLOB Ratio 0.9 RATIO (0.9-2.4); AST(SGOT) 21 U/L (15-37); Alanine Aminotransfer ALT/SGPT 27 U/L (13-56); Albumin, Serum 3.3 g/dL (3.2-5.0); Alkaline Phosphatase 81 U/L (45-117); Anion Gap 6 (5-15); BUN 9 mg/dL (7-18); BUN/Creat Ratio 13.9 RATIO (10-20); Calcium,Total 8.9 mg/dL (8.5-10.1); Chloride 97 mmol/L (98-107); Creatinine, Serum 0.65 mg/dL (0.55-1.02); EST Glomerular Filtration Rate 95 mL/min (>60); Est Glom Filt Rate - Afr Amer 115 mL/min (>60); Globulin 3.5 g/dL (2.2-4.2); Glucose 99 mg/dL (74-106); Potassium 4.2 mmol/L (3.5-5.1); Protein, Total 6.8 g/dL (6.4-8.2); Sodium Level 133 mmol/L (136-145)
== END | disposition home or self-care (01) ==
LOC: BIMLAB 14:35
PROVIDERS: PCP Family Medicine; Referring Provider Internal Medicine Cardiovascular Disease; Visit Provider Internal Medicine Cardiovascular Disease
DX: I11.0 Hypertensive heart disease with heart failure (principal); I50.20 Unspecified systolic (congestive) heart failure; I48.0 Paroxysmal atrial fibrillation; I42.9 Cardiomyopathy, unspecified; I77.9 Disorder of arteries and arterioles, unspecified; E78.5 Hyperlipidemia, unspecified
CPT/HCPCS: 36415; 80053; 84443

== ENCOUNTER → 2024-08-15 | Outpatient (CLI) | payer MEDICARE, SELFPAY ==
--- NOTE | 2024-08-15 14:50 | CT_ITS ---
INDICATION: Hypertension, history of smoking EXAMINATION: CT CHEST WITH CONTRAST - CT Chest W/ Contrast Injection TECHNIQUE: Helically acquired images were obtained of the chest following IV contrast. A radiation dose optimization technique was used for this scan. IV Contrast dosage and agent: 100 mL history 300 contrast COMPARISON: 6 05/15/2024. FINDINGS: LUNGS, PLEURA AND LARGE AIRWAYS: Lung windows show underlying emphysema with emphysematous blebs noted throughout both lung polk particular in the apices. Stable nonspecific pleural thickening noted in both hemithoraces. There is persistent collapse of the right middle lobe is stable consolidation along its posterior medial aspect. Stable fibrotic scarring in the right lower lobe with persistent pericardial effusion. The effusion has decreased in size since the previous study however. Left lung is free of a superimposed infiltrate or effusion. There is subtle lingular scarring and is stable calcified granuloma in the left lung base. Overall, there is no interval change since the previous study. THYROID: No thyroid lesions. HEART AND PERICARDIUM: Heart size is normal. No pericardial effusion. Calcified coronary vessels noted. VESSELS: Thoracic aorta is not dilated. No aortic dissection. No obvious central pulmonary embolism although this study was not performed with the pulmonary embolism protocol. MEDIASTINUM AND REGINA: No mediastinal or hilar adenopathy. Esophagus is unremarkable. No hiatal hernia. UPPER ABDOMEN: No acute pathology. BONES: No suspicious lytic or blastic abnormality. Bony structures show degenerative change CT/Chest WITH Contrast IMPRESSION: Stable collapse of the right middle lobe with associated atelectasis and fibrotic scarring in the right lung base. Persistent but smaller right pleural effusion when compared to the previous study. No new suspicious noncalcified mass or nodule. No organized infiltrate or effusion. Underlying emphysema No suspicious adenopathy Electronically Signed: Adonay Santana MD at 15:36 EDT ,
[2024-08-15 16:58] LABS: Anion Gap 6 (5-15); BUN 10 mg/dL (7-18); Calcium,Total 8.5 mg/dL (8.5-10.1); Chloride 94 mmol/L (98-107); Creatinine, Serum 0.67 mg/dL (0.55-1.02); EST Glomerular Filtration Rate 92 mL/min (>60); Est Glom Filt Rate - Afr Amer 111 mL/min (>60); Glucose 93 mg/dL (74-106); Potassium 3.6 mmol/L (3.5-5.1); Sodium Level 130 mmol/L (136-145)
== END | disposition home or self-care (01) ==
LOC: CT 14:48 → LAB 15:26
PROVIDERS: PCP Family Medicine; Referring Provider Nurse Practitioner Acute Care; Visit Provider Nurse Practitioner Acute Care
DX: R91.8 Other nonspecific abnormal finding of lung field (principal)
CPT/HCPCS: 36415; 71260; 80048; Q9967

== ENCOUNTER → 2024-11-27 | Outpatient (CLI) | payer MEDICARE, SELFPAY ==
[2024-11-27 16:00] LABS: Platelet Count 251 K/mm3 (150-450)
[2024-11-27 16:17] LABS: Partial Thromboplast Time 35.2 Seconds (24.1-36.2)
[2024-11-27 16:43] LABS: Prothrombin Time (Protime)PT. 13.3 SECONDS (11.7-14.9)
[2024-11-29 09:28] LABS: ALB/GLOB Ratio 1.3 RATIO (0.9-2.4); AST(SGOT) 24 U/L (15-37); Alanine Aminotransfer ALT/SGPT 31 U/L (13-56); Albumin, Serum 3.6 g/dL (3.2-5.0); Alkaline Phosphatase 55 U/L (45-117); Anion Gap 6 (5-15); BUN 13 mg/dL (7-18); Calcium,Total 9.4 mg/dL (8.5-10.1); Chloride 93 mmol/L (98-107); Creatinine, Serum 0.81 mg/dL (0.55-1.02); EST Glomerular Filtration Rate 73 mL/min (>60); Est Glom Filt Rate - Afr Amer 88 mL/min (>60); Globulin 2.8 g/dL (2.2-4.2); Glucose 97 mg/dL (74-106); Potassium 4.6 mmol/L (3.5-5.1); Protein, Total 6.4 g/dL (6.4-8.2); Sodium Level 133 mmol/L (136-145)
== END | disposition home or self-care (01) ==
LOC: BIMLAB 14:16
PROVIDERS: Nurse Practitioner Family; PCP Family Medicine; Referring Provider Family Medicine; Visit Provider Family Medicine
DX: R06.02 Shortness of breath (principal); I10 Essential (primary) hypertension
CPT/HCPCS: 36415; 80053; 85049; 85610; 85730

== ENCOUNTER 2024-12-01 10:55 | Day surgery (SDC) | payer MEDICARE, SELFPAY ==
--- NOTE | 2024-11-29 14:03 | PAT.ANE_ITS ---
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 When Was Last Pacemaker Check QUESTION #4 FULL TEXT: You/Your Family Experience fever (hyperthermia) with Anesthesia Last Oral Intake Last Oral intake: Last Oral Intake NPO since Meds taken in AM with sips of water? 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 Female Yes 11/29/24 12:01 HX of Motion Sickness No 11/29/24 12:01 HX of N/V After Surgery No 11/29/24 12:01 Non-Smoker No 11/29/24 12:01 Duration of Surgery greater No 11/29/24 12:01 than 60 minutes Number of Risk Factors 1 11/29/24 12:01 PONV Score Low Risk 11/29/24 12:01 Height & Weight Height & Weight: Anesthesia: Height & Weight Height 5 ft 4 in 11/08/24 13:22 Respiratory Assessment Respiratory Assessment - construction ironworker: Respiratory Tract Infection Hx - construction 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 Has anyone observed you stop No 11/29/24 12:01 breathing during sleep? STOP Results Negative 11/29/24 12:01 QUESTION #5 FULL TEXT : Do you snore loudly (louder than talking or can be heard through closed doors)? 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 Specify any problems Hx of Preganancy in last 3 No 11/29/24 12:01 Months Nurse Filling Out Transfusion VLEHMAN 11/29/24 12:01 & Questions: Date: 11/29/24 11/29/24 12:01 Time: 12:17 11/29/24 12:01 Patient unable to answer at this time (ie. 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: /Reproductive Hx- construction ironworker Hx Now No 11/29/24 12:01 Gestational Age (in weeks): EDC: Hx Hx Para Hx Section SAB No 05/13/21 11:19 PFSH Medical History Wears glasses History of Clostridium difficile infection Alcohol use Bruising Walker as ambulation aid Ambulates with cane Bladder disease Excessive bleeding Easy bruising Migraine headache Syncope On home oxygen therapy Chronic cough Shortness of breath on exertion Asthma Restless legs History of echocardiogram History of CHF (congestive heart failure) Cardiology follow-up encounter History of atrial fibrillation Stenosis of left subclavian artery Encounter for examination of blood pressure with abnormal findings COPD with asthma HFrEF (heart failure with reduced ejection fraction) Hilar mass Abnormal EKG Nicotine dependence Carotid artery disease Dyslipidemia Hypertension Cardiomyopathy Paroxysmal atrial fibrillation Hyperlipidemia Contact with and (suspected) exposure to other viral communicable diseases Fever and chills Systolic dysfunction with heart failure Hyperglycemia Atrial fibrillation with rapid ventricular response Acute hyponatremia CHF (congestive heart failure) Atrial fibrillation Arrhythmia Shortness of breath Bilateral lower extremity edema Leg edema Foot pain, left Fatigue Annual physical exam Right carotid bruit Exposure to COVID-19 virus Hypoxia Acute UTI Debility Anxiety Dyspnea High cholesterol History of stress test Closed right hip fracture Post-menopausal Smoker Alcohol abuse Glaucoma Bone fracture Arthritis History of pneumonia Osteoporosis COPD (chronic obstructive pulmonary disease) Frequent headaches Seasonal allergies Home Medications ?Medication ?Instructions ?Recorded ?Last Taken ?Type loratadine 10 mg tablet (Claritin) 5 mg PO PRN PRN all ergies 02/17/19 Unknown History multivitamin 1 cap PO DAILY supplement 05/04/21 History Bifidobacterium infantis 4 mg 4 mg PO DAILY probiotic 05/05/21 05/04/21 History capsule (Align (B.infantis)) biotin 2,500 mcg capsule 2,500 mcg PO DAILY supplemen t 10/29/22 Unknown History albuterol sulfate 90 mcg/actuation 1 puff inhalation Q 6H PRN 01/18/24 Unknown Rx aerosol inhaler (ProAir HFA) shortness of breath #18 g cj denosumab 60 mg/mL subcutaneous 60 mg subcut [id number] bone health 04/20/24 Unknown Rx syringe (Prolia) #1 mL metoprolol succinate 100 mg 100 mg PO DAILY #90 tabs 0 06/23/24 Unknown Rx tablet,extended release 24 hr calcium carbonate (Antacid 600 mg PO DAILY PRN Indiges tion 07/05/24 Unknown History (calcium carbonate)) phenylephrin 5 mg-DM 10 2 tab PO BID PRN cold sympto ms 07/05/24 Unknown History mg-acetaminophen 325 mg-guaifen 200 mg capsule (Mucinex Fast-Max Cold-Flu) amiodarone 100 mg tablet 100 mg PO QDAY #90 tabs 06/26 01/15 Unknown Rx lisinopril 40 mg tablet 40 mg PO QDAY #90 tabs 07/17 Unknown Rx empagliflozin 10 mg tablet 10 mg PO DAILY #90 tabs 12/1811/28/24 Rx (Jardiance) tiotropium bromide 2.5 2 puff inhalation DAILY COPD #12 07/26/24 Unknown Rx mcg/actuation mist for inhalation grams (Spiriva Respimat) furosemide 40 mg tablet (Lasix) 40 mg PO DAILY #90 tab s 08/29/24 Unknown Rx potassium chloride 20 mEq 20 meq PO DAILY #90 tabs 03/17 Unknown Rx tablet,extended release(part/cryst) (Klor-Con M) budesonide-formoterol HFA 160 2 inh inhalation Q12H CO PD #30.6 09/12/24 Unknown Rx mcg-4.5 mcg/actuation aerosol grams inhaler (Symbicort) apixaban 5 mg tablet (Eliquis) 5 mg PO BID blood thinn er #180 tabs 09/15/24 11/28/24 Rx clonidine HCl 0.1 mg tablet 0.1 mg PO BID #180 tabs Unknown Rx cholecalciferol (vitamin D3) 125 5,000 unit PO DAILY v itamin #90 10/05/24 Unknown Rx mcg (5,000 unit) capsule caps pantoprazole 20 mg tablet,delayed 20 mg PO DAILY #90 t abs 10/05/24 Unknown Rx release atorvastatin 40 mg tablet 40 mg PO QHS #90 tabs Unknown Rx mirabegron 50 mg tablet,extended 50 mg PO DAILY bladde r #90 tabs 11/28/24 Unknown Rx release 24 hr (Myrbetriq) Allergy/AdvReac Type Severity Reaction Status Date / Time clindamycin Allergy Severe c diff Verified 11/29/24 11:54 Seasonal Allergies: Uncoded Allergy Intermediate Itching Verified 11/29/24 11:54 Environmental Allergies: Allergy Rash Verified 11/29/24 11:54 Uncoded Family History Mother Myocardial infarction Hyperlipemia Father Myocardial infarction Hyperlipemia Other Arthritis Breast cancer CVA (cerebral vascular accident) Osteoporosis Thyroid disorder Surgical History History of cataract surgery (~2020) Normal colonoscopy History of hip replacement History of tonsillectomy Social History household members: spouse housing: house current occupational status: retired pets and animals: No Smoking Status: Current every day smoker tobacco type: cigarettes alcohol intake: current alcohol intake frequency: 0-2 drinks per day Alcohol type: hard liquor substance use type: does not use what type of physical activity do you participate in: none Audit: Pertinent Findings Pertinent Findings EKG Perinent findings: 06/05/2023 normal sinus rhythm 74 bpm left atrial enlargement incomplete left bundle branch block LVH with nonspecific ST abnormality Stress test pertinent findings: 07/20/2023 fixed defect apex inferior wall which may suggest prior nontransmural infarct versus attenuation defect no reversible ischemia EF 43% Echo (EF%) pertinent findings: 02/03/2024 EF 50% atrium mildly enlarged Consult pertinent findings: PFT 08/11/2023 due to diagnosis of COPD partially reversible moderate to severe large airway obstructive ventilatory defect Pulmonary function results/spirometer pertinent findings: Cardiology visit 07/05/2024 paroxysmal A-fib stable cardiomyopathy chronic ejection fraction 50% recovered from previous echocardiogram CHF chronic class II continue lisinopril metoprolol furosemide Jardiance COPD D chronic FEV1 52% predicted stenosis carotid 69% being followed by vascular surgery stenosis left subclavian artery currently patent and asymptomatic Recommendation Anesthesia Recommendation Anesthesia recommendation: OPTIMIZED for anesthesia
--- NOTE | 2024-11-30 10:56 | PCM.HP.STD ---
HPI - General HPI Narrative The patient is a 74-year-old female who was previously under the care of Dr. Simon in the pulmonary medicine clinic due to a history of COPD and right middle lobe collapse. The patient has demonstrated right middle lobe collapse on multiple CT scans dating back for quite some time. However, no form of airway evaluation or bronchoscopy has ever been performed. The patient is currently being maintained on a triple therapy inhaler regimen. Her last CT imaging was completed in July 2024 and demonstrated a stable collapse of the right middle lobe with associated atelectasis and fibrotic scarring in the right lung base. In light of this persistent finding on chest imaging, the recommendation was made to proceed with airway evaluation, given the persistent right middle lobe collapse. [facility] Medical History Wears glasses History of Clostridium difficile infection Alcohol use Bruising Walker as ambulation aid Ambulates with cane Bladder disease Excessive bleeding Easy bruising Migraine headache Syncope On home oxygen therapy Chronic cough Shortness of breath on exertion Asthma Restless legs History of echocardiogram History of CHF (congestive heart failure) Cardiology follow-up encounter History of atrial fibrillation Stenosis of left subclavian artery Encounter for examination of blood pressure with abnormal findings COPD with asthma HFrEF (heart failure with reduced ejection fraction) Hilar mass Abnormal EKG Nicotine dependence Carotid artery disease Dyslipidemia Hypertension Cardiomyopathy Paroxysmal atrial fibrillation Hyperlipidemia Contact with and (suspected) exposure to other viral communicable diseases Fever and chills Systolic dysfunction with heart failure Hyperglycemia Atrial fibrillation with rapid ventricular response Acute hyponatremia CHF (congestive heart failure) Atrial fibrillation Arrhythmia Shortness of breath Bilateral lower extremity edema Leg edema Foot pain, left Fatigue Annual physical exam Right carotid bruit Exposure to COVID-19 virus Hypoxia Acute UTI Debility Anxiety Dyspnea High cholesterol History of stress test Closed right hip fracture Post-menopausal Smoker Alcohol abuse Glaucoma Bone fracture Arthritis History of pneumonia Osteoporosis COPD (chronic obstructive pulmonary disease) Frequent headaches Seasonal allergies Home Medications ?Medication ?Instructions ?Recorded ?Last Taken ?Type loratadine 10 mg tablet (Claritin) 5 mg PO PRN PRN allergies 02/17/19 Unknown History multivitamin 1 cap PO DAILY supplement 02/17/19 05/04/21 History Bifidobacterium infantis 4 mg 4 mg PO DAILY probiotic 05/05/21 05/04/21 History capsule (Align (B.infantis)) biotin 2,500 mcg capsule 2,500 mcg PO DAILY supplement 10/29/22 Unknown History albuterol sulfate 90 mcg/actuation 1 puff inhalation Q6H PRN 01/18/24 Unknown Rx aerosol inhaler (ProAir HFA) shortness of breath #18 grams denosumab 60 mg/mL subcutaneous 60 mg subcut [id number] bone health 04/20/24 Unknown Rx syringe (Prolia) #1 mL metoprolol succinate 100 mg 100 mg PO DAILY #90 tabs 06/23/24 Unknown Rx tablet,extended release 24 hr calcium carbonate (Antacid 600 mg PO DAILY PRN Indigestion 07/05/24 Unknown History (calcium carbonate)) phenylephrin 5 mg-DM 10 2 tab PO BID PRN cold symptoms 07/05/24 Unknown History mg-acetaminophen 325 mg-guaifen 200 mg capsule (Mucinex Fast-Max Cold-Flu) amiodarone 100 mg tablet 100 mg PO QDAY #90 tabs 07/17/24 Unknown Rx lisinopril 40 mg tablet 40 mg PO QDAY #90 tabs 07/17/24 Unknown Rx empagliflozin 10 mg tablet 10 mg PO DAILY #90 tabs 07/26/24 11/28/24 Rx (Jardiance) tiotropium bromide 2.5 2 puff inhalation DAILY COPD #12 07/26/24 Unknown Rx mcg/actuation mist for inhalation grams (Spiriva Respimat) furosemide 40 mg tablet (Lasix) 40 mg PO DAILY #90 tabs 08/29/24 Unknown Rx potassium chloride 20 mEq 20 meq PO DAILY #90 tabs 08/29/24 Unknown Rx tablet,extended release(part/cryst) (Klor-Con M) budesonide-formoterol HFA 160 2 inh inhalation Q12H COPD #30.6 09/12/24 Unknown Rx mcg-4.5 mcg/actuation aerosol grams inhaler (Symbicort) apixaban 5 mg tablet (Eliquis) 5 mg PO BID blood thinner #180 tabs 09/15/24 11/28/24 Rx clonidine HCl 0.1 mg tablet 0.1 mg PO BID #180 tabs 09/25/24 Unknown Rx cholecalciferol (vitamin D3) 125 5,000 unit PO DAILY vitamin #90 10/05/24 Unknown Rx mcg (5,000 unit) capsule caps pantoprazole 20 mg tablet,delayed 20 mg PO DAILY #90 tabs 10/05/24 Unknown Rx release atorvastatin 40 mg tablet 40 mg PO QHS #90 tabs 10/31/24 Unknown Rx mirabegron 50 mg tablet,extended 50 mg PO DAILY bladder #90 tabs 11/28/24 Unknown Rx release 24 hr (Myrbetriq) Allergy/AdvReac Type Severity Reaction Status Date / Time clindamycin Allergy Severe c diff Verified 11/29/24 11:54 Seasonal Allergies: Uncoded Allergy Intermediate Itching Verified 11/29/24 11:54 Environmental Allergies: Allergy Rash Verified 11/29/24 11:54 Uncoded Family History Mother Myocardial infarction Hyperlipemia Father Myocardial infarction Hyperlipemia Other Arthritis Breast cancer CVA (cerebral vascular accident) Osteoporosis Thyroid disorder Surgical History History of cataract surgery (~2020) Normal colonoscopy History of hip replacement History of tonsillectomy Social History household members: spouse housing: house current occupational status: retired pets and animals: No Smoking Status: Current every day smoker tobacco type: cigarettes alcohol intake: current alcohol intake frequency: 0-2 drinks per day Alcohol type: hard liquor substance use type: does not use what type of physical activity do you participate in: none ROS ROS Narrative 10 systems were reviewed with pertinent positives as noted in the HPI. Physical Exam Const alert and no apparent distress General Appearance: cooperative HEENT normocephalic and head/scalp atraumatic Eyes PERRL and EOMs intact bilaterally Neck supple General: trachea midline Resp normal respiratory effort Resp Narrative: Increased AP diameter Auscultation: diminished lung sounds Cardio regular rate and regular rhythm GI normal to inspection, nondistended, normoactive bowel sounds Extremity no clubbing, cyanosis or edema Skin Lesions: no lesions Rashes: no rashes Neuro CN's II-XII intact bilaterally and no focal motor deficits Psych cooperative and affect normal Assessment & Plan Assessment/Plan (1) Abnormal chest CT: PLAN: The patient has demonstrated right middle lobe collapse on multiple CT scans of her chest. Therefore, I would recommend that we proceed with airway evaluation via bronchoscopy to evaluate for any endobronchial abnormalities and perform biopsies, if necessary. Risks and benefits of the proposed procedure were discussed with the patient in her office. Consent was obtained. Hold Eliquis for at least 2 days prior to the procedure.
--- NOTE | 2024-12-01 | FLU_PTH ---
PATIENT: PREET DERAS LOC: EN U#:[id number] AGE/SX: 74/F ROOM: RE12/01/[address]: Dr. Julián Banuelos DO : 1950 BED: DIS: 12/01/2024 SPEC #: [id number] RECD: 12/01/24 12:37 STATUS: MISA REAngie #: [id number] ANA: 12/01/24 00:[address]: Julián Banuelos DEPT: CYTOLOGY RECD BY: Aneesh Arceo ENTERED: 12/01/24 14:20 SP TYPE: Fluid OTHR DR: Dr. Clifford Banuelos DO Tissues: Right middle lobe of lung, NOS Procedures: Special Stain Group II Special Stain Group I Surgery Specimen Level IV AFB Stain (control) GMS Stain (control) Cytospin Fluid HEADER OPERATION: Bronchoscopy PRE-OP DIAGNOSIS: Abnormal chest CT TISSUE SUBMITTED: Right middle lobe fluid for cytology DIAGNOSIS CYTOLOGY Right middle lobe fluid for cytology (cytospins and cellblock): Negative for malignant cells. See comment. 12/04/2024 COMMENT Numerous organisms consistent with bacteria are also noted. Special stain for acid fast bacilli is negative for organisms; matched controls are appropriate. Special stain for fungi is positive for organisms (yeast and pseudohyhpae) consistent with Nano species; matched control is appropriate. The findings may represent contaminants from mouth. Clinical correlation and appropriate follow up are necessary. CYTOLOGY STUDY Slides are reviewed. CYTOLOGY GROSS Received is 2 ml of cloudy-mucoidy opaque fluid labeled with the patient's name and and designated per the requisition as Right middle lobe fluid. Submitted for cytology preparation including cell block. Mr 12/01/2024 TC:5 CPT: 02315,71847 ,[id number]
--- NOTE | 2024-12-01 11:15 | PCM.PRE.AN2 ---
ASA Classification* ASA Classification ASA Classification: 3 Assessment & Plan Anesthesia* Anesthesia Assessment Anesthesia Assessment: Discussed sedation and/or anesthesia options, risks, benefits, and alternatives with patient/parents/legal guardian/POA. Questions invited. The patient/parents/legal guardian/POA seems to understand and agrees to proceed with anesthesia plan. Reviewed the physical assessment, medical history, allergy history and patient home medications list prior to surgery/procedure/anesthetic and documented any changes. Performed airway and anesthesia risk assessments. Anesthesia Type Anesthesia Type: MAC Anesthesia Focused Assessment* Airway Assessment Mouth opens: >3 cm Mallampati Score: II Focused Labs Anesthesia Preop lab: CBC WBC 7.6 K/mm3 (4.4-11.0) 09/08/23 15:17 09/08/23 RBC 5.32 M/mm3 (4.2-5.4) 09/08/23 15:17 09/08/23 Hgb 16.2 g/dL (12.0-15.0) H 09/08/23 15:17 09/08/23 Hct 49.7 % (37-47) H 09/08/23 15:17 09/08/23 Plt Count 251 K/mm3 (150-450) 11/27/24 14:16 11/27/24 CHEMISTRY Potassium 4.6 mmol/L (3.5-5.1) 11/27/24 14:16 11/27/24 Sodium 133 mmol/L (136-145) L 11/27/24 14:16 11/27/24 Magnesium 2.2 mg/dL (1.6-2.6) 06/10/23 10:28 06/10/23 Phosphorus 4.4 mg/dL (2.5-4.9) 06/07/23 05:30 06/07/23 BUN 13 mg/dL (7-18) 11/27/24 14:16 11/27/24 Creatinine 0.81 mg/dL (0.55-1.02) 11/27/24 14:16 11/27/24 Glucose 97 mg/dL (74-106) 11/27/24 14:16 11/27/24 TSH 1.430 uIU/mL (0.358-3.740) 07/14/24 14:36 07/14/24 COAG PT 13.3 SECONDS (11.7-14.9) 11/27/24 14:16 11/27/24 Pre-Assessment Diagnosis/Proposed Procedure Planned Operative Procedure(s): BRONCHOSCOPY Anesthesia History 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 When Was Last Pacemaker Check QUESTION #4 FULL TEXT: You/Your Family Experience fever (hyperthermia) with Anesthesia Last Oral Intake Last Oral intake: Last Oral Intake NPO since Meds taken in AM with sips of water? Meds patient instructed to take am of surgery PONV PONV - design engineering manager: PONV - design engineering manager Female Yes 11/29/24 12:01 HX of Motion Sickness No 11/29/24 12:01 HX of N/V After Surgery No 11/29/24 12:01 Non-Smoker No 11/29/24 12:01 Duration of Surgery greater No 11/29/24 12:01 than 60 minutes Number of Risk Factors 1 11/29/24 12:01 PONV Score Low Risk 11/29/24 12:01 Height & Weight Height & Weight: Anesthesia: Height & Weight Height 5 ft 4 in 11/28/24 15:20 Respiratory Assessment Respiratory Assessment - design engineering manager: Respiratory Tract Infection Hx - design engineering manager Hx Respiratory Tract Infection No 11/29/24 12:01 STOP Sleep Apnea STOP Sleep Apnea - design engineering manager: STOP Sleep Apnea - design engineering manager Hx Hypertension Yes 11/29/24 12:01 Hx Sleep Apnea No 11/29/24 12:01 CPAP BIPAP Do you snore loudly (louder No 11/29/24 12:01 than talking or can be heard Do you often feel tired/ No 11/29/24 12:01 fatigued/ sleepy during daytime? Has anyone observed you stop No 11/29/24 12:01 breathing during sleep? STOP Results Negative 11/29/24 12:01 QUESTION #5 FULL TEXT : Do you snore loudly (louder than talking or can be heard through closed doors)? 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 Specify any problems Hx of Preganancy in last 3 No 11/29/24 12:01 Months Nurse Filling Out Transfusion VLEHMAN 11/29/24 12:01 & Questions: Date: 11/29/24 11/29/24 12:01 Time: 12:17 11/29/24 12:01 Patient unable to answer at this time (ie. confused, unrespo /Reproduction History /Reproductive History - design engineering manager: /Reproductive Hx- design engineering manager Hx Now No 11/29/24 12:01 Gestational Age (in weeks): EDC: Hx Hx Para Hx Section SAB No 05/13/21 11:19 PFSH Medical History Wears glasses History of Clostridium difficile infection Alcohol use Bruising Walker as ambulation aid Ambulates with cane Bladder disease Excessive bleeding Easy bruising Migraine headache Syncope On home oxygen therapy Chronic cough Shortness of breath on exertion Asthma Restless legs History of echocardiogram History of CHF (congestive heart failure) Cardiology follow-up encounter History of atrial fibrillation Stenosis of left subclavian artery Encounter for examination of blood pressure with abnormal findings COPD with asthma HFrEF (heart failure with reduced ejection fraction) Hilar mass Abnormal EKG Nicotine dependence Carotid artery disease Dyslipidemia Hypertension Cardiomyopathy Paroxysmal atrial fibrillation Hyperlipidemia Contact with and (suspected) exposure to other viral communicable diseases Fever and chills Systolic dysfunction with heart failure Hyperglycemia Atrial fibrillation with rapid ventricular response Acute hyponatremia CHF (congestive heart failure) Atrial fibrillation Arrhythmia Shortness of breath Bilateral lower extremity edema Leg edema Foot pain, left Fatigue Annual physical exam Right carotid bruit Exposure to COVID-19 virus Hypoxia Acute UTI Debility Anxiety Dyspnea High cholesterol History of stress test Closed right hip fracture Post-menopausal Smoker Alcohol abuse Glaucoma Bone fracture Arthritis History of pneumonia Osteoporosis COPD (chronic obstructive pulmonary disease) Frequent headaches Seasonal allergies Home Medications ?Medication ?Instructions ?Recorded ?Last Taken ?Type loratadine 10 mg tablet (Claritin) 5 mg PO PRN PRN allergies 02/17/19 Unknown History multivitamin 1 cap PO DAILY supplement 02/17/19 05/04/21 History Bifidobacterium infantis 4 mg 4 mg PO DAILY probiotic 05/05/21 05/04/21 History capsule (Align (B.infantis)) biotin 2,500 mcg capsule 2,500 mcg PO DAILY supplement 10/29/22 Unknown History albuterol sulfate 90 mcg/actuation 1 puff inhalation Q6H PRN 01/18/24 Unknown Rx aerosol inhaler (ProAir HFA) shortness of breath #18 grams denosumab 60 mg/mL subcutaneous 60 mg subcut [id number] bone health 04/20/24 Unknown Rx syringe (Prolia) #1 mL metoprolol succinate 100 mg 100 mg PO DAILY #90 tabs 06/23/24 Unknown Rx tablet,extended release 24 hr calcium carbonate (Antacid 600 mg PO DAILY PRN Indigestion 07/05/24 Unknown History (calcium carbonate)) phenylephrin 5 mg-DM 10 2 tab PO BID PRN cold symptoms 07/05/24 Unknown History mg-acetaminophen 325 mg-guaifen 200 mg capsule (Mucinex Fast-Max Cold-Flu) amiodarone 100 mg tablet 100 mg PO QDAY #90 tabs 07/17/24 Unknown Rx lisinopril 40 mg tablet 40 mg PO QDAY #90 tabs 07/17/24 Unknown Rx empagliflozin 10 mg tablet 10 mg PO DAILY #90 tabs 07/26/24 11/28/24 Rx (Jardiance) tiotropium bromide 2.5 2 puff inhalation DAILY COPD #12 07/26/24 Unknown Rx mcg/actuation mist for inhalation grams (Spiriva Respimat) furosemide 40 mg tablet (Lasix) 40 mg PO DAILY #90 tabs 08/29/24 Unknown Rx potassium chloride 20 mEq 20 meq PO DAILY #90 tabs 08/29/24 Unknown Rx tablet,extended release(part/cryst) (Klor-Con M) budesonide-formoterol HFA 160 2 inh inhalation Q12H COPD #30.6 09/12/24 Unknown Rx mcg-4.5 mcg/actuation aerosol grams inhaler (Symbicort) apixaban 5 mg tablet (Eliquis) 5 mg PO BID blood thinner #180 tabs 09/15/24 11/28/24 Rx clonidine HCl 0.1 mg tablet 0.1 mg PO BID #180 tabs 09/25/24 Unknown Rx cholecalciferol (vitamin D3) 125 5,000 unit PO DAILY vitamin #90 10/05/24 Unknown Rx mcg (5,000 unit) capsule caps pantoprazole 20 mg tablet,delayed 20 mg PO DAILY #90 tabs 10/05/24 Unknown Rx release atorvastatin 40 mg tablet 40 mg PO QHS #90 tabs 10/31/24 Unknown Rx mirabegron 50 mg tablet,extended 50 mg PO DAILY bladder #90 tabs 11/28/24 Unknown Rx release 24 hr (Myrbetriq) Allergy/AdvReac Type Severity Reaction Status Date / Time clindamycin Allergy Severe c diff Verified 12/01/24 11:16 Seasonal Allergies: Uncoded Allergy Intermediate Itching Verified 12/01/24 11:16 Environmental Allergies: Allergy Rash Verified 12/01/24 11:16 Uncoded Family History Mother Myocardial infarction Hyperlipemia Father Myocardial infarction Hyperlipemia Other Arthritis Breast cancer CVA (cerebral vascular accident) Osteoporosis Thyroid disorder Surgical History History of cataract surgery (~2020) Normal colonoscopy History of hip replacement History of tonsillectomy Social History household members: spouse housing: house current occupational status: retired pets and animals: No Smoking Status: Current every day smoker tobacco type: cigarettes alcohol intake: current alcohol intake frequency: 0-2 drinks per day Alcohol type: hard liquor substance use type: does not use what type of physical activity do you participate in: none Review of Systems (Anesthesia) ROS Narrative System reviewed and no additional complaints, except as documented.
[2024-12-01 11:25] VITALS: BP 178/52; PULSE 61; RESP 14; TEMP 36.4; O2SAT 97; BMI 22.3
[2024-12-01] MEDS: Lidocaine 2% (5ml sdv) 5 ML VIAL.MPF (12:18)
[2024-12-01] MEDS: Lidocaine Jelly 2% 20 ML Syringe (URO-JET) 1 APPLIC (12:18)
--- NOTE | 2024-12-01 12:29 | OP.BRONCH_ITS ---
Patient Name: Rhonda De La O Procedure Date: 12/01/2024 10:16 AM Date of : 1950 Age: 74 Procedure: Bronchoscopy Indications: Abnormal CT scan of chest Providers: Julián Banuelos MD Medicines: See the Anesthesia note for documentation of the administered medications Complications: No immediate complications Procedure: Pre-Anesthesia Assessment: - A History and Physical has been performed. Patient meds and allergies have been reviewed. The risks and benefits of the procedure and the sedation options and risks were discussed with the patient. All questions were answered and informed consent was obtained. Patient identification and proposed procedure were verified prior to the procedure by the physician and the nurse in the procedure room. Mental Status Examination: alert and oriented. Airway Examination: normal oropharyngeal airway. Respiratory Examination: clear to auscultation. CV Examination: normal. ASA Grade Assessment: II - A patient with mild systemic disease. After reviewing the risks and benefits, the patient was deemed in satisfactory condition to undergo the procedure. The anesthesia plan was to use monitored anesthesia care (MAC). Immediately prior to administration of medications, the patient was re-assessed for adequacy to receive sedatives. The heart rate, respiratory rate, oxygen saturations, blood pressure, adequacy of pulmonary ventilation, and response to care were monitored throughout the procedure. The physical status of the patient was re-assessed after the procedure. After I obtained informed consent, the scope was passed under direct vision. Throughout the procedure, the patient's blood pressure, pulse, and oxygen saturations were monitored continuously. The bronchoscope was introduced through the mouth and advanced to the tracheobronchial tree. The procedure was accomplished without difficulty. The patient tolerated the procedure well. Findings: The nasopharynx/oropharynx appears normal. The larynx appears normal. The vocal cords appear normal. The subglottic space is normal. The trachea is of normal caliber. The conor is sharp. The tracheobronchial tree of the left lung was examined to at least the first subsegmental level. Bronchial mucosa and anatomy in the left lung are normal; there are no endobronchial lesions, and no secretions. Right Lung Abnormalities: Purulent, thick secretions were found in the bronchus intermedius and in the right middle lobe. They were not obstructing the airway. The bronchoscope was advanced until wedged at the desired location for bronchoalveolar lavage. BAL was performed in the right middle lobe of the lung and sent for cell count, bacterial culture, viral smears & culture, and fungal & AFB analysis and cytology. 30 mL of fluid were instilled. 10 mL were returned. The return was cloudy. There were no mucoid plugs in the return fluid. There were no endobronchial lesions. Impression: - Abnormal CT scan of chest - The airway examination of the left lung was normal. - Purulent, thick secretions were found in the bronchus intermedius and in the right middle lobe. - Bronchoalveolar lavage was performed. Recommendation: - Await BAL results. Procedure Code(s): --- Professional --- 55295, Bronchoscopy, rigid or flexible, including fluoroscopic guidance, when performed; with bronchial alveolar lavage Diagnosis Code(s): --- Professional --- R93.89, Abnormal findings on diagnostic imaging of other specified body structures R09.89, Other specified symptoms and signs involving the circulatory and respiratory systems CPT copyright 2021 [employer]. All rights reserved. The codes documented in this report are preliminary and upon reinforcing iron and rebar workers review may be revised to meet current compliance requirements. DO Julián Joshi MD 12/01/2024 12:28:17 PM This report has been signed electronically. Number of Addenda: 0 Note Initiated On: 12/01/2024 10:16 AM
[2024-12-01 12:30] VITALS: BP 154/61; BP 163/64; BP 178/52; PULSE 61; PULSE 62; RESP 16; TEMP 37.1; O2SAT 100; O2SAT 97
--- NOTE | 2024-12-01 12:35 | PCM.POST.ANE ---
Anesthesia: Postop Eval I Current Vital Signs Temperature: 98.7 F Pulse Rate: 60 Blood Pressure: 154/61 Respiratory Rate: 14 Pulse Ox: 97 Oxygen Delivery Method: Room Air Assessment Airway patent: Yes Spontaneous unlabored respirations: Yes Mental status: Awake and Calm nausea: No Vomiting: No Anesthesia Complication: No Fluid Hydration Crystalloid volume administer (ml): 300 Total IV fluid infused: 300 Progress Note Anesthesia document: Postop Eval 1 completed: Yes
[2024-12-01 12:37] VITALS: BP 154/61; PULSE 60; RESP 14; TEMP 37.1; O2SAT 97
--- NOTE | 2024-12-01 12:38 | POSTOPAN2_ITS ---
Anesthesia Postop Eval I Sum Anesthesia Postop Eval I Summary Anesthesia Postop Eval I Summary: Anesthesia Postop Eval I: Assessment Summary Airway patent Yes 12/01/24 12:37 FACILITIES MANAGER.[email or web address] Spontaneous unlabored Yes 12/01/24 12:37 FACILITIES MANAGER.SMOR respirations Mental status Awake,Calm 12/01/24 12:37 FACILITIES MANAGER.SMOR nausea No 12/01/24 12:37 FACILITIES MANAGER.SMOR Vomiting No 12/01/24 12:37 FACILITIES MANAGER.SMOR Anesthesia Postop Eval I: Fluid Summary Crystalloid volume administer 300 12/01/24 12:37 FACILITIES MANAGER.SMOR (ml) Colloids volume administered ( ml) Blood Product volume administered (ml) Total IV fluid infused 300 12/01/24 12:37 FACILITIES MANAGER.SMOR Anesthesia Postop Eval I: Summary Notes Anesthesia Complication No 12/01/24 12:37 FACILITIES MANAGER.SMOR Anesthesia Complication Comment: Post-operative progress note Anesthesia: Postop Eval II Evaluation Mental status: Awake Pain Level: 0 nausea: No Vomiting: No Complications Anesthesia Complication: No
--- NOTE | 2024-12-01 12:38 | PCM.POSTANE2 ---
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.SMOR Anesthesia Postop Eval I: Fluid Summary Crystalloid volume administer 300 12/01/24 12:37 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
[2024-12-01 12:40] VITALS: BP 170/71; BP 178/52; PULSE 62; RESP 16; TEMP 36.3; O2SAT 97
[2024-12-01 13:10] LABS: Cytology, Body Fluid / CSF SEE PATHOLOGY REPORT
[2024-12-01 13:13] VITALS: BP 178/52
[2024-12-01 14:37] LABS: Source- Body Fluid BRONCHIAL LAVAGE
[2024-12-01 14:38] LABS: Appearance/Body Fluid CLOUDY; Color/Body Fluid COLORLESS
[2024-12-01 14:57] LABS: Red Cell Count/Body Fluid 372 /mm3; White Blood Count/Body Fluid 5045 /mm3
[2024-12-01 15:46] LABS: Body Fluid QC Type(s) 0207 BF1; Lymphocytes 5 %; Monocytes 1 %
[2024-12-01 15:55] LABS: Neutrophil (Segs) 94 %
[2024-12-04 13:36] LABS: Pathologist Comment/Body Fluid Reviewed
== END 2024-12-01 13:35 | disposition home or self-care (01) ==
LOC: EN 10:56 → AC 10:57
PROVIDERS: PCP Family Medicine; Referring Provider Internal Medicine Critical Care Medicine; Visit Provider Internal Medicine Critical Care Medicine
PROC: 0BJ08ZZ Inspection of Tracheobronchial Tree, Via Natural or Artificial Opening Endoscopic (ICD-10-PCS; CPT 31622; principal; 2024-12-01 11:45)
DX: R93.89 Abnormal findings on diagnostic imaging of other specified body structures (principal); I11.0 Hypertensive heart disease with heart failure; I50.22 Chronic systolic (congestive) heart failure; J44.9 Chronic obstructive pulmonary disease, unspecified; I48.91 Unspecified atrial fibrillation; Z79.01 Long term (current) use of anticoagulants; Z79.51 Long term (current) use of inhaled steroids; E78.00 Pure hypercholesterolemia, unspecified; F17.210 Nicotine dependence, cigarettes, uncomplicated; Z79.899 Other long term (current) drug therapy; Z96.649 Presence of unspecified artificial hip joint; R09.89 Other specified symptoms and signs involving the circulatory and respiratory systems
CPT/HCPCS: 31624; 87015; 87070; 87077; 87116; 87186; 87205; 87206; 88108; 88305; 88312; 88313; 89050; A4216

== ENCOUNTER → 2024-12-26 | Outpatient (CLI) | payer MEDICARE, SELFPAY ==
--- NOTE | 2024-12-26 13:33 | BD_ITS ---
PROCEDURE: DEXA BONE DENSITY/APPEND SKEL REASON FOR EXAM: F, age 74 y/o . Postmenopausal. TECHNIQUE: DEXA scan of both forearms COMPARISON: Comparison is made with prior study dated November 11, 2021. FINDINGS: Right Forearm: g/cm2 (0.380)/T-score (-3.7)/Z-score (-1.3) Left Forearm: g/cm2 (0.390)/T-score (-3.5)/Z-score (-1.1) BD/Dexa Bone Density/Append Skel IMPRESSION: The patient is considered osteoporotic as outlined below according to [employer] (WHO) criteria with a high fracture risk. Reading Location: [id number]
== END | disposition home or self-care (01) ==
LOC: OPBD 13:28
PROVIDERS: PCP Family Medicine; Referring Provider Family Medicine; Visit Provider Family Medicine
DX: M81.0 Age-related osteoporosis without current pathological fracture (principal)
CPT/HCPCS: 77081

== ENCOUNTER → 2025-01-19 | Outpatient (CLI) | payer MEDICARE, SELFPAY ==
--- NOTE | 2025-01-19 13:07 | CDU_ITS ---
Reason For Study Reason For Study: Carotid Stenosis Rt. Velocities/BP Lt. Velocities/BP Prox CCA 54.2/10.2 cm/sec. Prox CCA 73.1/16.0 cm/sec. Mid CCA 42.1/0.0 cm/sec. Mid CCA 69.6/11.3 cm/sec. Dist CCA 43.2/13.5 cm/sec. Dist CCA 58.6/12.4 cm/sec. Prox ICA 143.3/29.2 cm/sec. Prox ICA 165.3/35.8 cm/sec. Mid ICA 79.7/18.2 cm/sec. Mid ICA 103.5/22.5 cm/sec. Dist ICA 74.3/16.4 cm/sec. Dist ICA 92.5/23.7 cm/sec. Rt. ICA/CCA = 3.4. Lt. ICA/CCA = 2.4. Prox ECA 284.3/33.9 cm/sec. Prox ECA 154.3/13.8 cm/sec. Rt. Vert. 70.8/0.0 cm/sec. Right Extracranial There is heterogeneous, irregular atherosclerotic plaque noted in the right common carotid artery. There is heterogeneous, irregular atherosclerotic plaque noted in the right internal carotid artery. The atherosclerotic plaque causes acoustic shadowing. There is heterogeneous, irregular atherosclerotic plaque noted in the right external carotid artery. The atherosclerotic plaque causes acoustic shadowing. Antegrade flow is noted in the right vertebral artery. Left Extracranial There is heterogeneous, irregular atherosclerotic plaque noted in the left common carotid artery. There is heterogeneous, irregular atherosclerotic plaque noted in the left internal carotid artery. The atherosclerotic plaque causes acoustic shadowing. There is heterogeneous, irregular atherosclerotic plaque noted in the left external carotid artery. Retrograde flow is noted in the left vertebral artery. Procedure Carotid Duplex 61301. This is a Carotid Duplex examination using B-mode, color flow and specral Doppler. Exam performed in department. VL/Carotid Duplex Ultrasound Interpretation Summary Moderate (50-69%) stenosis right extracranial internal carotid. Moderate (50-69%) stenosis left extracranial internal carotid. The Right vertebral is patent and antegrade. The Left vertebral flow is retrograde. Ordering Physician: Amparo Mullins Referring Physician: Matias Banuelos M.D. Performed By: Maria E Hua RVT
--- NOTE | 2025-01-19 13:07 | ART_ITS ---
Reason For Study Reason For Study: PVD Procedure A bilateral lower extremity continuous wave Doppler with analog waveform analysis,segmental pressures,and ankle brachial indexes without exercise. Left Segmental Pressures Left brachial= 102mmHg. Left calf = 176mmHg. Left posterior tibial artery = 117mmHg. Left dorsalis pedis artery = 135mmHg. Left digit = 77 mmHg. The left dorsalis pedis waveforms are biphasic. The left posterior tibial artery waveforms are biphasic. Right Segmental Pressures Right brachial= 159mmHg. Right calf = 167mmHg. Right posterior tibial artery = 124mmHg. Right dorsalis pedis artery = 156mmHg. Right digit = 54 mmHg. The right dorsalis pedis waveforms are biphasic. The right posterior tibial artery waveforms are biphasic. Indices The right ankle brachial index by the dorsalis pedis is 0.98. The right ankle brachial index by the posterior tibial artery is 0.78. The right digital-brachial index is 0.34. The left ankle brachial index by the dorsalis pedis is 0.85. The left ankle brachial index by the posterior tibial artery is 0.74. The left digital-brachial index is 0.48. VL/Lower Ext Art Exam w/o Exercis Interpretation Summary Right DESTIN 0.98, mild arterial insufficiency. Doppler/PVR waveforms and segmenta l pressures reveal infrapopliteal disease Left DESTIN 0.85, moderate arterial insufficiency. Doppler/PVR waveforms and segme ntal pressures reveal infrapopliteal diease. Ordering Physician: Amparo Mullins Referring Physician: Matias Banuelos M.D. Performed By: TERESITA CONTRERAS T
[2025-01-19 14:56] LABS: Absolute Lymphocyte Count 1.42 X10^3/uL (0.83-4.51); Absolute Neutrophil Count 5.3 X10^3/uL (2.0-7.7); Basophil# 0.08 X10^3/uL; Basophil% 1.1 % (0-1); Eosinophil# 0.11 X10^3/uL; Eosinophils% 1.5 % (0-5); Hematocrit 45.8 % (37-47); Hemoglobin 15.3 g/dL (12.0-15.0); Lymphocyte # 1.42 X10^3/ul (0.83-4.51); Mean Corp Hgb Conc 33.4 g/dL (32-36); Mean Corpuscular Hgb 30.4 pg (27.0-32.0); Mean Corpuscular Volume 90.9 fL (81-99); Mean Platelet Vol. 8.8 fl (6.2-12.0); Monocyte# 0.58 X10^3/uL; Monocyte% 7.8 % (0-10); NRBC Flagged by Analyzer 0 % (0-5); Neutrophil # 5.26 X10^3/uL (2.7-7.7); Neutrophil % 70.2 % (47-70); Platelet Count 268 K/mm3 (150-450); RBC Distribution Width CV 13.6 % (11.6-14.6); RBC Distribution Width SD 45.5 fl (35.1-43.9); Red Blood Count 5.04 M/mm3 (4.2-5.4); White Blood Count 7.5 K/mm3 (4.4-11.0)
[2025-01-19 22:00] LABS: AST(SGOT) 24 U/L (<=31); Alanine Aminotransfer ALT/SGPT 21 U/L (<=34); Albumin, Serum 4.3 g/dL (3.4-4.8); Alkaline Phosphatase 70 U/L (35-104); Bilirubin, Direct 0.15 mg/dL (0.00-0.30); Cholesterol 197 mg/dL (<=200); Globulin 2.7 g/dL (2.2-4.2); High Density Lipoprotein 76 mg/dL; Low Density Lipoprotein Calc. 97 mg/dL; Total Bilirubin 0.31 mg/dL (0.00-1.30); Triglycerides 122 mg/dL; Very Low Density Lipoprotein 24 mg/dL (5-40)
== END | disposition home or self-care (01) ==
PROVIDERS: PCP Family Medicine; Referring Provider Physician Assistant; Visit Provider Physician Assistant
DX: I65.23 Occlusion and stenosis of bilateral carotid arteries (principal); Z86.39 Personal history of other endocrine, nutritional and metabolic disease; I73.9 Peripheral vascular disease, unspecified; E78.5 Hyperlipidemia, unspecified
CPT/HCPCS: 80061; 80076; 85025; 93880; 93923

== ENCOUNTER → 2025-02-05 | Outpatient (CLI) | payer MEDICARE, SELFPAY | END | disposition home or self-care (01) | LOC: PSN 13:06 | PROVIDERS: PCP Family Medicine; Referring Provider Nurse Practitioner Family; Visit Provider Nurse Practitioner Family | DX: J44.9 Chronic obstructive pulmonary disease, unspecified (principal) | CPT/HCPCS: 94060; 94726; 94729 ==

== ENCOUNTER → 2025-03-02 | Outpatient (CLI) | payer MEDICARE, SELFPAY ==
--- NOTE | 2025-03-02 14:04 | ECHOD_ITS ---
Reason For Study Reason For Study: CHF Procedure This was a 2D Doppler, Color Flow transthoracic echocardiogram. Exam performed in department. Left Ventricle Mild concentric left ventricular hypertrophy. Normal LV size. The LV systolic function is normal. EF is 65 %. Stage 1 diastolic dysfunction. Right Ventricle Normal right ventricle. Atria The left and right atria are normal. Mitral Valve Mild focal mitral valve calcification, bileaflet. Tricuspid Valve Trivial tricuspid valve insufficiency. Normal pulmonary artery pressure. Aortic Valve Trisinus/trileaflet aortic valve. Pulmonic Valve The pulmonic valve is not well visualized. Great Vessels Normal sized aortic root. Pericardium/Pleural No pericardial effusion. MMode/2D Measurements & Calculations LVIDd: 4.1 cm IVSd: 1.2 cm LVOT diam: 2.0 cm LVIDs: 3.1 cm LVPWd: 0.94 cm LVOT area: 3.1 cm2 RVDd: 2.4 cm FS: 24.3 % LAV(MOD-bp): 36.6 ml LVAd ap4: 23.3 cm2 SV(MOD-sp4): 41.9 ml LAV(MOD-bp) Indexed: 22.8 ml/m2 LVLd ap4: 7.6 cm SI(MOD-sp4): 26.1 ml/m2 LAV(MOD-sp2): 41.4 ml EDV(MOD-sp4): 59.8 ml LAV(MOD-sp4): 32.7 ml EDV(sp4-el): 60.9 ml LVAs ap4: 11.8 cm2 LVLs ap4: 6.7 cm ESV(MOD-sp4): 17.9 ml ESV(sp4-el): 17.4 ml EF(MOD-sp4): 70.1 % EF(sp4-el): 71.4 % SV(sp4-el): 43.5 ml LA A4 area: 13.6 cm2 LA dimension(2D): 3.2 cm RA A4 area: 13.0 cm2 Time Measurements MV dec time: 0.29 sec Doppler Measurements & Calculations MV E max cedric: 66.0 cm/sec Lat Peak E' Cedric: 6.8 cm/sec Med Peak E' Cedric: 5.1 cm/sec MV A max cedric: 73.3 cm/sec E/E' lat: 9.7 E/E' med: 13.1 MV E/A: 0.90 MV V2 max: 76.0 cm/sec Ao V2 max: 129.0 cm/sec MV max P.3 mmHg MV dec slope: 226.7 cm/sec2 Ao max P.7 mmHg MV V2 mean: 51.7 cm/sec Ao V2 mean: 82.2 cm/sec MV mean P.2 mmHg Ao mean P.2 mmHg MV V2 VTI: 28.9 cm Ao V2 VTI: 27.4 cm AV (velocity ratio): 0.86 MVA(VTI): 2.5 cm2 NADIA(I,D): 2.7 cm2 NADIA(V,D): 2.6 cm2 LV V1 max: 108.3 cm/sec SV(LVOT): 72.8 ml TR max cedric: 204.5 cm/sec LV V1 max P.7 mmHg TR max P.7 mmHg LV V1 mean P.3 mmHg LV V1 mean: 71.0 cm/sec LV V1 VTI: 23.7 cm ECHO/Echo Complete Interpretation Summary Mild concentric left ventricular hypertrophy. The LV systolic function is normal. EF is 65 %. Stage 1 diastolic dysfunction. Mild focal mitral valve calcification, bileaflet. Ordering Physician: Pablo Wong Referring Physician: Pablo Wong Performed By: Vonda Castillo RCS
== END | disposition home or self-care (01) ==
LOC: CVS 13:57
PROVIDERS: PCP Family Medicine; Referring Provider Internal Medicine Cardiovascular Disease; Visit Provider Internal Medicine Cardiovascular Disease
DX: R06.02 Shortness of breath (principal); I50.42 Chronic combined systolic (congestive) and diastolic (congestive) heart failure; I42.9 Cardiomyopathy, unspecified
CPT/HCPCS: 93306

== ENCOUNTER → 2025-08-10 | Outpatient (CLI) | payer MEDICARE, SELFPAY ==
--- NOTE | 2025-08-10 14:08 | CT_ITS ---
PROCEDURE: LOW DOSE CT LUNG SCREENING 08/10/2025 REASON FOR EXAM: SMOKER Patient has smoked 1/2 pack per day for 50+ years. TECHNIQUE: Procedure Code: CTLUNGSCREEN Modality: CT Procedure: LOW DOSE CT LUNG SCREENING Coronal and Sagittal reconstruction series were provided. One or more dose reduction techniques were used (e.g., Automated exposure control, adjustment of the mA and/or kV according to patient size, use of iterative reconstruction technique). REFERENCE LINK: [employer] Lung-RADS RADIATION DOSE SUMMARY: CTDlvol: 1.59 mGy DLP: 55.2 mGycm COMPARISON: None FINDINGS: PULMONARY NODULES: (Only nodules >3mm are reported) Nodules described below are on series 1 unless otherwise specified. Pulmonary Nodules: No suspicious pulmonary nodules seen. Calcified granuloma in the posterior lateral aspect of the left lower lobe. Hardware:None Lymph Nodes:No suspicious lymph nodes are seen. Heart and Vasculature:The heart is nonenlarged.Atherosclerotic calcifications of the thoracic aorta. Thoracic aorta and pulmonary arteries have normal contours; noncontrast technique limits evaluation. Coronary Artery Calcifications: Present Lungs and Airways: Emphysematous changes. Scarring at the lung apices as well as at the lung bases more prominent on the right side. Pleura:No pleural effusion. Upper Abdomen:Calcified splenic granulomas. Bones:Degenerative changes of the thoracic spine. CT/Low Dose CT Lung Screening IMPRESSION: No suspicious pulmonary nodule seen. Coronary artery calcification (CAC) is is present Lung-RADS Category: 2 BENIGN (BASED ON IMAGING FEATURES OR INDOLENT BEHAVIOR). RECOMMEND 12-MONTH SCREENING LDCT. Other Significant Findings: Reading Location: [place] [id number]
--- NOTE | 2025-08-10 14:08 | CT_ITS ---
PROCEDURE: LOW DOSE CT LUNG SCREENING 08/10/2025 REASON FOR EXAM: SMOKER Patient has smoked 1/2 pack per day for 50+ years. TECHNIQUE: Procedure Code: CTLUNGSCREEN Modality: CT Procedure: LOW DOSE CT LUNG SCREENING Coronal and Sagittal reconstruction series were provided. One or more dose reduction techniques were used (e.g., Automated exposure control, adjustment of the mA and/or kV according to patient size, use of iterative reconstruction technique). REFERENCE LINK: [employer] Lung-RADS RADIATION DOSE SUMMARY: CTDlvol: 1.59 mGy DLP: 55.2 mGycm COMPARISON: None FINDINGS: PULMONARY NODULES: (Only nodules >3mm are reported) Nodules described below are on series 1 unless otherwise specified. Pulmonary Nodules: No suspicious pulmonary nodules seen. Calcified granuloma in the posterior lateral aspect of the left lower lobe. Hardware:None Lymph Nodes:No suspicious lymph nodes are seen. Heart and Vasculature:The heart is nonenlarged.Atherosclerotic calcifications of the thoracic aorta. Thoracic aorta and pulmonary arteries have normal contours; noncontrast technique limits evaluation. Coronary Artery Calcifications: Present Lungs and Airways: Emphysematous changes. Scarring at the lung apices as well as at the lung bases more prominent on the right side. Pleura:No pleural effusion. Upper Abdomen:Calcified splenic granulomas. Bones:Degenerative changes of the thoracic spine. CT/Low Dose CT Lung Screening IMPRESSION: No suspicious pulmonary nodule seen. Coronary artery calcification (CAC) is is present Lung-RADS Category: 2 BENIGN (BASED ON IMAGING FEATURES OR INDOLENT BEHAVIOR). RECOMMEND 12-MONTH SCREENING LDCT. Other Significant Findings: Reading Location: [place] [id number]
== END | disposition home or self-care (01) ==
LOC: CT 13:58
PROVIDERS: PCP Family Medicine; Referring Provider Nurse Practitioner Acute Care; Visit Provider Nurse Practitioner Acute Care
DX: F17.210 Nicotine dependence, cigarettes, uncomplicated (principal)
CPT/HCPCS: 71271